=== PATIENT | male | born 1970 | race Caucasian/White ===

== ENCOUNTER 2019-07-24 14:24 | Emergency (ER) | payer MEDICARE, MEDICAID, SELFPAY ==
[2019-07-24 14:29] VITALS: BP 173/119; PULSE 128; RESP 16; TEMP 36.6; O2SAT 99; BMI 29.2
--- NOTE | 2019-07-24 14:39 | W.ED.BACK ---
Documented by User: JULIA Ackerman 07/29/19 07:04 HPI - Back Pain/Injury General: Chief Complaint: Back Pain/Injury Stated Complaint: BACK PAIN/V Time Seen by Provider: 07/24/19 14:39 Source: patient Mode of arrival: ambulatory Limitations: no limitations History of Present Illness: HPI Narrative: Patient is a 48-year-old male with a history of type 1 diabetes here for complaints of nausea/vomiting and back pain; patient states back pain began yesterday after he bent over and felt his back go out immediately ; reports his back will go out about once a year; he denies pain radiating into his lower extremities; denies numbness, tingling, loss of sensation, weakness, saddle anesthesia, urinary retention or bowel incontinence; he reports he has been hospitalized previously for the nausea and vomiting; complains of epigastric pain MD elicited complaint: back pain Pertinent past history: prior back pain Onset (ago): day(s) Timing: constant Severity: moderate Similar Symptoms Previously: Yes Radiation: none Exacerbating factors: movement, sitting upright and coughing/sneezing Relieving factors: none Context: bending Associated symptoms: Reports abdominal pain, nausea and vomiting; Deny chills, difficulty walking, dysuria, fever(s) or syncope Work related injury: No Review of Systems Const: Denies: fever, chills or body aches Eyes: Denies: change in vision or blurry vision Card: Denies: chest pain, palpitations, irregular heart rhythm, lightheadedness, syncope or shortness of breath on exertion Resp: Denies: shortness of breath, productive cough or pain on inspiration GI: Reports: abdominal pain, nausea, vomiting and heartburn/indigestion; Denies: vomiting blood, difficulty swallowing or diarrhea : Denies: difficulty urinating or painful urination Musc: Reports: back pain; Denies: neck pain, extremity pain, extremity swelling, joint pain, joint swelling, redness, joint warmth, joint stiffness, muscle cramps or muscle weakness Skin/Breast: Denies: rash Neuro: Denies: headache, numbness in extremities, weakness in extremities, changes in sensation, lack of coordination, difficulty walking, frequent falls or dizziness PFSH ED PFSH: Statuses (acute, chronic, etc) shown below reflect problem list status as previously entered and may not be historically accurate Social History Smoking and tobacco status: current every day smoker Physical Exam Const: COMMON NORMALS: average body habitus, oriented x3, no limitations, alert and well nourished GENERAL APPEARANCE: cooperative Neck/C-Spine: COMMON NORMALS: full ROM, no lymphadenopathy, supple and no meningeal signs Chest: COMMONS NORMALS: inspection of chest normal Resp: COMMON NORMALS: normal respiratory effort and clear to auscultation bilaterally AUSCULTATION: clear to auscultation bilaterally Cardio: COMMON NORMALS: regular rhythm RATE: tachycardic RHYTHM: regular rhythm GI: COMMON NORMALS: soft to palpation, no hepatosplenomegaly and no masses PALPATION: Yes soft, Yes tender (epigastric ) and Yes no hepatosplenomegaly Back/Pelvis: THORACIC SPINE/UPPER BACK: Yes normal to inspection, Yes thoracic ROM normal and No thoracic spinal tenderness LUMBAR SPINE/LOWER BACK: Yes lumbar spinal tenderness (mid-lower), No paraspinal muscle tenderness and No paraspinal muscle spasm Neuro: COMMON NORMALS: oriented x3 SENSORIUM/ORIENTATION: Yes alert MENINGEAL SIGNS: Yes no meningeal signs Skin: COMMON NORMALS: no rashes or lesions noted GENERAL SKIN EXAM: no rashes or lesions noted Course Vital Signs: Vital signs: Vital Signs Temperature 98.6 F 07/24/19 20:17 Pulse Rate 94 07/24/19 20:17 Respiratory Rate 16 07/24/19 20:17 Blood Pressure 147/93 07/24/19 20:17 Pulse Oximetry 97 07/24/19 20:17 MDM - Back Pain/Injury MDM Narrative: Medical decision making narrative: pt given more nausea meds as he continues to dry heave; he is still tachycardic so will start him on a second liter of fluids; will check a lactate; he has mild metabolic acidosis with compensatory respiratory alkalosis; will continue to monitor and admit if needed; Dr. Spann aware of patient; will sign out to Brien Falk PA-C at shift change. Lab Data: Labs: Lab Results 07/24/19 07/24/19 07/24/19 Range/Units 14:07 15:22 15:22 WBC (4.0-10.0) 10^3/ uL RBC (4.1-5.3) 10^6/u L Hgb (11.7-16.6) g/dL Hct (42.0-52.0) % MCV (80-94) fL MCH (28.0-34.0) pg MCHC (30.0-36.0) g/dL RDW (12.1-15.1) % Plt Count (130-400) 10^3/c mm MPV (7.4-10.4) fL Neut % (Auto) % Lymph % (Auto) % Concho % (Auto) % Eos % (Auto) % Baso % (Auto) % Neut # (Auto) (1.8-7.7) 10^3/u L Lymph # (Auto) (0.8-4.8) 10^3/u L Concho # (Auto) (0.2-0.9) 10^3/u L Eos # (Auto) (0.0-0.8) 10^3/u L Baso # (Auto) (0.0-0.1) 10^3/u L Nucleated RBC % (a uto) % Nucleated RBCs # /100WBC Specimen Type Arterial Sample Site Radial, right ABG pH 7.50 H (7.35-7.45) ABG pCO2 27.1 L (35-45) mmHg ABG pO2 79.7 L (80.0-100.0) mmH g ABG HCO3 21.3 L (22-26) mmol/L ABG O2 Saturation 97.3 ABG Base Excess -0.3 (-2.0-2.0) mmol/ L Red Test Pos A-a O2 Gradient 37.3 H (5-10) mmHg Hematocrit 47.4 (42-52) % Hgb O2 Saturation 98.9 (95-100) % Carboxyhemoglobin 0.4 (0.4-20.1) %THgb Total Hemoglobin 15.5 (14-18) g/dL Sodium 143.0 (131-143) mmol/L Potassium 3.4 L (3.5-5.0) mmol/L Glucose 253.0 H (70-115) mg/dL Ionized Calcium 1.1 (1.1-1.4) mmol/L O2 Delivery Device Room air Store Operations Specialist ID [id number] Chloride (98-107) mmol/L Carbon Dioxide (22-29) mmol/L Anion Gap (5-19) BUN (6-20) mg/dL Creatinine (0.7-1.2) mg/dL GFR Calculation (90-130) mL/min Lactate (0.5-2.2) mmol/L Calcium (8.6-10.0) mg/Dl Total Bilirubin (0.15-1.2) mg/dL AST (0-40) U/L ALT (0-41) U/L Alkaline Phosphata se (40-130) IU/L Total Protein (6.6-8.7) g/dL Albumin (3.5-5.2) g/dL Globulin (1.3-4.6) g/dL Lipase (13-60) U/L Urine Color Yellow (Yellow) Urine Appearance Clear (CLEAR) Urine pH 7 (5-7) Ur Specific Gravit y 1.010 (1.005-1.030) Urine Protein Neg (Negative) Urine Glucose (UA) 4+ H (Normal) Urine Ketones 2+ H (Negative) Urine Occult Blood Neg (Negative) Urine Nitrate Negative (Negative) Urine Bilirubin Neg (NEGATIVE) Urine Urobilinogen Norm (Negative) mg/dL Ur Leukocyte Brittany ase Negative (Negative) Urine Opiates Scre en Negative (Negative) ng/mL Ur Barbiturates Sc reen Negative (Negative) ng/mL Ur Phencyclidine S crn Negative (Negative) ng/mL Ur Amphetamines Sc reen Negative (Negative) ng/mL U Benzodiazepines Scrn Negative (Negative) ng/mL Urine Cocaine Scre en Negative (Negative) ng/mL U Marijuana (THC) Screen Positive H (Negative) ng/mL Serum Ketones (Negative) 07/24/19 07/24/19 07/24/19 Range/Units 15:33 15:33 15:33 WBC 12.8 H (4.0-10.0) 10^3/ uL RBC 5.54 H (4.1-5.3) 10^6/u L Hgb 16.4 (11.7-16.6) g/dL Hct 47.4 (42.0-52.0) % MCV 85.6 (80-94) fL MCH 29.6 (28.0-34.0) pg MCHC 34.6 (30.0-36.0) g/dL RDW 11.8 L (12.1-15.1) % Plt Count 300 (130-400) 10^3/c mm MPV 10.1 (7.4-10.4) fL Neut % (Auto) 82.4 % Lymph % (Auto) 13.4 % Concho % (Auto) 3.2 % Eos % (Auto) 0.2 % Baso % (Auto) 0.5 % Neut # (Auto) 10.6 H (1.8-7.7) 10^3/u L Lymph # (Auto) 1.7 (0.8-4.8) 10^3/u L Concho # (Auto) 0.4 (0.2-0.9) 10^3/u L Eos # (Auto) 0.0 (0.0-0.8) 10^3/u L Baso # (Auto) 0.1 (0.0-0.1) 10^3/u L Nucleated RBC % (a uto) 0 % Nucleated RBCs # 0.0 /100WBC Specimen Type Sample Site ABG pH (7.35-7.45) ABG pCO2 (35-45) mmHg ABG pO2 (80.0-100.0) mmH g ABG HCO3 (22-26) mmol/L ABG O2 Saturation ABG Base Excess (-2.0-2.0) mmol/ L Red Test A-a O2 Gradient (5-10) mmHg Hematocrit (42-52) % Hgb O2 Saturation (95-100) % Carboxyhemoglobin (0.4-20.1) %THgb Total Hemoglobin (14-18) g/dL Sodium 137 (131-143) mmol/L Potassium 3.7 (3.5-5.0) mmol/L Glucose 311 H (70-115) mg/dL Ionized Calcium (1.1-1.4) mmol/L O2 Delivery Device Store Operations Specialist ID Chloride 96 L (98-107) mmol/L Carbon Dioxide 22 (22-29) mmol/L Anion Gap 22.7 H (5-19) BUN 22 H (6-20) mg/dL Creatinine 1.1 (0.7-1.2) mg/dL GFR Calculation 70.9 L (90-130) mL/min Lactate (0.5-2.2) mmol/L Calcium 10.6 H (8.6-10.0) mg/Dl Total Bilirubin 0.6 (0.15-1.2) mg/dL AST 15 (0-40) U/L ALT 19 (0-41) U/L Alkaline Phosphata se 97 (40-130) IU/L Total Protein 8.0 (6.6-8.7) g/dL Albumin 4.7 (3.5-5.2) g/dL Globulin 3.3 (1.3-4.6) g/dL Lipase 11 L (13-60) U/L Urine Color (Yellow) Urine Appearance (CLEAR) Urine pH (5-7) Ur Specific Gravit y (1.005-1.030) Urine Protein (Negative) Urine Glucose (UA) (Normal) Urine Ketones (Negative) Urine Occult Blood (Negative) Urine Nitrate (Negative) Urine Bilirubin (NEGATIVE) Urine Urobilinogen (Negative) mg/dL Ur Leukocyte Brittany ase (Negative) Urine Opiates Scre en (Negative) ng/mL Ur Barbiturates Sc reen (Negative) ng/mL Ur Phencyclidine S crn (Negative) ng/mL Ur Amphetamines Sc reen (Negative) ng/mL U Benzodiazepines Scrn (Negative) ng/mL Urine Cocaine Scre en (Negative) ng/mL U Marijuana (THC) Screen (Negative) ng/mL Serum Ketones Negative (Negative) 07/24/19 Range/Units 17:15 WBC (4.0-10.0) 10^3/ uL RBC (4.1-5.3) 10^6/u L Hgb (11.7-16.6) g/dL Hct (42.0-52.0) % MCV (80-94) fL MCH (28.0-34.0) pg MCHC (30.0-36.0) g/dL RDW (12.1-15.1) % Plt Count (130-400) 10^3/c mm MPV (7.4-10.4) fL Neut % (Auto) % Lymph % (Auto) % Concho % (Auto) % Eos % (Auto) % Baso % (Auto) % Neut # (Auto) (1.8-7.7) 10^3/u L Lymph # (Auto) (0.8-4.8) 10^3/u L Concho # (Auto) (0.2-0.9) 10^3/u L Eos # (Auto) (0.0-0.8) 10^3/u L Baso # (Auto) (0.0-0.1) 10^3/u L Nucleated RBC % (a uto) % Nucleated RBCs # /100WBC Specimen Type Sample Site ABG pH (7.35-7.45) ABG pCO2 (35-45) mmHg ABG pO2 (80.0-100.0) mmH g ABG HCO3 (22-26) mmol/L ABG O2 Saturation ABG Base Excess (-2.0-2.0) mmol/ L Red Test A-a O2 Gradient (5-10) mmHg Hematocrit (42-52) % Hgb O2 Saturation (95-100) % Carboxyhemoglobin (0.4-20.1) %THgb Total Hemoglobin (14-18) g/dL Sodium (131-143) mmol/L Potassium (3.5-5.0) mmol/L Glucose (70-115) mg/dL Ionized Calcium (1.1-1.4) mmol/L O2 Delivery Device Store Operations Specialist ID Chloride (98-107) mmol/L Carbon Dioxide (22-29) mmol/L Anion Gap (5-19) BUN (6-20) mg/dL Creatinine (0.7-1.2) mg/dL GFR Calculation (90-130) mL/min Lactate 1.4 (0.5-2.2) mmol/L Calcium (8.6-10.0) mg/Dl Total Bilirubin (0.15-1.2) mg/dL AST (0-40) U/L ALT (0-41) U/L Alkaline Phosphata se (40-130) IU/L Total Protein (6.6-8.7) g/dL Albumin (3.5-5.2) g/dL Globulin (1.3-4.6) g/dL Lipase (13-60) U/L Urine Color (Yellow) Urine Appearance (CLEAR) Urine pH (5-7) Ur Specific Gravit y (1.005-1.030) Urine Protein (Negative) Urine Glucose (UA) (Normal) Urine Ketones (Negative) Urine Occult Blood (Negative) Urine Nitrate (Negative) Urine Bilirubin (NEGATIVE) Urine Urobilinogen (Negative) mg/dL Ur Leukocyte Brittany ase (Negative) Urine Opiates Scre en (Negative) ng/mL Ur Barbiturates Sc reen (Negative) ng/mL Ur Phencyclidine S crn (Negative) ng/mL Ur Amphetamines Sc reen (Negative) ng/mL U Benzodiazepines Scrn (Negative) ng/mL Urine Cocaine Scre en (Negative) ng/mL U Marijuana (THC) Screen (Negative) ng/mL Serum Ketones (Negative) EKG Data^: EKG 1: EKG interpretation date: 07/24/19 EKG interpretation time: 16:50 Interpretation: Sinus tachycardia Rate [address] elevation or depression noted Discharge Plan Discharge Patient Disposition: Home, Self-Care Clinical Impression: Nausea & vomiting Qualifiers: Vomiting type: unspecified Vomiting Intractability: intractable Qualified Code(s): R11.2 - Nausea with vomiting, unspecified Strain of lumbar region Qualifiers: Encounter type: initial encounter Qualified Code(s): S39.012A - Strain of muscle, fascia and tendon of lower back, initial encounter Condition: Stable Prescriptions: New tizanidine 2 mg tablet 2 mg PO TID PRN (Reason: muscle spasticity) Qty: 20 RF: 0 promethazine 25 mg tablet 25 mg PO Q6H PRN (Reason: nausea and vomiting) Qty: 20 RF: 0 Discharge Orders: Discharge Order (Routine); Ordered 07/24/19 Ordered By: Brien Falk Referrals: Eugenie Jay MD [Family Provider] - Discharge Diet: Advance as tolerated and Regular Discharge Activity: Increase activity as tolerated Activity Restrictions/Additional Instructions: Call your primary care doctor and set up an appointment with them in the next 7 days for reevaluation. Take Robaxin (Muscle Relaxer) as prescribed at night before bed, since it can cause some mild sedation. Take Phenergan as prescribed as needed for nausea and vomiting. Take Aleve for back pain and inflammation. Apply ice and or warm moist heat to painful area on back for relief. Discharge Date/Time: 07/24/19 20:19 Sign Out Sign Out Data: Patient Sign Out occurred on 07/24/19 at 17:15. Patient's care was discussed, and care was transferred from to JULIA De. Coding Level of Care Code ED Hot Die Press Operator for Chg Fwd Exam Problem Focused Documented by User: JULIA De 07/25/19 03:20 HPI - Back Pain/Injury General: Chief Complaint: Back Pain/Injury Stated Complaint: BACK PAIN/V Time Seen by Provider: 07/24/19 14:39 PFSH ED PFSH: Statuses (acute, chronic, etc) shown below reflect problem list status as previously entered and may not be historically accurate Social History Smoking and tobacco status: current every day smoker Course ED course: Patient's nausea and vomiting was finally controlled after Reglan was given. Patient says he feels better and is able to stand up and eat anxious about having any nausea or vomiting. Vital Signs: Vital signs: Vital Signs Temperature 98.6 F 07/24/19 20:17 Pulse Rate 94 07/24/19 20:17 Respiratory Rate 16 07/24/19 20:17 Blood Pressure 147/93 07/24/19 20:17 Pulse Oximetry 97 07/24/19 20:17 MDM - Back Pain/Injury Lab Data: Labs: Lab Results 07/24/19 07/24/19 07/24/19 Range/Units 14:07 15:22 15:22 WBC (4.0-10.0) 10^3/ uL RBC (4.1-5.3) 10^6/u L Hgb (11.7-16.6) g/dL Hct (42.0-52.0) % MCV (80-94) fL MCH (28.0-34.0) pg MCHC (30.0-36.0) g/dL RDW (12.1-15.1) % Plt Count (130-400) 10^3/c mm MPV (7.4-10.4) fL Neut % (Auto) % Lymph % (Auto) % Concho % (Auto) % Eos % (Auto) % Baso % (Auto) % Neut # (Auto) (1.8-7.7) 10^3/u L Lymph # (Auto) (0.8-4.8) 10^3/u L Concho # (Auto) (0.2-0.9) 10^3/u L Eos # (Auto) (0.0-0.8) 10^3/u L Baso # (Auto) (0.0-0.1) 10^3/u L Nucleated RBC % (a uto) % Nucleated RBCs # /100WBC Specimen Type Arterial Sample Site Radial, right ABG pH 7.50 H (7.35-7.45) ABG pCO2 27.1 L (35-45) mmHg ABG pO2 79.7 L (80.0-100.0) mmH g ABG HCO3 21.3 L (22-26) mmol/L ABG O2 Saturation 97.3 ABG Base Excess -0.3 (-2.0-2.0) mmol/ L Red Test Pos A-a O2 Gradient 37.3 H (5-10) mmHg Hematocrit 47.4 (42-52) % Hgb O2 Saturation 98.9 (95-100) % Carboxyhemoglobin 0.4 (0.4-20.1) %THgb Total Hemoglobin 15.5 (14-18) g/dL Sodium 143.0 (131-143) mmol/L Potassium 3.4 L (3.5-5.0) mmol/L Glucose 253.0 H (70-115) mg/dL Ionized Calcium 1.1 (1.1-1.4) mmol/L O2 Delivery Device Room air Store Operations Specialist ID [id number] Chloride (98-107) mmol/L Carbon Dioxide (22-29) mmol/L Anion Gap (5-19) BUN (6-20) mg/dL Creatinine (0.7-1.2) mg/dL GFR Calculation (90-130) mL/min Lactate (0.5-2.2) mmol/L Calcium (8.6-10.0) mg/Dl Total Bilirubin (0.15-1.2) mg/dL AST (0-40) U/L ALT (0-41) U/L Alkaline Phosphata se (40-130) IU/L Total Protein (6.6-8.7) g/dL Albumin (3.5-5.2) g/dL Globulin (1.3-4.6) g/dL Lipase (13-60) U/L Urine Color Yellow (Yellow) Urine Appearance Clear (CLEAR) Urine pH 7 (5-7) Ur Specific Gravit y 1.010 (1.005-1.030) Urine Protein Neg (Negative) Urine Glucose (UA) 4+ H (Normal) Urine Ketones 2+ H (Negative) Urine Occult Blood Neg (Negative) Urine Nitrate Negative (Negative) Urine Bilirubin Neg (NEGATIVE) Urine Urobilinogen Norm (Negative) mg/dL Ur Leukocyte Brittany ase Negative (Negative) Urine Opiates Scre en Negative (Negative) ng/mL Ur Barbiturates Sc reen Negative (Negative) ng/mL Ur Phencyclidine S crn Negative (Negative) ng/mL Ur Amphetamines Sc reen Negative (Negative) ng/mL U Benzodiazepines Scrn Negative (Negative) ng/mL Urine Cocaine Scre en Negative (Negative) ng/mL U Marijuana (THC) Screen Positive H (Negative) ng/mL Serum Ketones (Negative) 07/24/19 07/24/19 07/24/19 Range/Units 15:33 15:33 15:33 WBC 12.8 H (4.0-10.0) 10^3/ uL RBC 5.54 H (4.1-5.3) 10^6/u L Hgb 16.4 (11.7-16.6) g/dL Hct 47.4 (42.0-52.0) % MCV 85.6 (80-94) fL MCH 29.6 (28.0-34.0) pg MCHC 34.6 (30.0-36.0) g/dL RDW 11.8 L (12.1-15.1) % Plt Count 300 (130-400) 10^3/c mm MPV 10.1 (7.4-10.4) fL Neut % (Auto) 82.4 % Lymph % (Auto) 13.4 % Concho % (Auto) 3.2 % Eos % (Auto) 0.2 % Baso % (Auto) 0.5 % Neut # (Auto) 10.6 H (1.8-7.7) 10^3/u L Lymph # (Auto) 1.7 (0.8-4.8) 10^3/u L Concho # (Auto) 0.4 (0.2-0.9) 10^3/u L Eos # (Auto) 0.0 (0.0-0.8) 10^3/u L Baso # (Auto) 0.1 (0.0-0.1) 10^3/u L Nucleated RBC % (a uto) 0 % Nucleated RBCs # 0.0 /100WBC Specimen Type Sample Site ABG pH (7.35-7.45) ABG pCO2 (35-45) mmHg ABG pO2 (80.0-100.0) mmH g ABG HCO3 (22-26) mmol/L ABG O2 Saturation ABG Base Excess (-2.0-2.0) mmol/ L Red Test A-a O2 Gradient (5-10) mmHg Hematocrit (42-52) % Hgb O2 Saturation (95-100) % Carboxyhemoglobin (0.4-20.1) %THgb Total Hemoglobin (14-18) g/dL Sodium 137 (131-143) mmol/L Potassium 3.7 (3.5-5.0) mmol/L Glucose 311 H (70-115) mg/dL Ionized Calcium (1.1-1.4) mmol/L O2 Delivery Device Store Operations Specialist ID Chloride 96 L (98-107) mmol/L Carbon Dioxide 22 (22-29) mmol/L Anion Gap 22.7 H (5-19) BUN 22 H (6-20) mg/dL Creatinine 1.1 (0.7-1.2) mg/dL GFR Calculation 70.9 L (90-130) mL/min Lactate (0.5-2.2) mmol/L Calcium 10.6 H (8.6-10.0) mg/Dl Total Bilirubin 0.6 (0.15-1.2) mg/dL AST 15 (0-40) U/L ALT 19 (0-41) U/L Alkaline Phosphata se 97 (40-130) IU/L Total Protein 8.0 (6.6-8.7) g/dL Albumin 4.7 (3.5-5.2) g/dL Globulin 3.3 (1.3-4.6) g/dL Lipase 11 L (13-60) U/L Urine Color (Yellow) Urine Appearance (CLEAR) Urine pH (5-7) Ur Specific Gravit y (1.005-1.030) Urine Protein (Negative) Urine Glucose (UA) (Normal) Urine Ketones (Negative) Urine Occult Blood (Negative) Urine Nitrate (Negative) Urine Bilirubin (NEGATIVE) Urine Urobilinogen (Negative) mg/dL Ur Leukocyte Brittany ase (Negative) Urine Opiates Scre en (Negative) ng/mL Ur Barbiturates Sc reen (Negative) ng/mL Ur Phencyclidine S crn (Negative) ng/mL Ur Amphetamines Sc reen (Negative) ng/mL U Benzodiazepines Scrn (Negative) ng/mL Urine Cocaine Scre en (Negative) ng/mL U Marijuana (THC) Screen (Negative) ng/mL Serum Ketones Negative (Negative) 07/24/19 Range/Units 17:15 WBC (4.0-10.0) 10^3/ uL RBC (4.1-5.3) 10^6/u L Hgb (11.7-16.6) g/dL Hct (42.0-52.0) % MCV (80-94) fL MCH (28.0-34.0) pg MCHC (30.0-36.0) g/dL RDW (12.1-15.1) % Plt Count (130-400) 10^3/c mm MPV (7.4-10.4) fL Neut % (Auto) % Lymph % (Auto) % Concho % (Auto) % Eos % (Auto) % Baso % (Auto) % Neut # (Auto) (1.8-7.7) 10^3/u L Lymph # (Auto) (0.8-4.8) 10^3/u L Concho # (Auto) (0.2-0.9) 10^3/u L Eos # (Auto) (0.0-0.8) 10^3/u L Baso # (Auto) (0.0-0.1) 10^3/u L Nucleated RBC % (a uto) % Nucleated RBCs # /100WBC Specimen Type Sample Site ABG pH (7.35-7.45) ABG pCO2 (35-45) mmHg ABG pO2 (80.0-100.0) mmH g ABG HCO3 (22-26) mmol/L ABG O2 Saturation ABG Base Excess (-2.0-2.0) mmol/ L Red Test A-a O2 Gradient (5-10) mmHg Hematocrit (42-52) % Hgb O2 Saturation (95-100) % Carboxyhemoglobin (0.4-20.1) %THgb Total Hemoglobin (14-18) g/dL Sodium (131-143) mmol/L Potassium (3.5-5.0) mmol/L Glucose (70-115) mg/dL Ionized Calcium (1.1-1.4) mmol/L O2 Delivery Device Store Operations Specialist ID Chloride (98-107) mmol/L Carbon Dioxide (22-29) mmol/L Anion Gap (5-19) BUN (6-20) mg/dL Creatinine (0.7-1.2) mg/dL GFR Calculation (90-130) mL/min Lactate 1.4 (0.5-2.2) mmol/L Calcium (8.6-10.0) mg/Dl Total Bilirubin (0.15-1.2) mg/dL AST (0-40) U/L ALT (0-41) U/L Alkaline Phosphata se (40-130) IU/L Total Protein (6.6-8.7) g/dL Albumin (3.5-5.2) g/dL Globulin (1.3-4.6) g/dL Lipase (13-60) U/L Urine Color (Yellow) Urine Appearance (CLEAR) Urine pH (5-7) Ur Specific Gravit y (1.005-1.030) Urine Protein (Negative) Urine Glucose (UA) (Normal) Urine Ketones (Negative) Urine Occult Blood (Negative) Urine Nitrate (Negative) Urine Bilirubin (NEGATIVE) Urine Urobilinogen (Negative) mg/dL Ur Leukocyte Brittany ase (Negative) Urine Opiates Scre en (Negative) ng/mL Ur Barbiturates Sc reen (Negative) ng/mL Ur Phencyclidine S crn (Negative) ng/mL Ur Amphetamines Sc reen (Negative) ng/mL U Benzodiazepines Scrn (Negative) ng/mL Urine Cocaine Scre en (Negative) ng/mL U Marijuana (THC) Screen (Negative) ng/mL Serum Ketones (Negative) Discharge Plan Discharge Patient Disposition: Home, Self-Care Clinical Impression: Nausea & vomiting Qualifiers: Vomiting type: unspecified Vomiting Intractability: intractable Qualified Code(s): R11.2 - Nausea with vomiting, unspecified Strain of lumbar region Qualifiers: Encounter type: initial encounter Qualified Code(s): S39.012A - Strain of muscle, fascia and tendon of lower back, initial encounter Condition: Stable Prescriptions: New tizanidine 2 mg tablet 2 mg PO TID PRN (Reason: muscle spasticity) Qty: 20 RF: 0 promethazine 25 mg tablet 25 mg PO Q6H PRN (Reason: nausea and vomiting) Qty: 20 RF: 0 Discharge Orders: Discharge Order (Routine); Ordered 07/24/19 Ordered By: Brien Falk Referrals: Eugenie Jay MD [Family Provider] - Discharge Diet: Advance as tolerated and Regular Discharge Activity: Increase activity as tolerated Activity Restrictions/Additional Instructions: Call your primary care doctor and set up an appointment with them in the next 7 days for reevaluation. Take Robaxin (Muscle Relaxer) as prescribed at night before bed, since it can cause some mild sedation. Take Phenergan as prescribed as needed for nausea and vomiting. Take Aleve for back pain and inflammation. Apply ice and or warm moist heat to painful area on back for relief. Discharge Date/Time: 07/24/19 20:19 Sign Out Sign Out Data: Patient Sign Out occurred on 07/24/19 at 17:15. Patient's care was discussed, and care was transferred from to JULIA De. Coding Level of Care Code ED Hot Die Press Operator for Diana Robles Exam Problem Focused
[2019-07-24 15:34] VITALS: RESP 16
[2019-07-24] MEDS: ondansetron 2 mg/ML SDV 2 mL 4 MG IVP (15:34)
[2019-07-24] MEDS: morphine 4 mg/mL SDV 1 mL IVP (15:34)
[2019-07-24] MEDS: sodium chloride 0.9% 1,000 ML 999 ML IV ×2 (15:35→17:05)
[2019-07-24 15:39] LABS: Add Urine Microscopic? NO
[2019-07-24 15:47] LABS: Basophils # 0.1 10^3/uL (0.0-0.1); Basophils % 0.5 %; Eosinophils % 0.2 %; Hematocrit 47.4 % (42.0-52.0); Hemoglobin 16.4 g/dL (11.7-16.6); Lymphocytes # 1.7 10^3/uL (0.8-4.8); Lymphocytes % 13.4 %; Mean Corpuscular HGB Conc 34.6 g/dL (30.0-36.0); Mean Corpuscular Hemoglobin 29.6 pg (28.0-34.0); Mean Corpuscular Volume 85.6 fL (80-94); Mean Platelet Volume 10.1 fL (7.4-10.4); Monocytes # 0.4 10^3/uL (0.2-0.9); Monocytes % 3.2 %; Neutrophils # 10.6 10^3/uL (1.8-7.7); Neutrophils % 82.4 %; Nucleated Red Blood Cells % 0 %; Platelet Count 300 10^3/cmm (130-400); Red Blood Count 5.54 10^6/uL (4.1-5.3); Red Cell Distribution Width 11.8 % (12.1-15.1); White Blood Count 12.8 10^3/uL (4.0-10.0)
[2019-07-24 15:49] LABS: Urine Appearance Clear (CLEAR); Urine Color Yellow (Yellow); pH Urine 7 (5-7)
[2019-07-24 15:50] LABS: Blood Urine Neg (Negative); Glucose Urine UA 4+ (Normal); Ketones Urine 2+ (Negative); Protein Urine Neg (Negative)
[2019-07-24 15:51] LABS: Bilirubin Urine Neg (NEGATIVE); Leukocyte Esterase Urine Negative (Negative); Nitrate Urine Negative (Negative); Urobilinogen Urine Norm (Negative)
[2019-07-24 15:58] LABS: Alanine Aminotransferase 19 U/L (0-41); Albumin Level 4.7 g/dL (3.5-5.2); Alkaline Phosphatase 97 IU/L (40-130); Anion Gap 22.7 (5-19); Aspartate Amino Transferase 15 U/L (0-40); Blood Urea Nitrogen 22 mg/dL (6-20); Calcium 10.6 mg/Dl (8.6-10.0); Carbon Dioxide 22 mmol/L (22-29); Chloride 96 mmol/L (98-107); Globulin 3.3 g/dL (1.3-4.6); Glomerular Filtration Rate 70.9 mL/min (90-130); Glucose 311 mg/dL (74-109); Lipase 11 U/L (13-60); Potassium 3.7 mmol/L (3.5-5.1); Sodium 137 mmol/L (136-145); Total Bilirubin 0.6 mg/dL (0.15-1.2)
[2019-07-24 15:59] LABS: Ketone (Acetest) Serum Negative (Negative)
[2019-07-24 16:09] LABS: Amphetamines Screen Urine Negative (Negative); Barbiturates Screen Urine Negative (Negative); Benzodiazepines Screen Urine Negative (Negative); Cocaine Screen Urine Negative (Negative); Opiate Screen Urine Negative (Negative); PCP Screen Urine Negative (Negative); THC Screen Urine Positive (Negative)
[2019-07-24 16:14] LABS: ABG PCO2 27.1 mmHg (35-45); Alveolar-Arterial Oxygen Gradi 37.3 mmHg (5-10); Arterial Blood Gas Hematocrit 47.4 % (42-52); Base Excess ABG -0.3 mmol/L (-2.0-2.0); Blood Gas Allen Test Pos; Blood Gas Sample Site Radial, right; Blood Gas Sample Type Arterial; Carboxyhemoglobin 0.4 %THgb (0.4-20.1); HCO3 ABG 21.3 mmol/L (22-26); HGB O2 Sat 98.9 % (95-100); Ionized Calcium Level - ABG 1.1 mmol/L (1.1-1.4); Oxygen Saturation ABG 97.3; PO2 ABG 79.7 mmHg (80.0-100.0); Potassium Level - ABG 3.4 mmol/L (3.5-5.0); Total Hemoglobin 15.5 g/dL (14-18)
[2019-07-24 16:19] LABS: Oxygen Device ROOM AIR
[2019-07-24] MEDS: metoclopramide 5 mg/mL SDV 2 mL 10 MG IVP (16:39)
--- NOTE | 2019-07-24 16:45 | ECG_ITS ---
Measurements Intervals [place] Rate: 112 P: 65 SD: 144 QRS: -44 QRSD: 97 T: 61 QT: 334 QTc: 457 SINUS TACHYCARDIA POSSIBLE LEFT ATRIAL ENLARGEMENT [-0.1mV P WAVE IN V1/V2] MARKED LEFT AXIS DEVIATION [QRS AXIS < -30] WARNING: DATA QUALITY MAY AFFECT INTERPRETATION Compared to ECG 05/16/2019 18:39:49 Left-axis deviation now present Left anterior fascicular block no longer present Electronically Signed On 07-24-2019 22:28:22 DIE CLEANER by Osman Meza M.D. [email or web address]
[2019-07-24] MEDS: promethazine 25 mg Tablet PO (17:03)
[2019-07-24] MEDS: lisinopril 10 mg Tablet 20 MG PO (17:03)
[2019-07-24 17:33] LABS: Lactate (Lactic Acid level) 1.4 mmol/L (0.5-2.2)
--- NOTE | 2019-07-24 19:07 | PC.NURSE ---
Patient requested ice chips, asked physician and he was okay to have ice chips. Patient ate a bite with no problem.
[2019-07-24 19:17] VITALS: BP 143/97; PULSE 125; RESP 18; O2SAT 99
[2019-07-24 20:17] VITALS: BP 147/93; PULSE 94; RESP 16; TEMP 37; O2SAT 97
== END 2019-07-24 20:19 | disposition home or self-care (01) ==
PROVIDERS: Physician Assistant; Emergency Provider Physician Assistant; Family Provider Internal Medicine
DX: S39.012A Strain of muscle, fascia and tendon of lower back, initial encounter (principal); X50.1XXA Overexertion from prolonged static or awkward postures, initial encounter; E10.9 Type 1 diabetes mellitus without complications
CPT/HCPCS: 36415; 36600; 80051; 80053; 80307; 81003; 82009; 82810; 83605; 83690; 83986; 85025; 93005; 96360; 96361; 96374; 99282; J2270; J2405; J2765; J7030; Q0169

== ENCOUNTER 2019-09-06 15:12 | Emergency (ER) | payer MEDICARE, MEDICAID, SELFPAY ==
[2019-09-06 15:30] VITALS: BP 219/140; PULSE 118; RESP 18; TEMP 37; O2SAT 97; BMI 30.7
--- NOTE | 2019-09-06 15:33 | ED_ITS ---
Entered by Clair Rivers, acting as scribe for Sandor Ewing MD HPI - Nausea/Vomiting/Diarrhea General: Chief complaint: General Medical Stated complaint: puking Time Seen by Provider: 09/06/19 15:32 Source: patient and RN notes reviewed Mode of arrival: ambulatory Limitations: no limitations History of Present Illness: HPI Narrative: 49 yo male presents to ED with complaints of abdominal pain, vomiting, and heartburn. He said this began about 0400 this morning. He is diabetic. He said he has been getting vomiting spells about once every couple of months but it is much worse this time. MD elicited complaint: nausea, vomiting and abdominal pain Pertinent past history: other (diabetic) Onset (ago): hour(s) (11.5 (0400)) Description of vomiting: other (no description) Description of diarrhea: other (no diarrhea) Associated nausea: Yes Associated abdominal pain: Yes Location of pain: Diffuse Radiation: does not radiate Pain consistency: constant Severity: moderate Quality: aching Exacerbating factors: vomiting and movement Relieving factors: none Context: other (history of same) Associated symtoms: Reports anxiety and nausea; Denies chest pain, dysuria or headache(s) Treatment prior to arrival: none Review of Systems Const: Denies: fever, chills, body aches or change in appetite Eyes: Denies: blurry vision or eye discomfort ENMT: Denies: throat pain or dental pain Card: Denies: chest pain Resp: Denies: shortness of breath GI: Reports: nausea : Denies: painful urination Musc: Denies: neck pain or back pain Skin/Breast: Denies: rash Neuro: Denies: headache Psych: Reports: anxiety Vidal/Lymph: Denies: easy bruising All/Imm: Denies: hives PFSH ED PFSH: Social History Smoking and tobacco status: former smoker Physical Exam Const: COMMON NORMALS: no apparent distress, oriented x3 and healthy appearing HENMT: COMMON NORMALS: normocephalic and head/scalp atraumatic HEAD & SCALP: normocephalic and atraumatic Eye: COMMON NORMALS: PERRL and EOMs intact bilaterally PUPIL: Yes PERRL Neck/C-Spine: COMMON NORMALS: full ROM and supple Chest: COMMONS NORMALS: inspection of chest normal and palpation of chest normal Resp: COMMON NORMALS: normal respiratory effort, no retractions, no use of accessory muscles and clear to auscultation bilaterally AUSCULTATION: clear to auscultation bilaterally Cardio: COMMON NORMALS: regular rate, regular rhythm and no murmurs RATE: regular rate RHYTHM: regular rhythm GI: COMMON NORMALS: normal to inspection, nondistended, normoactive bowel sounds, soft to palpation and no masses PALPATION: Yes soft Extremity: COMMON NORMALS: normal to inspection and full ROM Neuro: COMMON NORMALS: oriented x3, moves all extremities and no focal motor deficits Psych: COMMON NORMALS: mental status grossly normal, thought process normal and cooperative THOUGHT PROCESS: normal thought process Skin: COMMON NORMALS: no rashes or lesions noted and no wounds GENERAL SKIN EXAM: no rashes or lesions noted Course Vital Signs: Vital signs: Vital Signs Temperature 98.6 F 09/06/19 15:30 Pulse Rate 107 H 09/06/19 17:07 Respiratory Rate 20 H 09/06/19 16:25 Blood Pressure 215/126 09/06/19 17:07 Pulse Oximetry 95 09/06/19 17:07 MDM - Nausea/Vomiting/Diarrhea MDM Narrative: Medical decision making narrative: Patient presents for abdominal pain and vomiting that is chronic in nature. He does have much improvement here after Reglan. Patient states he is now pain-free and his blood pressure and heart rate have improved as well. He is not taking his blood pressure meds today likely causing his hypertension. Abdominal exam is benign he has no signs of acute surgical abdomen. Patient had a CT scan done in June that was negative. Patient is stable for discharge and is to follow-up with primary care doctor in 3 to 5 days and return if worsening. Lab Data: Labs: Lab Results 09/06/19 09/06/19 Range/Units 16:27 16:27 WBC 11.3 H (4.0-10.0) 10^3/ uL RBC 5.78 H (4.1-5.3) 10^6/u L Hgb 16.7 H (11.7-16.6) g/dL Hct 48.9 (42.0-52.0) % MCV 84.6 (80-94) fL MCH 28.9 (28.0-34.0) pg MCHC 34.2 (30.0-36.0) g/dL RDW 11.9 L (12.1-15.1) % Plt Count 322 (130-400) 10^3/c mm MPV 10.7 H (7.4-10.4) fL Neut % (Auto) 79.2 % Lymph % (Auto) 16.3 % [place] % (Auto) 3.7 % Eos % (Auto) 0.0 % Baso % (Auto) 0.4 % Neut # (Auto) 8.9 H (1.8-7.7) 10^3/u L Lymph # (Auto) 1.8 (0.8-4.8) 10^3/u L [place] # (Auto) 0.4 (0.2-0.9) 10^3/u L Eos # (Auto) 0.0 (0.0-0.8) 10^3/u L Baso # (Auto) 0.1 (0.0-0.1) 10^3/u L Nucleated RBC % (a uto) 0 % Nucleated RBCs # 0.0 /100WBC Sodium 138 (136-145) mmol/L Potassium 4.1 (3.5-5.1) mmol/L Chloride 98 (98-107) mmol/L Carbon Dioxide 21 L (22-29) mmol/L Anion Gap 23.1 H (5-19) BUN 21 H (6-20) mg/dL Creatinine 1.0 (0.7-1.2) mg/dL GFR Calculation 78.8 L (90-130) mL/min Glucose 232 H (65-115) mg/dL Calcium 10.7 H (8.5-10.5) mg/dL Total Bilirubin 0.5 (0.15-1.2) mg/dL AST 21 (0-40) U/L ALT 19 (0-41) U/L Alkaline Phosphata se 95 (40-130) IU/L Total Protein 7.9 (6.6-8.7) g/dL Albumin 4.5 (3.5-5.2) g/dL Globulin 3.4 (1.3-4.6) g/dL Lipase 6 L (13-60) U/L Discharge Plan Discharge Patient Disposition: Home, Self-Care Clinical Impression: Abdominal pain Qualifiers: Abdominal location: generalized Qualified Code(s): R10.84 - Generalized abdominal pain Vomiting Qualifiers: Vomiting type: unspecified Vomiting Intractability: non-intractable Nausea presence: with nausea Qualified Code(s): R11.2 - Nausea with vomiting, unspecified Hypertension Qualifiers: Hypertension type: essential hypertension Qualified Code(s): I10 - Essential (primary) hypertension Condition: Stable Prescriptions: New Reglan 10 mg tablet 10 mg PO Q6H PRN (Reason: nausea and vomiting) Qty: 20 RF: 0 No Action tizanidine 2 mg tablet 2 mg PO TID PRN (Reason: muscle spasticity) Qty: 20 RF: 0 promethazine 25 mg tablet 25 mg PO Q6H PRN (Reason: nausea and vomiting) Qty: 20 RF: 0 Discharge Orders: Discharge Order (Routine); Ordered 09/06/19 Ordered By: Sandor Ewing Referrals: Eugenie Jay MD [Family Provider] - 4-7 days Discharge Diet: Advance as tolerated Discharge Activity: Resume usual activity Patient Instructions: Cholecystitis (ED), Acute Nausea and Vomiting (ED), Abdominal Pain (ED) Coding Level of Care Code ED Language Interpreter for Chg Fwd Exam Comprehensive The documentation recorded by the Silvestre devine Valerie R, accurately reflects the service I personally performed and the decisions made by Kaylin xiao Korby, MD Sep 06, 2019 15:12
--- NOTE | 2019-09-06 15:52 | PC.NURSE ---
Nurse went into to start patient's IV and draw blood. Pt states, you go get the ultrasound . Nurse explained to Pt that ultrasound not available due to nobody ultrasound certified working right now. Nurse attempted IV once and pt jerked so hard that nurse removed IV. ED provider notified.
[2019-09-06 16:25] VITALS: RESP 20; O2SAT 99
[2019-09-06] MEDS: morphine 4 mg/mL SDV 1 mL IVP (16:25)
[2019-09-06] MEDS: diphenhydrAMINE 50 mg/mL SDV 1mL IVP (16:28)
[2019-09-06] MEDS: metoclopramide 5 mg/mL SDV 2 mL 10 MG IVP (16:35)
[2019-09-06 16:47] LABS: Basophils # 0.1 10^3/uL (0.0-0.1); Basophils % 0.4 %; Hematocrit 48.9 % (42.0-52.0); Hemoglobin 16.7 g/dL (11.7-16.6); Lymphocytes # 1.8 10^3/uL (0.8-4.8); Lymphocytes % 16.3 %; Mean Corpuscular HGB Conc 34.2 g/dL (30.0-36.0); Mean Corpuscular Hemoglobin 28.9 pg (28.0-34.0); Mean Corpuscular Volume 84.6 fL (80-94); Mean Platelet Volume 10.7 fL (7.4-10.4); Monocytes # 0.4 10^3/uL (0.2-0.9); Monocytes % 3.7 %; Neutrophils # 8.9 10^3/uL (1.8-7.7); Neutrophils % 79.2 %; Nucleated Red Blood Cells % 0 %; Platelet Count 322 10^3/cmm (130-400); Red Blood Count 5.78 10^6/uL (4.1-5.3); Red Cell Distribution Width 11.9 % (12.1-15.1); White Blood Count 11.3 10^3/uL (4.0-10.0)
[2019-09-06] MEDS: labetalol 5 mg/mL SDV 20mL 20 MG IVP (17:03)
[2019-09-06 17:05] LABS: Albumin Level 4.5 g/dL (3.5-5.2); Alkaline Phosphatase 95 IU/L (40-130); Blood Urea Nitrogen 21 mg/dL (6-20); Calcium 10.7 mg/dL (8.5-10.5); Carbon Dioxide 21 mmol/L (22-29); Chloride 98 mmol/L (98-107); Globulin 3.4 g/dL (1.3-4.6); Glomerular Filtration Rate 78.8 mL/min (90-130); Glucose 232 mg/dL (65-115); Lipase 6 U/L (13-60); Sodium 138 mmol/L (136-145); Total Bilirubin 0.5 mg/dL (0.15-1.2); Total Protein 7.9 g/dL (6.6-8.7)
[2019-09-06 17:07] VITALS: BP 215/126; PULSE 107; O2SAT 95
[2019-09-06 18:05] LABS: Alanine Aminotransferase 19 U/L (0-41); Anion Gap 23.1 (5-19); Aspartate Amino Transferase 21 U/L (0-40); Potassium 4.1 mmol/L (3.5-5.1)
[2019-09-06 18:07] VITALS: BP 138/90; PULSE 110; O2SAT 91
[2019-09-06 18:20] VITALS: BP 155/95; PULSE 112; O2SAT 93
== END 2019-09-06 18:20 | disposition home or self-care (01) ==
PROVIDERS: Emergency Provider Emergency Medicine; Family Provider Internal Medicine
DX: R10.9 Unspecified abdominal pain (principal); R11.10 Vomiting, unspecified; I10 Essential (primary) hypertension; E11.9 Type 2 diabetes mellitus without complications; Z87.891 Personal history of nicotine dependence
CPT/HCPCS: 80053; 83690; 85025; 96374; 96375; 99282; 99283; J1200; J2270; J2765; J3490

== ENCOUNTER 2019-09-08 07:41 | Emergency (ER) | payer MEDICARE, MEDICAID, SELFPAY ==
[2019-09-08 07:46] VITALS: BP 165/130; PULSE 114; RESP 16; TEMP 36.9; O2SAT 100; BMI 30.7
--- NOTE | 2019-09-08 07:59 | ED_ITS ---
Entered by Christine Kirkland, acting as scribe for HPI - Abdominal Pain General: Chief Complaint: Abdominal Pain Stated Complaint: N/V Time Seen by Provider: 09/08/19 07:53 Source: patient Mode of arrival: ambulatory Limitations: no limitations History of Present Illness: HPI narrative: 49 yo male presents with abdomen pain. pt states this started 3 day ago. pt states he has burning heartburn in abdomen and esophagus and lips. pt states he was seen in the ED for the same symptoms and they prescribed him Reglan but it only helped with nausea and vomiting not the abdomen pain and heartburn. pt states he is still having nausea and vomiting. pt states he has had loss of appetite. pt denies any other symptoms at this time. poor po intake over last few days MD elicited complaint: abdominal pain and other (N/V) Onset (ago): day(s) (2 days ago) Pain Consistency: constant Location: Epigastric Severity: moderate Quality: cramping and sharp Radiation: epigastric Migration to: no migration Exacerbating factors: vomiting Relieving factors: nothing Associated Symptoms: Reports belching, heartburn, nausea and vomiting; Denies coffee ground emesis, constipation, diarrhea, fever(s), hematochezia and hematemesis Treatments prior to arrival: other Review of Systems General: Reports: 10 or more systems reviewed and unremarkable except in HPI and below Const: Reports: malaise; Denies: fever ENMT: Reports: throat pain, painful swallowing and mouth pain Card: Reports: chest pain (heartburn) Resp: Denies: shortness of breath GI: Reports: abdominal pain, nausea, vomiting, heartburn/indigestion and belching; Denies: vomiting blood, coffee grounds in vomit, diarrhea, constipation or blood in stool Musc: Reports: back pain (sometimes radiates into back) PFS ED PFSH: Social History Smoking and tobacco status: never smoked Physical Exam Const: COMMON NORMALS: oriented x3 and alert; negative for healthy appearing EXAM LIMITATIONS: no altered mental status GENERAL APPEARANCE: cooperative, in distress and appears older than stated age; not diaphoretic ORIENTATION/CONSCIOUSNESS: Yes awake, Yes oriented to person and Yes oriented to place HENMT: COMMON NORMALS: normocephalic and moist oral mucous membranes HEAD & SCALP: normocephalic Eye: COMMON NORMALS: PERRL EYELID: eyelids normal PUPIL: Yes PERRL Neck/C-Spine: COMMON NORMALS: full ROM and supple Chest: COMMONS NORMALS: inspection of chest normal Resp: COMMON NORMALS: no use of accessory muscles OTHER: tachypnea related to urge to start vomiting--then vomits Cardio: COMMON NORMALS: regular rhythm RATE: tachycardic RHYTHM: regular rhythm PERIPHERAL PULSES: radial pulses present GI: PALPATION: Yes tender Neuro: COMMON NORMALS: oriented x3 SENSORIUM/ORIENTATION: Yes alert, Yes oriented to person and Yes oriented to place Psych: COMMON NORMALS: cooperative ACTIVITY/MOTOR BEHAVIOR: Yes appropriate eye contact SPEECH: Yes rapid MOOD & AFFECT: Yes irritable Course ED course: This is a 49-year-old male with poorly controlled diabetes who has suspicion for gastroparesis based on symptoms and based on retained food on a endoscopy and 2019 on December 11. At that time the patient's EGD showed esophagitis, gastritis, and duodenitis. Patient has been seen with symptoms of the aforementioned several times. He has ongoing symptoms. He was prescribed Reglan which he did not fill. Patient is not reportedly taking any PPI or any specific medication for his symptoms. Therefore, he is uncontrolled and presents for treatment. Have given him a GI cocktail, Pepcid, fluids, checked his electrolytes, checked his acid-base status, etc. He has what appears to be reactive leukocytosis. He was given Haldol and Benadryl for his agitation, a nxiety, and apparent cyclical vomiting related to his esophagitis and gastritis. This did help him calm down and improved his nausea. The GI cocktail was then able to be given and this helped. Ultimately, the patient started to have some nausea again and was given Reglan. Since there is no sign of hemorrhage or toxicity and the patient is essentially untreated will discharge with instructions to use Reglan, omeprazole, Carafate, and Maalox. Vital Signs: Vital signs: Vital Signs Temperature 98.5 F 09/08/19 07:46 Pulse Rate 114 H 09/08/19 07:46 Respiratory Rate 16 09/08/19 07:46 Blood Pressure 165/130 09/08/19 07:46 Pulse Oximetry 97 09/08/19 08:06 MDM - Abdominal Pain Lab Data: Labs: Lab Results 09/08/19 09/08/19 Range/Units 08:20 08:20 WBC 14.3 H (4.0-10.0) 10^3/ uL RBC 5.92 H (4.1-5.3) 10^6/u L Hgb 16.9 H (11.7-16.6) g/dL Hct 50.0 (42.0-52.0) % MCV 84.5 (80-94) fL MCH 28.5 (28.0-34.0) pg MCHC 33.8 (30.0-36.0) g/dL RDW 12.0 L (12.1-15.1) % Plt Count 330 (130-400) 10^3/c mm MPV 10.0 (7.4-10.4) fL Neut % (Auto) 78.7 % Lymph % (Auto) 16.5 % [place] % (Auto) 3.6 % Eos % (Auto) 0.2 % Baso % (Auto) 0.7 % Neut # (Auto) 11.2 H (1.8-7.7) 10^3/u L Lymph # (Auto) 2.4 (0.8-4.8) 10^3/u L [place] # (Auto) 0.5 (0.2-0.9) 10^3/u L Eos # (Auto) 0.0 (0.0-0.8) 10^3/u L Baso # (Auto) 0.1 (0.0-0.1) 10^3/u L Nucleated RBC % (a uto) 0 % Nucleated RBCs # 0.0 /100WBC Sodium 137 (136-145) mmol/L Potassium 4.0 (3.5-5.1) mmol/L Chloride 95 L (98-107) mmol/L Carbon Dioxide 24 (22-29) mmol/L Anion Gap 22.0 H (5-19) BUN 22 H (6-20) mg/dL Creatinine 1.1 (0.7-1.2) mg/dL GFR Calculation 70.6 L (90-130) mL/min Glucose 271 H (65-115) mg/dL Calcium 10.9 H (8.5-10.5) mg/dL Magnesium 1.8 (1.7-2.3) mg/dL Total Bilirubin 0.6 (0.15-1.2) mg/dL AST 18 (0-40) U/L ALT 20 (0-41) U/L Alkaline Phosphata se 100 (40-130) IU/L Total Protein 8.2 (6.6-8.7) g/dL Albumin 4.7 (3.5-5.2) g/dL Globulin 3.5 (1.3-4.6) g/dL Lipase 35 (13-60) U/L Ethyl Alcohol < 10 (0-10) mg/dL Discharge Plan Discharge Patient Disposition: Home, Self-Care Clinical Impression: Diabetic gastroparesis, Esophagitis with gastritis, Chronic hyperglycemia Condition: Stable Prescriptions: New metoclopramide HCl 5 mg tablet 5 mg PO TID 7 Days Qty: 21 RF: 0 Maalox Advanced 200-200-20 mg/5 mL suspension 10 ml PO QID PRN (Reason: e) 14 Days Qty: 360 RF: 0 sucralfate 1 gram tablet 1 gm PO TID 28 Days Qty: 84 RF: 0 omeprazole 40 mg capsule,delayed release(DR/EC) 40 mg PO DAILY 84 Days RF: 0 No Action atorvastatin 20 mg tablet 20 mg PO DAILY RF: 0 amlodipine 5 mg tablet 5 mg PO DAILY RF: 0 Aspir-81 81 mg Tablet,Delayed Release (Dr/Ec) 81 mg PO DAILY RF: 0 lisinopril-hydrochlorothiazide 20-25 mg tablet 1 tab PO DAILY RF: 0 Novolog Flexpen U-100 Insulin 100 unit/mL (3 mL) insulin pen See Rx Instructions .ROUTE .COMPLEX RF: 0 Tresiba FlexTouch U-200 200 unit/mL (3 mL) insulin pen 60 unit SUBCUT DAILY RF: 0 Referrals: Eugenie Jay MD [Family Provider] - 1 week (gastritis, esophagitis, gastroparesis) Discharge Diet: Advance as tolerated and Diabetic Discharge Activity: Resume usual activity Patient Instructions: Diabetic gastroparesis (GEN), Diet for Ulcers and Gastritis (ED), Gastroesophageal Reflux Disease (ED), Acute Nausea and Vomiting (ED) Coding Level of Care Code ED Community Fundraiser for Chg Fwd Exam Detailed The documentation recorded by the Isael devine Bridget Annette, accurately reflects the service I personally performed and the decisions made by me, Garrett Gonsales MD Mar 02, 2020 07:41
[2019-09-08 08:06] VITALS: O2SAT 97
[2019-09-08 08:29] LABS: Basophils # 0.1 10^3/uL (0.0-0.1); Basophils % 0.7 %; Eosinophils % 0.2 %; Hemoglobin 16.9 g/dL (11.7-16.6); Lymphocytes # 2.4 10^3/uL (0.8-4.8); Lymphocytes % 16.5 %; Mean Corpuscular HGB Conc 33.8 g/dL (30.0-36.0); Mean Corpuscular Hemoglobin 28.5 pg (28.0-34.0); Mean Corpuscular Volume 84.5 fL (80-94); Monocytes # 0.5 10^3/uL (0.2-0.9); Monocytes % 3.6 %; Neutrophils # 11.2 10^3/uL (1.8-7.7); Neutrophils % 78.7 %; Nucleated Red Blood Cells % 0 %; Platelet Count 330 10^3/cmm (130-400); Red Blood Count 5.92 10^6/uL (4.1-5.3); White Blood Count 14.3 10^3/uL (4.0-10.0)
[2019-09-08] MEDS: famotidine 20 mg/2 mL INJ 40 MG IVP (08:30)
[2019-09-08] MEDS: diphenhydrAMINE 50 mg/mL SDV 1mL IVP (08:30)
[2019-09-08] MEDS: haloperidol inj 5 mg/mL INJ 1 mL IVP (08:30)
[2019-09-08] MEDS: lidocaine 2% viscous 15 ML, aluminum-mag hydrox-simethicon 30 ML, sucralfate oral liq 1 GM PO (08:30)
[2019-09-08] MEDS: sodium chloride 0.9% 1,000 ML 999 ML IV (08:43)
[2019-09-08 08:49] LABS: Alanine Aminotransferase 20 U/L (0-41); Albumin Level 4.7 g/dL (3.5-5.2); Alkaline Phosphatase 100 IU/L (40-130); Aspartate Amino Transferase 18 U/L (0-40); Blood Urea Nitrogen 22 mg/dL (6-20); Calcium 10.9 mg/dL (8.5-10.5); Carbon Dioxide 24 mmol/L (22-29); Chloride 95 mmol/L (98-107); Globulin 3.5 g/dL (1.3-4.6); Glomerular Filtration Rate 70.6 mL/min (90-130); Glucose 271 mg/dL (65-115); Lipase 35 U/L (13-60); Magnesium 1.8 mg/dL (1.7-2.3); Sodium 137 mmol/L (136-145); Total Bilirubin 0.6 mg/dL (0.15-1.2); Total Protein 8.2 g/dL (6.6-8.7)
[2019-09-08 08:51] LABS: Alcohol Level < 10 mg/dL (0-10)
[2019-09-08] MEDS: metoclopramide 5 mg/mL SDV 2 mL 10 MG IVP (11:02)
[2019-09-08 11:59] VITALS: BP 150/87; PULSE 80; RESP 15; O2SAT 99
== END 2019-09-08 12:00 | disposition home or self-care (01) ==
PROVIDERS: Emergency Provider Emergency Medicine; Family Provider Internal Medicine
DX: E11.43 Type 2 diabetes mellitus with diabetic autonomic (poly)neuropathy (principal); E11.65 Type 2 diabetes mellitus with hyperglycemia; K31.84 Gastroparesis; Z79.4 Long term (current) use of insulin; K20.9 Esophagitis, unspecified; K29.70 Gastritis, unspecified, without bleeding
CPT/HCPCS: 36415; 80053; 80307; 83690; 83735; 85025; 96361; 96374; 96375; 99282; 99284; J1200; J1630; J2765; J3490; J7030

== ENCOUNTER 2019-10-24 20:31 | Emergency (ER) | payer MEDICARE, MEDICAID, SELFPAY ==
[2019-10-24 20:38] VITALS: BP 190/114; PULSE 129; RESP 17; TEMP 35.1; O2SAT 100; BMI 27.8
--- NOTE | 2019-10-24 20:56 | XRR_ITS ---
PROCEDURE INFORMATION: Exam: XR Abdomen, 1 View Exam date and time: 10/24/2019 10:19 PM Age: 49 years old Clinical indication: Nausea and vomiting TECHNIQUE: Imaging protocol: XR of the abdomen. Views: Frontal supine view of the abdomen. 1 View. COMPARISON: CR Abdomen Series Acute [id number] 10/31/2015 8:51 AM FINDINGS: No dilated bowel to suggest obstruction. No definite abnormal masses or specific abnormal calcifications. XR/XR KUB portable [id number] IMPRESSION: 1. Nonspecific abdomen, no evidence of obstruction. 2. Other details discussed above.
[2019-10-24] MEDS: sodium chloride 0.9% 1,000 ML 999 ML IV (21:05)
[2019-10-24] MEDS: metoclopramide 5 mg/mL SDV 2 mL 10 MG IVP (21:06)
[2019-10-24] MEDS: ondansetron 2 mg/ML SDV 2 mL 4 MG IVP (21:06)
[2019-10-24] MEDS: haloperidol inj 5 mg/mL INJ 1 mL 3 MG IVP (21:07)
[2019-10-24] MEDS: LORazepam 2 mg/mL INJ 1 mL 1 MG IVP (21:08)
[2019-10-24 21:17] LABS: Basophils % 0.3 %; Hematocrit 50.6 % (42.0-52.0); Hemoglobin 17.4 g/dL (11.7-16.6); Lymphocytes % 16.3 %; Mean Corpuscular HGB Conc 34.4 g/dL (30.0-36.0); Mean Corpuscular Hemoglobin 28.9 pg (28.0-34.0); Mean Corpuscular Volume 84.1 fL (80-94); Mean Platelet Volume 10.8 fL (7.4-10.4); Monocytes # 0.4 10^3/uL (0.2-0.9); Monocytes % 2.8 %; Neutrophils % 80.2 %; Nucleated Red Blood Cells % 0 %; Platelet Count 358 10^3/cmm (130-400); Red Blood Count 6.02 10^6/uL (4.1-5.3); Red Cell Distribution Width 11.6 % (12.1-15.1); White Blood Count 12.5 10^3/uL (4.0-10.0)
[2019-10-24 21:52] LABS: Alanine Aminotransferase 26 U/L (0-41); Albumin Level 4.9 g/dL (3.5-5.2); Alkaline Phosphatase 94 IU/L (40-130); Anion Gap 25.9 (5-19); Blood Urea Nitrogen 21 mg/dL (6-20); C Reactive Protein 3.8 mg/L (0.0-4.9); Calcium 10.7 mg/dL (8.5-10.5); Carbon Dioxide 23 mmol/L (22-29); Chloride 93 mmol/L (98-107); Globulin 3.9 g/dL (1.3-4.6); Glucose 281 mg/dL (65-115); Lipase 14 U/L (13-60); Osmolality Calculated 293 mOsm/kg (285-295); Potassium 3.9 mmol/L (3.5-5.1); Sodium 138 mmol/L (136-145); Total Bilirubin 0.4 mg/dL (0.15-1.2); Total Protein 8.8 g/dL (6.6-8.7)
--- NOTE | 2019-10-24 21:53 | W.ED.ABDPA2 ---
HPI - Abdominal Pain General: Chief Complaint: Abdominal Pain Stated Complaint: N/V Time Seen by Provider: 10/24/19 20:46 History of Present Illness: MD elicited complaint: abdominal pain Pertinent past history: gastritis Onset (ago): hour(s) (14) Location: Epigastric Severity: moderate Quality: cramping and stabbing Radiation: none Exacerbating factors: vomiting Relieving factors: nothing Associated Symptoms: Reports vomiting (Multiple episodes); Denies dysuria, fever(s), hematuria, hematemesis and melena Review of Systems Const: Denies: fever Eyes: Denies: change in vision or blurry vision ENMT: Denies: painful swallowing, swelling of lips/tongue, dental pain, Change in hearing, nose bleeds, post nasal drip or facial/sinus pain Card: Denies: chest pain, palpitations, irregular heart rhythm, edema or swelling of feet/ankles Resp: Reports: shortness of breath (Chronic); Denies: productive cough, non-productive cough or wheezing GI: Reports: vomiting (Multiple episodes); Denies: vomiting blood or black tarry stool : Denies: difficulty urinating, painful urination or blood in urine Musc: Denies: neck pain, back pain, redness or joint warmth Skin/Breast: Denies: rash, itching or redness Neuro: Denies: headache, dizziness or vertigo Psych: Denies: anxiety PFSH ED PFSH: Social History Smoking and tobacco status: never smoked Physical Exam Const: GENERAL APPEARANCE: well developed ORIENTATION/CONSCIOUSNESS: Yes oriented to person, Yes oriented to place and Yes oriented to time HENMT: COMMON NORMALS: normocephalic, external ears normal and external nose normal HEAD & SCALP: normocephalic FACE & SINUS: normal facial exam NOSE: external nose normal and no nasal discharge EXTERNAL EAR: Yes external ears normal THROAT: posterior oropharynx normal; no peritonsillar mass Eye: COMMON NORMALS: PERRL, EOMs intact bilaterally and conjunctivae normal EYELID: eyelids normal CONJUNCTIVA: Yes conjunctivae normal PUPIL: Yes PERRL Neck/C-Spine: GENERAL: No tracheal deviation Chest: COMMONS NORMALS: inspection of chest normal CHEST: No tenderness Resp: COMMON NORMALS: clear to auscultation bilaterally EFFORT & INSPECTION: No tachypneic, No respiratory distress, No retractions, No uses accessory muscles and No tracheal deviation AUSCULTATION: clear to auscultation bilaterally, no rhonchi, no wheezes and lung sounds not diminished Cardio: COMMON NORMALS: regular rate and regular rhythm RATE: regular rate RHYTHM: regular rhythm HEART SOUNDS: no murmurs PERIPHERAL PULSES: radial pulses present GI: INSPECTION: No abdominal distension AUSCULTATION: No hyperactive bowel sounds and No hypoactive bowel sounds PALPATION: Yes tender Details: other (Epigastric), Yes guarding and No rigid PERCUSSION: no dullness to percussion and no tympanic to percussion : COMMON NORMALS: Yes no CVA tenderness BLADDER/KIDNEY EXAM: Yes no CVA tenderness Back/Pelvis: COMMON NORMALS: no CVA tenderness Neuro: SENSORIUM/ORIENTATION: Yes oriented to person, Yes oriented to place and Yes oriented to time Psych: COMMON NORMALS: mental status grossly normal Skin: COMMON NORMALS: no rashes or lesions noted GENERAL SKIN EXAM: no rashes or lesions noted Course Vital Signs: Vital signs: Vital Signs Temperature 95.1 F L 10/24/19 20:38 Pulse Rate 68 10/24/19 23:13 Respiratory Rate 16 10/24/19 23:13 Blood Pressure 142/89 10/24/19 23:13 Pulse Oximetry 98 10/24/19 23:13 MDM - Abdominal Pain MDM Narrative: Medical decision making narrative: 49-year-old male with a history of vomiting, presumptively from gastroparesis. He does have a history of esophagitis as well. He presents with epigastric discomfort and vomiting. No fever. No diarrhea. No blood. His white blood cell count is 12. Is mildly hemoconcentrated, and has a mildly elevated BUN. He is received a liter of fluid. After Haldol, Ativan, Zofran, he has stopped vomiting. He is held down a GI cocktail. He does complain of some hiccups. He will go home on chlorpromazine for nausea and vomiting as well as as needed Zofran Lab Data: Labs: Lab Results 10/24/19 10/24/19 Range/Units 20:55 20:59 WBC 12.5 H (4.0-10.0) 10^3/ uL RBC 6.02 H (4.1-5.3) 10^6/u L Hgb 17.4 H (11.7-16.6) g/dL Hct 50.6 (42.0-52.0) % MCV 84.1 (80-94) fL MCH 28.9 (28.0-34.0) pg MCHC 34.4 (30.0-36.0) g/dL RDW 11.6 L (12.1-15.1) % Plt Count 358 (130-400) 10^3/c mm MPV 10.8 H (7.4-10.4) fL Neut % (Auto) 80.2 % Lymph % (Auto) 16.3 % [place] % (Auto) 2.8 % Eos % (Auto) 0.0 % Baso % (Auto) 0.3 % Neut # (Auto) 10.0 H (1.8-7.7) 10^3/u L Lymph # (Auto) 2.0 (0.8-4.8) 10^3/u L [place] # (Auto) 0.4 (0.2-0.9) 10^3/u L Eos # (Auto) 0.0 (0.0-0.8) 10^3/u L Baso # (Auto) 0.0 (0.0-0.1) 10^3/u L Nucleated RBC % (a uto) 0 % Nucleated RBCs # 0.0 /100WBC Sodium 138 (136-145) mmol/L Potassium 3.9 (3.5-5.1) mmol/L Chloride 93 L (98-107) mmol/L Carbon Dioxide 23 (22-29) mmol/L Anion Gap 25.9 H (5-19) BUN 21 H (6-20) mg/dL Creatinine 0.9 (0.7-1.2) mg/dL GFR Calculation 89.0 L (90-130) mL/min Glucose 281 H (65-115) mg/dL Calculated Osmolal ity 293 (285-295) mOsm/k g Calcium 10.7 H (8.5-10.5) mg/dL Total Bilirubin 0.4 (0.15-1.2) mg/dL AST 19 (0-40) U/L ALT 26 (0-41) U/L Alkaline Phosphata se 94 (40-130) IU/L C-Reactive Protein 3.8 (0.0-4.9) mg/L Total Protein 8.8 H (6.6-8.7) g/dL Albumin 4.9 (3.5-5.2) g/dL Globulin 3.9 (1.3-4.6) g/dL Lipase 14 (13-60) U/L Discharge Plan Discharge Patient Disposition: Home, Self-Care Clinical Impression: Esophagitis Condition: Stable Prescriptions: New Zofran 4 mg tablet 4 mg PO Q6H PRN (Reason: nausea and vomiting) Qty: 10 RF: 0 chlorpromazine 25 mg tablet 25 mg PO Q6H PRN (Reason: nausea and vomiting) Qty: 10 RF: 0 No Action atorvastatin 20 mg tablet 20 mg PO DAILY RF: 0 amlodipine 5 mg tablet 5 mg PO DAILY RF: 0 Aspir-81 81 mg Tablet,Delayed Release (Dr/Ec) 81 mg PO DAILY RF: 0 lisinopril-hydrochlorothiazide 20-25 mg tablet 1 tab PO DAILY RF: 0 Novolog Flexpen U-100 Insulin 100 unit/mL (3 mL) insulin pen See Rx Instructions .ROUTE .COMPLEX RF: 0 Tresiba FlexTouch U-200 200 unit/mL (3 mL) insulin pen 60 unit SUBCUT DAILY RF: 0 omeprazole 40 mg capsule,delayed release(DR/EC) 40 mg PO DAILY 84 Days RF: 0 Discharge Orders: Discharge Order (Routine); Ordered 10/24/19 Ordered By: Adonay Richards Referrals: Eugenie Jay MD [Family Provider] - 4-7 days Discharge Diet: Advance as tolerated Discharge Activity: Increase activity as tolerated Patient Instructions: Gastroesophageal Reflux Disease (ED) Activity Restrictions/Additional Instructions: Return for worsening pain or vomiting despite treatment, fever greater than 100, blood in the vomit or stool, other concerning symptoms. Coding Level of Care Code ED New Car Make Ready Worker for Nican[place] Fwd Exam Comprehensive
[2019-10-24 23:07] LABS: Aspartate Amino Transferase 19 U/L (0-40)
[2019-10-24 23:13] VITALS: BP 142/89; PULSE 68; RESP 16; O2SAT 98
[2019-10-24] MEDS: lidocaine 2% viscous 15 ML, aluminum-mag hydrox-simethicon 30 ML, sucralfate oral liq 1 GM PO (23:29)
[2019-10-24] MEDS: haloperidol inj 5 mg/mL INJ 1 mL 2 MG IVP (23:30)
[2019-10-24 23:36] VITALS: BP 160/95; PULSE 120; RESP 18; O2SAT 96
[2019-10-24 23:36] LABS: Add Urine Microscopic? NO
[2019-10-24 23:44] LABS: Specific Gravity, Urine 1.015 (1.005-1.030); Urine Appearance Clear (CLEAR); Urine Color Yellow (Yellow); pH Urine 6 (5-7)
[2019-10-24 23:45] LABS: Bilirubin Urine Neg (NEGATIVE); Blood Urine Neg (Negative); Glucose Urine UA 4+ (Normal); Ketones Urine 3+ (Negative); Leukocyte Esterase Urine Negative (Negative); Nitrate Urine Negative (Negative); Protein Urine Neg (Negative); Urobilinogen Urine Norm (Negative)
[2019-10-24 23:47] LABS: Amphetamines Screen Urine Negative (Negative); Barbiturates Screen Urine Negative (Negative); Benzodiazepines Screen Urine Positive (Negative); Cocaine Screen Urine Negative (Negative); Opiate Screen Urine Negative (Negative); PCP Screen Urine Negative (Negative); THC Screen Urine Positive (Negative)
== END 2019-10-25 05:25 | disposition home or self-care (01) ==
PROVIDERS: Emergency Provider Emergency Medicine; Family Provider Internal Medicine
DX: K20.9 Esophagitis, unspecified (principal); R11.2 Nausea with vomiting, unspecified
CPT/HCPCS: 12345; 74018; 80053; 80306; 81003; 83690; 85025; 86140; 96375; 99283; A9270; J1630; J2060; J2405; J2765; J7030

== ENCOUNTER 2019-12-05 19:04 | Emergency (ER) | payer MEDICARE, MEDICAID, SELFPAY ==
[2019-12-05 19:08] VITALS: BP 160/103; PULSE 120; RESP 22; TEMP 36.9; O2SAT 98; BMI 29.2
--- NOTE | 2019-12-05 19:17 | W.ED.NAVMDI ---
HPI - Nausea/Vomiting/Diarrhea General: Chief complaint: Nausea/Vomiting/Diarrhea Stated complaint: n/v Time Seen by Provider: 12/05/19 19:15 Source: patient Mode of arrival: ambulatory Limitations: no limitations History of Present Illness: HPI Narrative: 49-year-old male who has a history of diabetes and vomiting in the past. He states he had diffuse abdominal cramping along with severe vomiting today. He denies any worsening or improving factors. He denies any fevers. He states his pain is cramping in nature. MD elicited complaint: nausea and vomiting Onset (ago): hour(s) Associated nausea: Yes Location of pain: Diffuse Severity: moderate Exacerbating factors: none Relieving factors: none Associated symtoms: Reports nausea; Denies chest pain, dysuria or headache(s) Review of Systems Const: Denies: fever(s), chills, body aches or change in appetite Eyes: Denies: blurry vision or eye discomfort ENMT: Denies: throat pain or dental pain Card: Denies: chest pain Resp: Denies: dyspnea GI: Reports: abdominal pain, nausea and vomiting : Denies: dysuria Musc: Denies: neck pain or back pain Skin/Breast: Denies: rash Neuro: Denies: headache(s) Psych: Denies: depression Vidal/Lymph: Denies: easy bruising All/Imm: Denies: urticaria PFSH ED PFSH: Social History Smoking and tobacco status: never smoked Physical Exam Const: COMMON NORMALS: no acute distress, patient oriented x3 and healthy appearing HENMT: COMMON NORMALS: normocephalic and atraumatic HEAD & SCALP: normocephalic and atraumatic Eye: COMMON NORMALS: Equal, round and reactive pupils present and EOMs intact bilaterally PUPIL: Yes Equal, round and reactive pupils present Neck/C-Spine: COMMON NORMALS: full ROM and supple Chest: COMMONS NORMALS: normal inspection of the chest and normal palpation of entire chest wall Resp: COMMON NORMALS: normal respiratory effort, No retractions, No use of accessory muscles and clear to auscultation bilaterally AUSCULTATION: clear to auscultation bilaterally Cardio: COMMON NORMALS: regular rhythm and No murmurs present (Cardio) RATE: tachycardic RHYTHM: regular rhythm GI: COMMON NORMALS: Normal to inspection, nondistended, normoactive bowel sounds present, Soft to palpation, non-tender and no masses PALPATION: Yes Soft to palpation Extremity: COMMON NORMALS: normal to inspection and full ROM Neuro: COMMON NORMALS: patient oriented x3, moves all extremities and no focal motor deficits Psych: COMMON NORMALS: mental status grossly normal, Normal thought process present and cooperative THOUGHT PROCESS: Normal thought process present Skin: COMMON NORMALS: no rashes or lesions noted and no wounds GENERAL SKIN EXAM: no rashes or lesions noted Course Vital Signs: Vital signs: Vital Signs Temperature 98.4 F 12/05/19 19:08 Pulse Rate 120 H 12/05/19 19:08 Respiratory Rate 22 H 12/05/19 19:08 Blood Pressure 160/103 12/05/19 19:08 Pulse Oximetry 98 12/05/19 19:08 MDM - Nausea/Vomiting/Diarrhea MDM Narrative: Medical decision making narrative: Patient presents here with vomiting that is chronic in nature. He is much improved here after Reglan and Benadryl. Patient's lab work here is normal and exam is benign. Patient is stable for discharge and is to follow-up with primary care doctor in 3 to 5 days return if worsening. Lab Data: Labs: Lab Results 12/05/19 12/05/19 12/05/19 Range/Units 19:58 19:58 20:41 WBC 12.4 H (4.0-10.0) 10^3/ uL RBC 5.63 H (4.1-5.3) 10^6/u L Hgb 16.3 (11.7-16.6) g/dL Hct 48.6 (42.0-52.0) % MCV 86.3 (80-94) fL MCH 29.0 (28.0-34.0) pg MCHC 33.5 (30.0-36.0) g/dL RDW 12.2 (12.1-15.1) % Plt Count 314 (130-400) 10^3/c mm MPV 10.5 H (7.4-10.4) fL Neut % (Auto) 81.7 % Lymph % (Auto) 14.4 % [place] % (Auto) 3.1 % Eos % (Auto) 0.0 % Baso % (Auto) 0.5 % Neut # (Auto) 10.1 H (1.8-7.7) 10^3/u L Lymph # (Auto) 1.8 (0.8-4.8) 10^3/u L [place] # (Auto) 0.4 (0.2-0.9) 10^3/u L Eos # (Auto) 0.0 (0.0-0.8) 10^3/u L Baso # (Auto) 0.1 (0.0-0.1) 10^3/u L Nucleated RBC % (a uto) 0 % Nucleated RBCs # 0.0 /100WBC Sodium 137 (136-145) mmol/L Potassium 3.9 (3.5-5.1) mmol/L Chloride 96 L (98-107) mmol/L Carbon Dioxide 20 L (22-29) mmol/L Anion Gap 24.9 H (5-19) BUN 18 (6-20) mg/dL Creatinine 0.9 (0.7-1.2) mg/dL GFR Calculation 89.0 L (90-130) mL/min Glucose 239 H (65-115) mg/dL POC Glucose 212 (70-110) mg/dL Calculated Osmolal ity 288 (285-295) mOsm/k g Calcium 9.7 (8.5-10.5) mg/dL Total Bilirubin 0.6 (0.15-1.2) mg/dL AST 21 (0-40) U/L ALT 23 (0-41) U/L Alkaline Phosphata se 75 (40-130) IU/L Total Protein 7.7 (6.6-8.7) g/dL Albumin 4.5 (3.5-5.2) g/dL Globulin 3.2 (1.3-4.6) g/dL Lipase 13 (13-60) U/L Discharge Plan Discharge Patient Disposition: Home, Self-Care Clinical Impression: Vomiting Qualifiers: Vomiting type: unspecified Vomiting Intractability: non-intractable Nausea presence: with nausea Qualified Code(s): R11.2 - Nausea with vomiting, unspecified Condition: Stable Prescriptions: New Reglan 10 mg tablet 10 mg PO Q6H PRN (Reason: nausea and vomiting) Qty: 20 RF: 0 No Action Zofran 4 mg tablet 4 mg PO Q6H PRN (Reason: nausea and vomiting) Qty: 10 RF: 0 chlorpromazine 25 mg tablet 25 mg PO Q6H PRN (Reason: nausea and vomiting) Qty: 10 RF: 0 atorvastatin 20 mg tablet 20 mg PO DAILY RF: 0 amlodipine 5 mg tablet 5 mg PO DAILY RF: 0 Aspir-81 81 mg Tablet,Delayed Release (Dr/Ec) 81 mg PO DAILY RF: 0 lisinopril-hydrochlorothiazide 20-25 mg tablet 1 tab PO DAILY RF: 0 Novolog Flexpen U-100 Insulin 100 unit/mL (3 mL) insulin pen See Rx Instructions .ROUTE .COMPLEX RF: 0 Tresiba FlexTouch U-200 200 unit/mL (3 mL) insulin pen 60 unit SUBCUT DAILY RF: 0 Discharge Orders: Discharge Order (Routine); Ordered 12/05/19 Ordered By: Sandor Ewing Discharge Diet: Advance as tolerated Discharge Activity: Resume usual activity Patient Instructions: Acute Nausea and Vomiting (ED) Coding Level of Care Code ED [employer]man [employer] for [place] Fwd Exam Comprehensive
[2019-12-05] MEDS: metoclopramide 5 mg/mL SDV 2 mL 10 MG IVP (19:36)
[2019-12-05] MEDS: diphenhydrAMINE 50 mg/mL SDV 1mL IVP (19:36)
[2019-12-05] MEDS: LORazepam 2 mg/mL INJ 1 mL 1 MG IVP (19:37)
[2019-12-05] MEDS: sodium chloride 0.9% 1,000 ML 999 ML IV ×2 (20:00→20:48)
[2019-12-05 20:03] LABS: Basophils # 0.1 10^3/uL (0.0-0.1); Basophils % 0.5 %; Hematocrit 48.6 % (42.0-52.0); Hemoglobin 16.3 g/dL (11.7-16.6); Lymphocytes # 1.8 10^3/uL (0.8-4.8); Lymphocytes % 14.4 %; Mean Corpuscular HGB Conc 33.5 g/dL (30.0-36.0); Mean Corpuscular Volume 86.3 fL (80-94); Mean Platelet Volume 10.5 fL (7.4-10.4); Monocytes # 0.4 10^3/uL (0.2-0.9); Monocytes % 3.1 %; Neutrophils # 10.1 10^3/uL (1.8-7.7); Neutrophils % 81.7 %; Nucleated Red Blood Cells % 0 %; Platelet Count 314 10^3/cmm (130-400); Red Blood Count 5.63 10^6/uL (4.1-5.3); Red Cell Distribution Width 12.2 % (12.1-15.1); White Blood Count 12.4 10^3/uL (4.0-10.0)
[2019-12-05 20:18] LABS: Alanine Aminotransferase 23 U/L (0-41); Albumin Level 4.5 g/dL (3.5-5.2); Alkaline Phosphatase 75 IU/L (40-130); Anion Gap 24.9 (5-19); Blood Urea Nitrogen 18 mg/dL (6-20); Calcium 9.7 mg/dL (8.5-10.5); Carbon Dioxide 20 mmol/L (22-29); Chloride 96 mmol/L (98-107); Creatinine Clr Calc Pharmacy 114.3837; Globulin 3.2 g/dL (1.3-4.6); Glucose 239 mg/dL (65-115); Lipase 13 U/L (13-60); Osmolality Calculated 288 mOsm/kg (285-295); Potassium 3.9 mmol/L (3.5-5.1); Sodium 137 mmol/L (136-145); Total Bilirubin 0.6 mg/dL (0.15-1.2); Total Protein 7.7 g/dL (6.6-8.7)
[2019-12-05 20:20] LABS: Aspartate Amino Transferase 21 U/L (0-40)
[2019-12-05 20:45] LABS: Glucose Point of Care 212 mg/dL (70-110)
[2019-12-05 21:39] VITALS: BP 132/87; PULSE 64; RESP 18; O2SAT 99
== END 2019-12-05 21:41 | disposition home or self-care (01) ==
PROVIDERS: Emergency Provider Emergency Medicine
DX: R11.2 Nausea with vomiting, unspecified (principal); Z79.82 Long term (current) use of aspirin; Z79.4 Long term (current) use of insulin
CPT/HCPCS: 12345; 36416; 80053; 82962; 83690; 85025; 96361; 96374; 96375; 99282; 99283; J1200; J2060; J2765; J7030

== ENCOUNTER 2019-12-06 17:28 | Emergency (ER) | payer MEDICARE, MEDICAID, SELFPAY ==
[2019-12-06 17:36] VITALS: BP 135/118; PULSE 123; RESP 15; TEMP 36.3; O2SAT 98; BMI 28.5
--- NOTE | 2019-12-06 17:44 | W.ED.ABDPA2 ---
HPI - Abdominal Pain General: Chief Complaint: Abdominal Pain Stated Complaint: abd pain Time Seen by Provider: 12/06/19 17:35 Source: patient Mode of arrival: ambulatory Limitations: no limitations History of Present Illness: HPI narrative: 49-year-old male with a history of chronic abdominal pain states he had abdominal pain over the last 2 days along with vomiting. Patient seen here yesterday and states he has no improvement. He denies any fever. He states his pain is diffuse and rates it a 9 out of 10. MD elicited complaint: abdominal pain Pertinent past history: gastritis Onset (ago): hour(s) Pain Consistency: constant Location: Diffuse Severity: moderate Radiation: none Migration to: no migration Exacerbating factors: nothing Relieving factors: nothing Associated Symptoms: Reports nausea and vomiting; Denies chills, diarrhea, dysuria and fever(s) Review of Systems Const: Denies: fever(s), chills, body aches or change in appetite Eyes: Denies: blurry vision or eye discomfort ENMT: Denies: throat pain or dental pain Card: Reports: palpitations Resp: Denies: dyspnea GI: Reports: abdominal pain, nausea and vomiting; Denies: diarrhea : Denies: dysuria Musc: Denies: neck pain or back pain Skin/Breast: Denies: rash Neuro: Denies: headache(s) Psych: Denies: depression Vidal/Lymph: Denies: easy bruising All/Imm: Denies: urticaria PFSH ED PFSH: Social History Smoking and tobacco status: current every day smoker Physical Exam Const: COMMON NORMALS: no acute distress, patient oriented x3 and healthy appearing HENMT: COMMON NORMALS: normocephalic and atraumatic HEAD & SCALP: normocephalic and atraumatic Eye: COMMON NORMALS: Equal, round and reactive pupils present and EOMs intact bilaterally PUPIL: Yes Equal, round and reactive pupils present Neck/C-Spine: COMMON NORMALS: full ROM and supple Chest: COMMONS NORMALS: normal inspection of the chest and normal palpation of entire chest wall Resp: COMMON NORMALS: normal respiratory effort, No retractions, No use of accessory muscles and clear to auscultation bilaterally AUSCULTATION: clear to auscultation bilaterally Cardio: COMMON NORMALS: regular rhythm and No murmurs present (Cardio) RATE: tachycardic RHYTHM: regular rhythm GI: COMMON NORMALS: Normal to inspection, nondistended, normoactive bowel sounds present, Soft to palpation, non-tender and no masses PALPATION: Yes Soft to palpation Extremity: COMMON NORMALS: normal to inspection and full ROM Neuro: COMMON NORMALS: patient oriented x3, moves all extremities and no focal motor deficits Psych: COMMON NORMALS: mental status grossly normal, Normal thought process present and cooperative THOUGHT PROCESS: Normal thought process present Skin: COMMON NORMALS: no rashes or lesions noted and no wounds GENERAL SKIN EXAM: no rashes or lesions noted Course Vital Signs: Vital signs: Vital Signs Temperature 97.3 F L 12/06/19 17:36 Pulse Rate 78 12/06/19 19:39 Respiratory Rate 18 12/06/19 19:39 Blood Pressure 135/118 12/06/19 17:36 Pulse Oximetry 98 12/06/19 19:39 MDM - Abdominal Pain MDM Narrative: Medical decision making narrative: Patient presents here with abdominal pain that is chronic in nature. Patient's exam here is benign and he feels improved after Reglan. Patient CT scan showed no acute findings. Patient is stable for discharge and is to follow-up with his primary care doctor in 3 to 5 days and return if worsening. Lab Data: Labs: Lab Results 12/06/19 12/06/19 Range/Units 18:37 18:37 WBC 14.9 H (4.0-10.0) 10^3/ uL RBC 5.30 (4.1-5.3) 10^6/u L Hgb 15.7 (11.7-16.6) g/dL Hct 46.3 (42.0-52.0) % MCV 87.4 (80-94) fL MCH 29.6 (28.0-34.0) pg MCHC 33.9 (30.0-36.0) g/dL RDW 12.6 (12.1-15.1) % Plt Count 316 (130-400) 10^3/c mm MPV 10.2 (7.4-10.4) fL Neut % (Auto) 77.6 % Lymph % (Auto) 15.2 % [place] % (Auto) 6.2 % Eos % (Auto) 0.1 % Baso % (Auto) 0.4 % Neut # (Auto) 11.6 H (1.8-7.7) 10^3/u L Lymph # (Auto) 2.3 (0.8-4.8) 10^3/u L [place] # (Auto) 0.9 (0.2-0.9) 10^3/u L Eos # (Auto) 0.0 (0.0-0.8) 10^3/u L Baso # (Auto) 0.1 (0.0-0.1) 10^3/u L Nucleated RBC % (a uto) 0 % Nucleated RBCs # 0.0 /100WBC Sodium 134 L (136-145) mmol/L Potassium 3.9 (3.5-5.1) mmol/L Chloride 93 L (98-107) mmol/L Carbon Dioxide 21 L (22-29) mmol/L Anion Gap 23.9 H (5-19) BUN 21 H (6-20) mg/dL Creatinine 1.0 (0.7-1.2) mg/dL GFR Calculation 78.8 L (90-130) mL/min Glucose 329 H (65-115) mg/dL Calculated Osmolal ity 287 (285-295) mOsm/k g Calcium 11.2 H (8.5-10.5) mg/dL Total Bilirubin 0.8 (0.15-1.2) mg/dL AST 16 (0-40) U/L ALT 20 (0-41) U/L Alkaline Phosphata se 80 (40-130) IU/L Total Protein 7.7 (6.6-8.7) g/dL Albumin 4.3 (3.5-5.2) g/dL Globulin 3.4 (1.3-4.6) g/dL Lipase 19 (13-60) U/L Imaging Data ^: CT Abd/Pel: Radiologist's impression: [address] [address] [address] Scan Report Signed Patient: Zackary Enriquez Unit #: [id number] : 1970 Age/Sex: 49 / M ADM Date: 12/06/19 Loc: ER Room/Bed: Attending Dr: Ordering Provider/Ordering MD: Sandor Ewing MD Date of Service: 12/06/19 Procedure(s): CT abdomen pelvis w con* [id number] Accession Number(s): [id number] Report Number: [id number] PROCEDURE INFORMATION: Exam: CT Abdomen And Pelvis With Contrast Exam date and time: 12/06/2019 5:49 PM Age: 49 years old Clinical indication: Abdominal pain; Generalized; Patient HX: C/O mid abd pain w nausea TECHNIQUE: Imaging protocol: Computed tomography of the abdomen and pelvis with intravenous contrast. Radiation optimization: All CT scans at this facility use at least one of these dose optimization techniques: automated exposure control; mA and/or kV adjustment per patient size (includes targeted exams where dose is matched to clinical indication); or iterative reconstruction. Contrast material: OMNI 300; Contrast volume: 95 ml; Contrast route: 18G; COMPARISON: CT Abdomen/Pelvis w IV* [id number] 06/13/2019 9:46 PM RADIATION DOSE METRICS: Total DLP: 870.57 mGy-cm FINDINGS: Lungs: Limited assessment of the lung bases fails to reveal evidence for active cardiopulmonary process. Mediastinum: Small hiatal hernia. Liver: Unremarkable. No mass. Gallbladder and bile ducts: Normal. No calcified stones. No ductal dilation. Pancreas: Normal. No ductal dilation. Spleen: Normal. No splenomegaly. Adrenals: Normal. No mass. Kidneys and ureters: Stable simple cortical cyst inferior pole left kidney measuring 22 mm. No follow-up recommended. Stomach and bowel: Assessment of the hollow viscus fails to reveal evidence of active or acute pathology. Nonobstructed bowel pattern. No visible acute diverticulitis. No visible adynamic or reactive ileus. Appendix: No evidence of appendicitis. Intraperitoneal space: Unremarkable. No free air. No significant fluid collection. Vasculature: The abdominal aorta is nonaneurysmal. Moderate arterial sclerotic disease. Lymph nodes: Unremarkable. No enlarged lymph nodes. Bladder: Unremarkable as visualized. Reproductive: Unremarkable as visualized. Bones/joints: Degenerative disc disease L5/S1 with vacuum disc phenomenon. Soft tissues: Unremarkable. CT/CT abdomen pelvis w con* [id number] IMPRESSION: No visible evidence of active or acute abdominal or pelvic pathologic process. Radiation Dose CTDIVOL = (mGy): DLP = 870.57 (mGy-cm) Dictated By: Emile Shepherd Signed By: Emile Shepherd Signed Date/Time: 12/06/191912 DD/ 11 Discharge Plan Discharge Patient Disposition: Home, Self-Care Clinical Impression: Abdominal pain Qualifiers: Abdominal location: generalized Qualified Code(s): R10.84 - Generalized abdominal pain Condition: Stable Prescriptions: No Action ondansetron HCl [Zofran] 4 mg tablet 4 mg PO Q6H PRN (Reason: nausea and vomiting) Qty: 10 RF: 0 chlorpromazine 25 mg tablet 25 mg PO Q6H PRN (Reason: nausea and vomiting) Qty: 10 RF: 0 metoclopramide HCl [Reglan] 10 mg tablet 10 mg PO Q6H PRN (Reason: nausea and vomiting) Qty: 20 RF: 0 omeprazole 40 mg Capsule,Delayed Release(Dr/Ec) 40 mg PO DAILY RF: 0 atorvastatin 20 mg tablet 20 mg PO DAILY RF: 0 amlodipine 5 mg tablet 5 mg PO DAILY RF: 0 aspirin [Aspir-81] 81 mg Tablet,Delayed Release (Dr/Ec) 81 mg PO DAILY RF: 0 lisinopril-hydrochlorothiazide 20-25 mg tablet 1 tab PO DAILY RF: 0 insulin aspart U-100 [Novolog Flexpen U-100 Insulin] 100 unit/mL (3 mL) insulin pen See Rx Instructions .ROUTE .COMPLEX RF: 0 Tresiba FlexTouch U-200 200 unit/mL (3 mL) insulin pen 60 unit SUBCUT DAILY RF: 0 Discharge Orders: Discharge Order (Routine); Ordered 12/06/19 Ordered By: Sandor Ewing Discharge Diet: Advance as tolerated Discharge Activity: Resume usual activity Patient Instructions: Abdominal Pain (ED) Discharge Date/Time: 12/06/19 19:43 Coding Level of Care Code ED Chiropractic Physician for [place] Fwd Exam Comprehensive
[2019-12-06] MEDS: lidocaine 2% viscous 15 ML, aluminum-mag hydrox-simethicon 30 ML, sucralfate oral liq 1 GM PO (18:20)
[2019-12-06 18:22] VITALS: RESP 18
[2019-12-06 18:42] LABS: Basophils # 0.1 10^3/uL (0.0-0.1); Basophils % 0.4 %; Eosinophils % 0.1 %; Hematocrit 46.3 % (42.0-52.0); Hemoglobin 15.7 g/dL (11.7-16.6); Lymphocytes # 2.3 10^3/uL (0.8-4.8); Lymphocytes % 15.2 %; Mean Corpuscular HGB Conc 33.9 g/dL (30.0-36.0); Mean Corpuscular Hemoglobin 29.6 pg (28.0-34.0); Mean Corpuscular Volume 87.4 fL (80-94); Mean Platelet Volume 10.2 fL (7.4-10.4); Monocytes # 0.9 10^3/uL (0.2-0.9); Monocytes % 6.2 %; Neutrophils # 11.6 10^3/uL (1.8-7.7); Neutrophils % 77.6 %; Nucleated Red Blood Cells % 0 %; Platelet Count 316 10^3/cmm (130-400); Red Cell Distribution Width 12.6 % (12.1-15.1); White Blood Count 14.9 10^3/uL (4.0-10.0)
[2019-12-06] MEDS: metoclopramide 5 mg/mL SDV 2 mL 10 MG IVP (18:42)
[2019-12-06] MEDS: sodium chloride 0.9% 1,000 ML 999 ML IV (18:42)
[2019-12-06] MEDS: diphenhydrAMINE 50 mg/mL SDV 1mL IVP (18:43)
[2019-12-06] MEDS: iohexol 300 mg/mL 100 mL Btl IV (18:52)
[2019-12-06 18:56] LABS: Alanine Aminotransferase 20 U/L (0-41); Albumin Level 4.3 g/dL (3.5-5.2); Alkaline Phosphatase 80 IU/L (40-130); Anion Gap 23.9 (5-19); Blood Urea Nitrogen 21 mg/dL (6-20); Calcium 11.2 mg/dL (8.5-10.5); Carbon Dioxide 21 mmol/L (22-29); Chloride 93 mmol/L (98-107); Globulin 3.4 g/dL (1.3-4.6); Glomerular Filtration Rate 78.8 mL/min (90-130); Glucose 329 mg/dL (65-115); Lipase 19 U/L (13-60); Osmolality Calculated 287 mOsm/kg (285-295); Potassium 3.9 mmol/L (3.5-5.1); Sodium 134 mmol/L (136-145); Total Bilirubin 0.8 mg/dL (0.15-1.2); Total Protein 7.7 g/dL (6.6-8.7)
[2019-12-06 18:59] LABS: Aspartate Amino Transferase 16 U/L (0-40)
[2019-12-06 19:39] VITALS: PULSE 78; RESP 18; O2SAT 98
== END 2019-12-06 19:43 | disposition home or self-care (01) ==
PROVIDERS: Emergency Provider Emergency Medicine
DX: R10.84 Generalized abdominal pain (principal); Z79.82 Long term (current) use of aspirin; Z79.4 Long term (current) use of insulin; F17.210 Nicotine dependence, cigarettes, uncomplicated
CPT/HCPCS: 12345; 74177; 80053; 83690; 85025; 96361; 96374; 96375; 99282; 99283; J1200; J2765; J7030; Q9967

== ENCOUNTER 2019-12-27 12:01 | Emergency (ER) | payer MEDICARE, MEDICAID, SELFPAY ==
[2019-12-27 12:08] VITALS: BP 179/114; PULSE 113; RESP 18; TEMP 36.6; O2SAT 99; BMI 25.1
--- NOTE | 2019-12-27 12:19 | W.ED.ABDPA2 ---
HPI - Abdominal Pain General: Chief Complaint: Abdominal Pain Stated Complaint: GOT DRUNK LAST NIGHT AND CANT STOP N/V Time Seen by Provider: 12/27/19 12:13 Source: patient Mode of arrival: ambulatory Limitations: no limitations History of Present Illness: HPI narrative: 49-year-old diabetic male presents to the emergency department with vomiting and abdominal pain that started last night after he got drunk. He said after he got drunk he started vomiting and has been vomiting at a rate of about 3 times an hour except for 2-hour period when he slipped. He has generalized abdominal pain that is worse on vomiting. No diarrhea. No blood in his vomitus. He is here for help to stop vomiting and for further evaluation. MD elicited complaint: abdominal pain Location: Diffuse Severity: severe Quality: cramping Radiation: none Migration to: no migration Exacerbating factors: vomiting Relieving factors: nothing Context: other (he got drunk last night) Associated Symptoms: Reports nausea and vomiting; Denies chills, constipation, diarrhea, dysuria and fever(s) Review of Systems General: Reports: 10 or more systems reviewed and unremarkable except in HPI and below Const: Denies: fever(s), chills or body aches Eyes: Denies: change in vision or blurry vision ENMT: Denies: throat pain, enlarged tonsils, odynophagia, hoarseness, mouth pain or swelling of lips/tongue Card: Denies: palpitations, irregular heart rhythm, edema or swelling of feet/ankles Resp: Denies: dyspnea, productive cough or non-productive cough GI: Reports: abdominal pain, nausea and vomiting; Denies: diarrhea or constipation : Denies: flank pain, dysuria, urinary frequency, urinary urgency or urinary hesitancy Musc: Denies: neck pain, back pain or extremity swelling Skin/Breast: Denies: rash, pruritus or erythema Neuro: Denies: headache(s), numbness in extremities or weakness in extremities Endo: Denies: polyuria, polydipsia or tired all the time PFS ED PFSH: Social History (Reviewed 12/27/19 @ 12:22 by Jeremy Kitchen MD, [facility] [place] Smoking and tobacco status: former smoker Physical Exam Const: COMMON NORMALS: no acute distress, average body habitus, patient oriented x3, no limitations, healthy appearing, alert and well nourished HENMT: COMMON NORMALS: normocephalic, atraumatic and moist oral mucous membranes HEAD & SCALP: normocephalic and atraumatic Eye: COMMON NORMALS: Equal, round and reactive pupils present, EOMs intact bilaterally, conjunctivae normal and no scleral icterus CONJUNCTIVA: Yes conjunctivae normal PUPIL: Yes Equal, round and reactive pupils present Neck/C-Spine: COMMON NORMALS: full ROM, supple, no meningeal signs, no JVD and No carotid bruits Resp: COMMON NORMALS: normal respiratory effort, No retractions, No use of accessory muscles, clear to auscultation bilaterally and percussion normal AUSCULTATION: clear to auscultation bilaterally PERCUSSION: percussion normal Cardio: COMMON NORMALS: no JVD, regular rate, regular rhythm, S1 normal heart sound present, S2 normal heart sound present, No gallops present (Cardio), No clicks present (Cardio), No murmurs present (Cardio), No rub (Cardio) and Peripheral pulses 2+ throughout RATE: regular rate RHYTHM: regular rhythm HEART SOUNDS: S1 normal heart sound present and S2 normal heart sound present PERIPHERAL PULSES: Peripheral pulses 2+ throughout GI: COMMON NORMALS: Normal to inspection, nondistended, normoactive bowel sounds present, Soft to palpation, No hepatosplenomegaly present, no masses and no bruits PALPATION: Yes Soft to palpation, Yes Tenderness to palpation present (GI) (Diffuse), No Guarding due to palpation present (GI), No Rigid due to palpation, Yes No hepatosplenomegaly present and No Rebound tenderness present : COMMON NORMALS: Yes no CVA tenderness BLADDER/KIDNEY EXAM: Yes no CVA tenderness Back/Pelvis: COMMON NORMALS: no CVA tenderness Extremity: COMMON NORMALS: normal to inspection, full ROM, capillary refill normal, no calf tenderness and no pedal edema Neuro: COMMON NORMALS: patient oriented x3 SENSORIUM/ORIENTATION: Yes alert MENINGEAL SIGNS: Yes no meningeal signs Skin: COMMON NORMALS: no rashes or lesions noted, no wounds, turgor normal, no jaundice, no petechiae and no mottling GENERAL SKIN EXAM: no rashes or lesions noted and turgor normal Course Reevaluation(s): Reevaluation #1: Patient feels much better now. Pain, nausea and vomiting have resolved. He is ready to be discharged home. We will discharge him home with no new orders. Time: 16:26 Vital Signs: Vital signs: Vital Signs Temperature 97.9 F 12/27/19 12:08 Pulse Rate 122 H 12/27/19 16:53 Respiratory Rate 18 12/27/19 16:53 Blood Pressure 175/110 12/27/19 16:53 Pulse Oximetry 97 12/27/19 16:53 MDM - Abdominal Pain MDM Narrative: Medical decision making narrative: Patient who presents to the emergency department with features of alcoholic gastritis. He drank a lot of alcohol yesterday and got drunk and started vomiting thereafter. Vomiting persisted today. Vomiting was controlled with intravenous antiemetics and the epigastric pain was relieved following a GI cocktail. The patient is discharged home with no new orders as he has a prescription for PPIs. Medical Records: Attestation: I reviewed the patient's medical records. Lab Data: Attestation: I reviewed the patient's lab results. Labs: Lab Results 12/27/19 12/27/19 12/27/19 Range/Units 12:47 12:47 12:47 WBC 10.5 H (4.0-10.0) 10^3/ uL RBC 6.06 H (4.1-5.3) 10^6/u L Hgb 17.4 H (11.7-16.6) g/dL Hct 51.2 (42.0-52.0) % MCV 84.5 (80-94) fL MCH 28.7 (28.0-34.0) pg MCHC 34.0 (30.0-36.0) g/dL RDW 12.5 (12.1-15.1) % Plt Count 342 (130-400) 10^3/c mm MPV 10.5 H (7.4-10.4) fL Neut % (Auto) 75.3 % Lymph % (Auto) 19.6 % [place] % (Auto) 4.0 % Eos % (Auto) 0.1 % Baso % (Auto) 0.8 % Neut # (Auto) 7.9 H (1.8-7.7) 10^3/u L Lymph # (Auto) 2.1 (0.8-4.8) 10^3/u L [place] # (Auto) 0.4 (0.2-0.9) 10^3/u L Eos # (Auto) 0.0 (0.0-0.8) 10^3/u L Baso # (Auto) 0.1 (0.0-0.1) 10^3/u L Nucleated RBC % (a uto) 0 % Nucleated RBCs # 0.0 /100WBC Sodium 139 (136-145) mmol/L Potassium 3.5 (3.5-5.1) mmol/L Chloride 94 L (98-107) mmol/L Carbon Dioxide 21 L (22-29) mmol/L Anion Gap 27.5 H (5-19) BUN 22 H (6-20) mg/dL Creatinine 1.0 (0.7-1.2) mg/dL GFR Calculation 78.8 L (90-130) mL/min Glucose 194 H (65-115) mg/dL Calculated Osmolal ity 290 (285-295) mOsm/k g Lactate 1.8 (0.5-2.2) mmol/L Calcium 10.9 H (8.5-10.5) mg/dL Total Bilirubin 0.8 (0.15-1.2) mg/dL AST 22 (0-40) U/L ALT 24 (0-41) U/L Alkaline Phosphata se 85 (40-130) IU/L Total Protein 8.7 (6.6-8.7) g/dL Albumin 4.9 (3.5-5.2) g/dL Globulin 3.8 (1.3-4.6) g/dL Lipase 11 L (13-60) U/L Discharge Plan Discharge Patient Disposition: Home, Self-Care Clinical Impression: Mild dehydration Acute alcoholic gastritis Qualifiers: Gastritis bleeding: without bleeding Qualified Code(s): K29.20 - Alcoholic gastritis without bleeding Condition: Stable Prescriptions: Continued ondansetron HCl [Zofran] 4 mg tablet 4 mg PO Q6H PRN (Reason: nausea and vomiting) Qty: 10 RF: 0 chlorpromazine 25 mg tablet 25 mg PO Q6H PRN (Reason: nausea and vomiting) Qty: 10 RF: 0 omeprazole 40 mg Capsule,Delayed Release(Dr/Ec) 40 mg PO DAILY RF: 0 atorvastatin 20 mg tablet 20 mg PO DAILY RF: 0 amlodipine 5 mg tablet 5 mg PO DAILY RF: 0 aspirin [Aspir-81] 81 mg Tablet,Delayed Release (Dr/Ec) 81 mg PO DAILY RF: 0 lisinopril-hydrochlorothiazide 20-25 mg tablet 1 tab PO DAILY RF: 0 insulin aspart U-100 [Novolog Flexpen U-100 Insulin] 100 unit/mL (3 mL) insulin pen See Rx Instructions .ROUTE .COMPLEX RF: 0 Tresiba FlexTouch U-200 200 unit/mL (3 mL) insulin pen 60 unit SUBCUT DAILY RF: 0 Discharge Orders: Discharge Order (Routine); Ordered 12/27/19 Ordered By: Jeremy Kitchen Patient Instructions: Gastritis (ED), Dehydration (ED) Activity Restrictions/Additional Instructions: Return for any new or worsening symptoms. Follow-up with your primary care provider on Sunday. Continue your omeprazole. Drink plenty of fluids to keep well-hydrated. Discharge Date/Time: 12/27/19 16:54 Coding Level of Care Code ED General Road Supervisor for [place] Fwd Exam Comprehensive
[2019-12-27] MEDS: sodium chloride 0.9% 1,000 ML 999 ML IV ×2 (12:49→14:46)
[2019-12-27] MEDS: ondansetron 2 mg/ML SDV 2 mL 4 MG IVP (12:49)
[2019-12-27 12:52] VITALS: BP 163/93; PULSE 105; RESP 18; O2SAT 100
[2019-12-27 13:04] LABS: Basophils # 0.1 10^3/uL (0.0-0.1); Basophils % 0.8 %; Eosinophils % 0.1 %; Hematocrit 51.2 % (42.0-52.0); Hemoglobin 17.4 g/dL (11.7-16.6); Lymphocytes # 2.1 10^3/uL (0.8-4.8); Lymphocytes % 19.6 %; Mean Corpuscular Hemoglobin 28.7 pg (28.0-34.0); Mean Corpuscular Volume 84.5 fL (80-94); Mean Platelet Volume 10.5 fL (7.4-10.4); Monocytes # 0.4 10^3/uL (0.2-0.9); Neutrophils # 7.9 10^3/uL (1.8-7.7); Neutrophils % 75.3 %; Nucleated Red Blood Cells % 0 %; Platelet Count 342 10^3/cmm (130-400); Red Blood Count 6.06 10^6/uL (4.1-5.3); Red Cell Distribution Width 12.5 % (12.1-15.1); White Blood Count 10.5 10^3/uL (4.0-10.0)
[2019-12-27 13:21] LABS: Alanine Aminotransferase 24 U/L (0-41); Albumin Level 4.9 g/dL (3.5-5.2); Alkaline Phosphatase 85 IU/L (40-130); Anion Gap 27.5 (5-19); Aspartate Amino Transferase 22 U/L (0-40); Blood Urea Nitrogen 22 mg/dL (6-20); Calcium 10.9 mg/dL (8.5-10.5); Carbon Dioxide 21 mmol/L (22-29); Chloride 94 mmol/L (98-107); Globulin 3.8 g/dL (1.3-4.6); Glomerular Filtration Rate 78.8 mL/min (90-130); Glucose 194 mg/dL (65-115); Lipase 11 U/L (13-60); Osmolality Calculated 290 mOsm/kg (285-295); Potassium 3.5 mmol/L (3.5-5.1); Sodium 139 mmol/L (136-145); Total Bilirubin 0.8 mg/dL (0.15-1.2); Total Protein 8.7 g/dL (6.6-8.7)
[2019-12-27 13:22] LABS: Lactate (Lactic Acid level) 1.8 mmol/L (0.5-2.2)
[2019-12-27 13:23] VITALS: BP 158/88; PULSE 97; RESP 20; O2SAT 98
[2019-12-27] MEDS: metoclopramide 5 mg/mL SDV 2 mL 10 MG IVP (14:46)
[2019-12-27] MEDS: lidocaine 2% viscous 15 ML, aluminum-mag hydrox-simethicon 30 ML, sucralfate oral liq 1 GM PO (15:35)
[2019-12-27 15:39] VITALS: BP 176/92; PULSE 127; RESP 24; O2SAT 97
[2019-12-27 16:53] VITALS: BP 175/110; PULSE 122; RESP 18; O2SAT 97
== END 2019-12-27 16:54 | disposition home or self-care (01) ==
PROVIDERS: Emergency Provider Family Medicine
DX: K29.20 Alcoholic gastritis without bleeding (principal); E86.0 Dehydration; Z79.82 Long term (current) use of aspirin; Z87.891 Personal history of nicotine dependence
CPT/HCPCS: 12345; 80053; 83605; 83690; 85025; 96361; 96374; 96375; 99283; J2405; J2765; J7030

== ENCOUNTER 2020-04-24 15:18 | Emergency (ER) | payer MEDICARE, MEDICAID, SELFPAY ==
[2020-04-24 15:39] VITALS: BP 187/159; PULSE 131; RESP 18; TEMP 36.3; O2SAT 97; BMI 28.5
[2020-04-24 16:30] LABS: Basophils # 0.1 10^3/uL (0.0-0.1); Basophils % 0.6 %; Eosinophils # 0.1 10^3/uL (0.0-0.8); Eosinophils % 0.5 %; Hematocrit 50.9 % (42.0-52.0); Hemoglobin 16.9 g/dL (11.7-16.6); Lymphocytes # 2.6 10^3/uL (0.8-4.8); Lymphocytes % 24.3 %; Mean Corpuscular HGB Conc 33.2 g/dL (30.0-36.0); Mean Corpuscular Hemoglobin 28.9 pg (28.0-34.0); Mean Platelet Volume 10.9 fL (7.4-10.4); Monocytes # 0.8 10^3/uL (0.2-0.9); Monocytes % 7.4 %; Neutrophils # 7.11 10^3/uL (1.8-7.7); Neutrophils % 66.8 %; Nucleated Red Blood Cells % 0 %; Platelet Count 278 10^3/cmm (130-400); Red Blood Count 5.85 10^6/uL (4.1-5.3); White Blood Count 10.6 10^3/uL (4.0-10.0)
[2020-04-24] MEDS: sodium chloride 0.9% 1,000 ML 999 ML IV ×2 (16:36→16:37)
[2020-04-24] MEDS: metoclopramide 5 mg/mL SDV 2 mL 10 MG IVP (16:36)
[2020-04-24] MEDS: ondansetron 2 mg/ML SDV 2 mL 4 MG IVP (16:37)
--- NOTE | 2020-04-24 16:38 | ED_ITS ---
HPI - Abdominal Pain General: Chief Complaint: Abdominal Pain Stated Complaint: Vomiting Time Seen by Provider: 04/24/20 15:41 History of Present Illness: HPI narrative: 49-year-old male presents with persistent nausea and vomiting abdominal pain he has had this multiple times in the past. Patient is a known diabetic he has had gastric emptying studies in the past as well. He denies any hematochezia melena hematemesis or coffee- ground emesis. Reviewing his old records previous gastric emptying study 11/05/2018 was reported as normal. MD elicited complaint: abdominal pain Pertinent past history: other (reflux) Onset (ago): day(s) Pain Consistency: intermittent Location: Epigastric Severity: severe Quality: cramping Radiation: none Migration to: LUQ and RUQ Exacerbating factors: eating and vomiting Relieving factors: rest Associated Symptoms: Reports anorexia, bloating, change in bowel habits, chills, GI cramping, heartburn, loose stools and nausea; Denies coffee ground emesis, constipation, diarrhea, dyspepsia, dysuria, excessive flatus, fever(s), hematochezia, hematuria, hematemesis, fecal incontinence, poor appetite, syncope and vomiting Review of Systems Const: Reports: chills; Denies: fever(s) ENMT: Denies: throat pain, ear or mastoid pain, nasal discharge or nasal congestion Card: Denies: syncope Resp: Denies: dyspnea, productive cough or non-productive cough GI: Reports: nausea, heartburn, bloating, GI cramping and change in bowel habits; Denies: vomiting, hematemesis, coffee ground emesis, diarrhea, constipation, excessive flatus, fecal incontinence or hematochezia : Denies: dysuria or hematuria Skin/Breast: Denies: rash or pruritus PFSH ED PFSH: Social History Smoking and tobacco status: former smoker Physical Exam Const: COMMON NORMALS: no acute distress GENERAL APPEARANCE: cooperative and comfortable ORIENTATION/CONSCIOUSNESS: Yes awake, Yes oriented to person, Yes oriented to place and Yes oriented to time HENMT: COMMON NORMALS: normocephalic, atraumatic and hearing grossly normal bilaterally HEAD & SCALP: normocephalic and atraumatic Neck/C-Spine: COMMON NORMALS: no JVD Resp: COMMON NORMALS: normal respiratory effort, No retractions, No use of accessory muscles and clear to auscultation bilaterally AUSCULTATION: clear to auscultation bilaterally Cardio: COMMON NORMALS: no JVD, regular rate, regular rhythm and No murmurs present (Cardio) RATE: regular rate RHYTHM: regular rhythm GI: COMMON NORMALS: Soft to palpation and No hepatosplenomegaly present AUSCULTATION: Yes normoactive bowel sounds PALPATION: Yes Soft to palpation, No Tenderness to palpation present (GI), No Guarding due to palpation present (GI) and Yes No hepatosplenomegaly present Extremity: COMMON NORMALS: normal to inspection, capillary refill normal, no clubbing, cyanosis or edema, no calf tenderness and no pedal edema Neuro: SENSORIUM/ORIENTATION: Yes oriented to person, Yes oriented to place and Yes oriented to time Skin: COMMON NORMALS: no rashes or lesions noted GENERAL SKIN EXAM: no rashes or lesions noted Course Vital Signs: Vital signs: Vital Signs Temperature 97.3 F L 04/24/20 15:39 Pulse Rate 105 H 04/24/20 18:08 Respiratory Rate 18 04/24/20 18:08 Blood Pressure 128/97 04/24/20 18:08 Pulse Oximetry 97 04/24/20 18:08 MDM - Abdominal Pain MDM Narrative: Medical decision making narrative: With fluids and antiemetics he is improved I suspect he may have some developing diabetic gastroparesis. He admitted to have a repeat gastric emptying study after interventions here he is feeling much better and like to go home we will discharge him home on Reglan 10 4 times daily follow-up with his primary care doctor. Return if worsens. Lab Data: Labs: Lab Results 04/24/20 04/24/20 Range/Units 16:18 16:18 WBC 10.6 H (4.0-10.0) 10^3/ uL RBC 5.85 H (4.1-5.3) 10^6/u L Hgb 16.9 H (11.7-16.6) g/dL Hct 50.9 (42.0-52.0) % MCV 87.0 (80-94) fL MCH 28.9 (28.0-34.0) pg MCHC 33.2 (30.0-36.0) g/dL RDW 12.0 L (12.1-15.1) % Plt Count 278 (130-400) 10^3/c mm MPV 10.9 H (7.4-10.4) fL Neut % (Auto) 66.8 % Lymph % (Auto) 24.3 % [place] % (Auto) 7.4 % Eos % (Auto) 0.5 % Baso % (Auto) 0.6 % Neut # (Auto) 7.11 (1.8-7.7) 10^3/u L Lymph # (Auto) 2.6 (0.8-4.8) 10^3/u L [place] # (Auto) 0.8 (0.2-0.9) 10^3/u L Eos # (Auto) 0.1 (0.0-0.8) 10^3/u L Baso # (Auto) 0.1 (0.0-0.1) 10^3/u L Nucleated RBC % (a uto) 0 % Nucleated RBCs # 0.0 /100WBC Sodium 134 L (136-145) mmol/L Potassium 4.6 (3.5-5.1) mmol/L Chloride 90 L (98-107) mmol/L Carbon Dioxide 25 (22-29) mmol/L Anion Gap 23.6 H (5-19) BUN 20 (6-20) mg/dL Creatinine 0.9 (0.7-1.2) mg/dL GFR Calculation 89.0 L (90-130) mL/min Glucose 326 H (65-115) mg/dL Calculated Osmolal ity 293 (285-295) mOsm/k g Calcium 9.8 (8.5-10.5) mg/dL Total Bilirubin 0.6 (0.15-1.2) mg/dL AST 14 (0-40) U/L ALT 16 (0-41) U/L Alkaline Phosphata se 94 (40-130) IU/L Total Protein 7.4 (6.6-8.7) g/dL Albumin 4.4 (3.5-5.2) g/dL Globulin 3.0 (1.3-4.6) g/dL Lipase 12 L (13-60) U/L Discharge Plan Discharge Patient Disposition: Home Clinical Impression: Diabetic gastroparesis Condition: Stable Prescriptions: New Reglan 10 mg tablet 10 mg PO QID 7 Days Qty: 28 RF: 0 No Action ondansetron HCl [Zofran] 4 mg tablet 4 mg PO Q6H PRN (Reason: nausea and vomiting) Qty: 10 RF: 0 chlorpromazine 25 mg tablet 25 mg PO Q6H PRN (Reason: nausea and vomiting) Qty: 10 RF: 0 omeprazole 40 mg Capsule,Delayed Release(Dr/Ec) 40 mg PO DAILY RF: 0 atorvastatin 20 mg tablet 20 mg PO DAILY RF: 0 amlodipine 5 mg tablet 5 mg PO DAILY RF: 0 aspirin [Aspir-81] 81 mg Tablet,Delayed Release (Dr/Ec) 81 mg PO DAILY RF: 0 lisinopril-hydrochlorothiazide 20-25 mg tablet 1 tab PO DAILY RF: 0 insulin aspart U-100 [Novolog Flexpen U-100 Insulin] 100 unit/mL (3 mL) insulin pen See Rx Instructions .ROUTE .COMPLEX RF: 0 Tresiba FlexTouch U-200 200 unit/mL (3 mL) insulin pen 60 unit SUBCUT DAILY RF: 0 Discharge Orders: Discharge Order (Routine); Ordered 04/24/20 Ordered By: Matteo Cavazos Discharge Diet: Clear Liquid Patient Instructions: Clear Liquid Diet (ED) Discharge Date/Time: 04/24/20 18:10 Coding Level of Care Code ED Drafter Heating And Ventilating for Nicanorg Fwjennifer Exam Comprehensive
[2020-04-24 16:52] LABS: Alanine Aminotransferase 16 U/L (0-41); Albumin Level 4.4 g/dL (3.5-5.2); Alkaline Phosphatase 94 IU/L (40-130); Anion Gap 23.6 (5-19); Aspartate Amino Transferase 14 U/L (0-40); Blood Urea Nitrogen 20 mg/dL (6-20); Calcium 9.8 mg/dL (8.5-10.5); Carbon Dioxide 25 mmol/L (22-29); Chloride 90 mmol/L (98-107); Glucose 326 mg/dL (65-115); Lipase 12 U/L (13-60); Osmolality Calculated 293 mOsm/kg (285-295); Potassium 4.6 mmol/L (3.5-5.1); Sodium 134 mmol/L (136-145); Total Bilirubin 0.6 mg/dL (0.15-1.2); Total Protein 7.4 g/dL (6.6-8.7)
[2020-04-24 18:08] VITALS: BP 128/97; PULSE 105; RESP 18; O2SAT 97
== END 2020-04-24 18:10 | disposition home or self-care (01) ==
PROVIDERS: Emergency Provider Family Medicine
DX: E11.43 Type 2 diabetes mellitus with diabetic autonomic (poly)neuropathy (principal); K31.84 Gastroparesis; Z79.4 Long term (current) use of insulin; Z79.82 Long term (current) use of aspirin; Z87.891 Personal history of nicotine dependence
CPT/HCPCS: 12345; 80053; 83690; 85025; 96361; 96374; 96375; 99282; 99283; J2405; J2765; J7030

== ENCOUNTER 2020-11-23 19:30 | Observation (INO) | payer MEDICARE, MEDICAID, SELFPAY ==
[2020-11-23 19:35] VITALS: BP 163/133; PULSE 117; RESP 20; TEMP 36.3; O2SAT 98; BMI 27.8
[2020-11-23] MEDS: sodium chloride 0.9% 1,000 ML 999 ML IV ×2 (20:16→22:54)
[2020-11-23] MEDS: ondansetron 2 mg/ML SDV 2 mL 4 MG IVP (20:16)
[2020-11-23 20:24] VITALS: BP 140/78; PULSE 72; RESP 16; O2SAT 99
[2020-11-23 20:25] LABS: Basophils # 0.1 10^3/uL (0.0-0.1); Basophils % 0.4 %; Hematocrit 52.2 % (42.0-52.0); Hemoglobin 17.3 g/dL (11.7-16.6); Lymphocytes # 1.6 10^3/uL (0.8-4.8); Lymphocytes % 11.2 %; Mean Corpuscular HGB Conc 33.1 g/dL (30.0-36.0); Mean Corpuscular Hemoglobin 29.5 pg (28.0-34.0); Mean Corpuscular Volume 89.1 fL (80-94); Mean Platelet Volume 10.2 fL (7.4-10.4); Monocytes # 0.5 10^3/uL (0.2-0.9); Monocytes % 3.2 %; Neutrophils # 12.09 10^3/uL (1.8-7.7); Neutrophils % 84.8 %; Nucleated Red Blood Cells % 0 %; Platelet Count 286 10^3/cmm (130-400); Red Blood Count 5.86 10^6/uL (4.1-5.3); Red Cell Distribution Width 12.3 % (12.1-15.1); White Blood Count 14.2 10^3/uL (4.0-10.0)
[2020-11-23] MEDS: metoclopramide 5 mg/mL SDV 2 mL 10 MG IVP (20:39)
[2020-11-23 20:44] LABS: Alanine Aminotransferase 21 U/L (0-41); Alkaline Phosphatase 91 IU/L (40-130); Aspartate Amino Transferase 17 U/L (0-40); Blood Urea Nitrogen 20 mg/dL (6-20); Calcium 9.7 mg/dL (8.5-10.5); Carbon Dioxide 25 mmol/L (22-29); Chloride 94 mmol/L (98-107); Globulin 2.6 g/dL (1.3-4.6); Glomerular Filtration Rate 88.6 mL/min (90-130); Glucose 273 mg/dL (65-115); Lipase 11 U/L (13-60); Osmolality Calculated 300 mOsm/kg (285-295); Sodium 139 mmol/L (136-145); Total Bilirubin 0.6 mg/dL (0.15-1.2); Total Protein 7.6 g/dL (6.6-8.7)
[2020-11-23 20:45] LABS: Lactate (Lactic Acid level) 2.8 mmol/L (0.5-2.2)
[2020-11-23 20:49] LABS: Alcohol Level < 10 mg/dL (0-10)
--- NOTE | 2020-11-23 20:56 | CTR_ITS ---
PROCEDURE INFORMATION: Exam: CT Abdomen And Pelvis With Contrast Exam date and time: 11/23/2020 9:01 PM Age: 50 years old Clinical indication: Nausea and vomiting; Abdominal pain; Patient HX: Epigastric pain with n/v. ; Additional info: Intractable nausea and vomiting TECHNIQUE: Imaging protocol: Computed tomography of the abdomen and pelvis with contrast. Radiation optimization: All CT scans at this facility use at least one of these dose optimization techniques: automated exposure control; mA and/or kV adjustment per patient size (includes targeted exams where dose is matched to clinical indication); or iterative reconstruction. Contrast material: OMNI 300; Contrast volume: 95 ml; Contrast route: INTRAVENOUS (IV); COMPARISON: CT abdomen pelvis w con* [id number] 12/06/2019 6:43 PM RADIATION DOSE METRICS: Total DLP (mGy-cm): 1615.78 FINDINGS: Lungs: The visualized lung bases are clear. Liver: Normal size and density. No focal mass. Gallbladder and bile ducts: No intrahepatic or extrahepatic biliary dilitation. No calcified stones. Pancreas: No evidence of mass. No ductal dilation. Spleen: No splenomegaly or mass. Adrenal glands: Normal. Kidneys and ureters: A 2.6 cm simple appearing left renal cyst. This does not require further imaging. No stones or hydronephrosis. Stomach and bowel: No evidence of obstruction. No focal bowel wall thickening or mass. No significant diverticula. Appendix: No evidence of appendicitis. Intraperitoneal space: No free air. No free fluid or evidence of abscess. Vasculature: Mixed hard and soft plaque throughout the aorta. Lymph nodes: No lymphadenopathy. Urinary bladder: Normal CT appearance. Reproductive: The prostate gland measures 4.6 cm in transverse dimension. Bones/joints: Moderate degenerative changes at the L5-S1 level. Soft tissues: Within normal limits. CT/CT abdomen pelvis w con* [id number] IMPRESSION: 1. No acute abnormalities identified. 2. Slight nonspecific enlargement of the prostate gland. 3. Moderate atherosclerotic disease of the abdominal aorta. COMMENTS: Consistent with the [employer]'s Incidental Findings Committee white paper (J Am Zofia Radiol 2018): Any incidental renal lesion less than 1 cm or classified as too small to characterize, or any incidental cystic renal lesion characterized as simple-appearing, is likely benign. No follow-up imaging is recommended for these lesions per consensus recommendations based on imaging criteria. Radiation Dose CTDIVOL = (mGy): DLP = 1615.78 (mGy-cm)
[2020-11-23] MEDS: haloperidol inj 5 mg/mL INJ 1 mL IVP (21:00)
--- NOTE | 2020-11-23 21:00 | PC.NURSE ---
Pt becomes acutely upset, throwing equipment and ripping pulse ox apart. Pt apologizes stating he cannot take the pain. Physician and charge nurse informed.
[2020-11-23] MEDS: iohexol 300 mg/mL 100 mL Btl IV (21:10)
--- NOTE | 2020-11-23 22:00 | PC.NURSE ---
Pt refuses vitals stating he doesnt like being hooked up feeling tied down like when I was incarcerated
[2020-11-23 22:33] LABS: Bilirubin Urine 1+ (Negative); Blood Urine Neg (Negative); Glucose Urine UA 4+ (Normal); Ketones Urine 3+ (Negative); Leukocyte Esterase Urine Negative (Negative); Nitrate Urine Negative (Negative); Protein Urine 1+ (Negative); Specific Gravity, Urine 1.005 (1.005-1.030); Urine Appearance Clear (CLEAR); Urine Color Yellow (Yellow); Urobilinogen Urine 1 mg/dL (Negative); pH Urine 5 (5-7)
[2020-11-23 22:34] LABS: Add Urine Culture? No; Add Urine Microscopic? YES; Squamous Epithelial Cell Urine 0-4 /hpf (0-5)
--- NOTE | 2020-11-23 22:49 | W.ED.NAVMDI ---
HPI - Nausea/Vomiting/Diarrhea General: Chief complaint: Nausea/Vomiting/Diarrhea Stated complaint: n/v Time Seen by Provider: 11/23/20 19:36 Source: patient Mode of arrival: ambulatory Limitations: no limitations History of Present Illness: HPI Narrative: Patient is a 51-year-old male with a history of diabetes mellitus, hypertension. He presented to the emergency department with nausea and vomiting that started early this morning when he woke up. He said he has vomited about 30 times so far. He has associated abdominal pain. He denies any fever or diarrhea. He denies abdominal distention. MD elicited complaint: nausea and vomiting Onset (ago): hour(s) Description of vomiting: food contents Associated nausea: Yes Location of pain: Diffuse Pain consistency: constant Quality: cramping Exacerbating factors: vomiting Relieving factors: none Associated symtoms: Reports nausea; Denies altered mental status, anxiety, bloating, change in vision, chest pain, cough, diaphoresis, decreased urine output, dizziness, dysuria, epistaxis, fatigue, fecal incontinence, fevers/chills, headache(s), anorexia, malaise, myalgias, numbness, palpitations, rash, short of breath, syncope, tenesmus, tinnitus or weakness Review of Systems General: Reports: 10 or more systems reviewed and unremarkable except in HPI and below Const: Denies: fatigue, malaise or diaphoresis Eyes: Denies: change in vision ENMT: Denies: tinnitus or epistaxis Card: Denies: chest pain, palpitations or syncope GI: Reports: nausea; Denies: bloating or fecal incontinence : Denies: dysuria Neuro: Denies: headache(s) or dizziness Psych: Denies: anxiety PFSH ED PFSH: Social History (Reviewed 11/23/20 @ 22:51 by Jeremy Kitchen MD, [facility] [place]) Smoking and tobacco status: former smoker Physical Exam Const: COMMON NORMALS: no acute distress, average body habitus, patient oriented x3, no limitations, healthy appearing, alert and well nourished EXAM LIMITATIONS: no altered mental status HENMT: COMMON NORMALS: normocephalic, atraumatic and moist oral mucous membranes HEAD & SCALP: normocephalic and atraumatic Neck/C-Spine: COMMON NORMALS: no meningeal signs and no JVD Resp: COMMON NORMALS: normal respiratory effort, No retractions, No use of accessory muscles, clear to auscultation bilaterally and percussion normal AUSCULTATION: clear to auscultation bilaterally PERCUSSION: percussion normal Cardio: COMMON NORMALS: no JVD, regular rate, regular rhythm, S1 normal heart sound present, S2 normal heart sound present, No gallops present (Cardio), No clicks present (Cardio), No murmurs present (Cardio), No rub (Cardio) and Peripheral pulses 2+ throughout RATE: regular rate RHYTHM: regular rhythm HEART SOUNDS: S1 normal heart sound present and S2 normal heart sound present PERIPHERAL PULSES: Peripheral pulses 2+ throughout GI: COMMON NORMALS: Normal to inspection, nondistended, normoactive bowel sounds present, Soft to palpation, non-tender, No hepatosplenomegaly present, no masses and no bruits PALPATION: Yes Soft to palpation and Yes No hepatosplenomegaly present Extremity: COMMON NORMALS: normal to inspection, full ROM, capillary refill normal, no calf tenderness and no pedal edema Neuro: COMMON NORMALS: patient oriented x3 SENSORIUM/ORIENTATION: Yes alert MENINGEAL SIGNS: Yes no meningeal signs Skin: COMMON NORMALS: no rashes or lesions noted, no wounds, turgor normal, no jaundice, no petechiae and no mottling GENERAL SKIN EXAM: no rashes or lesions noted and turgor normal Course Reevaluation(s): Reevaluation #1: Discussed his lab and imaging findings with him. Advised that he is in DKA and will benefit from hospital admission. Patient was hesitant to be admitted but eventually agreed when I explained possible outcomes. Time: 23:12 Consultations: Consultation #1: Discussed the patient with Dr. Green, Hospitalist and he kindly accepted the patient to his service. Time: 23:05 Vital Signs: Vital signs: Vital Signs Temperature 97.4 F L 11/23/20 19:35 Pulse Rate 72 11/23/20 20:24 Respiratory Rate 16 11/23/20 20:24 Blood Pressure 140/78 11/23/20 20:24 Pulse Oximetry 99 11/23/20 20:24 MDM - Nausea/Vomiting/Diarrhea MDM Narrative: Medical decision making narrative: 50-year-old male with a history of diabetes who presents to the emergency department with persistent nausea and vomiting that has been going on all day. In the emergency department he has hyperglycemia, ketones in the serum, increased anion gap, elevated lactic acid all of which are suggestive of DKA. He is admitted to the ICU for further evaluation. No obvious cause for DKA Medical Records: Attestation: I reviewed the patient's medical records. Lab Data: Attestation: I reviewed the patient's lab results. Labs: Lab Results 11/23/20 11/23/20 11/23/20 Range/Units 20:13 20:13 20:13 WBC 14.2 H (4.0-10.0) 10^3/ uL RBC 5.86 H (4.1-5.3) 10^6/u L Hgb 17.3 H (11.7-16.6) g/dL Hct 52.2 H (42.0-52.0) % MCV 89.1 (80-94) fL MCH 29.5 (28.0-34.0) pg MCHC 33.1 (30.0-36.0) g/dL RDW 12.3 (12.1-15.1) % Plt Count 286 (130-400) 10^3/c mm MPV 10.2 (7.4-10.4) fL Neut % (Auto) 84.8 % Lymph % (Auto) 11.2 % [place] % (Auto) 3.2 % Eos % (Auto) 0.0 % Baso % (Auto) 0.4 % Neut # (Auto) 12.09 H (1.8-7.7) 10^3/u L Lymph # (Auto) 1.6 (0.8-4.8) 10^3/u L [place] # (Auto) 0.5 (0.2-0.9) 10^3/u L Eos # (Auto) 0.0 (0.0-0.8) 10^3/u L Baso # (Auto) 0.1 (0.0-0.1) 10^3/u L Nucleated RBC % (a uto) 0 % Nucleated RBCs # 0.0 /100WBC Sodium 139 (136-145) mmol/L Potassium 4.0 (3.5-5.1) mmol/L Chloride 94 L (98-107) mmol/L Carbon Dioxide 25 (22-29) mmol/L Anion Gap 24.0 H (5-19) BUN 20 (6-20) mg/dL Creatinine 0.9 (0.7-1.2) mg/dL GFR Calculation 88.6 L (90-130) mL/min Glucose 273 H (65-115) mg/dL Calculated Osmolal ity 300 H (285-295) mOsm/k g Lactate 2.8 H (0.5-2.2) mmol/L Calcium 9.7 (8.5-10.5) mg/dL Total Bilirubin 0.6 (0.15-1.2) mg/dL AST 17 (0-40) U/L ALT 21 (0-41) U/L Alkaline Phosphata se 91 (40-130) IU/L Total Protein 7.6 (6.6-8.7) g/dL Albumin 5.0 (3.5-5.2) g/dL Globulin 2.6 (1.3-4.6) g/dL Lipase 11 L (13-60) U/L Urine Color (Yellow) Urine Appearance (CLEAR) Urine pH (5-7) Ur Specific Gravit y (1.005-1.030) Urine Protein (Negative) Urine Glucose (UA) (Normal) Urine Ketones (Negative) Urine Blood (Negative) Urine Nitrate (Negative) Urine Bilirubin (Negative) Urine Urobilinogen (Negative) mg/dL Ur Leukocyte Brittany ase (Negative) Urine RBC (0-2) /hpf Urine WBC (0-5) /hpf Ur Squamous Epith Cells (0-5) /hpf Amorphous Sediment Urine Bacteria (NONE) /hpf Ethyl Alcohol < 10 (0-10) mg/dL Serum Ketones (Negative) 11/23/20 11/23/20 Range/Units 20:13 20:13 WBC (4.0-10.0) 10^3/ uL RBC (4.1-5.3) 10^6/u L Hgb (11.7-16.6) g/dL Hct (42.0-52.0) % MCV (80-94) fL MCH (28.0-34.0) pg MCHC (30.0-36.0) g/dL RDW (12.1-15.1) % Plt Count (130-400) 10^3/c mm MPV (7.4-10.4) fL Neut % (Auto) % Lymph % (Auto) % [place] % (Auto) % Eos % (Auto) % Baso % (Auto) % Neut # (Auto) (1.8-7.7) 10^3/u L Lymph # (Auto) (0.8-4.8) 10^3/u L [place] # (Auto) (0.2-0.9) 10^3/u L Eos # (Auto) (0.0-0.8) 10^3/u L Baso # (Auto) (0.0-0.1) 10^3/u L Nucleated RBC % (a uto) % Nucleated RBCs # /100WBC Sodium (136-145) mmol/L Potassium (3.5-5.1) mmol/L Chloride (98-107) mmol/L Carbon Dioxide (22-29) mmol/L Anion Gap (5-19) BUN (6-20) mg/dL Creatinine (0.7-1.2) mg/dL GFR Calculation (90-130) mL/min Glucose (65-115) mg/dL Calculated Osmolal ity (285-295) mOsm/k g Lactate (0.5-2.2) mmol/L Calcium (8.5-10.5) mg/dL Total Bilirubin (0.15-1.2) mg/dL AST (0-40) U/L ALT (0-41) U/L Alkaline Phosphata se (40-130) IU/L Total Protein (6.6-8.7) g/dL Albumin (3.5-5.2) g/dL Globulin (1.3-4.6) g/dL Lipase (13-60) U/L Urine Color Yellow (Yellow) Urine Appearance Clear (CLEAR) Urine pH 5 (5-7) Ur Specific Gravit y 1.005 (1.005-1.030) Urine Protein 1+ H (Negative) Urine Glucose (UA) 4+ H (Normal) Urine Ketones 3+ H (Negative) Urine Blood Neg (Negative) Urine Nitrate Negative (Negative) Urine Bilirubin 1+ H (Negative) Urine Urobilinogen 1 H (Negative) mg/dL Ur Leukocyte Brittany ase Negative (Negative) Urine RBC None (0-2) /hpf Urine WBC None (0-5) /hpf Ur Squamous Epith Cells 0-4 H (0-5) /hpf Amorphous Sediment Not Reportable Urine Bacteria None (NONE) /hpf Ethyl Alcohol (0-10) mg/dL Serum Ketones Positive H (Negative) Imaging Data^: CT Abd/Pel: Attestation: I personally reviewed and interpreted this imaging study as follows: Radiologist's impression: [facility] [place], [place] [address]QI Scan ReportSigned Patient: Zackary Enriquez #: [id number]: 1970Acct#:[id number]/Sex: 50 / MADM Date: 11/23/20Loc: ERRoom/Bed:Attending Dr: Ordering Provider/Ordering MD: Jeremy Kitchen MD, [facility] [place] Date of Service: 11/23/20 Procedure(s): CT abdomen pelvis w con* [id number] Accession Number(s): [id number] Report Number: [id number] PROCEDURE INFORMATION: Exam: CT Abdomen And Pelvis With Contrast Exam date and time: 11/23/2020 9:01 PM Age: 50 years old Clinical indication: Nausea and vomiting; Abdominal pain; Patient HX: Epigastric pain with n/v. ; Additional info: Intractable nausea and vomiting TECHNIQUE: Imaging protocol: Computed tomography of the abdomen and pelvis with contrast. Radiation optimization: All CT scans at this facility use at least one of these dose optimization techniques: automated exposure control; mA and/or kV adjustment per patient size (includes targeted exams where dose is matched to clinical indication); or iterative reconstruction. Contrast material: OMNI 300; Contrast volume: 95 ml; Contrast route: INTRAVENOUS (IV); COMPARISON: CT abdomen pelvis w con* [id number] 12/06/2019 6:43 PM RADIATION DOSE METRICS: Total DLP (mGy-cm): 1615.78 FINDINGS: Lungs: The visualized lung bases are clear. Liver: Normal size and density. No focal mass. Gallbladder and bile ducts: No intrahepatic or extrahepatic biliary dilitation. No calcified stones. Pancreas: No evidence of mass. No ductal dilation. Spleen: No splenomegaly or mass. Adrenal glands: Normal. Kidneys and ureters: A 2.6 cm simple appearing left renal cyst. This does not require further imaging. No stones or hydronephrosis. Stomach and bowel: No evidence of obstruction. No focal bowel wall thickening or mass. No significant diverticula. Appendix: No evidence of appendicitis. Intraperitoneal space: No free air. No free fluid or evidence of abscess. Vasculature: Mixed hard and soft plaque throughout the aorta. Lymph nodes: No lymphadenopathy. Urinary bladder: Normal CT appearance. Reproductive: The prostate gland measures 4.6 cm in transverse dimension. Bones/joints: Moderate degenerative changes at the L5-S1 level. Soft tissues: Within normal limits. CT/CT abdomen pelvis w con* [id number] IMPRESSION: 1. No acute abnormalities identified. 2. Slight nonspecific enlargement of the prostate gland. 3. Moderate atherosclerotic disease of the abdominal aorta. COMMENTS: Consistent with the [place] [employer]'s Incidental Findings Committee white paper (J Am Zofia Radiol 2018): Any incidental renal lesion less than 1 cm or classified as too small to characterize, or any incidental cystic renal lesion characterized as simple-appearing, is likely benign. No follow-up imaging is recommended for these lesions per consensus recommendations based on imaging criteria. Radiation Dose CTDIVOL = (mGy): DLP = 1615.78 (mGy-cm) Dictated By:Harriet Leonard By:Harriet Leonard Date/Time:11/23/202144DD/ 44 Discharge Plan Discharge Prescriptions: No Action ondansetron HCl [Zofran] 4 mg tablet 4 mg PO Q6H PRN (Reason: nausea and vomiting) Qty: 10 RF: 0 chlorpromazine 25 mg tablet 25 mg PO Q6H PRN (Reason: nausea and vomiting) Qty: 10 RF: 0 omeprazole 40 mg Capsule,Delayed Release(Dr/Ec) 40 mg PO DAILY RF: 0 atorvastatin 20 mg tablet 20 mg PO DAILY RF: 0 amlodipine 5 mg tablet 5 mg PO DAILY RF: 0 aspirin [Aspir-81] 81 mg Tablet,Delayed Release (Dr/Ec) 81 mg PO DAILY RF: 0 lisinopril-hydrochlorothiazide 20-25 mg tablet 1 tab PO DAILY RF: 0 insulin aspart U-100 [Novolog Flexpen U-100 Insulin] 100 unit/mL (3 mL) insulin pen See Rx Instructions .ROUTE .COMPLEX RF: 0 Tresiba FlexTouch U-200 200 unit/mL (3 mL) insulin pen 60 unit SUBCUT DAILY RF: 0 Coding Level of Care Code ED Acupressurist for Chg Fwd Exam Comprehensive
[2020-11-23 23:00] LABS: Ketone (Acetest) Serum Positive (Negative)
[2020-11-23 23:30] VITALS: BP 130/98; PULSE 88; RESP 16; TEMP 37.1; O2SAT 99
--- NOTE | 2020-11-23 23:44 | PM.HP ---
Providers/Chief Complaint Admitting Physician: Warren Green Primary Care Provider: Eugenie Jay MD Chief Complaint: n/v History of Present Illness Zackary Enriquez is a 50 year old male with past medical history of late onset type 1 diabetes. He takes long-acting insulin and insulin sliding scale. He reports that currently his diabetes is well controlled. He presents to emergency room with complaints of nausea and vomiting. Since this morning when it started he has experienced about 30 episodes of dry heaving and vomiting. Denies hematemesis. Denies abdominal pain or diarrhea. Several doses of Zofran were given in emergency room. However he improved with Haldol. Currently feels better. He reports similar episodes in the past. Review of his medications reveals several medications for nausea. He also reports occasionally using marijuana. However he does not think that smoking marijuana causes his symptoms. The patient denies fever or chills. No chest pain, shortness of breath, cough, palpitations. He also has peripheral neuropathy, hypertension, GERD. Due to presence of ketones and increased anion gap and acidosis ER physician requested admission for observation and hydration. Past medical history as above. He also has history of being electrocuted in the past. 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 Social history. He denies alcohol and smoking tobacco. Family history is positive for his sister having type 2 diabetes and obesity. Review of Systems General: Reports: 10 or more systems reviewed and unremarkable except in HPI and below Medications/Allergies Home Medications Medication Instructions Recorded Confirmed Last Taken Type Tresiba FlexTouch U-200 60 unit SUBCUT DAILY 09/08/19 12/27/19 12/26/19 History amlodipine 5 mg PO DAILY 09/08/19 12/27/19 12/26/19 History aspirin [Aspir-81] 81 mg PO DAILY 09/08/19 12/27/19 12/26/19 History atorvastatin 20 mg PO DAILY 09/08/19 12/27/19 12/26/19 History insulin aspart U-100 [Novolog See Rx Instructions .ROUTE .COMPLEX 09/08/19 12/27/19 12/26/19 History Flexpen U-100 Insulin] lisinopril-hydrochlorothiazide 1 tab PO DAILY 09/08/19 12/27/19 12/26/19 History chlorpromazine 25 mg PO Q6H PRN #10 tab 10/24/19 12/27/19 12/06/19 Rx ondansetron HCl [Zofran] 4 mg PO Q6H PRN #10 tab 10/24/19 12/27/19 Unknown Rx omeprazole 40 mg PO DAILY 12/06/19 12/27/19 12/26/19 History Allergies Allergy/AdvReac Type Severity Reaction Status Date / Time fentanyl Allergy ADR-Vomitin Verified 04/24/20 15:44 g hydrocodone Allergy Nausea and Verified 04/24/20 15:44 vomiting hydromorphone [From Dilaudid] Allergy ADR-Vomitin Verified 04/24/20 15:44 g oxycodone Allergy ADR-Vomitin Verified 04/24/20 15:44 g PFSH Acute PFSH: Social History (Reviewed 11/23/20 @ 22:51 by Jeremy Kitchen MD, [facility] [place]) Smoking and tobacco status: former smoker Vitals/I&O/Wt Last Vital Signs Temp 98.8 F 11/23/20 23:30 Pulse 88 11/23/20 23:30 Resp 16 11/23/20 23:30 BP 130/98 11/23/20 23:30 Pulse Ox 99 11/23/20 23:30 11/23/20 11/23/20 11/24/20 14:59 22:59 06:59 Intake Total 1000 / 1000 Balance 1000 / 1000 Weight last 48 hrs Weight 90.718 kg Physical Exam Narrative: EXAM NARRATIVE: Patient is awake alert oriented. No acute distress. Mood and affect are appropriate. Responses are adequate. Normal speech Eyes PERRL, extraocular muscles are intact Neck supple. No JVD Lungs are clear to auscultation bilaterally. No wheezes or crackles Heart S1, S2, regular Abdomen soft, nontender, bowel sounds are present Extremities absent index fingers. No peripheral cyanosis, calf tenderness or edema. Neuro evaluation is nonfocal. Skin is warm and dry. Moist mucous membranes. Data : 11/23/20 20:13 11/23/20 20:13 Other Labs: Laboratory Results WBC 14.2 10^3/uL (4.0-10.0) H 11/23/20 20:13 RBC 5.86 10^6/uL (4.1-5.3) H 11/23/20 20:13 Hgb 17.3 g/dL (11.7-16.6) H 11/23/20 20:13 Hct 52.2 % (42.0-52.0) H 11/23/20 20:13 MCV 89.1 fL (80-94) 11/23/20 20:13 MCH 29.5 pg (28.0-34.0) 11/23/20 20:13 MCHC 33.1 g/dL (30.0-36.0) 11/23/20 20:13 RDW 12.3 % (12.1-15.1) 11/23/20 20:13 Plt Count 286 10^3/cmm (130-400) 11/23/20 20:13 MPV 10.2 fL (7.4-10.4) 11/23/20 20:13 Neut % (Auto) 84.8 % 11/23/20 20:13 Lymph % (Auto) 11.2 % 11/23/20 20:13 [place] % (Auto) 3.2 % 11/23/20 20:13 Eos % (Auto) 0.0 % 11/23/20 20:13 Baso % (Auto) 0.4 % 11/23/20 20:13 Neut # (Auto) 12.09 10^3/uL (1.8-7.7) H 11/23/20 20:13 Lymph # (Auto) 1.6 10^3/uL (0.8-4.8) 11/23/20 20:13 [place] # (Auto) 0.5 10^3/uL (0.2-0.9) 11/23/20 20:13 Eos # (Auto) 0.0 10^3/uL (0.0-0.8) 11/23/20 20:13 Baso # (Auto) 0.1 10^3/uL (0.0-0.1) 11/23/20 20:13 Nucleated RBC % (auto) 0 % 11/23/20 20:13 Nucleated RBCs # 0.0 /100WBC 11/23/20 20:13 Sodium 139 mmol/L (136-145) 11/23/20 20:13 Potassium 4.0 mmol/L (3.5-5.1) 11/23/20 20:13 Chloride 94 mmol/L (98-107) L 11/23/20 20:13 Carbon Dioxide 25 mmol/L (22-29) 11/23/20 20:13 Anion Gap 24.0 (5-19) H 11/23/20 20:13 BUN 20 mg/dL (6-20) 11/23/20 20:13 Creatinine 0.9 mg/dL (0.7-1.2) 11/23/20 20:13 GFR Calculation 88.6 mL/min (90-130) L 11/23/20 20:13 Glucose 273 mg/dL (65-115) H 11/23/20 20:13 Calculated Osmolality 300 mOsm/kg (285-295) H 11/23/20 20:13 Lactate 2.8 mmol/L (0.5-2.2) H 11/23/20 20:13 Calcium 9.7 mg/dL (8.5-10.5) 11/23/20 20:13 Total Bilirubin 0.6 mg/dL (0.15-1.2) 11/23/20 20:13 AST 17 U/L (0-40) 11/23/20 20:13 ALT 21 U/L (0-41) 11/23/20 20:13 Alkaline Phosphatase 91 IU/L (40-130) 11/23/20 20:13 Total Protein 7.6 g/dL (6.6-8.7) 11/23/20 20:13 Albumin 5.0 g/dL (3.5-5.2) 11/23/20 20:13 Globulin 2.6 g/dL (1.3-4.6) 11/23/20 20:13 Lipase 11 U/L (13-60) L 11/23/20 20:13 Urine Color Yellow (Yellow) 11/23/20 20:13 Urine Appearance Clear (CLEAR) 11/23/20 20:13 Urine pH 5 (5-7) 11/23/20 20:13 Ur Specific [place] 1.005 (1.005-1.030) 11/23/20 20:13 Urine Protein 1+ (Negative) H 11/23/20 20:13 Urine Glucose (UA) 4+ (Normal) H 11/23/20 20:13 Urine Ketones 3+ (Negative) H 11/23/20 20:13 Urine Blood Neg (Negative) 11/23/20 20:13 Urine Nitrate Negative (Negative) 11/23/20 20:13 Urine Bilirubin 1+ (Negative) H 11/23/20 20:13 Urine Urobilinogen 1 mg/dL (Negative) H 11/23/20 20:13 Ur Leukocyte Esterase Negative (Negative) 11/23/20 20:13 Urine RBC None /hpf (0-2) 11/23/20 20:13 Urine WBC None /hpf (0-5) 11/23/20 20:13 Ur Squamous Epith Cells 0-4 /hpf (0-5) H 11/23/20 20:13 Amorphous Sediment Not Reportable 11/23/20 20:13 Urine Bacteria None /hpf (NONE) 11/23/20 20:13 Ethyl Alcohol < 10 mg/dL (0-10) 11/23/20 20:13 Serum Ketones Positive (Negative) H 11/23/20 20:13 Impressions Abdomen/Pelvis CT 11/23/20 20:56 IMPRESSION: 1. No acute abnormalities identified. 2. Slight nonspecific enlargement of the prostate gland. 3. Moderate atherosclerotic disease of the abdominal aorta. COMMENTS: Consistent with the [employer]'s Incidental Findings Committee white paper (J Am Zofia Radiol 2018): Any incidental renal lesion less than 1 cm or classified as too small to characterize, or any incidental cystic renal lesion characterized as simple-appearing, is likely benign. No follow-up imaging is recommended for these lesions per consensus recommendations based on imaging criteria. Radiation Dose CTDIVOL = (mGy): DLP = 1615.78 (mGy-cm) A&P Additional A&P Information 51-year-old male with past medical history of type 1 diabetes, suspected prior history of gastroparesis, marijuana use, hypertension, GERD who is presenting with nausea and vomiting. Associated dehydration. Cyclic vomiting syndrome is suspected on top of diabetic gastroparesis. Nausea and vomiting. Currently improved symptoms. We will continue as needed Zofran. We will add as needed Reglan. Dehydration. Will hydrate with LR. Will check his chemistry panel in the morning. Will replace electrolytes if needed. Diabetes. We will continue Tresiba and insulin sliding scale. Will check his A1c level. Hypertension. Well-controlled. We will continue home medication. History of GERD. We will continue his home PPI. DVT prophylaxis. Teds. I do not expect him to spend more than 1 midnight in the hospital. We will mobilize him quickly. However he if he remains hospitalized we will start Lovenox tomorrow. CODE STATUS. He wants to be DNR. He fully understands what it means but is very adamant with his decision. The plan of care was discussed with the patient. He verbalized understanding and agreement. Attestations Medical Necessity Statement*: Observation Coding Level of Care Code Acute [employer] for Diana Robles
[2020-11-24] VITALS (16 sets, daily range): BP systolic 110–168; BP diastolic 64–117; PULSE 82–118; RESP 0–18; TEMP 36.8–37.2; O2SAT 90–96
[2020-11-24] MEDS: lactated ringers 1,000 ML 100 ML IV (00:07)
[2020-11-24 00:20] LABS: Glucose Point of Care 223 mg/dL (70-110)
--- NOTE | 2020-11-24 00:41 | PC.NURSE ---
ASSUMING CARE Patient received from ER and ambulated himself to bed. Patient is on RA, LR to be started in ICU at 100 mL/hour. Clarified with Dr. Green on insulin drip, no drip to be started. Physician states anion gap should correct with IV fluids. Patient is alert and oriented x 4, tranquil and cooperative.
[2020-11-24 04:57] LABS: Basophils # 0.1 10^3/uL (0.0-0.1); Basophils % 0.4 %; Eosinophils % 0.1 %; Hematocrit 44.6 % (42.0-52.0); Hemoglobin 14.8 g/dL (11.7-16.6); Lymphocytes % 25.7 %; Mean Corpuscular HGB Conc 33.2 g/dL (30.0-36.0); Mean Corpuscular Hemoglobin 29.5 pg (28.0-34.0); Mean Corpuscular Volume 88.8 fL (80-94); Mean Platelet Volume 10.8 fL (7.4-10.4); Monocytes # 0.9 10^3/uL (0.2-0.9); Monocytes % 7.8 %; Neutrophils # 7.56 10^3/uL (1.8-7.7); Neutrophils % 65.8 %; Nucleated Red Blood Cells % 0 %; Platelet Count 263 10^3/cmm (130-400); Red Blood Count 5.02 10^6/uL (4.1-5.3); Red Cell Distribution Width 12.7 % (12.1-15.1); White Blood Count 11.5 10^3/uL (4.0-10.0)
[2020-11-24 05:08] LABS: Anion Gap 14.3 (5-19); Blood Urea Nitrogen 20 mg/dL (6-20); Calcium 8.4 mg/dL (8.5-10.5); Carbon Dioxide 27 mmol/L (22-29); Chloride 101 mmol/L (98-107); Glomerular Filtration Rate 101.5 mL/min (90-130); Glucose 209 mg/dL (65-115); Magnesium 1.6 mg/dL (1.7-2.3); Osmolality Calculated 297 mOsm/kg (285-295); Potassium 3.3 mmol/L (3.5-5.1); Sodium 139 mmol/L (136-145)
[2020-11-24 05:25] LABS: Estmated Average Glucose 146; Hemoglobin A1C 6.7 % (4.0-6.0)
--- NOTE | 2020-11-24 06:16 | PC.NURSE ---
ELECTROLYTES Dr. Green notified via voalte of potassium of 3.3 and magnesium of 1.6. No new orders at this time.
--- NOTE | 2020-11-24 06:17 | PC.NURSE ---
SHIFT SUMMARY Patient has been resting since arrival to unit. Patient voided one time. Room air. LR running at 100 mL/hour. Alert and oriented x 4. Afebrile, 99.0, 98.3.
[2020-11-24] MEDS: potassium chloride premix 100 ML 50 MEQ IV (07:02)
[2020-11-24] MEDS: magnesium sulfate premix 2 GM/50 ML PIGGYBACK IV (07:02)
[2020-11-24] MEDS: aspirin 81 mg EC Tablet PO (07:53)
[2020-11-24] MEDS: amlodipine 5 mg Tablet PO (07:53)
[2020-11-24] MEDS: pantoprazole DR 40 mg Tablet PO (07:55)
--- NOTE | 2020-11-24 09:29 | P.DS_ITS ---
Discharge Providers Date of Admission: 11/23/20 23:11 Date of Discharge: November 24, 2020 Attending Provider at Admission: Warren Green Attending Provider at Discharge: Roger Quintanilla MD Primary Care Provider: Eugenie Jay MD Diagnoses at Discharge Discharge Diagnosis (1) Nausea & vomiting: Status: Acute Qualifiers: Vomiting Intractability: intractable Vomiting type: unspecified Qualified Code(s): R11.2 - Nausea with vomiting, unspecified (2) Hypertension: Status: Acute Qualifiers: Hypertension type: essential hypertension Qualified Code(s): I10 - Essential (primary) hypertension (3) Diabetic gastroparesis: Status: Acute (4) Type 1 diabetes mellitus: Status: Acute (5) High anion gap metabolic acidosis: Status: Acute (6) Ketosis: Status: Acute Reason for Visit Reason for Visit: n/v Hospital Course Hospital Course Zackary Enriquez is a 50 year old male with past medical history of late onset type 1 diabetes. He takes long-acting insulin and insulin sliding scale. He reports that currently his diabetes is well controlled. He presents to emergency room with complaints of nausea and vomiting. Since this morning when it started he has experienced about 30 episodes of dry heaving and vomiting. Denies hematemesis. Denies abdominal pain or diarrhea. Several doses of Zofran were given in emergency room. However he improved with Haldol. Currently feels better. He reports similar episodes in the past. Review of his medications reveals several medications for nausea. He also reports occasionally using marijuana. However he does not think that smoking marijuana causes his symptoms. The patient denies fever or chills. No chest pain, shortness of breath, cough, palpitations. He also has peripheral neuropathy, hypertension, GERD. Admission patient was found to be in high anion gap metabolic acidosis though his blood sugars were within normal limits and had elevated ketones. Most likely secondary to starvation ketosis. On admission his lactate was within normal limits. He was started on IV hydration and blood sugars were well controlled with subcutaneous insulins. Patient required multiple doses of IV Zofran for better nausea, and vomiting control. He responded well to the treatment. His anion gap closed for the next morning. Patient was able to tolerate oral diet. He was discharged hemodynamically stable condition with advised to follow-up with his primary care provider within next 5 to 7 days. During hospitalization he was found to have borderline blood pressures for which his antihypertensives were adjusted. He is to stop taking amlodipine and will continue taking lisinopril because of history of type 1 diabetes mellitus and renal protective measures. Metoprolol has been added for tachycardia. Physical Exam Narrative: EXAM NARRATIVE: Patient is awake alert oriented. No acute distress. Mood and affect are appropriate. Responses are adequate. Normal speech Eyes PERRL, extraocular muscles are intact Neck supple. No JVD Lungs are clear to auscultation bilaterally. No wheezes or crackles Heart S1, S2, regular Abdomen soft, nontender, bowel sounds are present Extremities absent index fingers. No peripheral cyanosis, calf tenderness or edema. Neuro evaluation is nonfocal. Skin is warm and dry. Moist mucous membranes. Discharge Data Data Completed and Pending: Completed Studies During Hospitalization Category Date Time Status CT abdomen pelvis w con* [id number] Stat Cat Scan 11/23/20 20:56 Completed Labs from last 24 hours 11/24/20 11/24/20 11/24/20 04:30 04:30 04:30 WBC 11.5 H RBC 5.02 Hgb 14.8 Hct 44.6 MCV 88.8 MCH 29.5 MCHC 33.2 RDW 12.7 Plt Count 263 MPV 10.8 H Neut % (Auto) 65.8 Lymph % (Auto) 25.7 [place] % (Auto) 7.8 Eos % (Auto) 0.1 Baso % (Auto) 0.4 Neut # (Auto) 7.56 Lymph # (Auto) 3.0 [place] # (Auto) 0.9 Eos # (Auto) 0.0 Baso # (Auto) 0.1 Nucleated RBC % (a uto) 0 Nucleated RBCs # 0.0 Sodium 139 Potassium 3.3 L Chloride 101 Carbon Dioxide 27 Anion Gap 14.3 BUN 20 Creatinine 0.8 GFR Calculation 101.5 Glucose 209 H POC Glucose Estimat Average Gl ucose 146 Hemoglobin A1c 6.7 H Calculated Osmolal ity 297 H Lactate Calcium 8.4 L Magnesium 1.6 L Total Bilirubin AST ALT Alkaline Phosphata se Total Protein Albumin Globulin Lipase Urine Color Urine Appearance Urine pH Ur Specific Gravit y Urine Protein Urine Glucose (UA) Urine Ketones Urine Blood Urine Nitrate Urine Bilirubin Urine Urobilinogen Ur Leukocyte Brittany ase Urine RBC Urine WBC Ur Squamous Epith Cells Amorphous Sediment Urine Bacteria Ethyl Alcohol Serum Ketones 11/24/20 11/23/20 11/23/20 00:13 20:13 20:13 WBC RBC Hgb Hct MCV MCH MCHC RDW Plt Count MPV Neut % (Auto) Lymph % (Auto) [place] % (Auto) Eos % (Auto) Baso % (Auto) Neut # (Auto) Lymph # (Auto) [place] # (Auto) Eos # (Auto) Baso # (Auto) Nucleated RBC % (a uto) Nucleated RBCs # Sodium Potassium Chloride Carbon Dioxide Anion Gap BUN Creatinine GFR Calculation Glucose POC Glucose 223 H Estimat Average Gl ucose Hemoglobin A1c Calculated Osmolal ity Lactate Calcium Magnesium Total Bilirubin AST ALT Alkaline Phosphata se Total Protein Albumin Globulin Lipase Urine Color Yellow Urine Appearance Clear Urine pH 5 Ur Specific Gravit y 1.005 Urine Protein 1+ H Urine Glucose (UA) 4+ H Urine Ketones 3+ H Urine Blood Neg Urine Nitrate Negative Urine Bilirubin 1+ H Urine Urobilinogen 1 H Ur Leukocyte Brittany ase Negative Urine RBC None Urine WBC None Ur Squamous Epith Cells 0-4 H Amorphous Sediment Not Reportable Urine Bacteria None Ethyl Alcohol Serum Ketones Positive H 11/23/20 11/23/20 11/23/20 20:13 20:13 20:13 WBC 14.2 H RBC 5.86 H Hgb 17.3 H Hct 52.2 H MCV 89.1 MCH 29.5 MCHC 33.1 RDW 12.3 Plt Count 286 MPV 10.2 Neut % (Auto) 84.8 Lymph % (Auto) 11.2 [place] % (Auto) 3.2 Eos % (Auto) 0.0 Baso % (Auto) 0.4 Neut # (Auto) 12.09 H Lymph # (Auto) 1.6 [place] # (Auto) 0.5 Eos # (Auto) 0.0 Baso # (Auto) 0.1 Nucleated RBC % (a uto) 0 Nucleated RBCs # 0.0 Sodium 139 Potassium 4.0 Chloride 94 L Carbon Dioxide 25 Anion Gap 24.0 H BUN 20 Creatinine 0.9 GFR Calculation 88.6 L Glucose 273 H POC Glucose Estimat Average Gl ucose Hemoglobin A1c Calculated Osmolal ity 300 H Lactate 2.8 H Calcium 9.7 Magnesium Total Bilirubin 0.6 AST 17 ALT 21 Alkaline Phosphata se 91 Total Protein 7.6 Albumin 5.0 Globulin 2.6 Lipase 11 L Urine Color Urine Appearance Urine pH Ur Specific Gravit y Urine Protein Urine Glucose (UA) Urine Ketones Urine Blood Urine Nitrate Urine Bilirubin Urine Urobilinogen Ur Leukocyte Brittany ase Urine RBC Urine WBC Ur Squamous Epith Cells Amorphous Sediment Urine Bacteria Ethyl Alcohol < 10 Serum Ketones Addt'l Data from Hospital Stay: Laboratory Results WBC 11.5 10^3/uL (4.0 -10.0) H 11/24/20 04:30 RBC 5.02 10^6/uL (4.1 -5.3) 11/24/20 04:30 Hgb 14.8 g/dL (11.7-1 6.6) 11/24/20 04:30 Hct 44.6 % (42.0-52.0 ) 11/24/20 04:30 MCV 88.8 fL (80-94) 11/24/20 04:30 MCH 29.5 pg (28.0-34. 0) 11/24/20 04:30 MCHC 33.2 g/dL (30.0-3 6.0) 11/24/20 04:30 RDW 12.7 % (12.1-15.1 ) 11/24/20 04:30 Plt Count 263 10^3/cmm (130 -400) 11/24/20 04:30 MPV 10.8 fL (7.4-10.4 ) H 11/24/20 04:30 Neut % (Auto) 65.8 % 11/24/20 04:30 Lymph % (Auto) 25.7 % 11/24/20 04:30 [place] % (Auto) 7.8 % 11/24/20 04:30 Eos % (Auto) 0.1 % 11/24/20 04:30 Baso % (Auto) 0.4 % 11/24/20 04:30 Neut # (Auto) 7.56 10^3/uL (1.8 -7.7) 11/24/20 04:30 Lymph # (Auto) 3.0 10^3/uL (0.8- 4.8) 11/24/20 04:30 [place] # (Auto) 0.9 10^3/uL (0.2- 0.9) 11/24/20 04:30 Eos # (Auto) 0.0 10^3/uL (0.0- 0.8) 11/24/20 04:30 Baso # (Auto) 0.1 10^3/uL (0.0- 0.1) 11/24/20 04:30 Nucleated RBC % (a uto) 0 % 11/24/20 04:30 Nucleated RBCs # 0.0 /100WBC 11/24/20 04:30 Sodium 139 mmol/L (136-1 45) 11/24/20 04:30 Potassium 3.3 mmol/L (3.5-5 .1) L 11/24/20 04:30 Chloride 101 mmol/L (98-10 7) 11/24/20 04:30 Carbon Dioxide 27 mmol/L (22-29) 11/24/20 04:30 Anion Gap 14.3 (5-19) 11/24/20 04:30 BUN 20 mg/dL (6-20) 11/24/20 04:30 Creatinine 0.8 mg/dL (0.7-1. 2) 11/24/20 04:30 GFR Calculation 101.5 mL/min (90- 130) 11/24/20 04:30 Glucose 209 mg/dL (65-115 ) H 11/24/20 04:30 POC Glucose 223 mg/dL (70-110 ) H 11/24/20 00:13 Estimat Average Gl ucose 146 11/24/20 04:30 Hemoglobin A1c 6.7 % (4.0-6.0) H 11/24/20 04:30 Calculated Osmolal ity 297 mOsm/kg (285- 295) H 11/24/20 04:30 Lactate 2.8 mmol/L (0.5-2 .2) H 11/23/20 20:13 Calcium 8.4 mg/dL (8.5-10 .5) L 11/24/20 04:30 Magnesium 1.6 mg/dL (1.7-2. 3) L 11/24/20 04:30 Total Bilirubin 0.6 mg/dL (0.15-1 .2) 11/23/20 20:13 AST 17 U/L (0-40) 11/23/20 20:13 ALT 21 U/L (0-41) 11/23/20 20:13 Alkaline Phosphata se 91 IU/L (40-130) 11/23/20 20:13 Total Protein 7.6 g/dL (6.6-8.7 ) 11/23/20 20:13 Albumin 5.0 g/dL (3.5-5.2 ) 11/23/20 20:13 Globulin 2.6 g/dL (1.3-4.6 ) 11/23/20 20:13 Lipase 11 U/L (13-60) L 11/23/20 20:13 Urine Color Yellow (Yellow) 11/23/20 20:13 Urine Appearance Clear (CLEAR) 11/23/20 20:13 Urine pH 5 (5-7) 11/23/20 20:13 Ur Specific Gravit y 1.005 (1.005-1.0 30) 11/23/20 20:13 Urine Protein 1+ (Negative) H 11/23/20 20:13 Urine Glucose (UA) 4+ (Normal) H 11/23/20 20:13 Urine Ketones 3+ (Negative) H 11/23/20 20:13 Urine Blood Neg (Negative) 11/23/20 20:13 Urine Nitrate Negative (Negati ve) 11/23/20 20:13 Urine Bilirubin 1+ (Negative) H 11/23/20 20:13 Urine Urobilinogen 1 mg/dL (Negative ) H 11/23/20 20:13 Ur Leukocyte Britat[place] ase Negative (Negati ve) 11/23/20 20:13 Urine RBC None /hpf (0-2) 11/23/20 20:13 Urine WBC None /hpf (0-5) 11/23/20 20:13 Ur Squamous Epith Cells 0-4 /hpf (0-5) H 11/23/20 20:13 Amorphous Sediment Not Reportable 11/23/20 20:13 Urine Bacteria None /hpf (NONE) 11/23/20 20:13 Ethyl Alcohol < 10 mg/dL (0-10) 11/23/20 20:13 Serum Ketones Positive (Negati ve) H 11/23/20 20:13 Impressions Abdomen/Pelvis CT 11/23/20 20:56 IMPRESSION: 1. No acute abnormalities identified. 2. Slight nonspecific enlargement of the prostate gland. 3. Moderate atherosclerotic disease of the abdominal aorta. Vitals: Last Vital Signs Temp 98.3 F 11/24/20 07:40 Pulse 93 11/24/20 07:40 Resp 18 11/24/20 07:40 BP 114/73 11/24/20 07:40 Pulse Ox 93 11/24/20 05:30 Discharge Plan Discharge Patient Disposition: Home Condition: Stable Prescriptions: New metoprolol succinate 25 mg tablet extended release 24 hr 25 mg PO DAILY Qty: 30 RF: 0 lisinopril 10 mg tablet 10 mg PO DAILY Qty: 30 RF: 0 Continued omeprazole 40 mg Capsule,Delayed Release(Dr/Ec) 40 mg PO DAILY RF: 0 atorvastatin 20 mg tablet 20 mg PO DAILY RF: 0 aspirin [Aspir-81] 81 mg Tablet,Delayed Release (Dr/Ec) 81 mg PO DAILY RF: 0 insulin aspart U-100 [Novolog Flexpen U-100 Insulin] 100 unit/mL (3 mL) insulin pen See Rx Instructions .ROUTE .COMPLEX RF: 0 Tresiba FlexTouch U-200 200 unit/mL (3 mL) insulin pen 60 unit SUBCUT DAILY RF: 0 Discontinued ondansetron HCl [Zofran] 4 mg tablet 4 mg PO Q6H PRN (Reason: nausea and vomiting) Qty: 10 RF: 0 lisinopril 20 mg tablet 20 mg PO DAILY RF: 0 amlodipine 5 mg tablet 5 mg PO DAILY RF: 0 Discharge Orders: Discharge Order (Routine); Ordered 11/24/20 Ordered By: Roger Quintanilla Referrals: Eugenie Jay MD [Primary Care Provider] - 4-7 days Discharge Diet: Cardiac and Diabetic Discharge Activity: Resume usual activity Patient Instructions: Type 1 Diabetes, Hypertension, Opioid Safety Activity Restrictions/Additional Instructions: Please hold Amlodipine for now an start metoprolol. Check BP twice a day and maintain BP diary to carry with you to see your PCP. BP meds will be adjusted on the visit. You have a follow up appointment with Dr Eugenie Jay on December 08 at 0945. If you can not keep this appointment please call their office at [phone]. Discharge Attestations Time Spent in Discharge Care*: greater than 30 min Specific Discharge Activities: educating patient, discussing with pcp/other providers, discussing with manager of case management/social workers/dc planners, documenting/other paperwork and evaluating patient/reviewing data Status at Discharge: Cognitive status at discharge: cognitively intact , Behavioral status at discharge: cooperative , Functional status at discharge: independent ambulation Overall status at discharge: patient is back to baseline Quality Metrics Clinical Quality Measures During this hospital stay, did patient experience: None Coding Level of Care Code Acute Chg FW DC note Diagnoses Nausea & vomiting R11.2 Vomiting Intractability: intractable Vomiting type: unspecified Hypertension I10 Hypertension type: essential hypertension Diabetic gastroparesis E11.43; K31.84 Type 1 diabetes mellitus E10.9 High anion gap metabolic acidosis E87.2 Ketosis E88.89
--- NOTE | 2020-11-24 10:34 | PC.CHAP ---
Pastoral Care Encounter/Spiritual Assessment Type of Contact [] Declined medical office specialist visit [] Patient/Family/Request visit [] Outpatient visit [] Follow-up visit [] Physician referral [] Code/Alert [x] Routine visit [] Staff referral [] Actively dying [x] Patient sleeping [] Family support [] [] Out of room [] Palliative care [] [] Receiving care in room [] Pre-surgical visit [] Trauma [] Long length of stay [x] ICU visit [] Other: Relational/Emotional Strength [] Patient feels connected with others/family/visitors/staff [] Distress [] Loneliness/isolation [] Abandonment Spirituality of Patient [] Person of Concepcion [] Attends Religious of their Concepcion [] Believes in Prayer [] Reads Bible or Adventism materials [] There are Spiritual issues to be addressed Sound Mixer Interventions [x] Prayer [] Active listening [] Non-anxious presence [] Spiritual/emotional support [] Crisis/trauma care [] Spiritual counseling [] Bereavement support [] Provided bereavement packet [] Provided Bible/devotional materials [] Provided toy/stuffed animal, coloring book to patient or family member [] Provided Communion [] Anointing/[place] [] Salvation [x] Completed spiritual assessment [] Other: Impact on Illness or Injury [] Angry [] Fearful [] Anxious [] Often cries [] Exhaustion [] Unable to work [] Unable to attend christian [] Unable to walk/stand [] Unable to read [] Unable to drive [] Unable to eat/drink [] Unable to sleep [] Unable to be with family [] Patient intubated [] Other: Summary Time spent with patient
== END 2020-11-24 10:37 | disposition home or self-care (01) ==
LOC: ER 19:44 → ICU 23:21
PROVIDERS: Admitting Provider Internal Medicine; Emergency Provider Family Medicine; PCP Internal Medicine; Visit Provider Student in an Organized Health Care Education/Training Program
DX: R11.2 Nausea with vomiting, unspecified (principal); I10 Essential (primary) hypertension; E11.43 Type 2 diabetes mellitus with diabetic autonomic (poly)neuropathy; K31.84 Gastroparesis; E10.9 Type 1 diabetes mellitus without complications; E87.2 Acidosis; E88.89 Other specified metabolic disorders; Z79.4 Long term (current) use of insulin; Z87.891 Personal history of nicotine dependence
CPT/HCPCS: 36415; 36416; 74177; 80048; 80053; 80307; 81001; 82009; 82962; 83036; 83605; 83690; 83735; 85025; 96361; 96365; 96366; 96367; 96375; 99285; G0378; J1630; J1815; J2405; J2765; J3475; J3480; J7030; Q9967

== ENCOUNTER 2020-12-25 09:54 | Emergency (ER) | payer MEDICARE, MEDICAID, SELFPAY ==
[2020-12-25 09:56] VITALS: BP 137/82; PULSE 99; RESP 16; TEMP 36.7; O2SAT 99; BMI 26.1
[2020-12-25 10:13] VITALS: BP 137/82; PULSE 100; RESP 15; O2SAT 100
--- NOTE | 2020-12-25 10:13 | W.ED.EAR ---
HPI - Ear Problem General: Chief complaint: Ear Stated complaint: R ear bleeding. Time Seen by Provider: 12/25/20 09:56 History of Present Illness: HPI Narrative: Patient presents with ear discomfort times a month. Said he noticed some blood in his ear today when he is cleaning it out. Has a history of chronic ear problems and sees a specialist in [place] for these problems. MD Complaint: ear discharge Location: right ear Duration: intermittent Associated symptoms: Denies fever(s) or headache(s) Review of Systems Const: Denies: fever(s), chills or body aches Eyes: Denies: change in vision or blurry vision ENMT: Reports: ear discharge; Denies: throat pain or nasal congestion Card: Denies: chest pain or dyspnea on exertion Resp: Denies: dyspnea, productive cough or non-productive cough GI: Denies: abdominal pain, nausea or vomiting : Denies: difficulty urinating Musc: Denies: extremity pain Skin/Breast: Denies: rash Neuro: Denies: headache(s) Psych: Denies: anxiety or depression Vidal/Lymph: Denies: easy bruising PFSH ED PFSH: Medical History (Updated 12/25/20 @ 10:09 by JOSE DeeP) Chronic hyperglycemia Diabetic gastroparesis Hypertension Nausea & vomiting Type 1 diabetes mellitus Social History Smoking and tobacco status: former smoker Physical Exam Const: COMMON NORMALS: no acute distress HENMT: TYMPANIC MEMBRANE: TM abnormal TM laterality: right Details: bullous, loss of landmarks and scarred Psych: COMMON NORMALS: mental status grossly normal Course Vital Signs: Vital signs: Vital Signs Temperature 98.1 F 12/25/20 09:56 Pulse Rate 99 12/25/20 09:56 Respiratory Rate 16 12/25/20 09:56 Blood Pressure 137/82 12/25/20 09:56 Pulse Oximetry 99 12/25/20 09:56 MDM - Ear MDM Narrative: Medical decision making narrative: Patient has specialist she sees in [place] and will follow up with him by calling them Sunday to schedule for appointment for recheck. No blood seen in the ear canal presently but it is very disfigured inside there Discharge Plan Discharge Patient Disposition: Home Clinical Impression: Otitis media Qualifiers: Otitis media type: suppurative Chronicity: chronic Laterality: right Suppurative otitis media location: unspecified location Qualified Code(s): H66.3X1 - Other chronic suppurative otitis media, right ear Condition: Stable Prescriptions: New Ciprodex 0.3-0.1 % drops,suspension 4 drp otic (ear) BID 7 Days Qty: 7.5 RF: 0 No Action omeprazole 40 mg Capsule,Delayed Release(Dr/Ec) 40 mg PO DAILY RF: 0 metoprolol succinate 25 mg tablet extended release 24 hr 25 mg PO DAILY Qty: 30 RF: 0 lisinopril 10 mg tablet 10 mg PO DAILY Qty: 30 RF: 0 atorvastatin 20 mg tablet 20 mg PO DAILY RF: 0 aspirin [Aspir-81] 81 mg Tablet,Delayed Release (Dr/Ec) 81 mg PO DAILY RF: 0 insulin aspart U-100 [Novolog Flexpen U-100 Insulin] 100 unit/mL (3 mL) insulin pen See Rx Instructions .ROUTE .COMPLEX RF: 0 Tresiba FlexTouch U-200 200 unit/mL (3 mL) insulin pen 60 unit SUBCUT DAILY RF: 0 Discharge Orders: Discharge ED (Routine); Ordered 12/25/20 Ordered By: Faustino Cintron Referrals: Eugenie Jay MD [Primary Care Provider] - Discharge Diet: Usual diet Discharge Activity: Resume usual activity Activity Restrictions/Additional Instructions: Follow-up with medical provider as directed. Take medications as prescribed. Return to the ER or your medical provider if condition worsens. Please read and understand discharge instructions. If any questions ask please. Contact your ear nose throat doctor using [facility] and contact them Sunday and get a follow-up appointment check progress of improvement of the right ear Coding Level of Care Code ED Crossing Guard for Nicanorg Fwd Exam Expanded Problem Focused
== END 2020-12-25 10:14 | disposition home or self-care (01) ==
PROVIDERS: Emergency Provider Nurse Practitioner Family; PCP Internal Medicine
DX: H66.3X1 Other chronic suppurative otitis media, right ear (principal); Z79.82 Long term (current) use of aspirin; Z79.4 Long term (current) use of insulin; E10.9 Type 1 diabetes mellitus without complications; I10 Essential (primary) hypertension; Z87.891 Personal history of nicotine dependence
CPT/HCPCS: 99282

== ENCOUNTER 2022-04-05 18:21 | Emergency (ER) | payer MEDICARE, MEDICAID, SELFPAY ==
[2022-04-05 18:33] VITALS: BP 149/91; PULSE 117; RESP 16; TEMP 36.7; O2SAT 96; BMI 23.7
[2022-04-05 18:45] VITALS: BP 154/89; PULSE 113; RESP 16; O2SAT 95
--- NOTE | 2022-04-05 18:49 | XRR_ITS ---
PROCEDURE INFORMATION: Exam: XR Left Foot Exam date and time: 04/05/2022 6:58 PM Age: 51 years old Clinical indication: Pain; Left; Prior surgery; Surgery date: 6+ months; Surgery type: Lt. Foot TECHNIQUE: Imaging protocol: Radiologic exam of the Left foot. Views: 3 or more views. COMPARISON: No relevant prior studies available. FINDINGS: Bones/joints: Resection of the 5th digit through the metatarsal and 4th digit through the base of the metatarsal. Residual osseous structures are intact. Negative for fracture or irregular osseous erosions. Soft tissues: Normal. XR/XR foot LT min 3V* [id number] IMPRESSION: No acute findings.
--- NOTE | 2022-04-05 18:50 | W.ED.EXTPRO ---
HPI - Extremity Problem General: Chief complaint: Extremity Problem,Nontraumatic Stated complaint: left foot infection? Time Seen by Provider: 04/05/22 18:38 Source: patient Mode of arrival: ambulatory Limitations: no limitations History of Present Illness: 51-year-old male who states he has had some redness to his left toe for roughly 3 weeks he states has been on Bactrim he has had no improvement he is only seen his primary care doctor he has not seen podiatry has had multiple surgeries on his foot before. Denies any fever denies any worsening improving factors. Associated symptoms: Deny chest pain, fever(s) or rash Review of Systems Const: Denies: fever(s), chills, body aches or change in appetite Eyes: Denies: blurry vision or eye discomfort ENMT: Denies: throat pain or dental pain Card: Denies: chest pain Resp: Denies: dyspnea GI: Denies: abdominal pain, nausea, vomiting or diarrhea : Denies: dysuria Musc: Reports: extremity pain; Denies: neck pain or back pain Skin/Breast: Denies: rash Neuro: Denies: headache(s) Psych: Denies: depression Vidal/Lymph: Denies: easy bruising All/Imm: Denies: urticaria PFSH ED PFSH: Medical History Chronic hyperglycemia Diabetic gastroparesis Hypertension Nausea & vomiting Type 1 diabetes mellitus Social History Smoking and tobacco status: former smoker Physical Exam Const: COMMON NORMALS: no acute distress, patient oriented x3 and healthy appearing HENMT: COMMON NORMALS: normocephalic and atraumatic HEAD & SCALP: normocephalic and atraumatic Eye: COMMON NORMALS: Equal, round and reactive pupils present PUPIL: Yes Equal, round and reactive pupils present Neck/C-Spine: COMMON NORMALS: full ROM and supple Chest: COMMONS NORMALS: normal inspection of the chest Resp: COMMON NORMALS: normal respiratory effort Cardio: COMMON NORMALS: regular rate, regular rhythm and No murmurs present (Cardio) RATE: regular rate RHYTHM: regular rhythm GI: INSPECTION: Yes normal to inspection Extremity: NARRATIVE EXTREMITY EXAM: Multiple surgeries to his left foot he does have some swelling to the left toe that is red no necrosis Neuro: COMMON NORMALS: patient oriented x3, moves all extremities and no focal motor deficits Psych: COMMON NORMALS: mental status grossly normal, Normal thought process present and cooperative THOUGHT PROCESS: Normal thought process present Skin: COMMON NORMALS: no rashes or lesions noted and no wounds GENERAL SKIN EXAM: no rashes or lesions noted Course Vital Signs: Vital signs: Vital Signs Temperature 98.1 F 04/05/22 18:33 Pulse Rate 113 H 04/05/22 18:45 Respiratory Rate 16 04/05/22 18:45 Blood Pressure 154/89 04/05/22 18:45 Pulse Oximetry 95 04/05/22 18:45 Oxygen Delivery Me thod 04/05/22 18:45 MDM - Extremity (Nontraumatic) Medical Decision Making Patient presents here with cellulitis to left third toe he is well-appearing here no signs of necrosis we will start him on clindamycin getting follow-up with podiatry he is to return if worsening he understands agrees to plan. Discharge Plan Discharge Patient Disposition: Home Clinical Impression: Cellulitis Qualifiers: Site of cellulitis: extremity Site of cellulitis of extremity: lower extremity Laterality: left Qualified Code(s): L03.116 - Cellulitis of left lower limb Condition: Stable Prescriptions: New clindamycin HCl 300 mg capsule 300 mg PO Q8H 10 Days Qty: 30 0RF No Action omeprazole 40 mg Capsule,Delayed Release(Dr/Ec) 40 mg PO DAILY metoprolol succinate 25 mg tablet extended release 24 hr 25 mg PO DAILY Qty: 30 0RF lisinopril 10 mg tablet 10 mg PO DAILY Qty: 30 0RF atorvastatin 20 mg tablet 20 mg PO DAILY aspirin [Aspir-81] 81 mg Tablet,Delayed Release (Dr/Ec) 81 mg PO DAILY insulin aspart U-100 [Novolog Flexpen U-100 Insulin] 100 unit/mL (3 mL) insulin pen See Rx Instructions .ROUTE .COMPLEX Rx Instructions: SLIDING SCALE subcutaneously TID Tresiba FlexTouch U-200 200 unit/mL (3 mL) insulin pen 60 unit SUBCUT DAILY Discharge Orders: Discharge ED (Routine); Ordered 04/05/22 Ordered By: Sandor Ewing Referrals: Eugenie Jay MD [Primary Care Provider] - Cedric Rose DPM [Physician] - 1-3 days Discharge Diet: Advance as tolerated Discharge Activity: Resume usual activity Patient Instructions: Cellulitis (ED) Coding Level of Care Code ED Clinical Nursing Intern for Diana Fwd Exam Comprehensive
--- NOTE | 2022-04-06 08:58 | DCPLANNER ---
Addendum entered by Yanira Power 04/07/22 08:50: Patient had a follow up appointment scheduled with ortho - patient did attend appointment. Original Note: manager chemistry had message to schedule a follow up appointment for patient with ortho. manager chemistry sent patients information to the front office staff at ortho. Patients information will be printed and reviewed. Clinic will call patient with appointment information.
== END 2022-04-05 19:24 | disposition home or self-care (01) ==
PROVIDERS: Emergency Provider Emergency Medicine; PCP Internal Medicine
DX: L03.116 Cellulitis of left lower limb (principal); Z79.82 Long term (current) use of aspirin; Z79.4 Long term (current) use of insulin; I10 Essential (primary) hypertension; E10.9 Type 1 diabetes mellitus without complications; Z87.891 Personal history of nicotine dependence
CPT/HCPCS: 73630; 99283

== ENCOUNTER → 2022-04-06 16:30 | Outpatient (BNVA) | payer MEDICARE, MEDICAID, SELFPAY | PROVIDERS: PCP Internal Medicine; Referring Provider Emergency Medicine; Visit Provider Podiatrist Foot & Ankle Surgery | DX: L97.522 Non-pressure chronic ulcer of other part of left foot with fat layer exposed (principal); E10.621 Type 1 diabetes mellitus with foot ulcer; Z79.4 Long term (current) use of insulin | CPT/HCPCS: 11042; 87070; 87075; 87077; 87186; 87205; 99024; 99203; 99204 ==

== ENCOUNTER 2022-04-07 08:07 | Outpatient (CLI) | payer MEDICARE, MEDICAID, SELFPAY | END 2022-04-07 08:08 | disposition home or self-care (01) | LOC: SPT 08:08 | PROVIDERS: PCP Internal Medicine; Visit Provider Podiatrist Foot & Ankle Surgery | DX: Z46.89 Encounter for fitting and adjustment of other specified devices (principal); L97.522 Non-pressure chronic ulcer of other part of left foot with fat layer exposed | CPT/HCPCS: L4361 ==

== ENCOUNTER → 2022-04-13 09:05 | Outpatient (BNVA) | payer MEDICARE, MEDICAID, SELFPAY | PROVIDERS: PCP Internal Medicine; Visit Provider Podiatrist Foot & Ankle Surgery | DX: L97.522 Non-pressure chronic ulcer of other part of left foot with fat layer exposed (principal); E10.69 Type 1 diabetes mellitus with other specified complication; E10.621 Type 1 diabetes mellitus with foot ulcer; Z79.4 Long term (current) use of insulin | CPT/HCPCS: 99214 ==

== ENCOUNTER → 2022-04-27 10:46 | Outpatient (BNVA) | payer MEDICARE, MEDICAID, SELFPAY | PROVIDERS: PCP Internal Medicine; Visit Provider Podiatrist Foot & Ankle Surgery | DX: M20.42 Other hammer toe(s) (acquired), left foot (principal); E10.8 Type 1 diabetes mellitus with unspecified complications; Z79.4 Long term (current) use of insulin | CPT/HCPCS: 28011 ==

== ENCOUNTER → 2022-05-15 11:34 | Outpatient (BNVA) | payer MEDICARE, MEDICAID, SELFPAY | PROVIDERS: PCP Internal Medicine; Visit Provider Podiatrist Foot & Ankle Surgery | DX: M79.89 Other specified soft tissue disorders (principal); T84.84XA Pain due to internal orthopedic prosthetic devices, implants and grafts, initial encounter; Y79.2 Prosthetic and other implants, materials and accessory orthopedic devices associated with adverse incidents; Z98.890 Other specified postprocedural states | CPT/HCPCS: 73590; 99214 ==

== ENCOUNTER 2022-05-26 10:35 | Day surgery (SDC) | payer MEDICARE, MEDICAID, SELFPAY ==
[2022-05-25 09:25] VITALS: BMI 23.4
[2022-05-26] VITALS (8 sets, daily range): BP systolic 101–159; BP diastolic 70–102; PULSE 77–83; RESP 12–18; TEMP 36.6–36.7; O2SAT 96–100
[2022-05-26 11:20] LABS: Glucose Point of Care 125 mg/dL (70-110)
[2022-05-26] MEDS: gabapentin 300 mg Capsule PO (11:25)
[2022-05-26] MEDS: CELEcoxib 200 mg Capsule 400 MG PO (11:25)
[2022-05-26] MEDS: sodium chloride 0.9% 1,000 ML 30 ML IV (11:26)
--- NOTE | 2022-05-26 11:33 | ANES.PREANE2 ---
Pre-Anesthetic Assessment Height/Weight: Height 1.8 m Weight 76.204 kg Temp Pulse Resp BP Pulse Ox O2 Del Method 97.9 F 79 18 159/102 98 05/26/22 11:02 05/26/22 11:02 05/26/22 11:02 05/26/22 11:02 05/26/22 11:02 05/26/22 11:04 Preop Diagnosis: Soft tissue mass and painful hardware right lower extremity Operation Date: 05/26/22 12:35 Proposed Procedures p Deep hardware removal and excision of soft tissue mass all right lower extremity 23831,19090,D21.21,M79.89,T84.84(Right) - Cedric Rose DPM s Excision Mass/Lesion(Right) - Cedric Rose DPM Familial anesthetic complications: None Was Beta Annie taken within 24 hours: N/A Was Clonidine taken within 24 hours: N/A Last intake: Intake Last Liquid Date 05/25/22 Last Liquid Time 00:00 Last Solid Date 05/25/22 Last Solid Time 19:00 Social No alcohol and No tobacco Exam alert, oriented x 3, clear to auscultation bilaterally and regular rate & rhythm Airway Mallampati: Class II Dentition: full Pulmonary None reported CV/HEM None reported None reported Hepatic None reported GI gastroparesis listed in history, but patient states he doesn't know what that is and doesn't experience early satiety or N/v Metabolic Diabetes Mellitus (Type 1) Anesthetic Plan ASA status: 3 Anesthesia: General Risk of > 500 ml blood loss (7ml/kg in children): No Other Pertinent Information Hx electrocution Medications/Allergies Home Medications Medication Instructions Recorded Confirmed Last Taken Type aspirin 81 mg tablet,delayed 81 mg PO DAILY 09/08/19 05/25/22 05/24/22 History release (Aspir-) atorvastatin 20 mg tablet 20 mg PO DAILY 09/08/19 05/25/22 05/24/22 History insulin aspart U-100 100 unit/mL See Rx Instructions .Route .COMPLEX 09/08/19 05/25/22 05/25/22 History (3 mL) subcutaneous pen (Novolog Flexpen U-100 Insulin aspart) insulin degludec 200 unit/mL (3 60 unit SUBCUT DAILY 09/08/19 05/25/22 05/25/22 History mL) subcutaneous pen (Tresiba FlexTouch U-200 insulin) lisinopril 10 mg tablet 10 mg PO DAILY #30 tabs 11/24/20 05/25/22 05/25/22 05:30 Rx metoprolol succinate 25 mg 25 mg PO DAILY #30 tabs 11/24/20 05/25/22 05/25/22 05:30 Rx tablet,extended release 24 hr cam boot to left #1 ea 04/06/22 05/15/22 Unknown Rx Allergies Allergy/AdvReac Type Severity Reaction Status Date / Time fentanyl Allergy ADR-Vomitin Verified 05/15/22 11:23 g hydrocodone Allergy Nausea and Verified 05/15/22 11:23 vomiting hydromorphone [From Dilaudid] Allergy ADR-Vomitin Verified 05/15/22 11:23 g Current Medications Generic Name Dose Route Start Last Admin Trade Name Freq PRN Reason Stop Dose Admin Sodium Chloride 1,000 mls @ 30 mls/hr 05/26/22 10:30 05/26/22 11:26 Sodium Chloride 0.9% IV 05/27/22 10:29 30 mls/hr .Q24H DREW Administration PFSH Anesthesia Medical History Chronic hyperglycemia Diabetic gastroparesis Hypertension Nausea & vomiting Type 1 diabetes mellitus Social History Smoking and tobacco status: former smoker Data Anesthesia Cardiac Studies: No Data to Display
--- NOTE | 2022-05-26 12:02 | W.PM.OPSUD ---
Surgery/Procedure H&P Update DATE OF PROCEDURE: May 26, 2022 DATE H&P PERFORMED: 05/15/22 CHANGES TO PREVIOUS DOCUMENTATION: none PREOP DIAGNOSIS: Soft tissue mass and painful hardware right lower extremity PLANNED PROCEDURE: Operation Date: 05/26/22 12:35 Proposed Procedures p Deep hardware removal and excision of soft tissue mass all right lower extremity 25869,32063,D21.21,M79.89,T84.84(Right) - Cedric Rose DPM s Excision Mass/Lesion(Right) - Cedric Rose DPM
[2022-05-26 12:26] LABS: Glucose Point of Care 134 mg/dL (70-110)
[2022-05-26] MEDS: ceFAZolin 2,000 MG in sodium chloride 0.9% (plus) 50 ML 100 MG IV (12:29)
[2022-05-26] MEDS: lidocaine 1% INJ 20 mL INJECTION (12:53)
--- NOTE | 2022-05-26 13:13 | PM.OP ---
Operative Report Date of procedure: May 26, 2022 Pre-op diagnosis: Preop Diagnosis Soft tissue mass and painful hardware right lower extremity Post-op diagnosis: Painful retained hardware, right lower extremity. Post-op findings: Proud hardware right lower extremity tenting the skin. No soft tissue mass. Procedure done: Deep hardware removal right lower extremity. CPT code 83140 Implants: 4-0 Vicryl, 4-0 nylon Specimens removed/disposition: None Pathology: None Surgeon: Cedric Rose D.P.M. [employer] Recruiter: Floyd Estimated blood loss: Less than 5. 21 IV fluids: 0 Urine output: 0 Complications: None Findings: Comment hardware corresponding to area of soft tissue mass. Brief History: Patient is a pleasant 51-year-old male presents with soft tissue mass and potential painful hardware at the right leg.? Has been present for greater than a year, he bumps it and it causes pain, has had a small sore with serous drainage.? Would like to have the mass excised and potential hardware removal. I reviewed at length with the patient, the risks, potential complications, benefits, alternatives, expectations, and typical outcomes associated with the surgery. The risks and potential complications were explained in detail, including but not limited to infection, wound dehiscence or soft tissue complications, bleeding and hematoma, chronic edema, neuritis or nerve damage producing numbness or chronic pain, CRPS, failure to relieve pain or worsening pain, thick / painful / unsightly scar, limited motion / stiffness, malposition, delayed union, malunion, or nonunion, fracture, reaction to implants, anesthetic complications, venous thromboembolism, and deformity recurrence.? I discussed the notion of no regrets with the patient as it pertains to complications and outcomes. The patient seemed to understand the nature of the proposed care and required convalescence. They asked appropriate questions, answered to their satisfaction. They are aware no guarantees can be made as to a satisfactory outcome and they understand there may be other possible unforeseen complications or outcomes not listed here that will be treated accordingly if they arise. There were no written or implied guarantees given to the patient. They gave informed consent to proceed. Procedure: Under mild sedation the patient was brought to the operating room and remained on the gurney in supine position. A timeout was performed. Anesthesia was then administered by the anesthesia service. Local anesthesia injected by myself consisting of 20 cc of one-to-one mixture 1% lidocaine and 0.5% Marcaine plain in a proximal V block fashion. Well-padded pneumatic tourniquet applied to the right thigh. The right lower extremity was then scrubbed, prepped and draped utilizing normal aseptic technique. The right lower extremity was then exsanguinated with an Esmarch bandage and the tourniquet inflated to 250 mmHg. Attention was directed to the anterior medial border of the right mid tibia where soft tissue mass was appreciated. In a semielliptical converging incision fashion the soft tissue mass was ellipsed out and excised in total full-thickness, was noted to be hyperkeratotic in nature, no fluid-filled or abnormal underlying cyst or tumor appreciated. The mass corresponded directly to a proud screw tip which was encountered at the base of the incision. A separate more lateral incision corresponding to the trajectory of the screw appreciated was performed approximately 2 cm in length and dissection carried down to the screw head utilizing accommodation of sharp and blunt technique. All bleeders were ligated and cauterized as necessary. The screw was removed and passed from the operative field in total. Both incisions were then flushed with copious months of sterile skin solution, closed in a layered fashion with 4-0 Vicryl subcutaneously and 4-0 nylon at skin. The incision was then dressed with Adaptic, sterile 4 x 4, Kerlix and Miguel wrap. Postop shoe was applied. The tourniquet was then deflated and a prompt hyperemic response was noted to the distal digits of the right foot that remained. Patient tolerated the procedure and anesthesia well and was transferred to the PACU with vital signs stable and vascular status intact. Following a period of postoperative monitoring he will be discharged home without home care instructions, follow-up and contact information to reach out to Dr. Rose with any postoperative questions or concerns.
[2022-05-26 13:25] LABS: Glucose Point of Care 142 mg/dL (70-110)
--- NOTE | 2022-05-26 13:58 | ANE.PACU2 ---
Inpatient post-anesthesia follow up: Airway intact: Yes Vital signs: Temperature 98.0 F Pulse Rate 81 Respiratory Rate 16 Blood Pressure 134/89 Pulse Oximetry 96 Oxygen Delivery Me thod Room Air Oxygen Flow Rate 10 Fraction of Inspir ed Oxygen Hydration adequate: Yes Nausea and vomiting: No Pain level: 1 Mental status: Baseline
== END 2022-05-26 14:15 | disposition home or self-care (01) ==
PROVIDERS: PCP Internal Medicine; Visit Provider Podiatrist Foot & Ankle Surgery
PROC: (CPT 20680; principal; 2022-05-26 12:25)
DX: T84.84XA Pain due to internal orthopedic prosthetic devices, implants and grafts, initial encounter (principal); E10.9 Type 1 diabetes mellitus without complications; Z79.4 Long term (current) use of insulin; Z79.82 Long term (current) use of aspirin; Z87.891 Personal history of nicotine dependence
CPT/HCPCS: 20680; 36416; 82962; J0690; J1100; J2405; J2704; J3010; J3490; J7030

== ENCOUNTER → 2022-06-08 15:19 | Outpatient (BNVA) | payer MEDICARE, MEDICAID, SELFPAY | PROVIDERS: PCP Internal Medicine; Visit Provider Podiatrist Foot & Ankle Surgery | DX: Z98.890 Other specified postprocedural states (principal); M79.89 Other specified soft tissue disorders; T84.84XA Pain due to internal orthopedic prosthetic devices, implants and grafts, initial encounter; Y79.2 Prosthetic and other implants, materials and accessory orthopedic devices associated with adverse incidents | CPT/HCPCS: 99024 ==

== ENCOUNTER → 2022-07-06 15:12 | Outpatient (BNVA) | payer MEDICARE, MEDICAID, SELFPAY | PROVIDERS: PCP Internal Medicine; Visit Provider Family Medicine | DX: M79.642 Pain in left hand (principal); Z89.022 Acquired absence of left finger(s) | CPT/HCPCS: 73130 ==

== ENCOUNTER 2022-07-12 02:19 | Emergency (ER) | payer MEDICARE, MEDICAID, SELFPAY ==
[2022-07-12 02:29] VITALS: BP 162/94; PULSE 89; RESP 14; TEMP 36.8; O2SAT 97
[2022-07-12 02:38] VITALS: BP 169/100; PULSE 99; RESP 16; O2SAT 98
--- NOTE | 2022-07-12 02:39 | XRR_ITS ---
PROCEDURE INFORMATION: Exam: XR Left Hand Exam date and time: 07/12/2022 2:45 AM Age: 51 years old Clinical indication: Prior surgery; Surgery type: Digit amputation. Patient HX: Patient C/O worsening pain and swelling to left hand after scraping hand working with concrete a week ago. ; Additional info: Injury TECHNIQUE: Imaging protocol: Radiologic exam of the Left hand. Views: 3 or more views. COMPARISON: No relevant prior studies available. FINDINGS: Bones/joints: Soft tissue edema of the distal phalanx of the 3rd finger with adjacent reactive bony changes of the distal phalanx. Findings may be seen with osteomyelitis in the appropriate clinical context. Status post amputation of the 2nd digit to the metacarpal. Degenerative changes are noted. Soft tissues: See Bones/joints finding. XR/XR hand LT min 3V* [id number] IMPRESSION: Soft tissue edema of the distal phalanx of the 3rd finger with adjacent reactive bony changes of the distal phalanx. Findings may be seen with osteomyelitis in the appropriate clinical context.
--- NOTE | 2022-07-12 02:42 | ED_ITS ---
HPI - Extremity Problem General: Chief complaint: Extremity Injury, Upper Stated complaint: Left Hand Swollen Time Seen by Provider: 07/12/22 02:38 Source: patient Mode of arrival: ambulatory Limitations: no limitations History of Present Illness: 51-year-old male states he had hit his distal tip of his finger on a piece of concrete that he was stripping he states this happened a week ago he states he had pain in his finger along with swelling to the tip of his finger appears to be a paronychia he is got some erythema down to his fingers well. He denies any fevers states his pain is a 6 out of 10 worse with movement improved with rest. Associated symptoms: Deny chest pain, fever(s) or rash Review of Systems Const: Denies: fever(s), chills, body aches or change in appetite Eyes: Denies: blurry vision or eye discomfort ENMT: Denies: throat pain or dental pain Card: Denies: chest pain Resp: Denies: dyspnea GI: Denies: abdominal pain, nausea, vomiting or diarrhea : Denies: dysuria Musc: Reports: extremity pain and extremity swelling Skin/Breast: Denies: rash Neuro: Denies: headache(s) Psych: Denies: depression Vidal/Lymph: Denies: easy bruising All/Imm: Denies: urticaria PFSH ED PFSH: Medical History Chronic hyperglycemia Diabetic gastroparesis Hypertension Nausea & vomiting Type 1 diabetes mellitus Family History Grandmother Diabetes Mother , Bladder Ca, age 57 Cancer Denies family history of Clotting disorder Dementia Social History Smoking and tobacco status: former smoker Quit status (tobacco): has quit using tobacco Year quit tobacco: 2018 Former quit date comment: smoked 2PPD x 34 yrs Second hand smoke exposure: No Alcohol intake: never Lives independently: Yes Household members: none Marital status: service: Yes ([employer]) branch: [employer] History of recent travel: No Current gender identity: Male Special cecile needs: No Agree to transfusion: Yes Physical Exam Const: COMMON NORMALS: no acute distress and patient oriented x3 HENMT: COMMON NORMALS: normocephalic HEAD & SCALP: normocephalic Eye: COMMON NORMALS: conjunctivae normal CONJUNCTIVA: Yes conjunctivae normal Neck/C-Spine: COMMON NORMALS: supple Chest: COMMONS NORMALS: normal inspection of the chest Resp: COMMON NORMALS: normal respiratory effort Cardio: COMMON NORMALS: regular rate RATE: regular rate GI: INSPECTION: Yes normal to inspection Extremity: OTHER: Paronychia to the left index finger some slight erythema down the finger no signs of tenosynovitis no swelling over the flexor surface or tenderness Neuro: COMMON NORMALS: patient oriented x3 Psych: COMMON NORMALS: mental status grossly normal Skin: COMMON NORMALS: no rashes or lesions noted GENERAL SKIN EXAM: no rashes or lesions noted Procedures Abscess I/D Site: hand Side (if applicable): left Technique: incised with #11 blade Packing used?: none Nerve Block Nerve Block 1: Time out performed: Yes Local Anesthetic: bupivacaine 0.5% Amount of anesthesia used (mL): 10 Side: left Nerve Blocks: other (ring block left index finger) Procedure Successful: Yes Patient Tolerated Procedure: well Complications: none Course Vital Signs: Vital signs: Vital Signs Temperature 98.3 F 07/12/22 02:29 Pulse Rate 99 07/12/22 02:38 Respiratory Rate 16 07/12/22 02:38 Blood Pressure 169/100 07/12/22 02:38 Pulse Oximetry 98 07/12/22 02:38 Oxygen Delivery Me thod 07/12/22 02:38 MDM - Extremity (Nontraumatic) Medical Decision Making Patient presents with paronychia to his left index finger I did incise and drain got a large amount of pus out of the paronychia we will place him on Bactrim he does have a tuft fracture did bandage it he is to follow-up with PCP and return if worsening. Discharge Plan Discharge Patient Disposition: Home Clinical Impression: Paronychia, Closed fracture of tuft of distal phalanx of finger Condition: Stable Prescriptions: New Bactrim DS 800-160 mg tablet 1 tab PO BID 10 Days Qty: 20 0RF Naprosyn 500 mg tablet 500 mg PO BID PRN (Reason: pain) Qty: 20 0RF No Action oxycodone-acetaminophen [Percocet] 7.5-325 mg tablet 1 tab PO Q8H PRN (Reason: pain) 10 Days Qty: 30 0RF (DME) cam boot to left See Rx Instructions .Route .MEDSUPPLY Qty: 1 0RF Rx Instructions: As directed metoprolol succinate 25 mg tablet extended release 24 hr 25 mg PO DAILY Qty: 30 0RF lisinopril 10 mg tablet 10 mg PO DAILY Qty: 30 0RF atorvastatin 20 mg tablet 20 mg PO DAILY aspirin [Aspir-81] 81 mg Tablet,Delayed Release (Dr/Ec) 81 mg PO DAILY insulin aspart U-100 [Novolog Flexpen U-100 Insulin] 100 unit/mL (3 mL) insulin pen See Rx Instructions .ROUTE .COMPLEX Rx Instructions: SLIDING SCALE subcutaneously TID Tresiba FlexTouch U-200 200 unit/mL (3 mL) insulin pen 60 unit SUBCUT DAILY Discharge Orders: Discharge ED (Routine); Ordered 07/12/22 Ordered By: Sandor Ewing Referrals: Eugenie Jay MD [Primary Care Provider] - 1-3 days Discharge Diet: Advance as tolerated Discharge Activity: Resume usual activity Patient Instructions: Erasmo (ED) Coding Level of Care Code ED Sweep Molder for Chg Fwd Exam Comprehensive
== END 2022-07-12 03:32 | disposition home or self-care (01) ==
PROVIDERS: Emergency Provider Emergency Medicine; PCP Internal Medicine
DX: L03.012 Cellulitis of left finger (principal); S62.631A Displaced fracture of distal phalanx of left index finger, initial encounter for closed fracture; W22.09XA Striking against other stationary object, initial encounter; Z79.82 Long term (current) use of aspirin; Z79.4 Long term (current) use of insulin; Z87.891 Personal history of nicotine dependence; I10 Essential (primary) hypertension; E10.9 Type 1 diabetes mellitus without complications
CPT/HCPCS: 10060; 73130; 99283; J3490

== ENCOUNTER → 2022-09-11 09:08 | Outpatient (BNVA) | payer MEDICARE, MEDICAID, SELFPAY | PROVIDERS: PCP Internal Medicine; Visit Provider Podiatrist Foot & Ankle Surgery | DX: E10.69 Type 1 diabetes mellitus with other specified complication (principal); Z98.890 Other specified postprocedural states; M79.89 Other specified soft tissue disorders; Z89.432 Acquired absence of left foot; Z89.431 Acquired absence of right foot; Z79.4 Long term (current) use of insulin | CPT/HCPCS: 11056; 11721 ==

== ENCOUNTER 2023-05-22 11:54 | Inpatient (IN) | payer MEDICARE, MEDICAID, SELFPAY ==
[2023-05-22] VITALS (84 sets, daily range): BP systolic 127–201; BP diastolic 76–125; PULSE 70–107; RESP 12–28; TEMP 36.1–36.8; O2SAT 88–100; BMI 22.3; BMI 20.9
[2023-05-22 12:05] LABS: Glucose Point of Care > 600 mg/dL (70-110)
[2023-05-22] MEDS: insulin regular-human 100 units/1 mL 10 UNIT IVP (12:20)
[2023-05-22] MEDS: sodium chloride 0.9% 1,000 ML 999 ML IV ×3 (12:20→16:08)
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
--- NOTE | 2023-05-22 12:23 | XR_ITS ---
WS: [id number] Exam: XR chest 1V portable [id number] Date/Time of Exam: 05/22/2023 12:39 PM Reason For Exam: htn Comparison 06/13/2019. The lungs are clear and fully inflated. Normal cardiomediastinal silhouette and regional bony element s. No pleural effusions. IMPRESSION: 1. Normal chest.
[2023-05-22 12:25] LABS: Basophils # 0.1 10^3/uL (0.0-0.1); Basophils % 0.8 %; Eosinophils % 0.1 %; Hematocrit 48.5 % (37-53); Lymphocytes # 0.8 10^3/uL (0.8-4.8); Lymphocytes % 4.6 %; Mean Corpuscular HGB Conc 30.1 g/dL (30-55); Mean Corpuscular Hemoglobin 29.4 pg (27-33); Mean Corpuscular Volume 97.6 fl (82-101); Mean Platelet Volume 10.2 fL (7.4-10.4); Monocytes # 0.8 10^3/uL (0.2-0.9); Monocytes % 4.8 %; Neutrophils # 15.29 10^3/uL (1.8-7.7); Neutrophils % 87.6 %; Nucleated Red Blood Cells % 0 %; Platelet Count 465 10^3/cmm (157-399); Red Blood Count 4.97 10^6/uL (3.85-5.65); Red Cell Distribution Width 12.1 % (12.1-15.1); White Blood Count 17.43 10^3/uL (3.29-11.43)
--- NOTE | 2023-05-22 12:25 | PC.PHAR ---
PT UNABLE TO VERIY MEDICATIONS. VERIFIED CURRENT MEDICATION LIST WITH KATE TOWNSEND
[2023-05-22 12:39] LABS: Ketone (Acetest) Serum Positive (Negative)
[2023-05-22 12:44] LABS: Alanine Aminotransferase 22 U/L (0-41); Albumin Level 3.9 g/dL (3.5-5.2); Alkaline Phosphatase 119 U/L (40-130); Aspartate Amino Transferase 12 U/L (0-40); Blood Urea Nitrogen 61 mg/dL (6-20); Calcium 9.4 mg/dL (8.5-10.5); Chloride 68 mmol/L (98-107); Globulin 3.7 g/dL (1.3-4.6); Glomerular Filtration Rate 29.8 mL/min (90-130); Potassium 5.4 mmol/L (3.5-5.1); Sodium 126 mmol/L (136-145); Total Bilirubin 0.2 mg/dL (0.15-1.2); Total Protein 7.6 g/dL (6.6-8.7)
[2023-05-22 12:52] LABS: Osmolality Calculated 336 mOsm/kg (285-295)
[2023-05-22 12:57] LABS: Anion Gap 56.4 (5-19); Carbon Dioxide 7 mmol/L (22-29); Glucose 1112 mg/dL (65-115)
[2023-05-22 13:16] LABS: Arterial Blood Gas Hematocrit 43.4 % (42-52); Base Excess ABG -19.4 mmol/L (-2.0-2.0); Blood Gas Allen Test Pos; Blood Gas Sample Site Radial, left; Blood Gas Sample Type Arterial; Carboxyhemoglobin 0.6 %THgb (0.4-20.1); HCO3 ABG 6.9 mmol/L (22-26); HGB O2 Sat 97.2 % (95-100); Ionized Calcium Level - ABG 1.2 mmol/L (1.1-1.4); Methemoglobin 0.4 % (0.4-1.5); Oxygen Device ROOM AIR; Oxygen Saturation ABG 98.1; PO2 FiO2 Ratio Arterial Blood 0; Potassium Level - ABG 3.9 mmol/L (3.5-5.0); Total Hemoglobin 14.2 g/dL (14-18)
[2023-05-22 13:18] LABS: ABG PCO2 18.5 mmHg (35-45); ABG PH Result 7.18 (7.35-7.45); Blood Gas Operator Identificat CAK
[2023-05-22] MEDS: insulin regular-human 250 UNIT in sodium chloride 0.9% 250 ML 31.56 UNIT IV (13:20)
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
[2023-05-22] MEDS: ondansetron 2 mg/ML SDV 2 mL 8 MG IVP (13:44)
[2023-05-22 13:54] LABS: Add Urine Microscopic? NO; Charge for UA Resulting for Rev
[2023-05-22 14:02] LABS: Bilirubin Urine Neg (Negative); Blood Urine Neg (Negative); Glucose Urine UA 4+ (Normal); Ketones Urine 2+ (Negative); Leukocyte Esterase Urine Negative (Negative); Nitrate Urine Negative (Negative); Protein Urine Neg (Negative); Urine Appearance Clear (CLEAR); Urine Color Straw (Yellow); Urobilinogen Urine Neg (Negative); pH Urine 5 (5-7)
--- NOTE | 2023-05-22 14:50 | ECG_ITS ---
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 Measurements Intervals [place] Rate: 95 P: 84 MT: 156 QRS: 17 QRSD: 99 T: 66 QT: 373 QTc: 469 Interpretive Statements SINUS RHYTHM POSSIBLE RIGHT ATRIAL ENLARGEMENT [0.25mV P-WAVE] POSSIBLE LEFT ATRIAL ENLARGEMENT [-0.1mV P-WAVE IN V1/V2] SEPTAL MYOCARDIAL INFARCTION , PROBABLY OLD [40+ ms Q WAVE IN V1/V2] Compared to ECG 07/24/2019 16:50:07 Myocardial infarct finding now present Sinus tachycardia no longer present Left-axis deviation no longer present Electronically Signed On 05-22-2023 23:19:43 DIGITAL CAMPAIGN MANAGER by Osman Meza M.D. [id number]
[2023-05-22 14:51] LABS: Glucose Point of Care > 600 mg/dL (70-110)
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
[2023-05-22 15:25] LABS: Troponin(5th) Baseline 21 ng/L (0-15)
[2023-05-22 15:26] LABS: Blood Urea Nitrogen 61 mg/dL (6-20); Chloride 77 mmol/L (98-107); Glomerular Filtration Rate 33.1 mL/min (90-130); Sodium 128 mmol/L (136-145)
[2023-05-22 15:35] LABS: Osmolality Calculated 331 mOsm/kg (285-295)
[2023-05-22 15:39] LABS: Anion Gap 46.9 (5-19); Potassium 3.9 mmol/L (3.5-5.1)
[2023-05-22 15:40] LABS: Carbon Dioxide 8 mmol/L (22-29); Glucose 949 mg/dL (65-115)
[2023-05-22] MEDS: LORazepam 2 mg/mL INJ 1 mL 1 MG IVP (16:08)
[2023-05-22] MEDS: insulin regular-human 250 UNIT in sodium chloride 0.9% 250 ML 31.5 UNIT IV (17:00)
--- NOTE | 2023-05-22 17:11 | ECG_ITS ---
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 Measurements Intervals [place] Rate: 99 P: 77 LA: 147 QRS: -52 QRSD: 95 T: 49 QT: 359 QTc: 462 Interpretive Statements SINUS RHYTHM LEFT ANTERIOR FASCICULAR BLOCK [QRS AXIS <= -45, QR IN I, RS IN II] SEPTAL MYOCARDIAL INFARCTION , PROBABLY OLD [40+ ms Q WAVE IN V1/V2] Compared to ECG 05/22/2023 15:00:08 Left anterior fascicular block now present Myocardial infarct finding still present Electronically Signed On 05-22-2023 23:29:04 INSIDE METER TESTER by Osman Meza M.D. [id number]
[2023-05-22] MEDS: pantoprazole 40 mg SDV IVP (17:33)
[2023-05-22] MEDS: enoxaparin 40 mg/0.4 mL Syringe 30 MG SUBCUT (17:33)
[2023-05-22] MEDS: sodium chloride 0.9% 500 ML 999 ML IV (17:33)
[2023-05-22 18:03] LABS: Anion Gap 31.2 (5-19); Blood Urea Nitrogen 59 mg/dL (6-20); Calcium 8.6 mg/dL (8.5-10.5); Carbon Dioxide 18 mmol/L (22-29); Chloride 91 mmol/L (98-107); Glomerular Filtration Rate 37.1 mL/min (90-130); Magnesium 2.7 mg/dL (1.7-2.3); Osmolality Calculated 329 mOsm/kg (285-295); Phosphorus 2.1 mg/dL (2.5-4.5); Potassium 3.2 mmol/L (3.5-5.1); Sodium 137 mmol/L (136-145)
[2023-05-22 18:04] LABS: Lactate (Lactic Acid level) 2.9 mmol/L (0.5-2.2)
[2023-05-22 18:05] LABS: ABG PCO2 35.5 mmHg (35-45); Arterial Blood Gas Hematocrit 42.8 % (42-52); Base Excess ABG -2.1 mmol/L (-2.0-2.0); Blood Gas Allen Test Pos; Blood Gas Operator Identificat CAK; Blood Gas Sample Site Brachial, left; Blood Gas Sample Type Arterial; HCO3 ABG 22.2 mmol/L (22-26); Oxygen Device ROOM AIR; PO2 ABG 54.2 mmHg (80.0-100.0); PO2 FiO2 Ratio Arterial Blood 0
[2023-05-22 18:06] LABS: Glucose 609 mg/dL (65-115)
[2023-05-22 18:12] LABS: Glucose Point of Care > 600 mg/dL (70-110)
[2023-05-22 18:12] LABS: Glucose Point of Care 525 mg/dL (70-110)
[2023-05-22] MEDS: promethazine 25 mg Supp PR (18:12)
[2023-05-22 18:18] LABS: Creatine Phosphokinase 81 U/L (39-308)
[2023-05-22 18:25] LABS: Troponin 5 2HR 22.45 ng/L (0-15)
[2023-05-22 18:26] LABS: Troponin 5 2HR Delta 1.45 ABS# (0-10)
[2023-05-22] MEDS: sodium chloride 0.9% 1,000 ML 200 ML IV (18:33)
[2023-05-22] MEDS: potassium phosphate (mMol PO4) 15 MMOL in sodium chloride 0.9% (100 ml) 100 ML 42 MMOL IV (19:00)
[2023-05-22 19:14] LABS: Glucose Point of Care 490 mg/dL (70-110)
--- NOTE | 2023-05-22 20:18 | PC.NURSE ---
BG 386: Notified Dr. Delgado @2018 of previous BG 490 and current BG 386, current insulin rate 37.5. New order to decrease insulin to 18.5 units/hr and to recheck BG in 30 minutes. See MAR for medication titrate.
--- NOTE | 2023-05-22 20:50 | ECG_ITS ---
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 Measurements Intervals [place] Rate: 101 P: 71 CT: 124 QRS: -60 QRSD: 92 T: 64 QT: 363 QTc: 471 Interpretive Statements SINUS TACHYCARDIA LEFT ANTERIOR FASCICULAR BLOCK [QRS AXIS <= -45, QR IN I, RS IN II] PROBABLE SEPTAL MYOCARDIAL INFARCTION , PROBABLY OLD [35 ms Q WAVE IN V1/V2] Compared to ECG 05/22/2023 17:11:58 Sinus rhythm no longer present Myocardial infarct finding still present Electronically Signed On 05-22-2023 23:31:45 AUTOMOTIVE GLASS SPECIALIST by Osman Meza M.D. [email or web address]/[id number]
[2023-05-22 21:06] LABS: Glucose Point of Care 386 mg/dL (70-110)
[2023-05-22 21:06] LABS: Glucose Point of Care 329 mg/dL (70-110)
[2023-05-22] MEDS: insulin regular-human 250 UNIT in sodium chloride 0.9% 250 ML 19.19 UNIT IV (21:42)
--- NOTE | 2023-05-22 21:50 | PC.NURSE ---
IV access: 2 RN's attempted to insert a second IV access line using IV ultrasound machine. Attempts unsuccessful.
[2023-05-22 22:04] LABS: Glucose Point of Care 261 mg/dL (70-110)
[2023-05-22 22:09] LABS: Troponin 5 6HR 20.34 ng/L (0-15)
[2023-05-22 22:10] LABS: Anion Gap 17.3 (5-19); Blood Urea Nitrogen 52 mg/dL (6-20); Calcium 8.5 mg/dL (8.5-10.5); Carbon Dioxide 27 mmol/L (22-29); Chloride 99 mmol/L (98-107); Glomerular Filtration Rate 45.3 mL/min (90-130); Glucose 317 mg/dL (65-115); Osmolality Calculated 316 mOsm/kg (285-295); Potassium 3.3 mmol/L (3.5-5.1); Sodium 140 mmol/L (136-145)
[2023-05-22 22:18] LABS: Troponin 5 6HR Delta -0.66 ng/L (0-12)
[2023-05-22] MEDS: potassium chloride premix 100 ML 25 MEQ IV (22:34)
[2023-05-22 23:12] LABS: Glucose Point of Care 209 mg/dL (70-110)
[2023-05-22] MEDS: D5-NS 0.45% + KCL 20 mEq 20 MEQ/1,000 ML BAG 125 MEQ IV (23:17)
--- NOTE | 2023-05-22 23:19 | PC.NURSE ---
BG less than 250: Notified Dr. Delgado @6416 of current BG of 209, current insulin rate of 19 units/hr, and 40 K rider infusing. New order to continue w/ PRN order for D5-1/2NS w/ KCL 20 MEQ @125 ml/hr and to decrease insulin rate to 15 units/hr- recheck in 30 to 60 minutes. See MAR for titration of Insulin.
[2023-05-22] MEDS: ondansetron 2 mg/ML SDV 2 mL 4 MG IVP (23:47)
[2023-05-23] VITALS (33 sets, daily range): BP systolic 117–187; BP diastolic 80–103; PULSE 86–108; RESP 13–24; TEMP 36.6–36.9; O2SAT 90–95
[2023-05-23 00:04] LABS: Glucose Point of Care 184 mg/dL (70-110)
[2023-05-23 01:03] LABS: Glucose Point of Care 156 mg/dL (70-110)
[2023-05-23 02:04] LABS: Glucose Point of Care 156 mg/dL (70-110)
[2023-05-23 02:49] LABS: Anion Gap 13.2 (5-19); Blood Urea Nitrogen 44 mg/dL (6-20); Calcium 8.4 mg/dL (8.5-10.5); Carbon Dioxide 30 mmol/L (22-29); Chloride 104 mmol/L (98-107); Glomerular Filtration Rate 57.5 mL/min (90-130); Glucose 180 mg/dL (65-115); Osmolality Calculated 312 mOsm/kg (285-295); Potassium 4.2 mmol/L (3.5-5.1); Sodium 143 mmol/L (136-145)
--- NOTE | 2023-05-23 02:58 | PC.NURSE ---
AG 13.2: Notified Dr. Delgado of 0230 labs, current blood sugar, and current insulin drip rate @0256. Provider responded that he would enter orders for subq insulin and to overlab for two hours.
[2023-05-23 03:06] LABS: Glucose Point of Care 150 mg/dL (70-110)
--- NOTE | 2023-05-23 03:57 | PC.NURSE ---
Lantus: Unable to give 48 Units of SUBCUT Lantus. Lantus is not avaible in ICU floor Pixis or Baseball Glove Stuffer Pixis. ICU Charge Nurse made aware of inability to give ordered medication. Dr. Delgado notified @6478, order to continue running insulin drip untill 48 units of Lantus is delivered by pharmacy.
[2023-05-23 04:05] LABS: Glucose Point of Care 174 mg/dL (70-110)
[2023-05-23 04:54] LABS: ABG PCO2 43.5 mmHg (35-45); ABG PH Result 7.43 (7.35-7.45); Arterial Blood Gas Hematocrit 51.7 % (42-52); Base Excess ABG 3.8 mmol/L (-2.0-2.0); Blood Gas Operator Identificat JB; Blood Gas Sample Site Brachial, right; Blood Gas Sample Type Arterial; HCO3 ABG 28.8 mmol/L (22-26); Oxygen Device ROOM AIR; PO2 ABG 60.3 mmHg (80.0-100.0); PO2 FiO2 Ratio Arterial Blood 0
[2023-05-23 05:20] LABS: Glucose Point of Care 192 mg/dL (70-110)
[2023-05-23] MEDS: insulin glargine 100 units/1 mL 48 UNIT SUBCUT (05:34)
--- NOTE | 2023-05-23 05:41 | PC.NURSE ---
Increased BP: Notified Dr. Delgado of increased BP @6150. New order to give 0900 dose of 10mg PO Amlodipine NOW.
[2023-05-23 06:04] LABS: Glucose Point of Care 218 mg/dL (70-110)
[2023-05-23] MEDS: amlodipine 10 mg Tablet PO (06:06)
[2023-05-23 06:12] LABS: Basophils % 0.2 %; Hematocrit 38.7 % (37-53); Lymphocytes # 1.2 10^3/uL (0.8-4.8); Lymphocytes % 7.3 %; Mean Corpuscular HGB Conc 34.4 g/dL (30-55); Mean Corpuscular Hemoglobin 29.4 pg (27-33); Mean Corpuscular Volume 85.4 fl (82-101); Mean Platelet Volume 9.4 fL (7.4-10.4); Monocytes # 1.1 10^3/uL (0.2-0.9); Monocytes % 6.7 %; Neutrophils # 13.99 10^3/uL (1.8-7.7); Neutrophils % 85.5 %; Nucleated Red Blood Cells % 0 %; Platelet Count 372 10^3/cmm (157-399); Red Blood Count 4.53 10^6/uL (3.85-5.65); White Blood Count 16.35 10^3/uL (3.29-11.43)
[2023-05-23 06:33] LABS: Anion Gap 15.1 (5-19); Blood Urea Nitrogen 37 mg/dL (6-20); Calcium 8.4 mg/dL (8.5-10.5); Carbon Dioxide 27 mmol/L (22-29); Chloride 103 mmol/L (98-107); Creatinine Clr Calc Pharmacy 87.2527; Glomerular Filtration Rate 77.9 mL/min (90-130); Glucose 246 mg/dL (65-115); Magnesium 2.3 mg/dL (1.7-2.3); Osmolality Calculated 309 mOsm/kg (285-295); Phosphorus 2.5 mg/dL (2.5-4.5); Potassium 4.1 mmol/L (3.5-5.1); Sodium 141 mmol/L (136-145)
[2023-05-23 06:35] LABS: Estmated Average Glucose 240
[2023-05-23 06:47] LABS: Cholesterol 200 mg/dL (0-200); HDL Cholesterol 80 mg/dL (60-100); LDL Cholesterol Calculated 96 mg/dL (50-129); Triglycerides 119 mg/dL (0-150)
[2023-05-23 07:57] LABS: Glucose Point of Care 220 mg/dL (70-110)
[2023-05-23] MEDS: atorvastatin 40 mg Tablet PO (08:16)
[2023-05-23] MEDS: insulin lispro 100 unit/1 mL SUBCUT ×2 (08:17→12:33)
[2023-05-23] MEDS: insulin lispro 100 unit/1 mL 16 UNIT SUBCUT ×2 (08:18→12:33)
--- NOTE | 2023-05-23 09:55 | CTR_ITS ---
PROCEDURE INFORMATION: Exam: CT Abdomen And Pelvis Without Contrast Exam date and time: 05/23/2023 6:35 PM Age: 52 years old Clinical indication: Nausea and vomiting; Additional info: N/v TECHNIQUE: Imaging protocol: Computed tomography of the abdomen and pelvis without contrast. Radiation optimization: All CT scans at this facility use at least one of these dose optimization techniques: automated exposure control; mA and/or kV adjustment per patient size (includes targeted exams where dose is matched to clinical indication); or iterative reconstruction. REPORTING DATA: Count of CT and Cardiac NM exams in prior 12 months: This patient has received 0 known CTs and 0 known cardiac nuclear medicine studies in the 12 months prior to the current study. COMPARISON: CT abdomen pelvis w con* [id number] 11/23/2020 9:09 PM RADIATION DOSE METRICS: Total DLP (mGy-cm): 389 FINDINGS: Lungs: Right basilar atelectasis/consolidation. Liver: No mass. Gallbladder and bile ducts: No calcified stones. No ductal dilation. Pancreas: No ductal dilation. Spleen: No splenomegaly. Adrenal glands: No mass. Kidneys and ureters: Punctate nonobstructing bilateral renal calculi, no hydronephrosis. Left renal cyst. Stomach and bowel: Paucity of intra-abdominal fat limits evaluation of the bowel. No obstruction. Appendix: No evidence of appendicitis. Intraperitoneal space: No loculated collections. Vasculature: Extensive aortic calcifications without aneurysm. Lymph nodes: No enlarged lymph nodes. Urinary bladder: No acute findings. Reproductive: Prostatomegaly. Bones/joints: Degenerative changes without acute findings. Soft tissues: Unremarkable. CT/CT abdomen pelvis wo con [id number] IMPRESSION: Punctate nonobstructing bilateral renal calculi. Otherwise, no acute abdominal findings. Right basilar atelectasis/consolidation, underlying infiltrate not excluded.
[2023-05-23] MEDS: lidocaine 2% viscous 15 ML, aluminum-mag hydrox-simethicon 30 ML, sucralfate oral liq 1 GM PO (10:05)
[2023-05-23] MEDS: cloNIDine 0.1 mg Tablet PO ×2 (10:06→17:35)
[2023-05-23] MEDS: cefTRIAXone 1,000 MG in sodium chloride 0.9% (plus) 50 ML 100 MG IV (10:16)
[2023-05-23 10:39] LABS: Glucose Point of Care 265 mg/dL (70-110)
[2023-05-23 10:42] LABS: C Reactive Protein 36.6 mg/L (0.0-4.9); Procalcitonin 0.55 ng/mL (0-0.5)
--- NOTE | 2023-05-23 14:23 | P.PN_ITS ---
Subjective Subjective: patient was seen this morning, he reports a sore throat, no fever, no chills, he reports he has Nausea, he vommtied for 3 days prior to coming in to hospital, does report marijuanna use a few days a go, no iv drug use, [place], no falls, Vitals/I&O/Wt Last Vital Signs Temp 97.9 F 05/23/23 12:49 Pulse 104 H 05/23/23 10:26 Resp 24 H 05/23/23 06:00 BP 146/86 05/23/23 10:06 Pulse Ox 94 05/23/23 10:26 O2 Del Method Room Air 05/23/23 10:26 05/22/23 05/23/23 05/23/23 22:59 06:59 14:59 Intake Total 3657.356 / 4657.356 1149.887 / 5807.243 50 / 50 Output Total 700 / 700 750 / 1450 Balance 2957.356 / 3957.356 399.887 / 4357.243 50 / 50 Weight last 48 hrs Weight 69.672 kg Weight 68.124 kg Weight 72.575 kg Physical Exam Const: COMMON NORMALS: no acute distress and patient oriented x3 Resp: COMMON NORMALS: normal respiratory effort, No retractions, No use of accessory muscles and clear to auscultation bilaterally AUSCULTATION: clear to auscultation bilaterally Cardio: COMMON NORMALS: regular rate, regular rhythm, S1 normal heart sound present and S2 normal heart sound present RATE: regular rate RHYTHM: regular rhythm HEART SOUNDS: S1 normal heart sound present and S2 normal heart sound present GI: COMMON NORMALS: Normal to inspection, nondistended, normoactive bowel sounds present and non-tender Extremity: COMMON NORMALS: no pedal edema Neuro: COMMON NORMALS: patient oriented x3 Psych: COMMON NORMALS: mental status grossly normal Data 05/23/23 06:00 05/23/23 06:00 A&P Assessment and plan (1) Intractable nausea and vomiting: -will order a ct scan abdomen and pelvis -possible related to diabetic gastroparesis -possibly related to marijunna (2) DKA (diabetic ketoacidosis): -AG closed, resolved -coutinue lantus 48units qam -humalog sliding scale with humalog tid Qualifiers: Diabetes mellitus complication detail: without coma Diabetes mellitus type: type 1 Qualified Code(s): E10.10 - Type 1 diabetes mellitus with ke toacidosis without coma (3) TRUDY (acute kidney injury): Secondary to DKA, prerenal (4) Hypertension: Chronically on lisinopril and amlodipine Qualifiers: Hypertension type: essential hypertension Qualified Code(s): I10 - Essential (primary) hypertension (5) Hyperlipidemia: Chronically on statin therapy Plan ICU admission Serial labs, adjusting fluids and replacing electrolytes as indicated We will continue Zofran, add [place] Phenergan, IV Ativan, and if needed IM Haldol for nausea/vomiting - Haldol is what worked for him last time in 2020 but there is a risk of arrhythmia, especially before we are able to rule out acute cardiac event as cause of DKA IV PPI for now with plan to switch to oral when able to take p.o. intake Monitor for evidence of GI bleeding Hemoccult stool Telemetry monitoring Continue serial cardiac enzymes and EKG Type and screen with next blood draw Monitor urine output and renal function Continue home amlodipine if able to take oral medications; holding lisinopril currently due to TRUDY Continue home atorvastatin if able to take oral medications Will get CK level, check lipids and A1c VTE prophylaxis: Lovenox GI Prophylaxis: PPI currently IV due to intractable nausea and vomiting Telemetry: ordered due to DKA Franco: not currently indicated but monitoring renal function Line(s): peripheral IVs at present, depending on clinical course may have to consider alternative access Disposition plan: Home with outpatient follow up to Dr Eugenie Jay, may need PPI added short term given likely gastrisis Code Status: Full Code Supportive care otherwise Findings, concerns and plans were discussed with patient and they were given an opportunity to ask questions Attestations Medical Necessity Statement*: patient requires hospitalization for dka, intractable N/v Coding Level of Care Code Acute Code for Chg Fwd Diagnoses Intractable nausea and vomiting R11.2 DKA (diabetic ketoacidosis) E10.10 Diabetes mellitus complication detail: without coma Diabetes mellitus type: type 1 TRUDY (acute kidney injury) N17.9 Hypertension I10 Hypertension type: essential hypertension Hyperlipidemia E78.5
[2023-05-23 17:05] LABS: Glucose Point of Care 36 mg/dL (70-110)
[2023-05-23 17:05] LABS: Glucose Point of Care 43 mg/dL (70-110)
[2023-05-23 17:18] LABS: Glucose Point of Care 45 mg/dL (70-110)
[2023-05-23 17:25] LABS: Amphetamines Screen Urine Negative (Negative); Barbiturates Screen Urine Negative (Negative); Benzodiazepines Screen Urine Positive (Negative); Cocaine Screen Urine Negative (Negative); Opiate Screen Urine Negative (Negative); PCP Screen Urine Negative (Negative); THC Screen Urine Positive (Negative)
[2023-05-23] MEDS: pantoprazole 40 mg SDV IVP (17:36)
[2023-05-23] MEDS: enoxaparin 30 mg/0.3 mL Syringe SUBCUT (17:37)
[2023-05-23] MEDS: sodium chloride 0.9% 1,000 ML 75 ML IV (17:38)
[2023-05-23] MEDS: acetaminophen 325 mg Tablet 650 MG PO (17:40)
[2023-05-23 17:50] LABS: Glucose Point of Care 50 mg/dL (70-110)
[2023-05-23 17:50] LABS: Glucose Point of Care 100 mg/dL (70-110)
[2023-05-23 17:55] LABS: Rapid Strep A Test Negative (Negative)
--- NOTE | 2023-05-23 18:58 | PC.NURSE ---
Shift summary: Pt rested in bed most of the shift. CT of abd/pelvis completed htis evening. He was steady o his feet during the transfer. He has been complained of a very sore throat today. Makes eating difficult for him. GI cocktail admin ,it seemed to help some. HIs strep test was negative. decent urine output see I & Os.
[2023-05-23 19:22] LABS: Glucose Point of Care 110 mg/dL (70-110)
[2023-05-23 21:54] LABS: Glucose Point of Care 60 mg/dL (70-110)
[2023-05-23 21:54] LABS: Glucose Point of Care 82 mg/dL (70-110)
--- NOTE | 2023-05-23 22:18 | PC.NURSE ---
Throat Pain: Pt reported 8/10 throat pain and difficulty swallowing. Upon inspection throat is bright red w/ raised white patchy spots. Dr. Delgado notified @2130. Dr. Delgado requested picture of pts throat. Picture sent via secured messaging. See MAR for medications given.
[2023-05-23] MEDS: nystatin 100,000 unit/mL UDC 5 mL 200000 UNIT PO (22:24)
[2023-05-24] VITALS (22 sets, daily range): BP systolic 134–180; BP diastolic 82–100; PULSE 87–101; RESP 12–26; TEMP 36.8–37.8; O2SAT 91–97
[2023-05-24 00:14] LABS: Glucose Point of Care 81 mg/dL (70-110)
[2023-05-24] MEDS: lidocaine 2% viscous 1.667 ML, diphenhydrAMINE oral liq 4.165 MG, aluminum-mag hydrox-s... MUCOUS MEM ×3 (01:30→10:12)
[2023-05-24 01:43] LABS: Glucose Point of Care 71 mg/dL (70-110)
[2023-05-24 02:33] LABS: Glucose Point of Care 101 mg/dL (70-110)
[2023-05-24 03:58] LABS: Glucose Point of Care 110 mg/dL (70-110)
[2023-05-24 05:11] LABS: Basophils % 0.3 %; Hematocrit 37.2 % (37-53); Lymphocytes # 1.4 10^3/uL (0.8-4.8); Lymphocytes % 18.4 %; Mean Corpuscular HGB Conc 33.3 g/dL (30-55); Mean Corpuscular Hemoglobin 29.1 pg (27-33); Mean Corpuscular Volume 87.3 fl (82-101); Mean Platelet Volume 9.7 fL (7.4-10.4); Monocytes # 0.4 10^3/uL (0.2-0.9); Monocytes % 5.6 %; Neutrophils # 5.67 10^3/uL (1.8-7.7); Neutrophils % 75.4 %; Nucleated Red Blood Cells % 0 %; Platelet Count 296 10^3/cmm (157-399); Red Blood Count 4.26 10^6/uL (3.85-5.65); Red Cell Distribution Width 12.5 % (12.1-15.1); White Blood Count 7.51 10^3/uL (3.29-11.43)
--- NOTE | 2023-05-24 05:25 | PC.NURSE ---
Decrease Lantus: Order from Dr. Delgado to decrease Lantus dose from 48 to 36units.
[2023-05-24 05:28] LABS: Slide Review Slide Review Perform
[2023-05-24 05:29] LABS: Alanine Aminotransferase 16 U/L (0-41); Alkaline Phosphatase 94 U/L (40-130); Anion Gap 13.7 (5-19); Aspartate Amino Transferase 15 U/L (0-40); Blood Urea Nitrogen 18 mg/dL (6-20); Calcium 8.7 mg/dL (8.5-10.5); Carbon Dioxide 28 mmol/L (22-29); Chloride 101 mmol/L (98-107); Globulin 3.3 g/dL (1.3-4.6); Glomerular Filtration Rate 117.5 mL/min (90-130); Glucose 127 mg/dL (65-115); Magnesium 2.2 mg/dL (1.7-2.3); Osmolality Calculated 291 mOsm/kg (285-295); Phosphorus 1.7 mg/dL (2.5-4.5); Potassium 3.7 mmol/L (3.5-5.1); Sodium 139 mmol/L (136-145); Total Bilirubin 0.3 mg/dL (0.15-1.2); Total Protein 6.3 g/dL (6.6-8.7)
[2023-05-24 05:55] LABS: Glucose Point of Care 134 mg/dL (70-110)
[2023-05-24 08:44] LABS: Glucose Point of Care 158 mg/dL (70-110)
[2023-05-24] MEDS: atorvastatin 40 mg Tablet PO (08:47)
[2023-05-24] MEDS: cloNIDine 0.1 mg Tablet PO ×2 (08:47→17:10)
[2023-05-24] MEDS: amlodipine 5 mg Tablet 10 MG PO (08:47)
[2023-05-24] MEDS: nystatin 100,000 unit/mL UDC 5 mL 200000 UNIT PO ×4 (08:47→21:00)
[2023-05-24] MEDS: pantoprazole DR 40 mg Tablet PO (08:47)
[2023-05-24] MEDS: lisinopril 20 mg Tablet PO (08:47)
[2023-05-24] MEDS: sodium chloride 0.9% 1,000 ML 75 ML IV ×2 (08:48→17:09)
--- NOTE | 2023-05-24 10:13 | CTR_ITS ---
PROCEDURE INFORMATION: Exam: CT Neck With Contrast Exam date and time: 05/24/2023 3:49 PM Age: 52 years old Clinical indication: Abscess, tonsil; Additional info: Peritonisllar abscess? , Uvular deviation TECHNIQUE: Imaging protocol: Computed tomography of the neck with contrast. Radiation optimization: All CT scans at this facility use at least one of these dose optimization techniques: automated exposure control; mA and/or kV adjustment per patient size (includes targeted exams where dose is matched to clinical indication); or iterative reconstruction. Contrast material: OMNI 350; Contrast volume: 100 ml; Contrast route: INTRAVENOUS (IV); REPORTING DATA: Count of CT and Cardiac NM exams in prior 12 months: This patient has received [address] and 0 known cardiac nuclear medicine studies in the 12 months prior to the current study. COMPARISON: CR XR chest 1V portable [id number] 05/22/2023 12:42 PM RADIATION DOSE METRICS: Total DLP (mGy-cm): 204.12 FINDINGS: Pharynx: No significant tonsillar enlargement. Tonsilliths are present. Larynx: Epiglottis is normal. Prevertebral and retropharyngeal spaces: No acute findings. Salivary glands: Glands are normal in size. Thyroid: No enlarged or calcified nodules. Lymph nodes: Borderline mildly enlarged and asymmetric right cervical lymph nodes (reference 10 mm level 2 node on series 3, image 46). Trachea: Visualized trachea is unremarkable. Lungs: Unremarkable as visualized. Bones/joints: Degenerative changes without acute findings. Soft tissues: No significant soft tissue swelling. CT/CT neck w con* [id number] IMPRESSION: Asymmetric borderline mildly enlarged right cervical lymph nodes, likely reactive. Without prior comparison, a precautionary 3-6 month follow-up CT could be considered.
[2023-05-24] MEDS: cefTRIAXone 1,000 MG in sodium chloride 0.9% (plus) 50 ML 100 MG IV (10:16)
[2023-05-24 12:26] LABS: Glucose Point of Care 162 mg/dL (70-110)
--- NOTE | 2023-05-24 12:50 | P.PN_ITS ---
Subjective Subjective: patient was seen this morning, he coutinue to complain of dysphagia, sore throat, on examination has severe oral thrush, has been using nystatin swish and swallow, on exam he does has fullness any eythema and bulging of left posterior pharynx with slight uvular deviation to the right, discussed doing a ct neck to look for peritonisllar abscess, will start on iv diflucan for severe through, he might have esophageal candidiasis, will consider consulting surgery for egd if his symptoms persists, he did report hypoglycemia events overnight, his insulin dose was adjusted Vitals/I&O/Wt Last Vital Signs Temp 100.1 F H 05/24/23 05:00 Pulse 89 05/24/23 10:00 Resp 19 H 05/24/23 02:00 BP 180/94 05/24/23 10:00 Pulse Ox 92 05/24/23 07:00 O2 Del Method Room Air 05/24/23 06:00 05/23/23 05/24/23 05/24/23 22:59 06:59 14:59 Intake Total 871.0 / 2021.0 550 / 2571.0 265 / 265 Output Total 475 / 1025 450 / 1475 260 / 260 Balance 396.0 / 996.0 100 / 1096.0 5 / 5 Weight last 48 hrs Weight 69.672 kg Weight 68.124 kg Physical Exam Const: COMMON NORMALS: no acute distress and patient oriented x3 Resp: COMMON NORMALS: normal respiratory effort, No retractions, No use of accessory muscles and clear to auscultation bilaterally AUSCULTATION: clear to auscultation bilaterally Cardio: COMMON NORMALS: regular rate, regular rhythm, S1 normal heart sound present and S2 normal heart sound present RATE: regular rate RHYTHM: regular rhythm HEART SOUNDS: S1 normal heart sound present and S2 normal heart sound present GI: COMMON NORMALS: Normal to inspection, nondistended, normoactive bowel sounds present and non-tender Extremity: COMMON NORMALS: no pedal edema Neuro: COMMON NORMALS: patient oriented x3 Psych: COMMON NORMALS: mental status grossly normal Data 05/24/23 04:30 05/24/23 04:30 A&P Assessment and plan (1) Intractable nausea and vomiting: -resolving -possible related to diabetic gastroparesis -possibly related to marijunna (2) DKA (diabetic ketoacidosis): -AG closed, resolved -coutinue lantus 38units qam -humalog sliding scale Qualifiers: Diabetes mellitus complication detail: without coma Diabetes mellitus type: type 1 Qualified Code(s): E10.10 - Type 1 diabetes mellitus with ketoacidosis without coma (3) TRUDY (acute kidney injury): Secondary to DKA, prerenal (4) Hypertension: Chronically on lisinopril and amlodipine Qualifiers: Hypertension type: essential hypertension Qualified Code(s): I10 - Essential (primary) hypertension (5) Hyperlipidemia: Chronically on statin therapy (6) Esophageal candidiasis: -will start iv diflucan -hiv, acutre hep panel -consider egd - Plan will move to [facility] patient was seen this morning, he coutinue to complain of dysphagia, sore throat, on examination has severe oral thrush, has been using nystatin swish and swallow, on exam he does has fullness any eythema and bulging of left posterior pharynx with slight uvular deviation to the right, discussed doing a ct neck to look for peritonisllar abscess, will start on iv diflucan for severe through, he might have esophageal candidiasis, will consider consulting surgery for egd if his symptoms persists, he did report hypoglycemia events overnight, his insulin dose was adjusted VTE prophylaxis: Lovenox GI Prophylaxis: PPI currently IV due to intractable nausea and vomiting Telemetry: ordered due to DKA Franco: not currently indicated but monitoring renal function Line(s): peripheral IVs at present, depending on clinical course may have to consider alternative access Disposition plan: Home with outpatient follow up to Dr Eugenie Jay, may need PPI added short term given likely gastrisis Code Status: Full Code Supportive care otherwise Findings, concerns and plans were discussed with patient and they were given an opportunity to ask questions Attestations Medical Necessity Statement*: patientrequires hospitalization due to dysphagia, candidiasis, hyperglycemia Diagnoses Intractable nausea and vomiting R11.2 DKA (diabetic ketoacidosis) E10.10 Diabetes mellitus complication detail: without coma Diabetes mellitus type: type 1 TRUDY (acute kidney injury) N17.9 Hypertension I10 Hypertension type: essential hypertension Hyperlipidemia E78.5 Esophageal candidiasis B37.81
[2023-05-24] MEDS: fluconazole premix 100 MG in empty flexible container 1 EACH 50 MG IV (13:10)
[2023-05-24] MEDS: insulin lispro 100 unit/1 mL SUBCUT ×3 (13:16→21:00)
--- NOTE | 2023-05-24 14:19 | PC.OT ---
OT TREATMENT ATTEMPTED. PATIENT REPORTS THAT HIS THROAT IS STILL VERY SORE AND HE DOES NOT FEEL LIKE OT THIS AFTERNOON; DECLINED GROOMING TASK.
[2023-05-24 14:30] LABS: Erythrocyte Sedimentation Rate 54 mm/hr (0-10)
[2023-05-24 14:34] LABS: C Reactive Protein 66.6 mg/L (0.0-4.9)
[2023-05-24 14:41] LABS: Procalcitonin 0.24 ng/mL (0-0.5)
[2023-05-24 15:16] LABS: Hepatitis A Antibody IgM Non-Reactive (Nonreactive); Hepatitis B Surface Antigen Non-Reactive (Nonreactive); Hepatitis C Virus Antibody Reactive (Nonreactive)
[2023-05-24 15:34] LABS: Hepatitis B Core IgM Non-Reactive (Nonreactive)
[2023-05-24] MEDS: iohexol 350 mg/mL 500 mL Btl (per mL) IV (15:55)
[2023-05-24 17:05] LABS: Glucose Point of Care 160 mg/dL (70-110)
[2023-05-24] MEDS: enoxaparin 30 mg/0.3 mL Syringe SUBCUT (17:10)
[2023-05-24 18:15] LABS: Adenovirus Not Detected (NOT DETECT); Chlamydia Pneumoniae Not Detected (NOT DETECT); Coronavirus 229E,HKU1,NL63,OC4 Not Detected (NOT DETECT); Human Metapneumovirus Not Detected (NOT DETECT); Human Rhinovirus/Enterovirus Not Detected (NOT DETECT); Influenza A Not Detected (NOT DETECT); Influenza A H1 Not Detected (NOT DETECT); Influenza A H1-2009 Not Detected (NOT DETECT); Influenza A H3 Not Detected (NOT DETECT); Influenza B Not Detected (NOT DETECT); Mycoplasma Pneumoniae Not Detected (NOT DETECT); Parainfluenza Virus Type 1 Not Detected (NOT DETECT); Parainfluenza Virus Type 2 Not Detected (NOT DETECT); Parainfluenza Virus Type 3 Not Detected (NOT DETECT); Parainfluenza Virus Type 4 Not Detected (NOT DETECT); Respiratory Syncytial Virus A Not Detected (NOT DETECT); Respiratory Syncytial Virus B Not Detected (NOT DETECT); SARS-COV-2 Not Detected (NOT DETECT)
[2023-05-24 20:48] LABS: Glucose Point of Care 158 mg/dL (70-110)
[2023-05-25] VITALS (7 sets, daily range): BP systolic 129–176; BP diastolic 58–98; PULSE 69–85; RESP 15–24; TEMP 35.9–37.1; O2SAT 95–98
[2023-05-25 06:11] LABS: Basophils % 0.6 %; Eosinophils # 0.1 10^3/uL (0.0-0.8); Eosinophils % 0.9 %; Hematocrit 40.3 % (37-53); Lymphocytes # 1.7 10^3/uL (0.8-4.8); Lymphocytes % 27.4 %; Mean Corpuscular HGB Conc 31.5 g/dL (30-55); Mean Platelet Volume 9.5 fL (7.4-10.4); Monocytes # 0.4 10^3/uL (0.2-0.9); Monocytes % 5.7 %; Neutrophils # 4.13 10^3/uL (1.8-7.7); Neutrophils % 65.1 %; Nucleated Red Blood Cells % 0 %; Platelet Count 235 10^3/cmm (157-399); Red Blood Count 4.38 10^6/uL (3.85-5.65); Red Cell Distribution Width 12.4 % (12.1-15.1); White Blood Count 6.35 10^3/uL (3.29-11.43)
[2023-05-25 06:21] LABS: Glucose Point of Care 252 mg/dL (70-110)
[2023-05-25] MEDS: insulin glargine 100 units/1 mL 36 UNIT SUBCUT (06:22)
[2023-05-25] MEDS: sodium chloride 0.9% 1,000 ML 75 ML IV ×2 (06:23→20:05)
[2023-05-25 06:30] LABS: Alanine Aminotransferase 16 U/L (0-41); Albumin Level 3.2 g/dL (3.5-5.2); Alkaline Phosphatase 104 U/L (40-130); Anion Gap 15.4 (5-19); Aspartate Amino Transferase 15 U/L (0-40); Blood Urea Nitrogen 13 mg/dL (6-20); Carbon Dioxide 26 mmol/L (22-29); Chloride 100 mmol/L (98-107); Globulin 2.8 g/dL (1.3-4.6); Glomerular Filtration Rate 117.5 mL/min (90-130); Glucose 232 mg/dL (65-115); Magnesium 2.2 mg/dL (1.7-2.3); Osmolality Calculated 292 mOsm/kg (285-295); Phosphorus 2.3 mg/dL (2.5-4.5); Potassium 4.4 mmol/L (3.5-5.1); Sodium 137 mmol/L (136-145); Total Bilirubin 0.4 mg/dL (0.15-1.2)
[2023-05-25 07:20] LABS: Slide Review Slide Review Perform
[2023-05-25] MEDS: insulin lispro 100 unit/1 mL SUBCUT ×4 (07:35→21:04)
[2023-05-25] MEDS: cloNIDine 0.1 mg Tablet PO ×2 (07:36→17:22)
[2023-05-25] MEDS: atorvastatin 40 mg Tablet PO (07:36)
[2023-05-25] MEDS: pantoprazole DR 40 mg Tablet PO ×2 (07:36→17:22)
[2023-05-25] MEDS: lisinopril 20 mg Tablet PO (07:36)
[2023-05-25] MEDS: amlodipine 5 mg Tablet 10 MG PO (07:36)
[2023-05-25] MEDS: nystatin 100,000 unit/mL UDC 5 mL 200000 UNIT PO ×4 (07:36→20:04)
[2023-05-25] MEDS: cefTRIAXone 1,000 MG in sodium chloride 0.9% (plus) 50 ML 100 MG IV (09:58)
[2023-05-25] MEDS: fluconazole premix 100 MG in empty flexible container 1 EACH 50 MG IV (11:01)
[2023-05-25 11:04] LABS: Glucose Point of Care 238 mg/dL (70-110)
--- NOTE | 2023-05-25 12:50 | PM.PN ---
Subjective Subjective: Patient was seen this morning, continues to complain of rawness to the back of the throat, intermittent dysphagia, no hemoptysis, no hematemesis, no cough, his dysphagia is improving, no fevers, no chills, on examination, patient's esophageal candidiasis has significantly improved, posterior pharynx does have vesicular lesions in the posterior pharynx, with surrounding erythema, and white macular lesions Vitals/I&O/Wt Last Vital Signs Temp 96.6 F L 05/25/23 11:14 Pulse 77 05/25/23 11:14 Resp 16 05/25/23 11:14 BP 129/77 05/25/23 11:14 Pulse Ox 96 05/25/23 11:14 O2 Del Method Room Air 05/25/23 11:14 05/24/23 05/25/23 05/25/23 22:59 06:59 14:59 Intake Total 966.25 / 1351.25 992.5 / 2343.75 770 / 770 Balance 966.25 / 291.25 992.5 / 1283.75 770 / 770 Weight last 48 hrs Weight 69.967 kg Physical Exam Const: COMMON NORMALS: no acute distress and patient oriented x3 Resp: COMMON NORMALS: normal respiratory effort, No retractions, No use of accessory muscles and clear to auscultation bilaterally AUSCULTATION: clear to auscultation bilaterally Cardio: COMMON NORMALS: regular rate, regular rhythm, S1 normal heart sound present and S2 normal heart sound present RATE: regular rate RHYTHM: regular rhythm HEART SOUNDS: S1 normal heart sound present and S2 normal heart sound present GI: COMMON NORMALS: Normal to inspection, nondistended, normoactive bowel sounds present and non-tender Extremity: COMMON NORMALS: no pedal edema Neuro: COMMON NORMALS: patient oriented x3 Psych: COMMON NORMALS: mental status grossly normal Data 05/25/23 05:51 05/25/23 05:51 Micro: Microbiology 05/23/23 14:53 Urine Culture - Preliminary Urine,Voided A&P Assessment and plan (1) Intractable nausea and vomiting: -resolving -possible related to diabetic gastroparesis -possibly related to marijunna (2) DKA (diabetic ketoacidosis): -AG closed, resolved -coutinue lantus 38units qam -humalog sliding scale Qualifiers: Diabetes mellitus complication detail: without coma Diabetes mellitus type: type 1 Qualified Code(s): E10.10 - Type 1 diabetes mellitus with ketoacidosis without coma (3) TRUDY (acute kidney injury): Secondary to DKA, prerenal (4) Hypertension: Chronically on lisinopril and amlodipine Qualifiers: Hypertension type: essential hypertension Qualified Code(s): I10 - Essential (primary) hypertension (5) Hyperlipidemia: Chronically on statin therapy (6) Esophageal candidiasis: -Continue IV Diflucan -hiv pending ? Continues to have vesicular regions of posterior pharynx, herpes panel, gonorrhea, media panel, throat culture -We will speak to general surgery about doing an EGD - (7) Hematemesis: Possibly secondary to [place] tear, no recurrent hematemesis, resolved (8) Dysphagia: As above ? Neck CT ? CT/CT neck w con* [id number] IMPRESSION: Asymmetric borderline mildly enlarged right cervical lymph nodes, likely reactive.? Without prior comparison, a precautionary 3-6 month follow-up CT could be considered. ? (9) Esophagitis: Plan will move to [facility] patient was seen this morning, he coutinue to complain of dysphagia, sore throat, on examination has severe oral thrush, has been using nystatin swish and swallow, on exam he does has fullness any eythema and bulging of left posterior pharynx with slight uvular deviation to the right, discussed doing a ct neck to look for peritonisllar abscess, will start on iv diflucan for severe through, he might have esophageal candidiasis, will consider consulting surgery for egd if his symptoms persists, he did report hypoglycemia events overnight, his insulin dose was adjusted VTE prophylaxis: Lovenox GI Prophylaxis: PPI currently IV due to intractable nausea and vomiting Telemetry: ordered due to DKA Franco: not currently indicated but monitoring renal function Line(s): peripheral IVs at present, depending on clinical course may have to consider alternative access Disposition plan: Home with outpatient follow up to Dr Eugenie Jay, may need PPI added short term given likely gastrisis Code Status: Full Code Supportive care otherwise Findings, concerns and plans were discussed with patient and they were given an opportunity to ask questions Attestations Medical Necessity Statement*: Patient requires hospitalization for persistent dysphagia, severe esophageal candidiasis requiring IV Diflucan, Diagnoses Intractable nausea and vomiting R11.2 DKA (diabetic ketoacidosis) E10.10 Diabetes mellitus complication detail: without coma Diabetes mellitus type: type 1 TRUDY (acute kidney injury) N17.9 Hypertension I10 Hypertension type: essential hypertension Hyperlipidemia E78.5 Esophageal candidiasis B37.81 Hematemesis K92.0 Dysphagia R13.10 Esophagitis K20.9
--- NOTE | 2023-05-25 14:43 | PC.SOCIAL ---
IMM Update pg 2 of IMM updated and reviewed w/ patient. Copy provided and copy dated, initialed and placed in chart.
--- NOTE | 2023-05-25 14:50 | PC.SOCIAL ---
IMM Update pg 2 of IMM updated and reviewed w/ patient. Copy provided and copy dated, initialed and placed in chart.
[2023-05-25 16:41] LABS: Glucose Point of Care 208 mg/dL (70-110)
[2023-05-25] MEDS: lidocaine 2% viscous 15 ML, aluminum-mag hydrox-simethicon 30 ML, sucralfate oral liq 1 GM PO (17:20)
[2023-05-25] MEDS: enoxaparin 30 mg/0.3 mL Syringe SUBCUT (17:22)
[2023-05-25] MEDS: sucralfate 1 gm/10 mL Oral Liq UDC PO ×2 (17:22→20:04)
--- NOTE | 2023-05-25 17:53 | PC.NURSE ---
SHIFT SUMMARY Patient has rested well today. Still complaining of throat pain. Medications administered. Patient currently eating dinner and tolerating well. Currently resting in bed watching TV.
[2023-05-25 20:41] LABS: Glucose Point of Care 177 mg/dL (70-110)
[2023-05-26] VITALS: BP 163/93; PULSE 87; RESP 22; TEMP 37.1; O2SAT 98
[2023-05-26] MEDS: lidocaine 2% viscous 1.667 ML, diphenhydrAMINE oral liq 4.165 MG, aluminum-mag hydrox-s... MUCOUS MEM ×2 (03:10→08:18)
[2023-05-26] MEDS: acetaminophen 325 mg Tablet 650 MG PO (03:10)
[2023-05-26 04:00] VITALS: BP 142/97; PULSE 85; RESP 19; TEMP 36.8; O2SAT 96
[2023-05-26 04:35] LABS: Basophils % 0.6 %; Eosinophils # 0.2 10^3/uL (0.0-0.8); Eosinophils % 2.3 %; Hematocrit 38.7 % (37-53); Lymphocytes # 1.9 10^3/uL (0.8-4.8); Lymphocytes % 29.4 %; Mean Corpuscular HGB Conc 32.3 g/dL (30-55); Mean Corpuscular Hemoglobin 28.9 pg (27-33); Mean Corpuscular Volume 89.4 fl (82-101); Mean Platelet Volume 9.5 fL (7.4-10.4); Monocytes # 0.5 10^3/uL (0.2-0.9); Monocytes % 6.8 %; Neutrophils # 3.99 10^3/uL (1.8-7.7); Neutrophils % 60.4 %; Nucleated Red Blood Cells % 0 %; Platelet Count 295 10^3/cmm (157-399); Red Blood Count 4.33 10^6/uL (3.85-5.65); Red Cell Distribution Width 12.2 % (12.1-15.1)
[2023-05-26 04:58] LABS: Alanine Aminotransferase 17 U/L (0-41); Albumin Level 3.1 g/dL (3.5-5.2); Alkaline Phosphatase 105 U/L (40-130); Anion Gap 14.7 (5-19); Aspartate Amino Transferase 18 U/L (0-40); Blood Urea Nitrogen 18 mg/dL (6-20); Calcium 8.9 mg/dL (8.5-10.5); Carbon Dioxide 25 mmol/L (22-29); Chloride 103 mmol/L (98-107); Globulin 3.4 g/dL (1.3-4.6); Glomerular Filtration Rate 140.4 mL/min (90-130); Glucose 176 mg/dL (65-115); Magnesium 1.9 mg/dL (1.7-2.3); Osmolality Calculated 294 mOsm/kg (285-295); Phosphorus 2.9 mg/dL (2.5-4.5); Potassium 3.7 mmol/L (3.5-5.1); Sodium 139 mmol/L (136-145); Total Bilirubin 0.3 mg/dL (0.15-1.2); Total Protein 6.5 g/dL (6.6-8.7)
[2023-05-26] MEDS: sucralfate 1 gm/10 mL Oral Liq UDC PO (06:01)
[2023-05-26 06:30] LABS: Glucose Point of Care 205 mg/dL (70-110)
[2023-05-26 07:56] VITALS: BP 178/104; PULSE 87; RESP 16; TEMP 36.5; O2SAT 96
[2023-05-26] MEDS: nystatin 100,000 unit/mL UDC 5 mL 200000 UNIT PO (08:14)
[2023-05-26] MEDS: atorvastatin 40 mg Tablet PO (08:14)
[2023-05-26] MEDS: lisinopril 20 mg Tablet PO (08:14)
[2023-05-26] MEDS: cloNIDine 0.1 mg Tablet PO (08:14)
[2023-05-26] MEDS: amlodipine 5 mg Tablet 10 MG PO (08:14)
[2023-05-26] MEDS: pantoprazole DR 40 mg Tablet PO (08:14)
[2023-05-26] MEDS: insulin glargine 100 units/1 mL 36 UNIT SUBCUT (09:23)
[2023-05-26] MEDS: insulin lispro 100 unit/1 mL SUBCUT (09:23)
--- NOTE | 2023-05-26 11:27 | P.DS_ITS ---
Discharge Providers Date of Admission: 05/22/23 16:38 Date of Discharge: May 26, 2023 Attending Provider at Admission: Yvonne Tan MD Attending Provider at Discharge: Michael Bran MD Primary Care Provider: Eugenie Jay MD Diagnoses at Discharge Discharge Diagnosis (1) Intractable nausea and vomiting: Status: Acute (2) DKA (diabetic ketoacidosis): Status: Acute Qualifiers: Diabetes mellitus complication detail: without coma Diabetes mellitus type: type 1 Qualified Code(s): E10.10 - Type 1 diabetes mellitus with ketoacidosis without coma (3) TRUDY (acute kidney injury): Status: Acute (4) Hypertension: Status: Chronic Qualifiers: Hypertension type: essential hypertension Qualified Code(s): I10 - Essential (primary) hypertension (5) Hyperlipidemia: Status: Chronic (6) Esophageal candidiasis: Status: Acute (7) Hematemesis: Status: Acute (8) Dysphagia: Status: Acute (9) Esophagitis: Status: Inactive Reason for Visit Reason for Visit: High Blood Sugar Hospital Course Hospital Course Zackary Enriquez is a 52 year old male who presented to the emergency room with chief complaint of intractable nausea and vomiting and high blood sugar.? Symptoms began yesterday.? He reports that he vomited at least 50-60 times.? He has not been able to keep anything down.? Because he has not been able to eat he has not had his insulin.? Has not run out of insulin.? Vomitus initially was what ever he had recently eaten.? Became more bilious in nature and more recently has started to become dark brownish-red in color.? No bright red blood has been seen.? He complains of pain in his throat from all of the vomiting.? Denies any abdominal pain.? Denies history of constipation or diarrhea.? No reports of any melena or hematochezia.? No issues noted with urination.? Is still making urine.? He has not had any fever or chills that he is aware of.? No upper respiratory symptoms.? No known sick contacts.? Denies any recent changes in medications.? Has not ingested any unknown liquids/substances such as antifreeze.? Denies alcohol use.? He was hospitalized here in 2020 with a similar but less severe presentation.? There has been some suggestion of diabetic gastroparesis and cyclical vomiting diagnosis in the past according to available records.? He does smoke marijuana sometimes.? No hospitalizations elsewhere since last hospitalization here in 2020.? On arrival to the emergency room patient was afebrile.? Heart rate 99.? Pulse 18.? Oxygen saturation 100% on room air.? Blood pressure 149/82.? He was found to have blood sugar of 1112 with an anion gap of 56.4.? Serum ketones were noted.? ABG showed 7.18/18/132/6.9.? He has received 2 L of normal saline and started on an insulin drip.? Request was made for admission to the ICU.? Most recent blood sugar is down to 949 with anion gap down to 46.9.? He says his throat was bothering him a little bit at home and is worse after episodes of vomiting here in the emergency room.? He does report weight loss recently without trying but not able to quantify how much over what period of time.? No reports of any chest pain.? He has had shortness of breath after vomiting.? He is being admitted to hospitalist service. Patient was admitted to [facility] ICU for diabetic ketoacidosis, managed on insulin drip, overall clinically improved, anion gap closed, transition to subcu insulin, will be discharged on Tresiba 35 units subcu daily, with insulin sliding scale, follow-up with primary care provider There was concerns for hematemesis during his hospitalization, possibly secondary to Pretty-Lim tear, secondary to intractable nausea and vomiting, no recurrent hematemesis, follow-up with general surgery as outpatient, for consideration of EGD, if any recurrent hematemesis please go to the emergency room, Intractable nausea and vomiting, possible marijuana hyperemesis syndrome, advised against marijuana use, also component possibly related to diabetic gastroparesis, follow-up with primary care provider as outpatient, There was concerns for candidal esophagitis during his hospitalization, was managed with IV Diflucan, significantly improved, with IV Diflucan, will be discharged on 2 weeks of p.o. and IV Diflucan, follow-up with general surgery in 2 weeks for EGD. There was concerns for persistent patchy white drainage posterior pharynx with erythema, he was managed with IV Rocephin, with improvement, but persist, concerns for possible gonococcal and or chlamydial pharyngitis, cultures so far pending, I Kelly discharge him on 7 days of doxycycline with cefdinir Consulted general surgery for concerns for candidal esophagitis, possible herpes esophagitis, however given concern for Pretty-Lim tear, EGD could not be done as inpatient, follow-up with general surgery in 2 weeks for consideration of EGD, Patient was hepatitis C antibody was positive, however patient reports that he has been treated for hepatitis C, I have ordered a hepatitis C RNA, follow-up with primary care provider as outpatient, denies IV drug use HIV test was ordered, so far the test result is pending, follow with primary care provider as outpatient Physical Exam Const: COMMON NORMALS: no acute distress and patient oriented x3 HENMT: OTHER: Posterior pharynx, no uvular deviation, does have patchy white areas of drainage, bilateral posterior pharynx, with erythema of posterior pharynx Resp: COMMON NORMALS: normal respiratory effort, No retractions, No use of accessory muscles and clear to auscultation bilaterally AUSCULTATION: clear to auscultation bilaterally Cardio: COMMON NORMALS: regular rate, regular rhythm, S1 normal heart sound present and S2 normal heart sound present RATE: regular rate RHYTHM: regular rhythm HEART SOUNDS: S1 normal heart sound present and S2 normal heart sound present GI: COMMON NORMALS: Normal to inspection, nondistended, normoactive bowel sounds present and non-tender Extremity: COMMON NORMALS: no pedal edema Neuro: COMMON NORMALS: patient oriented x3 Psych: COMMON NORMALS: mental status grossly normal Discharge Data Studies Completed and Pending Completed Studies During Hospitalization Category Date Time Status CT abdomen pelvis wo con [id number] Routine Cat Scan 05/23/23 09:[address] neck w con* [id number] Stat Cat Scan 05/24/23 10:13 Completed XR chest 1V portable [id number] Stat Exams 05/22/23 12:23 Completed Pending at discharge Category Date Time Status Chlamydia/Gonorrh RNA,TMA URO Routine Lab 05/25/23 13:30 Received Chlamydia/Gonorrh RNA,TMA URO Stat Lab 05/25/23 12:35 Received HIV 1&2 Antigen & Antibody Routine Lab 05/24/23 04:30 Received Hepatitis C RNA Viral Load Qnt Routine Lab 05/24/23 15:48 Received Herpes Simplex Virus Culture Routine Lab 05/25/23 15:15 Received Herpes Simplex Virus DNA Stat Lab 05/25/23 05:51 Received Immunochemical Fecal OCB Routine Lab 05/22/23 16:58 Uncollected Streptococcus Culture Group A Stat Lab 05/23/23 14:50 Received Throat Culture Stat Lab 05/25/23 12:35 Received Radiology Impressions Abdomen/Pelvis CT 05/23/23 09:55 IMPRESSION: Punctate nonobstructing bilateral renal calculi. Otherwise, no acute abdominal findings. Right basilar atelectasis/consolidation, underlying infiltrate not excluded. Neck CT 05/24/23 10:13 IMPRESSION: Asymmetric borderline mildly enlarged right cervical lymph nodes, likely reactive. Without prior comparison, a precautionary 3-6 month follow-up CT could be considered. Laboratory Results WBC 6.60 10^3/uL (3.29-11.43) 05/26/23 04:00 RBC 4.33 10^6/uL (3.85-5.65) 05/26/23 04:00 Hgb 12.50 g/dL (11.27-16.99) 05/26/23 04:00 Hct 38.7 % (37-53) 05/26/23 04:00 MCV 89.4 fl (82-101) 05/26/23 04:00 MCH 28.9 pg (27-33) 05/26/23 04:00 MCHC 32.3 g/dL (30-55) 05/26/23 04:00 RDW 12.2 % (12.1-15.1) 05/26/23 04:00 Plt Count 295 10^3/cmm (157-399) 05/26/23 04:00 MPV 9.5 fL (7.4-10.4) 05/26/23 04:00 Neut % (Auto) 60.4 % 05/26/23 04:00 Lymph % (Auto) 29.4 % 05/26/23 04:00 [place] % (Auto) 6.8 % 05/26/23 04:00 Eos % (Auto) 2.3 % 05/26/23 04:00 Baso % (Auto) 0.6 % 05/26/23 04:00 Neut # (Auto) 3.99 10^3/uL (1.8-7.7) 05/26/23 04:00 Lymph # (Auto) 1.9 10^3/uL (0.8-4.8) 05/26/23 04:00 [place] # (Auto) 0.5 10^3/uL (0.2-0.9) 05/26/23 04:00 Eos # (Auto) 0.2 10^3/uL (0.0-0.8) 05/26/23 04:00 Baso # (Auto) 0.0 10^3/uL (0.0-0.1) 05/26/23 04:00 Nucleated RBC % (auto) 0 % 05/26/23 04:00 Nucleated RBCs # 0.0 /100WBC 05/26/23 04:00 ESR 54 mm/hr (0-10) H 05/24/23 04:30 Specimen Type Arterial 05/23/23 04:40 Sample Site Brachial, right 05/23/23 04:40 ABG pH 7.43 (7.35-7.45) 05/23/23 04:40 ABG pCO2 43.5 mmHg (35-45) 05/23/23 04:40 ABG pO2 60.3 mmHg (80.0-100.0) L 05/23/23 04:40 ABG PO2/FiO2 Ratio 0 05/23/23 04:40 ABG HCO3 28.8 mmol/L (22-26) H 05/23/23 04:40 ABG O2 Saturation 98.1 05/22/23 13:05 ABG Base Excess 3.8 mmol/L (-2.0-2.0) H 05/23/23 04:40 Red Test N/a 05/23/23 04:40 A-a O2 Gradient Not Reportable 05/22/23 13:05 Hematocrit 51.7 % (42-52) 05/23/23 04:40 Hgb O2 Saturation 97.2 % (95-100) 05/22/23 13:05 Carboxyhemoglobin 0.6 %THgb (0.4-20.1) 05/22/23 13:05 Methemoglobin 0.4 % (0.4-1.5) 05/22/23 13:05 Total Hemoglobin 14.2 g/dL (14-18) 05/22/23 13:05 Sodium 129.0 mmol/L (131-143) L 05/22/23 13:05 Potassium 3.9 mmol/L (3.5-5.0) 05/22/23 13:05 Glucose 973.0 mg/dL (70-115) H 05/22/23 13:05 Ionized Calcium 1.2 mmol/L (1.1-1.4) 05/22/23 13:05 O2 Delivery Device Room air 05/23/23 04:40 FiO2 21.0 % 05/23/23 04:40 [employer] Specialist ID Gurvinder 05/23/23 04:40 Sodium 139 mmol/L (136-145) 05/26/23 04:00 Potassium 3.7 mmol/L (3.5-5.1) 05/26/23 04:00 Chloride 103 mmol/L (98-107) 05/26/23 04:00 Carbon Dioxide 25 mmol/L (22-29) 05/26/23 04:00 Anion Gap 14.7 (5-19) 05/26/23 04:00 BUN 18 mg/dL (6-20) 05/26/23 04:00 Creatinine 0.6 mg/dL (0.7-1.2) L 05/26/23 04:00 GFR Calculation 140.4 mL/min (90-130) H 05/26/23 04:00 Glucose 176 mg/dL (65-115) H 05/26/23 04:00 POC Glucose 205 mg/dL (70-110) H 05/26/23 06:20 Estimat Average Glucose 240 05/23/23 06:00 Hemoglobin A1c 10.0 % (4.0-6.0) H 05/23/23 06:00 Calculated Osmolality 294 mOsm/kg (285-295) 05/26/23 04:00 Lactate 2.9 mmol/L (0.5-2.2) H 05/22/23 17:30 Calcium 8.9 mg/dL (8.5-10.5) 05/26/23 04:00 Phosphorus 2.9 mg/dL (2.5-4.5) 05/26/23 04:00 Magnesium 1.9 mg/dL (1.7-2.3) 05/26/23 04:00 Total Bilirubin 0.3 mg/dL (0.15-1.2) 05/26/23 04:00 AST 18 U/L (0-40) 05/26/23 04:00 ALT 17 U/L (0-41) 05/26/23 04:00 Alkaline Phosphatase 105 U/L (40-130) 05/26/23 04:00 Creatine Kinase 81 U/L (39-308) 05/22/23 17:30 Troponin T Baseline 21 ng/L (0-15) H 05/22/23 15:00 Troponin T 120 Minute 22.45 ng/L (0-15) H 05/22/23 17:30 Delta Troponin T 1.45 ABS# (0-10) 05/22/23 17:30 Troponin T Hi Sens 6Hr 20.34 ng/L (0-15) H 05/22/23 21:38 Troponin T Hi Sens 6Hr Delta -0.66 ng/L (0-12) L 05/22/23 21:38 C-Reactive Protein 66.6 mg/L (0.0-4.9) H 05/24/23 04:30 Total Protein 6.5 g/dL (6.6-8.7) L 05/26/23 04:00 Albumin 3.1 g/dL (3.5-5.2) L 05/26/23 04:00 Globulin 3.4 g/dL (1.3-4.6) 05/26/23 04:00 Triglycerides 119 mg/dL (0-150) 05/23/23 06:00 Cholesterol 200 mg/dL (0-200) 05/23/23 06:00 LDL Cholesterol, Calc 96 mg/dL (50-129) 05/23/23 06:00 HDL Cholesterol 80 mg/dL (60-100) 05/23/23 06:00 LDL/HDL Ratio 1.20 RATIO (0.00-3.22) 05/23/23 06:00 Cholesterol/HDL Ratio 2.50 mg/dL (1.0-5.00) 05/23/23 06:00 Procalcitonin 0.24 ng/mL (0-0.5) 05/24/23 04:30 Urine Color Straw (Yellow) 05/22/23 13:20 Urine Appearance Clear (CLEAR) 05/22/23 13:20 Urine pH 5 (5-7) 05/22/23 13:20 Ur Specific [place] 1.020 (1.005-1.030) 05/22/23 13:20 Urine Protein Neg (Negative) 05/22/23 13:20 Urine Glucose (UA) 4+ (Normal) H 05/22/23 13:20 Urine Ketones 2+ (Negative) H 05/22/23 13:20 Urine Blood Neg (Negative) 05/22/23 13:20 Urine Nitrate Negative (Negative) 05/22/23 13:20 Urine Bilirubin Neg (Negative) 05/22/23 13:20 Urine Urobilinogen Neg mg/dL (Negative) 05/22/23 13:20 Ur Leukocyte Esterase Negative (Negative) 05/22/23 13:20 Nasal Influ A H1 2008 PCR Not detected (NOT DETECT) 05/24/23 15:00 Urine Opiates Screen Negative ng/mL (Negative) 05/23/23 14:53 Ur Barbiturates Screen Negative ng/mL (Negative) 05/23/23 14:53 Ur Phencyclidine Scrn Negative ng/mL (Negative) 05/23/23 14:53 Ur Amphetamines Screen Negative ng/mL (Negative) 05/23/23 14:53 U Benzodiazepines Scrn Positive ng/mL (Negative) H 05/23/23 14:53 Urine Cocaine Screen Negative ng/mL (Negative) 05/23/23 14:53 U Marijuana (THC) Screen Positive ng/mL (Negative) H 05/23/23 14:53 Serum Ketones Positive (Negative) H 05/22/23 12:15 Adenovirus (PCR) Not detected (NOT DETECT) 05/24/23 15:00 C. pneumoniae DNA (PCR) Not detected (NOT DETECT) 05/24/23 15:00 Coronavirus 229E (PCR) Not detected (NOT DETECT) 05/24/23 15:00 Hepatitis A IgM Ab Non-reactive (Nonreactive) 05/24/23 04:30 Hep Bs Antigen Non-reactive (Nonreactive) 05/24/23 04:30 Hep B Core IgM Ab Non-reactive (Nonreactive) 05/24/23 04:30 Hepatitis C Antibody Reactive (Nonreactive) H 05/24/23 04:30 Human Metapneumovir PCR Not detected (NOT DETECT) 05/24/23 15:00 Influenza A (H1) PCR Not detected (NOT DETECT) 05/24/23 15:00 Influenza A (H3) PCR Not detected (NOT DETECT) 05/24/23 15:00 Influenza Type A (PCR) Not detected (NOT DETECT) 05/24/23 15:00 Influenza Type B (PCR) Not detected (NOT DETECT) 05/24/23 15:00 M. pneumoniae (PCR) Not detected (NOT DETECT) 05/24/23 15:00 Parainfluenza 1 (PCR) Not detected (NOT DETECT) 05/24/23 15:00 Parainfluenza 2 (PCR) Not detected (NOT DETECT) 05/24/23 15:00 Parainfluenza 3 (PCR) Not detected (NOT DETECT) 05/24/23 15:00 Parainfluenza 4 (PCR) Not detected (NOT DETECT) 05/24/23 15:00 RSV Type A (PCR) Not detected (NOT DETECT) 05/24/23 15:00 RSV Type B (PCR) Not detected (NOT DETECT) 05/24/23 15:00 Entero/Rhino (PCR) Not detected (NOT DETECT) 05/24/23 15:00 SARS-CoV-2 (PCR) Not detected (NOT DETECT) 05/24/23 15:00 Group A Strep Rapid Negative (Negative) 05/23/23 14:50 Blood Type B Positive 05/22/23 17:30 Rho(D) Type Rh positive 05/22/23 17:30 Antibody Screen Negative 05/22/23 17:30 Vitals Last Vital Signs Temp 97.7 F 05/26/23 07:56 Pulse 87 05/26/23 07:56 Resp 16 05/26/23 07:56 BP 178/104 05/26/23 07:56 Pulse Ox 96 05/26/23 07:56 O2 Del Method Room Air 05/26/23 07:56 Discharge Plan Discharge Patient Disposition: Home Condition: Stable Prescriptions: New sucralfate 100 mg/mL Suspension 1 g PO Q12H 30 Days Qty: 600 0RF pantoprazole 40 mg Tablet,Delayed Release (Dr/Ec) 40 mg PO BIDWM 30 Days Qty: 30 0RF cefdinir 300 mg capsule 300 mg PO BID 7 Days Qty: 14 0RF doxycycline monohydrate 100 mg capsule 100 mg PO BID 7 Days Qty: 14 0RF clonidine HCl 0.1 mg Tablet 0.1 mg PO BID 30 Days Qty: 60 0RF nystatin 100,000 unit/mL Suspension 200,000 unit PO QID 7 Days Qty: 56 0RF fluconazole [Diflucan] 100 mg tablet 100 mg PO DAILY 14 Days Qty: 14 0RF Continued atorvastatin 40 mg tablet 40 mg PO DAILY lisinopril 20 mg tablet 20 mg PO DAILY Changed insulin degludec [Tresiba FlexTouch U-200] 200 unit/mL (3 mL) insulin pen 35 unit SUBCUT DAILY Qty: 9 0RF amlodipine 5 mg tablet 10 mg PO DAILY 30 Days Qty: 60 0RF insulin lispro 100 unit/mL insulin pen See Rx Instructions .ROUTE .COMPLEX Qty: 15 0RF Rx Instructions: Inject, subcut, 3 times daily, after meals, based on sign scale provided Discharge Orders: Discharge Order (Routine); Ordered 05/26/23 Ordered By: Michael Bran Referrals: Eugenie Jay MD [Primary Care Provider] - Gonzalez Thrasher MD [Physician] - 2 weeks (We have notified your physician's clinic of the need for a follow-up appointment to be scheduled. If you have not heard from them within the next 2 business days, please call them directly. ) Discharge Diet: Cardiac and Diabetic Discharge Activity: Resume usual activity Patient Instructions: Opioid Safety Activity Restrictions/Additional Instructions: -Tresiba 35 units subcu daily -Please monitor your blood sugars closely -Monitor your blood sugars 3 times daily as after meals -Please?record your blood sugars, and a blood sugar log -For your NovoLog -Please inject blood sugar after meals based on sliding scale provided -Do not inject insulin if you do not eat as hypoglycemia kills -This is a NovoLog sliding scale -Insulin sliding ?fingerstick? Insulin ?141-180?2 units/sq 181-220?4 units/sq ?221-260?6 units/sq ?261-300 8 units/sq ?301-350?10 units/sq ?351-400 12 units/sq ?401-450?14 units/sq 451- 500? 16units/sq >501 18units/sq -If your blood sugar is greater than 500 go to the emergency room -If your blood sugar is less than 60 or at anytime you feel lightheaded or dizzy or diaphoretic or have chest palpitations check your blood sugar, and eat a hard candy or drink orange juice and go immediately to the emergency room -Remember hypoglycemia kills, so if his blood sugar is less than 60 we have to increase it by taking in a sugary meal such as a hard candy or orange juice and go to the emergency room -If you have any questions please call us where, ? For Karishma esophagitis, please take Diflucan as prescribed, for oral candidiasis please use nystatin, ? For pharyngitis, please use doxycycline and cefdinir as prescribed Discharge Attestations Time Spent in Discharge Care*: greater than 30 min Status at Discharge: Cognitive status at discharge: cognitively intact , Behavioral status at discharge: cooperative , Quality Metrics Clinical Quality Measures [ No reported AMI, CVA or VTE this stay] Coding Level of Care Code 07381 Total time (in minutes) for Discharge: 45 Diagnoses Intractable nausea and vomiting R11.2 DKA (diabetic ketoacidosis) E10.10 Diabetes mellitus complication detail: without coma Diabetes mellitus type: type 1 TRUDY (acute kidney injury) N17.9 Hypertension I10 Hypertension type: essential hypertension Hyperlipidemia E78.5 Esophageal candidiasis B37.81 Hematemesis K92.0 Dysphagia R13.10 Esophagitis K20.9
[2023-05-26 11:55] LABS: Glucose Point of Care 182 mg/dL (70-110)
[2023-05-26 14:29] LABS: HEP C RNA Viral Load Quant <1.18 NOT DETECTED Log IU/mL (NOT DETECTED); HEP C RNA Viral Load Quant <15 NOT DETECTED IU/mL (NOT DETECTED)
[2023-05-26 16:04] LABS: Chlamydia Trachomatis RNA TMA NOT DETECTED (NOT DETECTED); Neisseria Gonorrhoeae RNA, TMA NOT DETECTED (NOT DETECTED)
[2023-05-26 16:04] LABS: Chlamydia Trachomatis RNA TMA NOT DETECTED (NOT DETECTED); Neisseria Gonorrhoeae RNA, TMA NOT DETECTED (NOT DETECTED)
[2023-05-28 07:30] LABS: HSV 1 DNA NOT DETECTED; HSV 2 DNA NOT DETECTED; HSV Source SERUM
== END 2023-05-26 13:04 | disposition home or self-care (01) | DRG 637 ==
LOC: ER 13:31 → ICU 16:39 → MEDSURG 05-24 16:02
PROVIDERS: Internal Medicine; Admitting Provider Hospitalist; Emergency Provider Emergency Medicine; PCP Internal Medicine; Visit Provider Family Medicine
DX: E10.10 Type 1 diabetes mellitus with ketoacidosis without coma (principal); K22.6 Gastro-esophageal laceration-hemorrhage syndrome; K92.0 Hematemesis; N17.9 Acute kidney failure, unspecified; E87.1 Hypo-osmolality and hyponatremia; B37.81 Candidal esophagitis; Z79.4 Long term (current) use of insulin; E10.43 Type 1 diabetes mellitus with diabetic autonomic (poly)neuropathy; K31.84 Gastroparesis; E10.649 Type 1 diabetes mellitus with hypoglycemia without coma; E78.5 Hyperlipidemia, unspecified; I10 Essential (primary) hypertension; Z87.891 Personal history of nicotine dependence; R13.10 Dysphagia, unspecified; F12.90 Cannabis use, unspecified, uncomplicated
CPT/HCPCS: 36415; 36416; 36600; 70491; 71045; 74176; 80048; 80051; 80053; 80061; 80074; 80306; 81003; 82009; 82330; 82550; 82803; 82805; 82962; 83036; 83605; 83735; 84100; 84145; 84484; 85025; 85651; 86140; 86850; 86900; 87070; 87077; 87081; 87086; 87186; 87255; 87486; 87491; 87522; 87530; 87581; 87591; 87633; 87806; 87880; 93005; 96365; 96366; 96372; 96375; 96376; 97161; 97166; 97530; 99291; C9113; J0696; J1450; J1650; J1815; J2060; J2405; J3480; J7030; J7040; J7050; J8498; Q9967

== ENCOUNTER 2023-09-22 12:57 | Emergency (ER) | payer MEDICARE, MEDICAID, SELFPAY ==
[2023-09-22 13:01] VITALS: BP 142/102; PULSE 103; RESP 18; TEMP 36.9; O2SAT 94; BMI 22.3
--- NOTE | 2023-09-22 13:13 | XRR_ITS ---
PROCEDURE INFORMATION: Exam: XR Right Tibia and Fibula Exam date and time: 09/22/2023 1:28 PM Age: 53 years old Clinical indication: Injury or trauma; Fall; Blunt trauma; Lower leg; Right TECHNIQUE: Imaging protocol: Radiologic exam of the right tibia and fibula. Views: 2 views. COMPARISON: CR XR tibia fibula RT 2V [id number] 05/15/2022 11:35 AM FINDINGS: Bones/joints: Healed fractures of proximal shaft of tibia and fibula similar to previous study. Fixation hardware again noted. Electronic stimulator device laterally also is unchanged. No acute fracture or dislocation is identified. Soft tissues: Possible soft tissue injury in lower lateral leg. XR/XR tibia fibula RT 2V [id number] IMPRESSION: No acute findings.
[2023-09-22 14:16] VITALS: BP 153/86; PULSE 103; RESP 98; TEMP 36.9; O2SAT 98
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
== END 2023-09-22 14:17 | disposition home or self-care (01) ==
PROVIDERS: Emergency Provider Family Medicine; PCP Internal Medicine
DX: S80.11XA Contusion of right lower leg, initial encounter (principal); Z79.4 Long term (current) use of insulin; Z87.891 Personal history of nicotine dependence; E78.5 Hyperlipidemia, unspecified; I10 Essential (primary) hypertension; E10.9 Type 1 diabetes mellitus without complications; W11.XXXA Fall on and from ladder, initial encounter
CPT/HCPCS: 73590; 99283; E0114

== ENCOUNTER 2023-09-27 15:42 | Inpatient (IN) | payer MEDICARE, MEDICAID, SELFPAY ==
[2023-09-27] VITALS (9 sets, daily range): BP systolic 127–169; BP diastolic 81–110; PULSE 74–95; RESP 16–17; TEMP 36.4–37; O2SAT 93–100; BMI 23.4; BMI 22.8
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
--- NOTE | 2023-09-27 16:47 | XRR_ITS ---
PROCEDURE INFORMATION: Exam: XR Right Tibia and Fibula Exam date and time: 09/27/2023 4:58 PM Age: 53 years old Clinical indication: Device placement; Other: Bone stimulator; Patient HX: Wtih complaints of his battery pack for his bone growth stimulator coming out of his right calf. ; Additional info: Wound TECHNIQUE: Imaging protocol: Radiologic exam of the right tibia and fibula. Views: 2 views. COMPARISON: CR (LOW EXM, ) 09/22/2023 1:28 PM FINDINGS: Bones/joints: Redemonstration of cortical plate placed through the proximal tibial shaft transfixing old healed fracture. There is deformity involving the mid shaft of the right fibula secondary to old healed fracture, unchanged. Mild degenerative changes along the knee compartment. No acute bony abnormalities. Soft tissues: Electronic stimulatory device placed within the soft tissues along the anterolateral aspect of the lower leg unchanged in position. XR/XR tibia fibula RT 2V [id number] IMPRESSION: Stable exam. No acute abnormalities.
[2023-09-27 17:01] LABS: Basophils # 0.1 10^3/uL (0.0-0.1); Basophils % 0.9 %; Eosinophils # 0.2 10^3/uL (0.0-0.8); Eosinophils % 1.9 %; Hematocrit 39.2 % (37-53); Lymphocytes # 1.6 10^3/uL (0.8-4.8); Lymphocytes % 17.2 %; Mean Corpuscular HGB Conc 31.9 g/dL (30-55); Mean Corpuscular Hemoglobin 28.3 pg (27-33); Mean Corpuscular Volume 88.9 fl (82-101); Mean Platelet Volume 9.2 fL (7.4-10.4); Monocytes # 0.7 10^3/uL (0.2-0.9); Monocytes % 7.3 %; Neutrophils # 6.79 10^3/uL (1.8-7.7); Neutrophils % 72.4 %; Nucleated Red Blood Cells % 0 %; Platelet Count 505 10^3/cmm (157-399); Red Blood Count 4.41 10^6/uL (3.85-5.65); Red Cell Distribution Width 12.3 % (12.1-15.1); White Blood Count 9.37 10^3/uL (3.29-11.43)
[2023-09-27 17:04] LABS: Erythrocyte Sedimentation Rate 42 mm/hr (0-10)
[2023-09-27 17:13] LABS: Alanine Aminotransferase 17 U/L (0-41); Albumin Level 3.7 g/dL (3.5-5.2); Alkaline Phosphatase 127 U/L (40-130); Anion Gap 14.9 (5-19); Aspartate Amino Transferase 12 U/L (0-40); Blood Urea Nitrogen 24 mg/dL (6-20); C Reactive Protein 125.8 mg/L (0.0-4.9); Calcium 9.2 mg/dL (8.5-10.5); Carbon Dioxide 31 mmol/L (22-29); Chloride 99 mmol/L (98-107); Creatinine Clr Calc Pharmacy 111.6534; Globulin 3.4 g/dL (1.3-4.6); Glomerular Filtration Rate 100.4 mL/min (90-130); Glucose 129 mg/dL (65-115); Lactic Sepsis W/Reflex 1.6 mmol/L (0.5-2.2); Osmolality Calculated 296 mOsm/kg (285-295); Potassium 4.9 mmol/L (3.5-5.1); Sodium 140 mmol/L (136-145); Total Bilirubin 0.2 mg/dL (0.15-1.2); Total Protein 7.1 g/dL (6.6-8.7)
--- NOTE | 2023-09-27 17:36 | CTR_ITS ---
PROCEDURE INFORMATION: Exam: CT Right Lower Extremity Without Contrast; Lower Leg Exam date and time: 09/27/2023 6:42 PM Age: 53 years old Clinical indication: Pain; Lower leg and other: Bone growth simulator coming out of right calf; Prior surgery; Surgery date: 6+ months; Additional info: Wound infection TECHNIQUE: Imaging protocol: CT of the right lower extremity without contrast was performed. Exam focused on the lower leg. Radiation optimization: All CT scans at this facility use at least one of these dose optimization techniques: automated exposure control; mA and/or kV adjustment per patient size (includes targeted exams where dose is matched to clinical indication); or iterative reconstruction. Contrast material: OMNI 350; Contrast volume: 100 ml; Contrast route: INTRAVENOUS (IV); COMPARISON: CR (LOW EXM, ) 09/27/2023 4:58 PM RADIATION DOSE METRICS: Total DLP (mGy-cm): 555.77 FINDINGS: Bones/joints: There are healed fractures and surgical changes of the proximal tibia with multiple empty screw tracts in the tibial plateau and intact lateral plate and screw fixation hardware with no sign of loosening. There is a healed fracture in the mid fibular diaphysis. Ankle alignment is normal. Knee alignment is normal. 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 Soft tissues: Diffuse subcutaneous edema in the lower leg. There is a bone growth stimulator generator at the skin surface of anterolateral proximal lower leg. There is surrounding soft tissue edema but adjacent soft tissues are largely obscured by magnetic susceptibility artifact. No fluid collection is seen but abscess cannot be unequivocally excluded given the extent of artifact obscuring the soft tissues. No soft tissue gas is visible. Vasculature: Mild popliteal arterial atherosclerotic disease without significant stenosis. CT/CT lower leg RT w con [id number] IMPRESSION: 1. Soft tissue edema surrounding the bone growth stimulator generator which lies at the skin surface. There is no visible fluid collection. However, the soft tissues are largely obscured by adjacent beam hardening artifact. Assessment for abscess is very limited. If there is clinical concern for abscess consider ultrasound. 2. Healed fractures and intact fixation hardware in the proximal tibia. Healed fracture of the proximal fibula.
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
[2023-09-27] MEDS: iohexol 350 mg/mL 500 mL Btl (per mL) IV (18:42)
--- NOTE | 2023-09-27 18:50 | PC.NURSE ---
LAB CALLED 3 TIMES REGARDING BLOOD CULTURES NEEDING DRAWN PRIOR TO ANTIBIOTIC ADMINISTRATION.
[2023-09-27 19:20] LABS: Procalcitonin 0.18 ng/mL (0-0.5)
[2023-09-27] MEDS: piperacillin-tazobactam 3.375 GM in sodium chloride 0.9% (plus) 50 ML IV ×2 (19:34→23:02)
[2023-09-27 19:47] LABS: Add Urine Microscopic? NO; Charge for UA Resulting for Rev
[2023-09-27 19:51] LABS: Bilirubin Urine Neg (Negative); Blood Urine Neg (Negative); Glucose Urine UA 4+ (Normal); Ketones Urine Negative (Negative); Leukocyte Esterase Urine Negative (Negative); Nitrate Urine Negative (Negative); Protein Urine Neg (Negative); Specific Gravity, Urine 1.015 (1.005-1.030); Urine Appearance Clear (CLEAR); Urine Color Yellow (Yellow); Urobilinogen Urine Norm (Negative); pH Urine 6.5 (5-7)
[2023-09-27 20:21] LABS: Iron 26 ug/dL (59-158); Percent Saturation 13.4 % (20-50); Thyroid Stimulating Hormone 1.08 uIU/mL (0.27-4.20); Total Iron Binding Capacity 193 mcg/dl; Unsaturated Iron Binding 167 ug/dL (112-347); Vitamin B12 862 pg/mL (232-1245)
[2023-09-27] MEDS: vancomycin 1,000 MG in sodium chloride 0.9% 250 ML 250 MG IV (20:24)
[2023-09-27] MEDS: sodium chloride 0.9% 1,000 ML 50 ML IV (20:24)
[2023-09-27 20:38] LABS: Glucose Point of Care 190 mg/dL (70-110)
--- NOTE | 2023-09-27 21:10 | PC.NURSE ---
patient has home dexcom, message to nurse order from the doc to allow us to use the dexcom instead of our own acucheck. patient blood glucose on dexcom was 312 at 2110.
[2023-09-27] MEDS: insulin lispro 100 unit/1 mL SUBCUT (21:25)
[2023-09-27] MEDS: insulin glargine 100 units/1 mL 30 UNIT SUBCUT (21:26)
[2023-09-27] MEDS: acetaminophen 325 mg Tablet 650 MG PO (21:27)
[2023-09-27] MEDS: morphine 4 mg/mL SDV 1 mL 2 MG IVP (23:54)
[2023-09-28] VITALS (16 sets, daily range): BP systolic 111–160; BP diastolic 76–97; PULSE 61–85; RESP 15–18; TEMP 36.3–37.2; O2SAT 94–98; BMI 22.8
[2023-09-28] MEDS: morphine 4 mg/mL SDV 1 mL 2 MG IVP ×4 (03:56→20:22)
[2023-09-28 05:15] LABS: Basophils # 0.1 10^3/uL (0.0-0.1); Basophils % 0.9 %; Eosinophils # 0.3 10^3/uL (0.0-0.8); Eosinophils % 3.6 %; Hematocrit 38.9 % (37-53); Lymphocytes # 1.7 10^3/uL (0.8-4.8); Lymphocytes % 24.4 %; Mean Corpuscular HGB Conc 31.4 g/dL (30-55); Mean Corpuscular Volume 89.4 fl (82-101); Mean Platelet Volume 9.1 fL (7.4-10.4); Monocytes # 0.5 10^3/uL (0.2-0.9); Monocytes % 7.4 %; Neutrophils # 4.33 10^3/uL (1.8-7.7); Nucleated Red Blood Cells % 0 %; Platelet Count 459 10^3/cmm (157-399); Red Blood Count 4.35 10^6/uL (3.85-5.65); Red Cell Distribution Width 12.3 % (12.1-15.1); White Blood Count 6.88 10^3/uL (3.29-11.43)
[2023-09-28 05:36] LABS: Alanine Aminotransferase 11 U/L (0-41); Albumin Level 3.2 g/dL (3.5-5.2); Alkaline Phosphatase 113 U/L (40-130); Aspartate Amino Transferase 10 U/L (0-40); Chloride 100 mmol/L (98-107); Cholesterol 175 mg/dL (0-200); Glucose 265 mg/dL (65-115); HDL Cholesterol 46 mg/dL (60-100); LDL Cholesterol Calculated 104 mg/dL (50-129); LDL HDL Ratio 2.26 RATIO (0.00-3.22); Potassium 4.1 mmol/L (3.5-5.1); Sodium 137 mmol/L (136-145); Triglycerides 126 mg/dL (0-150)
[2023-09-28 05:40] LABS: Estmated Average Glucose 232; Hemoglobin A1C 9.7 % (4.0-6.0)
[2023-09-28 05:52] LABS: Folate Level 11.7 ng/mL (4.5-32.2)
[2023-09-28 05:57] LABS: Anion Gap 14.1 (5-19); Blood Urea Nitrogen 21 mg/dL (6-20); Calcium 8.7 mg/dL (8.5-10.5); Carbon Dioxide 27 mmol/L (22-29); Creatinine Clr Calc Pharmacy 126.4105; Glomerular Filtration Rate 117.1 mL/min (90-130); Magnesium 2.1 mg/dL (1.7-2.3); Osmolality Calculated 296 mOsm/kg (285-295); Phosphorus 3.4 mg/dL (2.5-4.5); Total Bilirubin 0.2 mg/dL (0.15-1.2); Total Protein 7.2 g/dL (6.6-8.7)
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
[2023-09-28] MEDS: piperacillin-tazobactam 3.375 GM in sodium chloride 0.9% (plus) 50 ML IV ×3 (07:26→23:43)
[2023-09-28] MEDS: pantoprazole DR 40 mg Tablet PO (08:51)
[2023-09-28] MEDS: lisinopril 20 mg Tablet PO (08:51)
[2023-09-28] MEDS: atorvastatin 40 mg Tablet PO (08:51)
[2023-09-28] MEDS: vancomycin 1,500 MG/300 ML PIGGYBACK 200 MG IV ×2 (08:51→20:21)
[2023-09-28] MEDS: amlodipine 5 mg Tablet 10 MG PO (08:51)
--- NOTE | 2023-09-28 09:18 | PC.CHAP ---
Pastoral Care Encounter/Spiritual Assessment Type of Contact [] Declined weigh tank operator visit [] Patient/Family/Request visit [] Outpatient visit [] Follow-up visit [] Physician referral [] Code/Alert [x] Routine visit [] Staff referral [] Actively dying [] Patient sleeping [] Family support [] [] Out of room [] Palliative care [] [] Receiving care in room [] Pre-surgical visit [] Trauma [] Long length of stay [] ICU visit [] Other: Relational/Emotional Strength [x] Patient feels connected with others/family/visitors/staff [] Distress [] Loneliness/isolation [] Abandonment Spirituality of Patient [x] Person of Concepcion [] Attends Christian of their Concepcion [x] Believes in Prayer [] Reads Bible or Mu-Ism materials [] There are Spiritual issues to be addressed [employer] Interventions [x] Prayer [x] Active listening [] Non-anxious presence [x] Spiritual/emotional support [] Crisis/trauma care [] Spiritual counseling [] Bereavement support [] Provided bereavement packet [] Provided Bible/devotional materials [] Provided toy/stuffed animal, coloring book to patient or family member [] Provided Communion [] Anointing/[place] [] Salvation [x] Completed spiritual assessment [] Other: Impact on Illness or Injury [] Angry [] Fearful [] Anxious [] Often cries [] Exhaustion [] Unable to work [] Unable to attend congregational [] Unable to walk/stand [] Unable to read [] Unable to drive [] Unable to eat/drink [] Unable to sleep [] Unable to be with family [] Patient intubated [] Other: Summary Time spent with patient 5 min
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
--- NOTE | 2023-09-28 11:48 | P.OP_ITS ---
Operative Report Date of procedure: September 28, 2023 Pre-op diagnosis: Infected hardware right leg Wound to myofascial layer right leg Post-op diagnosis: Same Post-op findings: Purulence and devitalized tissue down to myofascial layer, did not encounter hardware or bone during debridement of nonviable tissue. Procedure done: Incision and debridement down to myofascial layer right leg Deep hardware removal right leg Implants: No implants, wound VAC was applied to the right leg wound Specimens removed/disposition: Deep tissue culture taken intraoperatively at myofascial layer right leg wound sent to microbiology for Gram stain, culture and sensitivity Pathology: None Surgeon: Cedric Rose DPM [employer] Milling Machine Operator: EMETERIO Estimated blood loss: 5 mL 13 IV fluids: See intraoperative documentation Urine output: None Complications: No complications Findings: Purulence and devitalized tissue down to myofascial layer, did not encounter hardware or bone during debridement of nonviable tissue. Brief History: 53-year-old insulin-dependent diabetic male presents with a wound with exposed hardware to the right lateral leg recommended removal of deep hardware and incision and debridement right leg source control of infection combined with medical management with IV antibiotics. Deep cultures to be taken intraoperatively to help antibiotic therapy. Patient is agreeable wishes to proceed. I reviewed at length with the patient, the risks, potential complications, benefits, alternatives, expectations, and typical outcomes associated with the surgery. The risks and potential comp lications were explained in detail, including but not limited to infection, wound dehiscence or soft tissue complications, bleeding and hematoma, chronic edema, neuritis or nerve damage producing numbness or chronic pain, CRPS, failure to relieve pain or worsening pain, thick / painful / unsightly scar, limited motion / stiffness, malposition, delayed union, malunion, or nonunion, fracture, reaction to implants, anesthetic complications, venous thromboembolism, and deformity recurrence. I discussed the notion of no regrets with the patient as it pertains to complications and outcomes. The p atient seemed to understand the nature of the proposed care and required convalescence. They asked appropriate questions, answered to their satisfaction. They are aware no guarantees can be made as to a satisfactory outcome and they understand there may be other possible unforeseen complications or outcomes not listed here that will be treated accordingly if they arise. There were no written or implied guarantees given to the patient. They gave informed consent to proceed. Procedure: Under mild sedation the patient was brought to the operating room and remained on the gurney in supine position. A timeout was performed. Anesthesia was then administered by the anesthesia service. Local anesthesia injected by myself consisting of one-to-one mixture 1% lidocaine and 0.5% Marcaine plain and a right proximal lateral leg block including common peroneal nerve. Well-padded pneumatic tourniquet applied to the right high thigh. Right lower extremity was scrubbed, prepped and draped utilizing normal aseptic technique. Right foot was elevated and tourniquet inflated to 250 mmHg. Attention was directed to the right lateral leg where infected hardware was protruding through skin with metallic appearance, this was a implanted bone stimulator. This was removed in total including the wire that was implanted down deep, there was no failure or breakage when removing the bone stimulator it was removed in total and passed from the operative field. There was purulent drainage and devitalized tissue through epidermis, dermis, subcutaneous tissue down to and including myofascial layer. This was debrided sharply with pickups and a 15 blade, pickups and scissors as well as rongeur. Devitalized tissue did not extend down to hardware or bone. Postdebridement wound measurements 7.6 cm x 3.3 cm x 0.4 cm. This was irrigated with 3 L of pulse lavage. Wound VAC was then applied directly to the wound with granular foam with excellent seal set at 125 mm of negative pressure. Further dressings consisting of 4 x 4's, Kerlix and Miguel wrap was applied. Tourniquet was deflated and a prompt hyperemic response was noted to the remaining tolerated anesthesia and procedure well and was transferred to the PACU with vital signs stable and vascular status intact. Distal digits of the right foot. Patient Planning on monitoring his improvement to IV antibiotics and surgical debridement over the next 2 to 3 days, will await cultures for guidance on antibiotic therapy at discharge, would be okay for oral antibiotics from podiatry standpoint at this time.
--- NOTE | 2023-09-28 11:48 | W.PM.OPSUD ---
Surgery/Procedure H&P Update DATE OF PROCEDURE: September 28, 2023 DATE H&P PERFORMED: 05/15/22 H&P UPDATE INFORMATION: I have reviewed H&P completed within last 30 days, I have examined patient prior to procedure, No changes to prior documentation and H&P is in [facility] EMR on date indicated CHANGES TO PREVIOUS DOCUMENTATION: none PREOP DIAGNOSIS: Infected hardware right leg PRIMARY INDICATION FOR PROCEDURE: Infected hardware with wound right leg PLANNED PROCEDURE: Operation Date: 09/28/23 11:00 Proposed Procedures p Incision And Drainage with removal of hardware of rightl leg(Right) - Cedric Rose DPM s Hardware Removal(Right) - Cedric Rose DPM
--- NOTE | 2023-09-28 12:30 | ANE.PACU2 ---
Inpatient post-anesthesia follow up: Airway intact: Yes Vital signs: Temperature 97.6 F Pulse Rate 77 Respiratory Rate 18 Blood Pressure 128/81 Pulse Oximetry 97 Oxygen Delivery Me thod Room Air Oxygen Flow Rate Fraction of Inspir ed Oxygen Hydration adequate: Yes Nausea and vomiting: No Pain level: 1 Mental status: Baseline
--- NOTE | 2023-09-28 12:45 | P.PN_ITS ---
Subjective 2 Subjective: No events overnight. Has remained hemodynamically stable and afebrile. Blood sugars have been well-controlled. Plan for OR today. Vitals/I&O/Wt Last Vital Signs Temp 97.7 F 09/28/23 12:37 Pulse 83 09/28/23 12:42 Resp 16 09/28/23 12:42 BP 124/80 09/28/23 12:42 Pulse Ox 98 09/28/23 12:42 O2 Del Method Room Air 09/28/23 12:42 09/27/23 09/28/23 09/28/23 22:59 06:59 14:59 Intake Total 600 / 600 750 / 1350 930 / 930 Output Total 825 / 825 802 / 802 Balance 600 / 600 -75 / 525 128 / 128 Weight last 48 hrs Weight 74.435 kg Weight 74.435 kg Weight 74.389 kg Weight 76.204 kg Physical Exam 2 Narrative: General: No acute distress, AO x3 HEENT: PERRLA, pupils bilaterally equal and reactive Chest: Normal vesicular breath sounds, no added sounds, equal good air entry bilaterally CVS: S1-S2 regular, no murmurs, no tachycardia, no gallops, no rubs Abdomen: Soft, nontender, no organomegaly, bowel sounds present Neuro: No focal deficits, no facial deformity, AO x3, power 5/5 in all limbs Back/Pelvis: OTHER: Data 09/28/23 05:01 09/28/23 05:01 Micro: Microbiology 09/27/23 18:25 Blood Culture - Preliminary Blood SPECIMEN COLLECTED 09/27/23 16:37 Blood Culture - Preliminary Blood SPECIMEN COLLECTED A&P Assessment and plan (1) Infected hardware in right leg: Retained bone stimulator, exposed currently. Concerns for infected hardware. Appreciate podiatry recommendations. CRP elevated, ESR elevated. Plan for hardware removal today with possibility of bone cultures. Appreciate CT leg results. Follow-up culture results. Postoperative wound care as per surgical team. Given concerns for hardware infection patient will most likely need an IV antibiotic for 4 to 6 weeks. Will follow-up cultures and then plan for antibiotic course accordingly. Reviewed culture history from the past. History of Pseudomonas infection and Enterobacter infection in the past. Empirically start patient on IV vancomycin and Zosyn. Qualifiers: Encounter type: initial encounter Qualified Code(s): T84.7XXA - Infection and inflammatory reaction due to other internal orthopedic prosthetic devices, implants and grafts, initial encounter (2) Cellulitis of lower leg: (3) Type 1 diabetes mellitus: Appreciate A1c results of 9.7. Insulin sliding scale at moderate dose protocol. Lantus at 30 units nightly. Qualifiers: Diabetes mellitus complication status: with other specified complication Qualified Code(s): E10.69 - Type 1 diabetes mellitus with other specified complication (4) Hypertension: Goal blood pressure less than 140/90 mmHg. Continue with home dose of amlodipine 10 mg daily, lisinopril 20 mg daily. Will uptitrate for goal blood pressures. Qualifiers: Hypertension type: essential hypertension Qualified Code(s): I10 - Essential (primary) hypertension Plan Full code Carb consistent diet appropriately once okay with podiatry team. Protonix for PUD prophylaxis SCD for DVT prophylaxis, hold off on medical prophylaxis given OR in the a.m. Attestations 2 Medical Necessity Statement*: Requires further hospitalization for management of infected hardware of the right leg as patient requires exploration and removal of the hardware Diagnoses Infected hardware in right lower extremity, initial encounter T84.7XXA Encounter type: initial encounter Cellulitis of lower leg L03.119 Type 1 diabetes mellitus with other specified complication E10.69 Diabetes mellitus complication status: with other specified complication Hypertension I10 Hypertension type: essential hypertension
[2023-09-28] MEDS: BUPivacaine 0.5% INJ 30 mL 15 ML INJECTION (12:46)
[2023-09-28] MEDS: lidocaine 2% INJ 20 mL 15 ML INJECTION (12:47)
--- NOTE | 2023-09-28 14:22 | PC.SOCIAL ---
Pg 2 IMM. Explained to pt Pg 2 IMM. No questions voiced. Provided pt a copy. Initialed, dated, & timed a copy & placed in chart.
[2023-09-28] MEDS: sodium chloride 0.9% 1,000 ML 75 ML IV (15:31)
[2023-09-28] MEDS: insulin lispro 100 unit/1 mL SUBCUT ×2 (18:34→20:22)
[2023-09-28] MEDS: insulin glargine 100 units/1 mL 30 UNIT SUBCUT (20:22)
--- NOTE | 2023-09-28 20:33 | PC.NURSE ---
pt bg was [id number]
[2023-09-29] VITALS (10 sets, daily range): BP systolic 128–149; BP diastolic 81–91; PULSE 61–78; RESP 15–18; TEMP 36.5–36.9; O2SAT 94–98; BMI 23.0
[2023-09-29] MEDS: morphine 4 mg/mL SDV 1 mL 2 MG IVP ×4 (02:24→20:04)
[2023-09-29 03:04] LABS: Basophils # 0.1 10^3/uL (0.0-0.1); Basophils % 0.8 %; Eosinophils # 0.3 10^3/uL (0.0-0.8); Eosinophils % 3.6 %; Hematocrit 38.5 % (37-53); Lymphocytes # 1.9 10^3/uL (0.8-4.8); Lymphocytes % 22.3 %; Mean Corpuscular HGB Conc 30.4 g/dL (30-55); Mean Corpuscular Hemoglobin 28.7 pg (27-33); Mean Corpuscular Volume 94.4 fl (82-101); Monocytes # 0.6 10^3/uL (0.2-0.9); Neutrophils # 5.54 10^3/uL (1.8-7.7); Neutrophils % 65.6 %; Nucleated Red Blood Cells % 0 %; Platelet Count 429 10^3/cmm (157-399); Red Blood Count 4.08 10^6/uL (3.85-5.65); Red Cell Distribution Width 12.5 % (12.1-15.1); White Blood Count 8.44 10^3/uL (3.29-11.43)
[2023-09-29 03:25] LABS: Alanine Aminotransferase 12 U/L (0-41); Alkaline Phosphatase 102 U/L (40-130); Aspartate Amino Transferase 11 U/L (0-40); Blood Urea Nitrogen 20 mg/dL (6-20); Calcium 8.3 mg/dL (8.5-10.5); Carbon Dioxide 28 mmol/L (22-29); Chloride 103 mmol/L (98-107); Creatinine Clr Calc Pharmacy 110.6092; Globulin 3.4 g/dL (1.3-4.6); Glomerular Filtration Rate 100.4 mL/min (90-130); Glucose 158 mg/dL (65-115); Osmolality Calculated 294 mOsm/kg (285-295); Sodium 139 mmol/L (136-145); Total Bilirubin 0.2 mg/dL (0.15-1.2); Total Protein 6.4 g/dL (6.6-8.7)
[2023-09-29] MEDS: sodium chloride 0.9% 1,000 ML 75 ML IV ×2 (03:59→15:02)
[2023-09-29] MEDS: piperacillin-tazobactam 3.375 GM in sodium chloride 0.9% (plus) 50 ML IV ×3 (06:54→22:46)
--- NOTE | 2023-09-29 07:49 | PC.NURSE ---
Blood sugar per Dexcom 216. Pt wishes to administer 2 units of Humalog
[2023-09-29] MEDS: insulin lispro 100 unit/1 mL SUBCUT ×4 (07:50→21:17)
[2023-09-29] MEDS: atorvastatin 40 mg Tablet PO (07:51)
[2023-09-29] MEDS: amlodipine 5 mg Tablet 10 MG PO (07:51)
[2023-09-29] MEDS: pantoprazole DR 40 mg Tablet PO (07:51)
[2023-09-29] MEDS: lisinopril 20 mg Tablet PO (07:51)
[2023-09-29] MEDS: vancomycin 1,500 MG/300 ML PIGGYBACK 200 MG IV (10:34)
--- NOTE | 2023-09-29 11:07 | PC.NURSE ---
Blood sugar per Dexcom is 221
--- NOTE | 2023-09-29 11:43 | PC.NURSE ---
Pt refuses to follow sliding scale insulin, instead giving his own amounts, which is less. Dr. Quintanilla advised.
--- NOTE | 2023-09-29 14:49 | PC.NURSE ---
MRSA nasal swab sent to lab
--- NOTE | 2023-09-29 16:21 | P.PN_ITS ---
Subjective 2 Subjective: No acute events overnight. Patient has remained hemodynamically stable and afebrile. Today morning laying comfortably in bed and sleeping. He states he is having sleep after a long time. Denies any nausea, vomiting, headache. As per nursing staff he is not adhering to the sliding scale and wants to take his own insulins as for himself. Blood sugars are acceptably controlled for now. Vitals/I&O/Wt Last Vital Signs Temp 97.7 F 09/29/23 11:41 Pulse 73 09/29/23 16:00 Resp 16 09/29/23 16:00 BP 131/86 09/29/23 16:00 Pulse Ox 94 09/29/23 16:00 O2 Del Method Room Air 09/29/23 16:00 09/29/23 09/29/23 09/29/23 06:59 14:59 22:59 Intake Total 1970 / 4415 710 / 710 828.75 / 1538.75 Output Total 1002 / 2904 500 / 500 650 / 1150 Balance 968 / 1511 210 / 210 178.75 / 388.75 Weight last 48 hrs Weight 74.843 kg Weight 74.843 kg Weight 74.435 kg Weight 74.435 kg Weight 74.389 kg Physical Exam 2 Narrative: General: No acute distress, AO x3 HEENT: PERRLA, pupils bilaterally equal and reactive Chest: Normal vesicular breath sounds, no added sounds, equal good air entry bilaterally CVS: S1-S2 regular, no murmurs, no tachycardia, no gallops, no rubs Abdomen: Soft, nontender, no organomegaly, bowel sounds present Neuro: No focal deficits, no facial deformity, AO x3, power 5/5 in all limbs Back/Pelvis: OTHER: Leg examination on presentation as below. Currently surgically bandaged with wound VAC in place Data 09/29/23 02:20 09/29/23 02:20 Micro: Microbiology 09/28/23 12:21 Gram Stain - Final Leg - #1 Anaerobic Culture - Preliminary Tissue Culture - Preliminary Strep agalactiae - (group b) 09/27/23 18:25 Blood Culture - Preliminary Blood NEGATIVE TO DATE 09/27/23 16:37 Blood Culture - Preliminary Blood NEGATIVE TO DATE A&P Assessment and plan (1) Infected hardware in right leg: Retained bone stimulator, exposed currently. Concerns for infected hardware. Appreciate podiatry recommendations. CRP elevated, ESR elevated. Plan for hardware removal today with possibility of bone cultures. Appreciate CT leg results. Follow-up culture results. Postoperative wound care as per surgical team. Given concerns for hardware infection patient will most likely need an IV antibiotic for 4 to 6 weeks. Will follow-up cultures and then plan for antibiotic course accordingly. Reviewed culture history from the past. History of Pseudomonas infection and Enterobacter infection in the past. Empirically start patient on IV vancomycin and Zosyn. Qualifiers: Encounter type: initial encounter Qualified Code(s): T84.7XXA - Infection and inflammatory reaction due to other internal orthopedic prosthetic devices, implants and grafts, initial encounter (2) Cellulitis of lower leg: (3) Type 1 diabetes mellitus: Appreciate A1c results of 9.7. Insulin sliding scale at moderate dose protocol. Lantus at 30 units nightly. Qualifiers: Diabetes mellitus complication status: with other specified complication Qualified Code(s): E10.69 - Type 1 diabetes mellitus with other specified complication (4) Hypertension: Goal blood pressure less than 140/90 mmHg. Continue with home dose of amlodipine 10 mg daily, lisinopril 20 mg daily. Will uptitrate for goal blood pressures. Qualifiers: Hypertension type: essential hypertension Qualified Code(s): I10 - Essential (primary) hypertension Plan Full code Carb consistent diet appropriately once okay with podiatry team. Protonix for PUD prophylaxis SCD for DVT prophylaxis, heparin 5000 every 12 hourly for DVT prophylaxis. Plan for the day: Follow-up blood culture, OR cultures. Check MRSA swab. OR cultures for now growing group B strep. Continue with current antibiotics including IV vancomycin and Zosyn. If MRSA swab negative will discontinue vancomycin. Will consult ID for further recommendations.. Patient will need 4 to 6 weeks of IV antibiotics with concerns for hardware infection down to bone. Patient will follow-up with ID and Dr. Rose as an outpatient. Wound care and wound VAC as per Dr. Rose. Plan for delayed closure within next 24 to 48 hours. Will await further recommendations. Continue with current sliding scale. Continue with IV morphine. Add oxycodone 5 mg every 4 hours as needed for pain. Start on heparin as above for DVT prophylaxis. Patient's oral intake is appropriate. Stop IV fluids. Attestations 2 Medical Necessity Statement*: Requires further hospitalization for management of infected hardware of the leg post I&D and hardware removal while outpatient antibiotics is set up when patient goes for delayed closure Diagnoses Infected hardware in right lower extremity, initial encounter T84.7XXA Encounter type: initial encounter Cellulitis of lower leg L03.119 Type 1 diabetes mellitus with other specified complication E10.69 Diabetes mellitus complication status: with other specified complication Hypertension I10 Hypertension type: essential hypertension
[2023-09-29] MEDS: heparin 5,000 unit/mL INJ 1 mL 5000 UNIT SUBCUT (16:40)
--- NOTE | 2023-09-29 17:01 | PC.NURSE ---
Blood sugar per Dexcom is 271. Pt states he will take 5units of Humalog for coverage.
[2023-09-29] MEDS: ferrous gluconate 324 mg Tablet PO (17:06)
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
[2023-09-29] MEDS: insulin glargine 100 units/1 mL 30 UNIT SUBCUT (20:20)
--- NOTE | 2023-09-29 21:11 | PC.NURSE ---
Dr shelleyed readings from Dexcom. Dexcom reading 289 at 2110. per sliding scale patient would get 10 units. patient refused stating that he only wants 3 units.
[2023-09-29] MEDS: acetaminophen 325 mg Tablet 650 MG PO (23:04)
[2023-09-29 23:47] LABS: Vancomycin Trough 9.7 ug/mL (10-15)
[2023-09-30] VITALS (9 sets, daily range): BP systolic 140–158; BP diastolic 84–95; PULSE 71–91; RESP 16–18; TEMP 36.5–36.9; O2SAT 95–97
[2023-09-30] MEDS: vancomycin 1,500 MG/300 ML PIGGYBACK 200 MG IV ×2 (01:02→12:13)
[2023-09-30] MEDS: morphine 4 mg/mL SDV 1 mL 2 MG IVP ×4 (02:55→19:35)
[2023-09-30] MEDS: heparin 5,000 unit/mL INJ 1 mL 5000 UNIT SUBCUT ×2 (04:44→17:22)
[2023-09-30 06:01] LABS: Basophils # 0.1 10^3/uL (0.0-0.1); Eosinophils # 0.3 10^3/uL (0.0-0.8); Eosinophils % 3.9 %; Hematocrit 38.6 % (37-53); Lymphocytes # 2.2 10^3/uL (0.8-4.8); Lymphocytes % 29.9 %; Mean Corpuscular HGB Conc 31.6 g/dL (30-55); Mean Corpuscular Hemoglobin 28.6 pg (27-33); Mean Corpuscular Volume 90.6 fl (82-101); Mean Platelet Volume 8.7 fL (7.4-10.4); Monocytes # 0.5 10^3/uL (0.2-0.9); Monocytes % 6.8 %; Neutrophils # 4.18 10^3/uL (1.8-7.7); Neutrophils % 57.7 %; Nucleated Red Blood Cells % 0 %; Platelet Count 443 10^3/cmm (157-399); Red Blood Count 4.26 10^6/uL (3.85-5.65); Red Cell Distribution Width 12.5 % (12.1-15.1); White Blood Count 7.23 10^3/uL (3.29-11.43)
[2023-09-30 06:19] LABS: Alanine Aminotransferase 10 U/L (0-41); Albumin Level 3.1 g/dL (3.5-5.2); Alkaline Phosphatase 97 U/L (40-130); Anion Gap 13.3 (5-19); Aspartate Amino Transferase 21 U/L (0-40); Blood Urea Nitrogen 22 mg/dL (6-20); Calcium 7.9 mg/dL (8.5-10.5); Carbon Dioxide 28 mmol/L (22-29); Chloride 102 mmol/L (98-107); Creatinine Clr Calc Pharmacy 128.0242; Globulin 3.4 g/dL (1.3-4.6); Glomerular Filtration Rate 117.1 mL/min (90-130); Glucose 136 mg/dL (65-115); Osmolality Calculated 293 mOsm/kg (285-295); Potassium 4.3 mmol/L (3.5-5.1); Sodium 139 mmol/L (136-145); Total Bilirubin 0.2 mg/dL (0.15-1.2); Total Protein 6.5 g/dL (6.6-8.7)
[2023-09-30] MEDS: pantoprazole DR 40 mg Tablet PO (09:14)
[2023-09-30] MEDS: amlodipine 5 mg Tablet 10 MG PO (09:14)
[2023-09-30] MEDS: atorvastatin 40 mg Tablet PO (09:14)
[2023-09-30] MEDS: lisinopril 20 mg Tablet PO (09:14)
[2023-09-30] MEDS: piperacillin-tazobactam 3.375 GM in sodium chloride 0.9% (plus) 50 ML IV ×2 (09:15→17:22)
[2023-09-30] MEDS: insulin lispro 100 unit/1 mL SUBCUT ×2 (12:12→17:22)
--- NOTE | 2023-09-30 14:14 | P.PN_ITS ---
Subjective 2 Subjective: No acute events overnight. Patient has remained hemodynamically stable and afebrile. Denies any new complaints. Pain is well-controlled now. Vitals/I&O/Wt Last Vital Signs Temp 98.1 F 09/30/23 11:18 Pulse 71 09/30/23 11:18 Resp 18 09/30/23 11:18 BP 149/87 09/30/23 11:18 Pulse Ox 97 09/30/23 11:18 O2 Del Method Room Air 09/30/23 11:18 09/29/23 09/30/23 09/30/23 22:59 06:59 14:59 Intake Total 2118.75 / 2828.75 358.750 / 3187.500 936.667 / 936.667 Output Total 1650 / 2150 675 / 2825 1020 / 1020 Balance 468.75 / 678.75 -316.250 / 362.500 -83.333 / -83.333 Weight last 48 hrs Weight 75.353 kg Weight 76.827 kg Weight 74.843 kg Weight 74.843 kg Physical Exam 2 Narrative: General: No acute distress, AO x3 HEENT: PERRLA, pupils bilaterally equal and reactive Chest: Normal vesicular breath sounds, no added sounds, equal good air entry bilaterally CVS: S1-S2 regular, no murmurs, no tachycardia, no gallops, no rubs Abdomen: Soft, nontender, no organomegaly, bowel sounds present Neuro: No focal deficits, no facial deformity, AO x3, power 5/5 in all limbs Back/Pelvis: OTHER: Leg examination on presentation as below. Currently surgically bandaged with wound VAC in place Data 09/30/23 05:49 09/30/23 05:49 Micro: Microbiology 09/28/23 12:21 Gram Stain - Final Leg - #1 Anaerobic Culture - Preliminary Tissue Culture - Preliminary Strep agalactiae - (group b) A&P Assessment and plan (1) Infected hardware in right leg: Retained bone stimulator, exposed currently. Concerns for infected hardware. Appreciate podiatry recommendations. CRP elevated, ESR elevated. Plan for hardware removal today with possibility of bone cultures. Appreciate CT leg results. Follow-up culture results. Postoperative wound care as per surgical team. Given concerns for hardware infection patient will most likely need an IV antibiotic for 4 to 6 weeks. Will follow-up cultures and then plan for antibiotic course accordingly. Reviewed culture history from the past. History of Pseudomonas infection and Enterobacter infection in the past. Empirically start patient on IV vancomycin and Zosyn. Qualifiers: Encounter type: initial encounter Qualified Code(s): T84.7XXA - Infection and inflammatory reaction due to other internal orthopedic prosthetic devices, implants and grafts, initial encounter (2) Cellulitis of lower leg: (3) Type 1 diabetes mellitus: Appreciate A1c results of 9.7. Insulin sliding scale at moderate dose protocol. Lantus at 30 units nightly. Qualifiers: Diabetes mellitus complication status: with other specified complication Qualified Code(s): E10.69 - Type 1 diabetes mellitus with other specified complication (4) Hypertension: Goal blood pressure less than 140/90 mmHg. Continue with home dose of amlodipine 10 mg daily, lisinopril 20 mg daily. Will uptitrate for goal blood pressures. Qualifiers: Hypertension type: essential hypertension Qualified Code(s): I10 - Essential (primary) hypertension Plan Full code Carb consistent diet appropriately once okay with podiatry team. Protonix for PUD prophylaxis SCD for DVT prophylaxis, heparin 5000 every 12 hourly for DVT prophylaxis. Plan for the day: Overall cultures growing group B strep. MRSA swab pending. Continue with current IV antibiotics. Appreciate ID recommendations. Will need 4 to 6 weeks of IV antibiotics. PICC line placement. Continue with insulin sliding scale. Wound care and closure of the wound as per podiatry team. Weightbearing status as per podiatry team. Blood sugars fairly controlled. Attestations 2 Medical Necessity Statement*: Requires further hospitalization for management of infected hardware post removal, wound VAC in place while outpatient IV antibiotics are set up. Diagnoses Infected hardware in right lower extremity, initial encounter T84.7XXA Encounter type: initial encounter Cellulitis of lower leg L03.119 Type 1 diabetes mellitus with other specified complication E10.69 Diabetes mellitus complication status: with other specified complication Hypertension I10 Hypertension type: essential hypertension
--- NOTE | 2023-09-30 18:48 | PC.NURSE ---
Patient would only take 3 units for lunch time coverage. Patient would only take 6 units for dinner time coverage. Readings were taken from dexcom and recorded on the MAR under Admin.
--- NOTE | 2023-09-30 18:57 | P.PN_ITS ---
Subjective 2 Subjective: Infectious disease progress note. Awaiting PICC line placement. Antibiotics changed to ceftriaxone. Remains afebrile and hemodynamically stable. Medications: Reviewed: Yes Vitals/I&O/Wt Last Vital Signs Temp 98.0 F 09/30/23 15:11 Pulse 85 09/30/23 15:11 Resp 18 09/30/23 15:11 BP 147/95 09/30/23 15:11 Pulse Ox 96 09/30/23 15:11 O2 Del Method Room Air 09/30/23 15:11 09/30/23 09/30/23 09/30/23 06:59 14:59 22:59 Intake Total 358.750 / 3187.500 936.667 / 936.667 392.500 / 1329.167 Output Total 675 / 2825 1020 / 1020 500 / 1520 Balance -316.250 / 362.500 -83.333 / -83.333 -107.500 / -190.833 Weight last 48 hrs Weight 75.353 kg Weight 76.827 kg Weight 74.843 kg Weight 74.843 kg Physical Exam 2 Narrative: General: No acute distress, AO x3 HEENT: PERRLA, pupils bilaterally equal and reactive, pallors not present Chest: Normal vesicular breath sounds, no added sounds, equal good air entry bilaterally CVS: S1-S2 regular, no murmurs, no tachycardia, no gallops, no rubs Abdomen: Soft, nontender, no organomegaly, bowel sounds present Neuro: No focal deficits, no facial deformity, AO x3, power 5/5 in all limbs Extremities: Surgical dressing and wound VAC not open for exam. Data 09/30/23 05:49 09/30/23 05:49 Micro: Microbiology 09/28/23 12:21 Gram Stain - Final Leg - #1 Anaerobic Culture - Preliminary Tissue Culture - Preliminary Strep agalactiae - (group b) A&P Assessment and plan (1) Cellulitis of lower leg: (2) Infected hardware in right leg: Qualifiers: Encounter type: initial encounter Qualified Code(s): T84.7XXA - Infection and inflammatory reaction due to other internal orthopedic prosthetic devices, implants and grafts, initial encounter Plan 53-year-old male with type 1 diabetes mellitus, uncontrolled, currently presented to the hospital after sustaining a trauma to the right leg on September 22, 2023 which later was complicated by development of right lower extremity cellulitis and exposure of underlying bone stimulator which was placed in 2004 after sustaining a fracture. Overall clinical picture consistent with that of orthopedic hardware infection. Status post removal of the bone stimulator including leads and battery pack on September 28, 2023. Deep cultures taken from the OR consistent with group B streptococcus. CT of the extremity limited by beam hardening artifact, however possibility of underlying bone involvement not excluded. Elevated inflammatory markers including ESR and CRP. Review of CT and x-rays shows presence of additional hardware noted more proximal to the stimulator device. Blood culture negative to date Plan: Continue ceftriaxone 1 g IV every 24 hours. Will treat patient for orthopedic hardware infection/likely also with additional involvement of underlying bone for 6 weeks with IV antibiotics. (09/27-11/08) Awaiting PICC line placement to facilitate above. wound vac and other wound care measures per surgical team While on IV ceftriaxone please obtain weekly CBC, creatinine, LFT, CRP and fax to infectious disease clinic for review. Follow-up in ID clinic on October 30, 2023 at 10:30 AM. Please call with any further questions or concerns. Attestations 2 Medical Necessity Statement*: Per admitting Coding Level of Care Code Acute Code for Chg Fwd Moderate MDM includes number and complexity of problems actively addressed during encounter, amount and/or complexity of data reviewed/ordered and described risk of complication, morbidity or mortality of management as documented Diagnoses Cellulitis of lower leg L03.119 Infected hardware in right lower extremity, initial encounter T84.7XXA Encounter type: initial encounter
--- NOTE | 2023-09-30 19:48 | PC.NURSE ---
Patient asking for PRN Oxycodone order to be cut in half. Patient states that he is sensitive to pain medications and that high doses of pain medication make him sick at his stomach. Dr. Lamar notified and order received to cut oxycodone dose in half.
--- NOTE | 2023-09-30 21:19 | PC.NURSE ---
Patient's blood sugar on Dexcom is currently reading 215.
--- NOTE | 2023-09-30 21:25 | PC.NURSE ---
Patient refusing Humalog, stating that will bottom me out. Patient agreed to taking Lantus.
[2023-09-30] MEDS: insulin glargine 100 units/1 mL 30 UNIT SUBCUT (21:39)
[2023-09-30] MEDS: cefTRIAXone 1,000 MG in sodium chloride 0.9% (plus) 50 ML 100 MG IV (21:39)
[2023-09-30] MEDS: oxyCODONE-APAP 5-325 mg Tablet 0.5 TAB PO (22:13)
[2023-10-01] VITALS (10 sets, daily range): BP systolic 142–172; BP diastolic 80–98; PULSE 70–94; RESP 16–18; TEMP 36.7–37.1; O2SAT 95–98
[2023-10-01] MEDS: morphine 4 mg/mL SDV 1 mL 2 MG IVP ×4 (03:25→18:40)
--- NOTE | 2023-10-01 05:48 | PC.NURSE ---
Patient states he did not like the way the Oxycodone made him feel and that it also gave him nightmares. Patient states the IV Morphine is the only pain medication he can tolerate. Patient requests that the IV Morphine be pushed extremely slow to prevent side effects.
--- NOTE | 2023-10-01 06:39 | P.PN_ITS ---
Subjective 2 Subjective: Patient seen bedside this afternoon, status post deep hardware removal and incision and debridement right leg, doing well postoperatively, denies any pain. Denies any acute events overnight. Tolerating regular diet. Vitals/I&O/Wt Last Vital Signs Temp 98.1 F 10/01/23 03:21 Pulse 79 10/01/23 03:21 Resp 16 10/01/23 03:25 BP 172/97 10/01/23 03:21 Pulse Ox 96 10/01/23 03:21 O2 Del Method Room Air 10/01/23 03:21 09/30/23 09/30/23 10/01/23 14:59 22:59 06:59 Intake Total 936.667 / 936.667 442.500 / 1379.167 Output Total 1020 / 1020 1201 / 2221 750 / 2971 Balance -83.333 / -83.333 -758.500 / -841.833 -750 / -1591.833 Weight last 48 hrs Weight 168 lb 9 oz Weight 166 lb 2 oz Weight 169 lb 6 oz Weight 165 lb Physical Exam 2 Narrative: Patient is alert and oriented ?3 and in no acute distress. The following is a focused bilateral lower extremity exam. VASCULAR: Dorsalis pedis palpable +2 left and right foot. Posterior tibial arteries +2. Capillary refill time less than 3 seconds to the distal hallux bilaterally. Calf is supple and nontender proximally and distally. Decreased pedal hair growth left and right. NEUROLOGICAL: Protective sensation intact 0/10 sites, tested with [place] Lucero monofilament to bilateral feet. DERMATOLOGICAL: Wound exposed to myofascial layer right lateral proximal leg with granular base and epithelialized margin, resolved periwound erythema, no cellulitis, no purulence. 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 Hammertoe deformities digits 2 and 3 bilaterally. Hallux valgus bilaterally. No tenderness at left third toe. Pain to palpation at soft tissue mass/painful hardware right leg. postop day 3 Back/Pelvis: OTHER: Preop Data 09/30/23 05:49 09/30/23 05:49 Micro: Microbiology 09/28/23 12:21 Gram Stain - Final Leg - #1 Anaerobic Culture - Preliminary Tissue Culture - Preliminary Strep agalactiae - (group b) A&P Assessment and plan (1) Cellulitis of lower leg: (2) Infected hardware in right leg: Qualifiers: Encounter type: initial encounter Qualified Code(s): T84.7XXA - Infection and inflammatory reaction due to other internal orthopedic prosthetic devices, implants and grafts, initial encounter Plan 53-year-old male with type 1 diabetes mellitus, uncontrolled, currently presented to the hospital after sustaining a trauma to the right leg on September 22, 2023 which later was complicated by development of right lower extremity cellulitis and exposure of underlying bone stimulator which was placed in 2004 after sustaining a fracture. Status post hardware removal and incision and debridement down to myofascial layer and application of wound VAC performed 09/28/2023 -Resolved cellulitis, no periwound erythema or purulent drainage, wound demonstrates granular bed and epithelialized margin, see clinical image above -Recommend wound VAC on discharge -Recommend wound care clinic follow-up -PICC line in place, greatly appreciate hospitalist recommendations on PICC line and antibiotic selection -Weightbearing as tolerated No further surgical debridement anticipated during this hospitalization, okay for discharge from podiatry standpoint Attestations 2 Medical Necessity Statement*: Infected hardware right leg Coding Level of Care Code Acute Code for [facility] Fwd Diagnoses Cellulitis of lower leg L03.119 Infected hardware in right lower extremity, initial encounter T84.7XXA Encounter type: initial encounter
[2023-10-01] MEDS: atorvastatin 40 mg Tablet PO (09:01)
[2023-10-01] MEDS: pantoprazole DR 40 mg Tablet PO (09:01)
[2023-10-01] MEDS: heparin 5,000 unit/mL INJ 1 mL 5000 UNIT SUBCUT ×2 (09:01→20:06)
[2023-10-01] MEDS: amlodipine 5 mg Tablet 10 MG PO (09:01)
[2023-10-01] MEDS: ferrous gluconate 324 mg Tablet PO (09:01)
[2023-10-01] MEDS: lisinopril 20 mg Tablet PO (09:01)
--- NOTE | 2023-10-01 09:37 | XR_ITS ---
WS: [id number] Exam: XR chest 1V portable [id number] Date/Time of Exam: 10/01/2023 10:08 AM Reason For Exam: Post PICC insertion Comparison 05/22/2023. The lungs are clear and fully expanded. A right-sided PICC line ends at the cavoatrial junction. No p leural effusion. Normal cardiomediastinal silhouette and regional bony elements. IMPRESSION: 1. No acute cardiopulmonary finding. 2. Right-sided PICC line ending at the region of the cavoatrial junction.
--- NOTE | 2023-10-01 10:00 | PC.NURSE ---
Single lumen PICC placed to right basilic vein. Pt referred to vascular access nurse for PICC placement for 6 weeks IV antibiotics. Risks and benefits discussed and informed consent obtained from patient. Right arm assessed with right basilic vein measuring 4.8 mm, striaght, and apparent best choice for placement. Using sterile technique and MST, right basilic vein accessed x 1 stick. Mid-arm circumference measured 10 cm from right AC 28 cm. Trimmed cath 44 cm with 0 cm external length noted. CXR shows tip in distal SVC, cavoatrial junction, in good position for use per radiologist. Line secured with stat-lock. Insertion site covered with Biopatch and TSM. Report given to charge nurse, Lian.
[2023-10-01] MEDS: insulin lispro 100 unit/1 mL SUBCUT ×3 (11:58→20:06)
--- NOTE | 2023-10-01 12:16 | PC.SOCIAL ---
IMM Update pg 2 of IMM updated and reviewed w/ patient. Copy provided and copy dated, initialed and placed in chart.
--- NOTE | 2023-10-01 12:53 | XRR_ITS ---
PROCEDURE INFORMATION: Exam: XR Right Tibia and Fibula Exam date and time: 10/01/2023 12:25 PM Age: 53 years old Clinical indication: Pain; Lower leg; Right; Prior surgery; Surgery date: 6+ months; Surgery type: RT leg; Additional info: Post op TECHNIQUE: Imaging protocol: Radiologic exam of the right tibia and fibula. Views: 2 views. COMPARISON: CT lower leg RT w con [id number] 09/27/2023 6:42 PM FINDINGS: Bones/joints: Screw plate stabilizing nonacute nondisplaced tibial fracture. There is a healed nondisplaced fibular fracture. No acute bony abnormality. Soft tissues: Normal. XR/XR tibia fibula RT 2V [id number] IMPRESSION: Near anatomic alignment post ORIF tibial fracture with adjacent fibular fracture.
[2023-10-01 15:20] LABS: Methicillin-Resist S.aureu PCR DETECTED (NOT DETECTED)
[2023-10-01] MEDS: insulin glargine 100 units/1 mL 30 UNIT SUBCUT (20:06)
[2023-10-01] MEDS: cefTRIAXone 1,000 MG in sodium chloride 0.9% (plus) 50 ML 100 MG IV (21:48)
--- NOTE | 2023-10-01 23:03 | P.PN_ITS ---
Subjective 2 Subjective: He reports he is doing okay. Pending reassessment by podiatry and consideration of delayed wound closure. Denies pain or discomfort. Denies nausea vomiting or diarrhea, no chest pain or pressure, shortness of breath. Vitals/I&O/Wt Last Vital Signs Temp 98.3 F 10/01/23 19:39 Pulse 94 10/01/23 19:39 Resp 17 10/01/23 19:39 BP 154/90 10/01/23 19:39 Pulse Ox 96 10/01/23 19:39 O2 Del Method Room Air 10/01/23 19:39 10/01/23 10/01/23 10/02/23 14:59 22:59 06:59 Intake Total 960 / 960 440 / 1400 Balance 960 / 960 440 / 1400 Weight last 48 hrs Weight 73.936 kg Weight 76.459 kg Weight 75.353 kg Weight 76.827 kg Physical Exam 2 Const: COMMON NORMALS: patient oriented x3 and alert GENERAL APPEARANCE: c ooperative ORIENTATION/CONSCIOUSNESS: Yes awake HENMT: COMMON NORMALS: oropharynx normal Neck/C-Spine: COMMON NORMALS: no JVD Resp: COMMON NORMALS: normal respiratory effort and clear to auscultation bilaterally AUSCULTATION: clear to auscultation bilaterally Cardio: COMMON NORMALS: no JVD, regular rhythm, S1 normal heart sound present, S2 normal heart sound present and No murmurs present (Cardio) RHYTHM: regular rhythm HEART SOUNDS: S1 normal heart sound present and S2 normal heart sound present GI: COMMON NORMALS: Normal to inspection, nondistended, normoactive bowel sounds present, Soft to palpation and non-tender PALPATION: Yes Soft to palpation Extremity: COMMON NORMALS: no joint enlargement and no pedal edema OTHER: Prior toe amputations. Neuro: COMMON NORMALS: patient oriented x3 and moves all extremities S ENSORIUM/ORIENTATION: Yes alert Skin: COMMON NORMALS: no rashes or lesions noted GENERAL SKIN EXAM: no rashes or lesions noted OTHER: Wound VAC dressing over right lower extremity Data 09/30/23 05:49 09/30/23 05:49 Micro: Microbiology 09/28/23 12:21 Gram Stain - Final Leg - #1 Anaerobic Culture - Preliminary Tissue Culture - Final Strep agalactiae - (group b) A&P Assessment and plan (1) Infected hardware in right leg: Reviewed podiatry note, discussed with case packer and sealer. Reviewed Infectious disease note. Reviewed prior CBC, chemistry, hold off on additional labs for now as both were unremarkable. Wound VAC is recommended at discharge. Follow-up with wound care clinic. Continue IV antibiotic after discharge, ceftriaxone for 6 weeks until 11/08. PICC line placed. Discussed with case packer and sealer. Retained bone stimulator, exposed currently. Concerns for infected hardware. Appreciate podiatry recommendations. CRP elevated, ESR elevated. Qualifiers: Encounter type: initial encounter Qualified Code(s): T84.7XXA - Infection and inflammatory reaction due to other internal orthopedic prosthetic devices, implants and grafts, initial encounter (2) Cellulitis of lower leg: (3) Type 1 diabetes mellitus: Appreciate A1c results of 9.7. Insulin sliding scale at moderate dose protocol. Lantus at 30 units nightly. Qualifiers: Diabetes mellitus complication status: with other specified complication Qualified Code(s): E10.69 - Type 1 diabetes mellitus with other specified complication (4) Hypertension: Reviewed vitals, blood pressure still uncontrolled. Increase lisinopril to 40 mg daily. Goal blood pressure less than 140/90 mmHg. Continue with home dose of amlodipine 10 mg daily, Qualifiers: Hypertension type: essential hypertension Qualified Code(s): I10 - Essential (primary) hypertension Plan Full code Carb consistent diet Protonix for PUD prophylaxis SCD for DVT prophylaxis, heparin 5000 every 12 hourly for DVT prophylaxis. Attestations 2 Medical Necessity Statement*: Continue admission for assessment management of right leg infection, cellulitis, hardware infection, wound infection, pending reassessment after hardware removal, continue antibiotics, consideration of delayed closure. and High MDM includes amount and/or complexity of data reviewed/ordered [ previous or external records, resulted lab(s)/test(s), ordered lab(s)/test(s) and other healthcare professional discussion] as documented Diagnoses Infected hardware in right lower extremity, initial encounter T84.7XXA Encounter type: initial encounter Cellulitis of lower leg L03.119 Type 1 diabetes mellitus with other specified complication E10.69 Diabetes mellitus complication status: with other specified complication Hypertension I10 Hypertension type: essential hypertension
[2023-10-02] VITALS (7 sets, daily range): BP systolic 139–181; BP diastolic 83–91; PULSE 86–90; RESP 16–18; TEMP 36.7–36.8; O2SAT 96–98; BMI 22.8
[2023-10-02] MEDS: morphine 4 mg/mL SDV 1 mL 2 MG IVP ×3 (01:02→17:52)
[2023-10-02] MEDS: heparin 5,000 unit/mL INJ 1 mL 5000 UNIT SUBCUT (08:17)
[2023-10-02] MEDS: amlodipine 5 mg Tablet 10 MG PO (08:17)
[2023-10-02] MEDS: atorvastatin 40 mg Tablet PO (08:18)
[2023-10-02] MEDS: lisinopril 20 mg Tablet 40 MG PO (08:18)
[2023-10-02] MEDS: insulin lispro 100 unit/1 mL SUBCUT ×3 (08:18→17:51)
[2023-10-02] MEDS: pantoprazole DR 40 mg Tablet PO (08:18)
--- NOTE | 2023-10-02 08:18 | PC.NURSE ---
Patients Blood Glucose 219 per dexcom.
[2023-10-02] MEDS: cefTRIAXone 1,000 MG in sodium chloride 0.9% (plus) 50 ML 100 MG IV (10:44)
--- NOTE | 2023-10-02 10:48 | PM.DCS ---
Discharge Providers Date of Admission: 09/27/23 19:33 Date of Discharge: October 02, 2023 Attending Provider at Admission: Roger Quintanilla MD Attending Provider at Discharge: Alvaro Meyer Primary Care Provider: Eugenie Jay MD Diagnoses at Discharge Discharge Diagnosis (1) Infected hardware in right leg: Status: Acute Qualifiers: Encounter type: initial encounter Qualified Code(s): T84.7XXA - Infection and inflammatory reaction due to other internal orthopedic prosthetic devices, implants and grafts, initial encounter (2) Cellulitis of lower leg: Status: Acute (3) Type 1 diabetes mellitus: Status: Chronic Qualifiers: Diabetes mellitus complication status: with other specified complication Qualified Code(s): E10.69 - Type 1 diabetes mellitus with other specified complication (4) Hypertension: Status: Chronic Qualifiers: Hypertension type: essential hypertension Qualified Code(s): I10 - Essential (primary) hypertension Reason for Visit Reason for Visit: device coming out of leg Hospital Course Hospital Course Male with history of DM1, gastroparesis, cyclic vomiting, was admitted after a mechanical fall sustained about 10 days earlier resulted in exposed bone stimulator at the right which she believes since 2004. After the fall he gradually had increasing swelling, drainage, exposure of hardware. He underwent hardware removal including leads anxiety pack on 09/28/2023. Wound cultures have grown group B strep. He had a follow-up primary podiatry and was seen by infectious disease. Wound VAC has been placed. He is recommended to complete 6-week course of antibiotics with concern for likely underlying bone involvement with planned stop date on 11/08 and PICC line has been placed for that purpose. Reports he is otherwise doing well. He is asked to follow-up with care clinic and infectious disease for reassessment. He should have weekly CBC, creatinine, LFT, CRP and results faxed to infectious disease office. Home health is requested. Please continue to optimize diabetes control, A1c is 9.7. Physical Exam Const: COMMON NORMALS: patient oriented x3 and alert GENERAL APPEARANCE: cooperative ORIENTATION/CONSCIOUSNESS: Yes awake HENMT: COMMON NORMALS: oropharynx normal Neck/C-Spine: COMMON NORMALS: no JVD Resp: COMMON NORMALS: normal respiratory effort and clear to auscultation bilaterally AUSCULTATION: clear to auscultation bilaterally Cardio: COMMON NORMALS: no JVD, regular rhythm, S1 normal heart sound present, S2 normal heart sound present and No murmurs present (Cardio) RHYTHM: regular rhythm HEART SOUNDS: S1 normal heart sound present and S2 normal heart sound present GI: COMMON NORMALS: Normal to inspection, nondistended, normoactive bowel sounds present, Soft to palpation and non-tender PALPATION: Yes Soft to palpation Extremity: COMMON NORMALS: no joint enlargement and no pedal edema OTHER: Prior toe amputations. Neuro: COMMON NORMALS: patient oriented x3 and moves all extremities SENSORIUM/ORIENTATION: Yes alert Skin: COMMON NORMALS: no rashes or lesions noted GENERAL SKIN EXAM: no rashes or lesions noted OTHER: Wound VAC dressing over right lower extremity Discharge Data Studies Completed and Pending Completed Studies During Hospitalization Category Date Time Status CT lower leg RT w con [id number] Stat Cat Scan 09/27/23 17:36 Completed CXRP [XR chest 1V portable [id number]] Routine Exams 10/01/23 09:37 Completed XR tibia fibula RT 2V [id number] Routine Exams 10/01/23 12:53 Completed XR tibia fibula RT 2V [id number] Stat Exams 09/27/23 16:47 Completed Pending at discharge Category Date Time Status Anaerobic Culture Routine Lab 09/28/23 12:21 Results Blood Culture Stat Lab 09/27/23 18:25 Results Tissue Culture and Gram Stain Routine Lab 09/28/23 12:21 Results Radiology Impressions Lower Extremity CT 09/27/23 17:36 IMPRESSION: 1. Soft tissue edema surrounding the bone growth stimulator generator which lies at the skin surface. There is no visible fluid collection. However, the soft tissues are largely obscured by adjacent beam hardening artifact. Assessment for abscess is very limited. If there is clinical concern for abscess consider ultrasound. 2. Healed fractures and intact fixation hardware in the proximal tibia. Healed fracture of the proximal fibula. Tibia/Fibula X-Ray 10/01/23 12:53 IMPRESSION: Near anatomic alignment post ORIF tibial fracture with adjacent fibular fracture. Laboratory Results WBC 7.23 10^3/uL (3.29-11.43) 09/30/23 05:49 RBC 4.26 10^6/uL (3.85-5.65) 09/30/23 05:49 Hgb 12.20 g/dL (11.27-16.99) 09/30/23 05:49 Hct 38.6 % (37-53) 09/30/23 05:49 MCV 90.6 fl (82-101) 09/30/23 05:49 MCH 28.6 pg (27-33) 09/30/23 05:49 MCHC 31.6 g/dL (30-55) 09/30/23 05:49 RDW 12.5 % (12.1-15.1) 09/30/23 05:49 Plt Count 443 10^3/cmm (157-399) H 09/30/23 05:49 MPV 8.7 fL (7.4-10.4) 09/30/23 05:49 Neut % (Auto) 57.7 % 09/30/23 05:49 Lymph % (Auto) 29.9 % 09/30/23 05:49 [place] % (Auto) 6.8 % 09/30/23 05:49 Eos % (Auto) 3.9 % 09/30/23 05:49 Baso % (Auto) 1.0 % 09/30/23 05:49 Neut # (Auto) 4.18 10^3/uL (1.8-7.7) 09/30/23 05:49 Lymph # (Auto) 2.2 10^3/uL (0.8-4.8) 09/30/23 05:49 [place] # (Auto) 0.5 10^3/uL (0.2-0.9) 09/30/23 05:49 Eos # (Auto) 0.3 10^3/uL (0.0-0.8) 09/30/23 05:49 Baso # (Auto) 0.1 10^3/uL (0.0-0.1) 09/30/23 05:49 Nucleated RBC % (auto) 0 % 09/30/23 05:49 Nucleated RBCs # 0.0 /100WBC 09/30/23 05:49 ESR 42 mm/hr (0-10) H 09/27/23 16:37 Sodium 139 mmol/L (136-145) 09/30/23 05:49 Potassium 4.3 mmol/L (3.5-5.1) 09/30/23 05:49 Chloride 102 mmol/L (98-107) 09/30/23 05:49 Carbon Dioxide 28 mmol/L (22-29) 09/30/23 05:49 Anion Gap 13.3 (5-19) 09/30/23 05:49 BUN 22 mg/dL (6-20) H 09/30/23 05:49 Creatinine 0.7 mg/dL (0.7-1.2) 09/30/23 05:49 GFR Calculation 117.1 mL/min (90-130) 09/30/23 05:49 Glucose 136 mg/dL (65-115) H 09/30/23 05:49 POC Glucose 190 mg/dL (70-110) H 09/27/23 20:33 Estimat Average Glucose 232 09/28/23 05:01 Hemoglobin A1c 9.7 % (4.0-6.0) H 09/28/23 05:01 Calculated Osmolality 293 mOsm/kg (285-295) 09/30/23 05:49 Lactic Acid 1.6 mmol/L (0.5-2.2) 09/27/23 16:37 Calcium 7.9 mg/dL (8.5-10.5) L 09/30/23 05:49 Phosphorus 3.4 mg/dL (2.5-4.5) 09/28/23 05:01 Magnesium 2.1 mg/dL (1.7-2.3) 09/28/23 05:01 Iron 26 ug/dL (59-158) L 09/27/23 16:37 TIBC 193 mcg/dl 09/27/23 16:37 % Saturation 13.4 % (20-50) L 09/27/23 16:37 Unsat Iron Binding 167 ug/dL (112-347) 09/27/23 16:37 Total Bilirubin 0.2 mg/dL (0.15-1.2) 09/30/23 05:49 AST 21 U/L (0-40) 09/30/23 05:49 ALT 10 U/L (0-41) 09/30/23 05:49 Alkaline Phosphatase 97 U/L (40-130) 09/30/23 05:49 C-Reactive Protein 125.8 mg/L (0.0-4.9) H 09/27/23 16:37 Total Protein 6.5 g/dL (6.6-8.7) L 09/30/23 05:49 Albumin 3.1 g/dL (3.5-5.2) L 09/30/23 05:49 Globulin 3.4 g/dL (1.3-4.6) 09/30/23 05:49 Triglycerides 126 mg/dL (0-150) 09/28/23 05:01 Cholesterol 175 mg/dL (0-200) 09/28/23 05:01 LDL Cholesterol, Calc 104 mg/dL (50-129) 09/28/23 05:01 HDL Cholesterol 46 mg/dL (60-100) L 09/28/23 05:01 LDL/HDL Ratio 2.26 RATIO (0.00-3.22) 09/28/23 05:01 Cholesterol/HDL Ratio 3.80 mg/dL (1.0-5.00) 09/28/23 05:01 Vitamin B12 862 pg/mL (232-1245) 09/27/23 16:37 Folate 11.7 ng/mL (4.5-32.2) 09/28/23 05:01 Procalcitonin 0.18 ng/mL (0-0.5) 09/27/23 16:37 TSH 1.08 uIU/mL (0.27-4.20) 09/27/23 16:37 Urine Color Yellow (Yellow) 09/27/23 19:37 Urine Appearance Clear (CLEAR) 09/27/23 19:37 Urine pH 6.5 (5-7) 09/27/23 19:37 Ur Specific [place] 1.015 (1.005-1.030) 09/27/23 19:37 Urine Protein Neg (Negative) 09/27/23 19:37 Urine Glucose (UA) 4+ (Normal) H 09/27/23 19:37 Urine Ketones Negative (Negative) 09/27/23 19:37 Urine Blood Neg (Negative) 09/27/23 19:37 Urine Nitrate Negative (Negative) 09/27/23 19:37 Urine Bilirubin Neg (Negative) 09/27/23 19:37 Urine Urobilinogen Norm mg/dL (Negative) 09/27/23 19:37 Ur Leukocyte Esterase Negative (Negative) 09/27/23 19:37 Vancomycin Trough 9.7 ug/mL (10-15) L 09/29/23 22:49 MRSA (PCR) Detected (NOT DETECTED) A 09/29/23 14:45 Vitals Last Vital Signs Temp 98.0 F 10/02/23 07:23 Pulse 87 10/02/23 07:23 Resp 18 10/02/23 08:17 BP 154/83 10/02/23 07:23 Pulse Ox 98 10/02/23 07:23 O2 Del Method Room Air 10/02/23 07:23 Discharge Plan Discharge Patient Disposition: Home Health Service Condition: Stable Prescriptions: New ceftriaxone 1 gram recon soln 1 g IV DAILY Qty: 45 0RF Continued atorvastatin 40 mg tablet 40 mg PO DAILY amlodipine 5 mg tablet 10 mg PO DAILY 30 Days Qty: 60 0RF insulin lispro 100 unit/mL insulin pen See Rx Instructions .ROUTE .COMPLEX Qty: 15 0RF Rx Instructions: Inject, subcut, 3 times daily, after meals, based on sign scale provided insulin degludec [Tresiba FlexTouch U-200] 200 unit/mL (3 mL) insulin pen 35 unit SUBCUT DAILY Qty: 9 0RF Changed lisinopril 20 mg tablet 40 mg PO DAILY Qty: 90 0RF Discharge Orders: Discharge Order (Routine); Ordered 10/02/23 Ordered By: Alvaro Meyer Referrals: [facility] [place] [Other] Infectious Disease Group [facility] [Provider Group] - 10/30/23 10:30 am Eugenie Jay MD [Primary Care Provider] - 10/08/23 8:30 am Lonnie Valente MD [Physician] - 10/05/23 9:00 am Discharge Diet: Diabetic Patient Instructions: Diabetes and Diet, Ceftriaxone (By injection) Activity Restrictions/Additional Instructions: Continue wound vac dressing. Follow up with wound care. Continue ceftriaxone antibiotic infusions until 11/09/23. Follow up with infectious disese. Home health: While on IV ceftriaxone please obtain weekly CBC, creatinine, LFT, CRP and fax to infectious disease clinic for review. Continue to optimize suboptimally controlled diabetes. Measure blood glucose 4 times daily. Continue tresiba and short acting insulin. Write down glucose values and follow-up with your primary doctor/contact the clinic to help with insulin dose adjustments. Target glucose 100-150. Please maintain consistent carbohydrate diet. Discharge Attestations Time Spent in Discharge Care*: greater than 30 min Status at Discharge: Cognitive status at discharge: cognitively intact, Behavioral status at discharge: cooperative, Quality Metrics Clinical Quality Measures [ No reported AMI, CVA or VTE this stay] Coding Level of Care Code 15457 Total time (in minutes) for Discharge: 40 Diagnoses Infected hardware in right lower extremity, initial encounter T84.7XXA Encounter type: initial encounter Cellulitis of lower leg L03.119 Type 1 diabetes mellitus with other specified complication E10.69 Diabetes mellitus complication status: with other specified complication Hypertension I10 Hypertension type: essential hypertension
--- NOTE | 2023-10-02 20:01 | PC.NURSE ---
Pt left via wheelchair with all belongings via transport services cartender.
== END 2023-10-02 19:52 | disposition home or self-care (01) | DRG 464 ==
LOC: ER 18:23 → MEDSURG 18:46
PROVIDERS: Podiatrist Foot & Ankle Surgery; Admitting Provider Student in an Organized Health Care Education/Training Program; Emergency Provider Nurse Practitioner Family; PCP Internal Medicine; Visit Provider Internal Medicine
PROC: 0JBN0ZZ Excision of Right Lower Leg Subcutaneous Tissue and Fascia, Open Approach (ICD-10-PCS; principal; 2023-09-28 10:50)
PROC: 0JBN0ZZ Excision of Right Lower Leg Subcutaneous Tissue and Fascia, Open Approach (ICD-10-PCS; 2023-09-28 10:50)
DX: T84.7XXA Infection and inflammatory reaction due to other internal orthopedic prosthetic devices, implants and grafts, initial encounter (principal); L03.115 Cellulitis of right lower limb; W11.XXXA Fall on and from ladder, initial encounter; B95.1 Streptococcus, group B, as the cause of diseases classified elsewhere; Z79.4 Long term (current) use of insulin; I10 Essential (primary) hypertension; E78.5 Hyperlipidemia, unspecified; Z87.891 Personal history of nicotine dependence; E10.43 Type 1 diabetes mellitus with diabetic autonomic (poly)neuropathy; K31.84 Gastroparesis
CPT/HCPCS: 36415; 36416; 36573; 71045; 73590; 73701; 80053; 80061; 80202; 81003; 82607; 82746; 82962; 83036; 83540; 83550; 83605; 83735; 84100; 84145; 84443; 85025; 85651; 86140; 87040; 87070; 87075; 87176; 87205; 87641; 94664; 96365; 96367; 96372; 96375; 99285; J0696; J1644; J1815; J2270; J2543; J2704; J3370; J3490; J7030; J7050; Q9967

== ENCOUNTER → 2023-10-05 08:58 | Outpatient (BNVA) | payer MEDICARE, MEDICAID, SELFPAY | PROVIDERS: PCP Internal Medicine; Visit Provider Thoracic Surgery (Cardiothoracic Vascular Surgery) | DX: T81.31XD Disruption of external operation (surgical) wound, not elsewhere classified, subsequent encounter (principal); Y83.8 Other surgical procedures as the cause of abnormal reaction of the patient, or of later complication, without mention of misadventure at the time of the procedure | CPT/HCPCS: 11042; 99213; A6237; A6250 ==

== ENCOUNTER → 2023-10-12 09:11 | Outpatient (BNVA) | payer MEDICARE, MEDICAID, SELFPAY | PROVIDERS: PCP Internal Medicine; Visit Provider Thoracic Surgery (Cardiothoracic Vascular Surgery) | DX: E11.52 Type 2 diabetes mellitus with diabetic peripheral angiopathy with gangrene (principal); E11.622 Type 2 diabetes mellitus with other skin ulcer; L97.811 Non-pressure chronic ulcer of other part of right lower leg limited to breakdown of skin | CPT/HCPCS: 97597; 97605; A6237; A6250 ==

== ENCOUNTER 2023-10-16 16:37 | Outpatient (CLI) | payer MEDICARE, MEDICAID, SELFPAY ==
[2023-10-16 17:12] LABS: Basophils # 0.1 10^3/uL (0.0-0.1); Basophils % 0.9 %; Eosinophils # 0.3 10^3/uL (0.0-0.8); Eosinophils % 4.7 %; Hematocrit 34.1 % (37-53); Lymphocytes # 1.4 10^3/uL (0.8-4.8); Lymphocytes % 24.6 %; Mean Corpuscular Hemoglobin 28.4 pg (27-33); Mean Corpuscular Volume 88.8 fl (82-101); Mean Platelet Volume 10.2 fL (7.4-10.4); Monocytes # 0.5 10^3/uL (0.2-0.9); Monocytes % 8.7 %; Neutrophils # 3.34 10^3/uL (1.8-7.7); Neutrophils % 60.9 %; Nucleated Red Blood Cells % 0 %; Platelet Count 237 10^3/cmm (157-399); Red Blood Count 3.84 10^6/uL (3.85-5.65); Red Cell Distribution Width 13.2 % (12.1-15.1); White Blood Count 5.49 10^3/uL (3.29-11.43)
[2023-10-16 20:28] LABS: Alanine Aminotransferase 17 U/L (0-41); Albumin Level 3.8 g/dL (3.5-5.2); Alkaline Phosphatase 102 U/L (40-130); C Reactive Protein 9.1 mg/L (0.0-4.9); Globulin 2.7 g/dL (1.3-4.6); Glomerular Filtration Rate 117.1 mL/min (90-130); Total Bilirubin 0.2 mg/dL (0.15-1.2); Total Protein 6.5 g/dL (6.6-8.7)
[2023-10-16 21:08] LABS: Aspartate Amino Transferase 24 U/L (0-40)
== END 2023-10-16 16:38 | disposition home or self-care (01) ==
LOC: LAB 16:40
PROVIDERS: PCP Internal Medicine; Visit Provider Student in an Organized Health Care Education/Training Program
DX: T84.7XXA Infection and inflammatory reaction due to other internal orthopedic prosthetic devices, implants and grafts, initial encounter (principal); Y82.8 Other medical devices associated with adverse incidents; L03.119 Cellulitis of unspecified part of limb; E10.69 Type 1 diabetes mellitus with other specified complication; I10 Essential (primary) hypertension
CPT/HCPCS: 80076; 82565; 85025; 86140

== ENCOUNTER → 2023-10-19 09:03 | Outpatient (BNVA) | payer MEDICARE, MEDICAID, SELFPAY | PROVIDERS: PCP Internal Medicine; Visit Provider Thoracic Surgery (Cardiothoracic Vascular Surgery) | DX: T81.31XD Disruption of external operation (surgical) wound, not elsewhere classified, subsequent encounter (principal); Y83.8 Other surgical procedures as the cause of abnormal reaction of the patient, or of later complication, without mention of misadventure at the time of the procedure | CPT/HCPCS: 97597; A6237; A6250 ==

== ENCOUNTER 2023-10-23 15:41 | Outpatient (CLI) | payer MEDICARE, MEDICAID, SELFPAY ==
[2023-10-23 16:07] LABS: Basophils # 0.1 10^3/uL (0.0-0.1); Basophils % 1.1 %; Eosinophils # 0.2 10^3/uL (0.0-0.8); Eosinophils % 3.6 %; Hematocrit 38.5 % (37-53); Lymphocytes # 1.2 10^3/uL (0.8-4.8); Lymphocytes % 21.9 %; Mean Corpuscular HGB Conc 31.7 g/dL (30-55); Mean Corpuscular Hemoglobin 28.8 pg (27-33); Mean Platelet Volume 10.7 fL (7.4-10.4); Monocytes # 0.3 10^3/uL (0.2-0.9); Monocytes % 4.8 %; Neutrophils # 3.57 10^3/uL (1.8-7.7); Neutrophils % 68.2 %; Nucleated Red Blood Cells % 0 %; Platelet Count 255 10^3/cmm (157-399); Red Blood Count 4.23 10^6/uL (3.85-5.65); Red Cell Distribution Width 13.1 % (12.1-15.1); White Blood Count 5.24 10^3/uL (3.29-11.43)
== END 2023-10-23 15:42 | disposition home or self-care (01) ==
PROVIDERS: PCP Internal Medicine; Visit Provider Student in an Organized Health Care Education/Training Program
DX: T84.7XXA Infection and inflammatory reaction due to other internal orthopedic prosthetic devices, implants and grafts, initial encounter (principal); Y83.8 Other surgical procedures as the cause of abnormal reaction of the patient, or of later complication, without mention of misadventure at the time of the procedure
CPT/HCPCS: 85025

== ENCOUNTER → 2023-10-26 09:05 | Outpatient (BNVA) | payer MEDICARE, MEDICAID, SELFPAY | PROVIDERS: PCP Internal Medicine; Visit Provider Thoracic Surgery (Cardiothoracic Vascular Surgery) | DX: E11.52 Type 2 diabetes mellitus with diabetic peripheral angiopathy with gangrene (principal); E11.622 Type 2 diabetes mellitus with other skin ulcer; L97.811 Non-pressure chronic ulcer of other part of right lower leg limited to breakdown of skin | CPT/HCPCS: 97597; A6210; A6220 ==

== ENCOUNTER 2023-10-30 14:19 | Outpatient (CLI) | payer MEDICARE, MEDICAID, SELFPAY ==
[2023-10-30 14:55] LABS: Basophils # 0.1 10^3/uL (0.0-0.1); Eosinophils # 0.4 10^3/uL (0.0-0.8); Eosinophils % 7.2 %; Hematocrit 41.1 % (37-53); Lymphocytes # 1.9 10^3/uL (0.8-4.8); Lymphocytes % 31.7 %; Mean Corpuscular HGB Conc 31.9 g/dL (30-55); Mean Corpuscular Hemoglobin 28.3 pg (27-33); Mean Corpuscular Volume 88.8 fl (82-101); Mean Platelet Volume 10.7 fL (7.4-10.4); Monocytes # 0.4 10^3/uL (0.2-0.9); Monocytes % 6.7 %; Neutrophils # 3.19 10^3/uL (1.8-7.7); Neutrophils % 53.2 %; Nucleated Red Blood Cells % 0 %; Platelet Count 267 10^3/cmm (157-399); Red Blood Count 4.63 10^6/uL (3.85-5.65); Red Cell Distribution Width 12.8 % (12.1-15.1); White Blood Count 5.99 10^3/uL (3.29-11.43)
== END 2023-10-30 14:20 | disposition home or self-care (01) ==
LOC: LAB 14:26
PROVIDERS: PCP Internal Medicine; Visit Provider Thoracic Surgery (Cardiothoracic Vascular Surgery)
DX: E10.69 Type 1 diabetes mellitus with other specified complication (principal)
CPT/HCPCS: 85025

== ENCOUNTER → 2023-11-02 08:50 | Outpatient (BNVA) | payer MEDICARE, MEDICAID, SELFPAY | PROVIDERS: PCP Internal Medicine; Visit Provider Thoracic Surgery (Cardiothoracic Vascular Surgery) | DX: T81.31XD Disruption of external operation (surgical) wound, not elsewhere classified, subsequent encounter (principal); Y83.8 Other surgical procedures as the cause of abnormal reaction of the patient, or of later complication, without mention of misadventure at the time of the procedure | CPT/HCPCS: 97597 ==

== ENCOUNTER 2023-11-06 15:22 | Outpatient (CLI) | payer MEDICARE, MEDICAID, SELFPAY ==
[2023-11-06 15:48] LABS: Basophils # 0.1 10^3/uL (0.0-0.1); Basophils % 1.3 %; Eosinophils # 0.5 10^3/uL (0.0-0.8); Eosinophils % 7.8 %; Lymphocytes % 33.4 %; Mean Corpuscular HGB Conc 32.7 g/dL (30-55); Mean Corpuscular Hemoglobin 28.9 pg (27-33); Mean Corpuscular Volume 88.5 fl (82-101); Mean Platelet Volume 10.3 fL (7.4-10.4); Monocytes # 0.4 10^3/uL (0.2-0.9); Monocytes % 6.6 %; Neutrophils # 3.05 10^3/uL (1.8-7.7); Neutrophils % 50.6 %; Nucleated Red Blood Cells % 0 %; Platelet Count 293 10^3/cmm (157-399); Red Blood Count 4.18 10^6/uL (3.85-5.65); Red Cell Distribution Width 13.1 % (12.1-15.1); White Blood Count 6.04 10^3/uL (3.29-11.43)
[2023-11-06 16:20] LABS: Alanine Aminotransferase 25 U/L (0-41); Albumin Level 3.9 g/dL (3.5-5.2); Alkaline Phosphatase 94 U/L (40-130); C Reactive Protein 5.3 mg/L (0.0-4.9); Globulin 2.7 g/dL (1.3-4.6); Glomerular Filtration Rate 139.9 mL/min (90-130); Total Bilirubin 0.2 mg/dL (0.15-1.2); Total Protein 6.6 g/dL (6.6-8.7)
[2023-11-06 18:28] LABS: Aspartate Amino Transferase 29 U/L (0-40)
== END 2023-11-06 15:23 | disposition home or self-care (01) ==
LOC: LAB 15:24
PROVIDERS: PCP Internal Medicine; Visit Provider Internal Medicine
DX: Z01.89 Encounter for other specified special examinations (principal)
CPT/HCPCS: 80076; 82565; 85025; 86140

== ENCOUNTER → 2023-11-09 08:55 | Outpatient (BNVA) | payer MEDICARE, MEDICAID, SELFPAY | PROVIDERS: PCP Internal Medicine; Visit Provider Thoracic Surgery (Cardiothoracic Vascular Surgery) | DX: E11.52 Type 2 diabetes mellitus with diabetic peripheral angiopathy with gangrene (principal); E11.622 Type 2 diabetes mellitus with other skin ulcer; L97.811 Non-pressure chronic ulcer of other part of right lower leg limited to breakdown of skin | CPT/HCPCS: 97597; A6021; A6220; A6248 ==

== ENCOUNTER → 2023-11-16 09:05 | Outpatient (BNVA) | payer MEDICARE, MEDICAID, SELFPAY | PROVIDERS: PCP Internal Medicine; Visit Provider Thoracic Surgery (Cardiothoracic Vascular Surgery) | DX: E11.52 Type 2 diabetes mellitus with diabetic peripheral angiopathy with gangrene (principal); E11.622 Type 2 diabetes mellitus with other skin ulcer; L97.811 Non-pressure chronic ulcer of other part of right lower leg limited to breakdown of skin | CPT/HCPCS: 97597; A6021 ==

== ENCOUNTER → 2024-01-15 10:26 | Outpatient (BNVA) | payer MEDICARE, MEDICAID, SELFPAY | PROVIDERS: PCP Internal Medicine; Visit Provider Orthopaedic Surgery | DX: S32.009A Unspecified fracture of unspecified lumbar vertebra, initial encounter for closed fracture (principal); V47.5XXA Car driver injured in collision with fixed or stationary object in traffic accident, initial encounter | CPT/HCPCS: 72100; 99203 ==

== ENCOUNTER 2024-07-16 15:57 | Inpatient (IN) | payer MEDICARE, MEDICAID, SELFPAY ==
[2024-07-16] VITALS (10 sets, daily range): BP systolic 152–204; BP diastolic 94–111; PULSE 101–116; RESP 16–18; TEMP 36.7; O2SAT 97–100; BMI 20.9
[2024-07-16 16:07] LABS: Glucose Point of Care 368 mg/dL (70-110)
[2024-07-16 16:17] LABS: ABG PCO2 21.6 mmHg (35-45); Arterial Blood Gas Hematocrit 47.2 % (42-52); Base Excess ABG 6.3 mmol/L (-2.0-2.0); Blood Gas Allen Test Pos; Blood Gas Operator Identificat WALCI; Blood Gas Sample Site Radial, left; Blood Gas Sample Type Arterial; Carboxyhemoglobin 0.4 %THgb (0.4-20.1); HCO3 ABG 24.8 mmol/L (22-26); Methemoglobin 0.9 % (0.4-1.5); Oxygen Device ROOM AIR; PO2 ABG 99.1 mmHg (80.0-100.0); PO2 FiO2 Ratio Arterial Blood 471; Total Hemoglobin 15.4 g/dL (14-18)
[2024-07-16 16:18] LABS: ABG PH Result 7.67 (7.35-7.45)
[2024-07-16] MEDS: ondansetron 2 mg/ML SDV 2 mL 4 MG IVP ×2 (16:18→17:09)
[2024-07-16] MEDS: sodium chloride 0.9% 1,000 ML 999 ML IV ×2 (16:21→20:15)
[2024-07-16 16:24] LABS: Basophils % 0.2 %; Hematocrit 46.5 % (37-53); Lymphocytes # 2.2 10^3/uL (0.8-4.8); Lymphocytes % 11.7 %; Mean Corpuscular HGB Conc 34.2 g/dL (30-55); Mean Corpuscular Hemoglobin 29.4 pg (27-33); Mean Corpuscular Volume 86.1 fl (82-101); Mean Platelet Volume 9.5 fL (7.4-10.4); Monocytes # 0.9 10^3/uL (0.2-0.9); Monocytes % 4.9 %; Neutrophils # 15.33 10^3/uL (1.8-7.7); Neutrophils % 82.7 %; Nucleated Red Blood Cells % 0 %; Platelet Count 486 10^3/cmm (157-399); Red Cell Distribution Width 13.2 % (12.1-15.1); White Blood Count 18.54 10^3/uL (3.29-11.43)
[2024-07-16 16:40] LABS: Ketone (Acetest) Serum Positive (Negative)
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
[2024-07-16 16:46] LABS: Alanine Aminotransferase 39 U/L (0-41); Albumin Level 4.9 g/dL (3.5-5.2); Alkaline Phosphatase 183 U/L (40-130); Anion Gap 30.1 (5-19); Aspartate Amino Transferase 24 U/L (0-40); Blood Urea Nitrogen 38 mg/dL (6-20); Calcium 10.5 mg/dL (8.5-10.5); Carbon Dioxide 25 mmol/L (22-29); Chloride 81 mmol/L (98-107); Creatinine Clr Calc Pharmacy 61.0479; Globulin 4.3 g/dL (1.3-4.6); Glomerular Filtration Rate 52.6 mL/min (90-130); Glucose 358 mg/dL (65-115); Lipase 10 U/L (13-60); Magnesium 2.4 mg/dL (1.7-2.3); Osmolality Calculated 297 mOsm/kg (285-295); Potassium 4.1 mmol/L (3.5-5.1); Sodium 132 mmol/L (136-145); Total Bilirubin 0.7 mg/dL (0.15-1.2); Total Protein 9.2 g/dL (6.6-8.7)
[2024-07-16] MEDS: famotidine 20 mg/2 mL INJ 40 MG IVP (16:50)
--- NOTE | 2024-07-16 17:16 | CTR_ITS ---
PROCEDURE INFORMATION: Exam: CT Abdomen And Pelvis With Contrast Exam date and time: 07/16/2024 7:03 PM Age: 53 years old Clinical indication: Abdominal pain; Additional info: Abd pain TECHNIQUE: Imaging protocol: Computed tomography of the abdomen and pelvis with contrast. Radiation optimization: All CT scans at this facility use at least one of these dose optimization techniques: automated exposure control; mA and/or kV adjustment per patient size (includes targeted exams where dose is matched to clinical indication); or iterative reconstruction. Contrast material: OMNI 350; Contrast volume: 100 ml; Contrast route: INTRAVENOUS (IV); COMPARISON: CT chest abdpel w/*[id number] 01/11/2024 9:48 AM RADIATION DOSE METRICS: Total DLP (mGy-cm): 376.63 FINDINGS: Coronary arteries: Coronary artery calcification present. Esophagus: There is abnormal distal esophageal wall thickening. Liver: Normal. No mass. Gallbladder and biliary ducts: Normal. No calcified stones. No ductal dilation. Pancreas: Normal. No ductal dilation. Spleen: Normal. No splenomegaly. Adrenal glands: Normal. No mass. Kidneys and ureters: Bilateral punctate nonobstructing nephrolithiasis. There is an indeterminate lesion involving the posterior aspect of the left kidney measuring 2 point 0 cm with Hounsfield units of 55. This may reflect a hemorrhagic/proteinaceous cysts. Stomach and bowel: Scattered colon diverticula. Fecal stasis present. No signs of bowel obstruction . Appendix: No evidence of appendicitis. Intraperitoneal space: Unremarkable. No free air. No significant fluid collection. Vasculature: Extensive calcific plaque involves the abdominal aorta and iliac arteries. Lymph nodes: Unremarkable. No enlarged lymph nodes. Urinary bladder: The urinary bladder is unremarkable. Reproductive: The prostate is mildly enlarged. Bones/joints: Degenerative changes involve the spine. Soft tissues: Unremarkable. Other findings: There are perfusion changes throughout the kidneys likely reflecting scarring. CT/CT abdomen pelvis w con* [id number] IMPRESSION: 1. Distal esophageal wall thickening. This finding may reflect esophagitis versus an esophageal mass. 2. Fecal stasis. 3. Bilateral nonobstructing nephrolithiasis. 4. Stable indeterminate hyperdense lesion involving the left kidney likely reflecting a hemorrhagic/proteinaceous cysts. 5. Atherosclerosis. 6. Prostatomegaly. COMMENTS: Consistent with the [employer]'s Incidental Findings Committee white paper (J Am Zofia Radiol 2018): Any incidental renal lesion less than 1 cm or classified as too small to characterize, or any incidental cystic renal lesion characterized as simple-appearing, is likely benign. No follow-up imaging is recommended for these lesions per consensus recommendations based on imaging criteria.
[2024-07-16 18:40] LABS: Glucose Point of Care 251 mg/dL (70-110)
[2024-07-16 19:02] LABS: Influenza A by IFA negative (Negative); Influenza B by IFA negative (Negative)
[2024-07-16] MEDS: iohexol 350 mg/mL 500 mL Btl (per mL) IV (19:04)
[2024-07-16 19:46] LABS: Bilirubin Urine Negative (Negative); Blood Urine Negative (Negative); Glucose Urine UA 3+ (Normal); Ketones Urine 4+ (Negative); Leukocyte Esterase Urine Negative (Negative); Nitrate Urine Negative (Negative); Protein Urine 1+ (Negative); Specific Gravity, Urine 1.027 (1.005-1.030); Urine Appearance Clear (CLEAR); Urine Color Yellow (Yellow); Urobilinogen Urine 0.2 mg/dL (Negative)
[2024-07-16 19:48] LABS: Add Urine Microscopic? YES; Bacteria Urine None Seen /hpf; RBC Urine 0-2 /hpf (0-2); Squamous Epithelial Cell Urine 0-5 /hpf (0-5); WBC Urine 0-5 /hpf (0-5)
[2024-07-16] MEDS: enalaprilat 2.5 mg/2 mL SDV 1.25 MG IVP (21:29)
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
[2024-07-16 22:22] LABS: Anion Gap 22.9 (5-19); Blood Urea Nitrogen 31 mg/dL (6-20); Calcium 8.4 mg/dL (8.5-10.5); Carbon Dioxide 24 mmol/L (22-29); Chloride 91 mmol/L (98-107); Creatinine Clr Calc Pharmacy 71.2225; Glomerular Filtration Rate 62.9 mL/min (90-130); Glucose 268 mg/dL (65-115); Magnesium 2.1 mg/dL (1.7-2.3); Osmolality Calculated 294 mOsm/kg (285-295); Potassium 3.9 mmol/L (3.5-5.1); Sodium 134 mmol/L (136-145)
[2024-07-16 22:23] LABS: Lactic Sepsis W/Reflex 1.6 mmol/L (0.5-2.2)
[2024-07-16] MEDS: sodium chlor 0.9% + KCl 40 mEq 40 MEQ/1,000 ML BAG 125 MEQ IV (23:01)
[2024-07-16] MEDS: INSULIN REGULAR IN 0.9 % NACL 100 UNIT/100 ML BAG 6.5 UNIT IV (23:09)
[2024-07-16 23:10] LABS: Glucose Point of Care 280 mg/dL (70-110)
[2024-07-16 23:23] LABS: Amphetamines Screen Urine Positive (Negative); Barbiturates Screen Urine Negative (Negative); Benzodiazepines Screen Urine Negative (Negative); Cocaine Screen Urine Negative (Negative); Opiate Screen Urine Negative (Negative); PCP Screen Urine Negative (Negative); THC Screen Urine Positive (Negative)
[2024-07-17] VITALS (7 sets, daily range): BP systolic 151–167; BP diastolic 85–110; PULSE 77–114; RESP 16–18; TEMP 37.1; O2SAT 91–96; BMI 21.3
[2024-07-17 00:16] LABS: Glucose Point of Care 245 mg/dL (70-110)
--- NOTE | 2024-07-17 00:39 | PC.NURSE ---
notified MD about insulin protocol requiring dextrose IVF. awaiting verification of orders from pharmacy at this time
[2024-07-17 01:04] LABS: Glucose Point of Care 196 mg/dL (70-110)
[2024-07-17] MEDS: potassium chloride ER 20 mEq Tablet 40 MEQ PO (01:12)
[2024-07-17] MEDS: dextrose 5%-ns + KCl 40 40 MEQ/1,000 ML BAG 100 MEQ IV ×2 (01:12→11:34)
[2024-07-17 02:13] LABS: Glucose Point of Care 184 mg/dL (70-110)
[2024-07-17 02:44] LABS: Anion Gap 18.2 (5-19); Blood Urea Nitrogen 26 mg/dL (6-20); Calcium 8.6 mg/dL (8.5-10.5); Carbon Dioxide 27 mmol/L (22-29); Chloride 95 mmol/L (98-107); Creatinine Clr Calc Pharmacy 77.6973; Glomerular Filtration Rate 69.5 mL/min (90-130); Glucose 212 mg/dL (65-115); Osmolality Calculated 293 mOsm/kg (285-295); Potassium 4.2 mmol/L (3.5-5.1); Sodium 136 mmol/L (136-145)
[2024-07-17 03:24] LABS: Glucose Point of Care 225 mg/dL (70-110)
[2024-07-17] MEDS: hyDRALAzine 20 mg/mL INJ 1 mL 10 MG IVP (03:56)
[2024-07-17 04:07] LABS: Glucose Point of Care 200 mg/dL (70-110)
[2024-07-17 05:08] LABS: Glucose Point of Care 244 mg/dL (70-110)
[2024-07-17 06:22] LABS: Glucose Point of Care 263 mg/dL (70-110)
[2024-07-17] MEDS: sucralfate 1 gm/10 mL Oral Liq UDC PO ×3 (06:24→17:18)
[2024-07-17 06:29] LABS: Basophils # 0.1 10^3/uL (0.0-0.1); Basophils % 0.3 %; Eosinophils % 0.1 %; Hematocrit 39.5 % (37-53); Lymphocytes # 1.7 10^3/uL (0.8-4.8); Mean Corpuscular HGB Conc 32.4 g/dL (30-55); Mean Corpuscular Hemoglobin 29.4 pg (27-33); Mean Corpuscular Volume 90.8 fl (82-101); Mean Platelet Volume 9.5 fL (7.4-10.4); Monocytes % 6.7 %; Neutrophils # 12.52 10^3/uL (1.8-7.7); Neutrophils % 81.6 %; Nucleated Red Blood Cells % 0 %; Platelet Count 349 10^3/cmm (157-399); Red Blood Count 4.35 10^6/uL (3.85-5.65); Red Cell Distribution Width 13.6 % (12.1-15.1); White Blood Count 15.33 10^3/uL (3.29-11.43)
[2024-07-17 06:47] LABS: Anion Gap 22.7 (5-19); Blood Urea Nitrogen 24 mg/dL (6-20); Calcium 8.6 mg/dL (8.5-10.5); Carbon Dioxide 22 mmol/L (22-29); Chloride 96 mmol/L (98-107); Creatinine Clr Calc Pharmacy 86.1569; Glomerular Filtration Rate 77.6 mL/min (90-130); Glucose 276 mg/dL (65-115); Osmolality Calculated 296 mOsm/kg (285-295); Potassium 4.7 mmol/L (3.5-5.1); Sodium 136 mmol/L (136-145)
[2024-07-17 06:53] LABS: Magnesium 2.3 mg/dL (1.7-2.3)
[2024-07-17 07:57] LABS: Glucose Point of Care 233 mg/dL (70-110)
[2024-07-17 09:03] LABS: Glucose Point of Care 226 mg/dL (70-110)
[2024-07-17] MEDS: lisinopril 20 mg Tablet 40 MG PO (09:10)
[2024-07-17] MEDS: heparin 5,000 unit/mL INJ 1 mL 5000 UNIT SUBCUT ×2 (09:13→20:34)
[2024-07-17] MEDS: pantoprazole 40 mg SDV IVP ×2 (09:13→17:19)
[2024-07-17 10:39] LABS: Glucose Point of Care 194 mg/dL (70-110)
[2024-07-17 10:50] LABS: Anion Gap 16.5 (5-19); Blood Urea Nitrogen 21 mg/dL (6-20); Calcium 8.5 mg/dL (8.5-10.5); Carbon Dioxide 26 mmol/L (22-29); Chloride 99 mmol/L (98-107); Creatinine Clr Calc Pharmacy 86.1569; Glomerular Filtration Rate 77.6 mL/min (90-130); Glucose 225 mg/dL (65-115); Osmolality Calculated 294 mOsm/kg (285-295); Potassium 4.5 mmol/L (3.5-5.1); Sodium 137 mmol/L (136-145)
[2024-07-17] MEDS: insulin glargine 100 units/1 mL 60 UNIT SUBCUT (12:16)
[2024-07-17] MEDS: naproxen 500 mg Tablet 250 MG PO (12:18)
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
[2024-07-17 14:53] LABS: Glucose Point of Care 196 mg/dL (70-110)
[2024-07-17 16:53] LABS: Anion Gap 12.2 (5-19); Blood Urea Nitrogen 17 mg/dL (6-20); Calcium 9.1 mg/dL (8.5-10.5); Carbon Dioxide 28 mmol/L (22-29); Chloride 101 mmol/L (98-107); Creatinine Clr Calc Pharmacy 107.6962; Glomerular Filtration Rate 100.4 mL/min (90-130); Glucose 193 mg/dL (65-115); Osmolality Calculated 291 mOsm/kg (285-295); Potassium 4.2 mmol/L (3.5-5.1); Sodium 137 mmol/L (136-145)
[2024-07-17 17:09] LABS: Glucose Point of Care 199 mg/dL (70-110)
[2024-07-17] MEDS: insulin lispro 100 unit/1 mL SUBCUT (17:18)
--- NOTE | 2024-07-17 17:56 | P.PN_ITS ---
Subjective 2 Subjective: Patient was seen this morning, he is alert oriented x 3, following all commands, no nausea, no vomiting or diarrhea, discussed his anion gap being 21, continue insulin drip, until anion gap closes, he is agreeable, he tells me that he is very hungry, Vitals/I&O/Wt Last Vital Signs Temp 98.1 F 07/16/24 15:58 Pulse 88 07/17/24 08:22 Resp 16 07/17/24 08:22 BP 160/85 07/17/24 03:01 Pulse Ox 93 07/17/24 08:22 O2 Del Method Room Air 07/17/24 08:22 07/17/24 07/17/24 07/17/24 06:59 14:59 22:59 Intake Total 2557.342 / 2557.342 713.242 / 713.242 350 / 1063.242 Output Total 300 / 300 800 / 800 Balance 2257.342 / 2257.342 713.242 / 713.242 -450 / 263.242 Weight last 48 hrs Weight 69.5 kg Weight 69.5 kg Weight 68.039 kg Physical Exam 2 Const: COMMON NORMALS: no acute distress and patient oriented x3 Resp: COMMON NORMALS: normal respiratory effort, No retractions, No use of accessory muscles and clear to auscultation bilaterally AUSCULTATION: clear to auscultation bilaterally Cardio: COMMON NORMALS: regular rate, regular rhythm, S1 normal heart sound present and S2 normal heart sound present RATE: regular rate RHYTHM: r egular rhythm HEART SOUNDS: S1 normal heart sound present and S2 normal heart sound present GI: COMMON NORMALS: Normal to inspection, nondistended, normoactive bowel sounds present and non-tender Extremity: COMMON NORMALS: no pedal edema Neuro: COMMON NORMALS: patient oriented x3 Psych: COMMON NORMALS: mental status grossly normal Data 07/17/24 06:18 07/17/24 16:17 A&P Assessment and plan (1) Hypertension: Qualifiers: Hypertension type: essential hypertension Qualified Code(s): I10 - Essential (primary) hypertension (2) Type 1 diabetes mellitus: Qualifiers: Diabetes mellitus complication status: with other specified complication Qualified Code(s): E10.69 - Type 1 diabetes mellitus with other specified complication (3) Hyperglycemia due to type 1 diabetes mellitus: (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: (7) Diabetic gastroparesis: (8) Abnormal finding on imaging: (9) Esophagitis: (10) Esophageal mass: (11) DKA (diabetic ketoacidosis): Plan DKA Type I diabetic History of noncompliance DKA protocol, anion gap 21, continue insulin drip, continue D5 IV fluids, recheck BMP, recheck BMP at 10 AM showed that anion gap is 16, confirmed with patient through nursing staff that he takes 70 units of Tresiba, will give 60 units of Tresiba overlap with drip for an hour, transition to subcu insulin, continue clear liquids for now, please advance to diabetic diet, recheck BMP at 4 PM, recheck BMP at 4 PM anion gap looks reasonable, continue to monitor blood sugars closely, will moved to medical floors, stop IV fluids, Start IV fluids with potassium supplementation BMP every 4 hours Urine toxicology screen positive for methamphetamine, marijuana Nausea vomiting possibly related to diabetic gastroparesis and/or marijuana hyperemesis syndrome Esophagitis versus esophageal mass Patient endorsing dysphagia/odynophagia General Surgery consulted for EGD npo midnight Dr. Cox consulted Will put patient on Protonix and sucralfate Full code Diabetic diet DVT prophylaxis: Heparin Attestations 2 Medical Necessity Statement*: Patient requires hospitalization for DKA, nausea vomiting, esophagitis Coding Level of Care Code Critical Care >/= 30 minutes Critical care time (in minutes): 35 The high probability of a clinically significant, sudden or life threatening deterioration, as referenced in this documentation, required my full and direct attention, intervention and personal management. The critical care time shown is in addition to time spent performing any reported separately billable procedures and includes the following: [x] Data and vital sign review and interpretation [x ] Patient assessment, examination and intervention [x] Medication orders and management [x] Patient/Family updates as able [x] Care Coordination and Documentation. 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
--- NOTE | 2024-07-17 19:58 | PC.NURSE ---
Transferred: Patient transferred to med surg. Patient belongings and receiving nurse at bedside.
[2024-07-17 20:53] LABS: Glucose Point of Care 107 mg/dL (70-110)
[2024-07-17 22:24] LABS: Glucose Point of Care 86 mg/dL (70-110)
[2024-07-18] VITALS: BP 132/86; PULSE 90; RESP 17; TEMP 36.6; O2SAT 96
[2024-07-18 00:37] LABS: Glucose Point of Care 76 mg/dL (70-110)
[2024-07-18] MEDS: dextrose 5%-sod chloride 0.9% 1,000 ML 30 ML IV (00:49)
[2024-07-18 02:12] LABS: Glucose Point of Care 85 mg/dL (70-110)
[2024-07-18 04:00] VITALS: BP 153/91; PULSE 88; RESP 17; TEMP 37.2; O2SAT 96
[2024-07-18 04:34] LABS: Glucose Point of Care 84 mg/dL (70-110)
[2024-07-18] MEDS: ondansetron 2 mg/ML SDV 2 mL 4 MG IVP (04:57)
[2024-07-18 04:58] LABS: Basophils # 0.1 10^3/uL (0.0-0.1); Basophils % 0.6 %; Eosinophils # 0.1 10^3/uL (0.0-0.8); Eosinophils % 1.1 %; Hematocrit 42.6 % (37-53); Lymphocytes # 2.3 10^3/uL (0.8-4.8); Mean Corpuscular HGB Conc 31.7 g/dL (30-55); Mean Corpuscular Hemoglobin 29.6 pg (27-33); Mean Corpuscular Volume 93.4 fl (82-101); Mean Platelet Volume 9.8 fL (7.4-10.4); Monocytes # 0.7 10^3/uL (0.2-0.9); Monocytes % 8.3 %; Neutrophils # 5.61 10^3/uL (1.8-7.7); Neutrophils % 63.7 %; Nucleated Red Blood Cells % 0 %; Platelet Count 320 10^3/cmm (157-399); Red Blood Count 4.56 10^6/uL (3.85-5.65); Red Cell Distribution Width 13.6 % (12.1-15.1); White Blood Count 8.81 10^3/uL (3.29-11.43)
[2024-07-18 05:25] LABS: Alanine Aminotransferase 21 U/L (0-41); Albumin Level 3.6 g/dL (3.5-5.2); Alkaline Phosphatase 137 U/L (40-130); Anion Gap 13.8 (5-19); Aspartate Amino Transferase 19 U/L (0-40); Blood Urea Nitrogen 14 mg/dL (6-20); Calcium 8.9 mg/dL (8.5-10.5); Carbon Dioxide 28 mmol/L (22-29); Chloride 99 mmol/L (98-107); Creatinine Clr Calc Pharmacy 108.8148; Globulin 3.1 g/dL (1.3-4.6); Glomerular Filtration Rate 100.4 mL/min (90-130); Glucose 87 mg/dL (65-115); Osmolality Calculated 284 mOsm/kg (285-295); Potassium 3.8 mmol/L (3.5-5.1); Sodium 137 mmol/L (136-145); Total Bilirubin 0.4 mg/dL (0.15-1.2); Total Protein 6.7 g/dL (6.6-8.7)
[2024-07-18 07:43] LABS: Glucose Point of Care 101 mg/dL (70-110)
[2024-07-18 08:00] VITALS: BP 171/105; PULSE 73; RESP 17; TEMP 36.9; O2SAT 98
[2024-07-18] MEDS: hyDRALAzine 20 mg/mL INJ 1 mL 10 MG IVP (09:26)
[2024-07-18] MEDS: lisinopril 20 mg Tablet 40 MG PO (09:27)
[2024-07-18] MEDS: amlodipine 5 mg Tablet 10 MG PO (09:27)
[2024-07-18] MEDS: pantoprazole 40 mg SDV IVP (09:27)
[2024-07-18] MEDS: heparin 5,000 unit/mL INJ 1 mL 5000 UNIT SUBCUT (09:27)
[2024-07-18] MEDS: atorvastatin 40 mg Tablet PO (09:27)
[2024-07-18 10:33] LABS: Glucose Point of Care 169 mg/dL (70-110)
[2024-07-18 12:00] VITALS: BP 117/78; PULSE 85; RESP 18; TEMP 36.4; O2SAT 95
[2024-07-18] MEDS: insulin lispro 100 unit/1 mL SUBCUT (12:08)
[2024-07-18] MEDS: sucralfate 1 gm/10 mL Oral Liq UDC PO (12:08)
[2024-07-18] MEDS: insulin glargine 100 units/1 mL 60 UNIT SUBCUT (12:08)
--- NOTE | 2024-07-18 12:16 | PC.SOCIAL ---
IMM Update pg 2 of IMM Updated and reviewed w/ patient. Copy provided and copy dated, initialed and placed in chart.
[2024-07-18 12:40] VITALS: BP 117/78; PULSE 85; RESP 18; TEMP 36.4; O2SAT 95
--- NOTE | 2024-07-18 12:53 | PM.DCS ---
Discharge Providers Date of Admission: 07/17/24 02:39 Date of Discharge: July 18, 2024 Attending Provider at Admission: Leslie Lamar MD Attending Provider at Discharge: Michael Bran MD Primary Care Provider: Eugenie Jay MD Diagnoses at Discharge Discharge Diagnosis (1) Hypertension: Status: Chronic Qualifiers: Hypertension type: essential hypertension Qualified Code(s): I10 - Essential (primary) hypertension (2) Type 1 diabetes mellitus: Status: Chronic Qualifiers: Diabetes mellitus complication status: with other specified complication Qualified Code(s): E10.69 - Type 1 diabetes mellitus with other specified complication (3) Hyperglycemia due to type 1 diabetes mellitus: Status: Acute (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: Status: Chronic Permanent problem details: digits 1-3 remain (5) Partial traumatic amputation of left foot: Status: Chronic Permanent problem details: digits 1-3 remain (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: Status: Chronic Permanent problem details: bilateral hands with loss of 2nd digit/4 digits remain each hand (7) Diabetic gastroparesis: Status: Chronic (8) Abnormal finding on imaging: Status: Acute (9) Esophagitis: Status: Acute (10) Esophageal mass: Status: Acute (11) DKA (diabetic ketoacidosis): Status: Acute Reason for Visit Reason for Visit: HIGH GLUCOSE Hospital Course Hospital Course This is a 53-year-old male with a past medical history of diabetic gastroparesis, who presents [facility] due to nausea, vomiting Patient was admitted to [facility] for type 1 diabetes, diabetic ketoacidosis, required ICU admission, insulin drip, DKA protocol, overall clinically improved, anion gap close potassium replaced, received IV fluids, transition to subcu insulin, long-acting insulin overall clinically improved. Patient will be discharged on his home dose of Tresiba 70 units daily, with a lispro sliding scale with close follow-up with his primary care provider as outpatient Urine toxicology screen was positive for methamphetamines, marijuana was advised against use Potentially nausea vomiting related to marijuana hyperemesis syndrome, advised to abstain from marijuana use Nausea vomiting certainly could be from diabetic gastroparesis, advised to follow-up with primary care, Patient CT scan showed Distal esophageal wall thickening. This finding may reflect esophagitis versus an esophageal mass. Concerns for esophagitis versus esophageal mass On admission complained of dysphagia, odynophagia During my discussion with him he denied any dysphagia, no odynophagia, no nausea, no vomiting, no blood or black stools, no hematemesis, manage on clear liquid diets, then onto a diabetic diet without any significant complaints of dysphagia or dyne aphasia or aspiration or coughing Nonetheless manage on Protonix, Carafate Will be discharged with a close follow-up with Dr. Cox as outpatient for consideration of EGD I discussed with him the importance of following up morbidity and mortality associated with his CT scan findings, he voiced understanding, all questions answered Physical Exam Const: COMMON NORMALS: no acute distress and patient oriented x3 Resp: COMMON NORMALS: normal respiratory effort, No retractions, No use of accessory muscles and clear to auscultation bilaterally AUSCULTATION: clear to auscultation bilaterally Cardio: COMMON NORMALS: regular rate, regular rhythm, S1 normal heart sound present and S2 normal heart sound present RATE: regular rate RHYTHM: regular rhythm HEART SOUNDS: S1 normal heart sound present and S2 normal heart sound present GI: COMMON NORMALS: Normal to inspection, nondistended, normoactive bowel sounds present and non-tender Extremity: COMMON NORMALS: no pedal edema Neuro: COMMON NORMALS: patient oriented x3 Psych: COMMON NORMALS: mental status grossly normal Discharge Data Studies Completed and Pending Completed Studies During Hospitalization Category Date Time Status CT abdomen pelvis w con* [id number] Stat Cat Scan 07/16/24 17:16 Completed Pending at discharge Category Date Time Status Complete Blood Count w/Auto AM LABS Lab 07/19/24 04:00 Ordered Complete Blood Count w/Auto AM LABS Lab 07/20/24 04:00 Ordered Comprehensive Metabolic Panel AM LABS Lab 07/19/24 04:00 Ordered Comprehensive Metabolic Panel AM LABS Lab 07/20/24 04:00 Ordered Radiology Impressions Abdomen/Pelvis CT 07/16/24 17:16 IMPRESSION: 1. Distal esophageal wall thickening. This finding may reflect esophagitis versus an esophageal mass. 2. Fecal stasis. 3. Bilateral nonobstructing nephrolithiasis. 4. Stable indeterminate hyperdense lesion involving the left kidney likely reflecting a hemorrhagic/proteinaceous cysts. 5. Atherosclerosis. 6. Prostatomegaly. COMMENTS: Consistent with the [employer]'s Incidental Findings Committee white paper (J Am Zofia Radiol 2018): Any incidental renal lesion less than 1 cm or classified as too small to characterize, or any incidental cystic renal lesion characterized as simple-appearing, is likely benign. No follow-up imaging is recommended for these lesions per consensus recommendations based on imaging criteria. Laboratory Results WBC 8.81 10^3/uL (3.29-11.43) 07/18/24 04:32 RBC 4.56 10^6/uL (3.85-5.65) 07/18/24 04:32 Hgb 13.50 g/dL (11.27-16.99) 07/18/24 04:32 Hct 42.6 % (37-53) 07/18/24 04:32 MCV 93.4 fl (82-101) 07/18/24 04:32 MCH 29.6 pg (27-33) 07/18/24 04:32 MCHC 31.7 g/dL (30-55) 07/18/24 04:32 RDW 13.6 % (12.1-15.1) 07/18/24 04:32 Plt Count 320 10^3/cmm (157-399) 07/18/24 04:32 MPV 9.8 fL (7.4-10.4) 07/18/24 04:32 Neut % (Auto) 63.7 % 07/18/24 04:32 Lymph % (Auto) 26.0 % 07/18/24 04:32 Douglas % (Auto) 8.3 % 07/18/24 04:32 Eos % (Auto) 1.1 % 07/18/24 04:32 Baso % (Auto) 0.6 % 07/18/24 04:32 Neut # (Auto) 5.61 10^3/uL (1.8-7.7) 07/18/24 04:32 Lymph # (Auto) 2.3 10^3/uL (0.8-4.8) 07/18/24 04:32 Douglas # (Auto) 0.7 10^3/uL (0.2-0.9) 07/18/24 04:32 Eos # (Auto) 0.1 10^3/uL (0.0-0.8) 07/18/24 04:32 Baso # (Auto) 0.1 10^3/uL (0.0-0.1) 07/18/24 04:32 Nucleated RBC % (auto) 0 % 07/18/24 04:32 Nucleated RBCs # 0.0 /100WBC 07/18/24 04:32 Specimen Type Arterial 07/16/24 16:06 Sample Site Radial, left 07/16/24 16:06 ABG pH 7.67 (7.35-7.45) H* 07/16/24 16:06 ABG pCO2 21.6 mmHg (35-45) L 07/16/24 16:06 ABG pO2 99.1 mmHg (80.0-100.0) 07/16/24 16:06 ABG PO2/FiO2 Ratio 471 07/16/24 16:06 ABG HCO3 24.8 mmol/L (22-26) 07/16/24 16:06 ABG Base Excess 6.3 mmol/L (-2.0-2.0) H 07/16/24 16:06 Red Test Pos 07/16/24 16:06 Hematocrit 47.2 % (42-52) 07/16/24 16:06 Hgb O2 Saturation 97.0 % (95-100) 07/16/24 16:06 Carboxyhemoglobin 0.4 %THgb (0.4-20.1) 07/16/24 16:06 Methemoglobin 0.9 % (0.4-1.5) 07/16/24 16:06 Total Hemoglobin 15.4 g/dL (14-18) 07/16/24 16:06 O2 Delivery Device Room air 07/16/24 16:06 FiO2 21.0 % 07/16/24 16:06 Contract Mail Carrier ID Nawaf 07/16/24 16:06 Sodium 137 mmol/L (136-145) 07/18/24 04:32 Potassium 3.8 mmol/L (3.5-5.1) 07/18/24 04:32 Chloride 99 mmol/L (98-107) 07/18/24 04:32 Carbon Dioxide 28 mmol/L (22-29) 07/18/24 04:32 Anion Gap 13.8 (5-19) 07/18/24 04:32 BUN 14 mg/dL (6-20) 07/18/24 04:32 Creatinine 0.8 mg/dL (0.7-1.2) 07/18/24 04:32 GFR Calculation 100.4 mL/min (90-130) 07/18/24 04:32 Glucose 87 mg/dL (65-115) 07/18/24 04:32 POC Glucose 169 mg/dL (70-110) H 07/18/24 10:27 Calculated Osmolality 284 mOsm/kg (285-295) L 07/18/24 04:32 Lactic Acid 1.6 mmol/L (0.5-2.2) 07/16/24 21:59 Calcium 8.9 mg/dL (8.5-10.5) 07/18/24 04:32 Magnesium 2.3 mg/dL (1.7-2.3) 07/17/24 06:18 Total Bilirubin 0.4 mg/dL (0.15-1.2) 07/18/24 04:32 AST 19 U/L (0-40) 07/18/24 04:32 ALT 21 U/L (0-41) 07/18/24 04:32 Alkaline Phosphatase 137 U/L (40-130) H 07/18/24 04:32 Total Protein 6.7 g/dL (6.6-8.7) 07/18/24 04:32 Albumin 3.6 g/dL (3.5-5.2) 07/18/24 04:32 Globulin 3.1 g/dL (1.3-4.6) 07/18/24 04:32 Lipase 10 U/L (13-60) L 07/16/24 16:15 Urine Color Yellow (Yellow) 07/16/24 19:00 Urine Appearance Clear (CLEAR) 07/16/24 19:00 Urine pH 5.0 (5-7) 07/16/24 19:00 Ur Specific [place] 1.027 (1.005-1.030) 07/16/24 19:00 Urine Protein 1+ (Negative) A 07/16/24 19:00 Urine Glucose (UA) 3+ (Normal) H 07/16/24 19:00 Urine Ketones 4+ (Negative) 07/16/24 19:00 Urine Blood Negative (Negative) 07/16/24 19:00 Urine Nitrate Negative (Negative) 07/16/24 19:00 Urine Bilirubin Negative (Negative) 07/16/24 19:00 Urine Urobilinogen 0.2 mg/dL (Negative) 07/16/24 19:00 Ur Leukocyte Esterase Negative (Negative) 07/16/24 19:00 Urine RBC 0-2 /hpf (0-2) 07/16/24 19:00 Urine WBC 0-5 /hpf (0-5) 07/16/24 19:00 Ur Squamous Epith Cells 0-5 /hpf (0-5) 07/16/24 19:00 Amorphous Sediment Not Reportable 07/16/24 19:00 Urine Bacteria None seen /hpf (NONE) 07/16/24 19:00 Hyaline Casts 6.20 /lpf 07/16/24 19:00 Urine Opiates Screen Negative ng/mL (Negative) 07/16/24 19:00 Ur Barbiturates Screen Negative ng/mL (Negative) 07/16/24 19:00 Ur Phencyclidine Scrn Negative ng/mL (Negative) 07/16/24 19:00 Ur Amphetamines Screen Positive ng/mL (Negative) H 07/16/24 19:00 U Benzodiazepines Scrn Negative ng/mL (Negative) 07/16/24 19:00 Urine Cocaine Screen Negative ng/mL (Negative) 07/16/24 19:00 U Marijuana (THC) Screen Positive ng/mL (Negative) H 07/16/24 19:00 Serum Ketones Positive (Negative) H 07/16/24 16:15 Influenza Type A Ag negative (Negative) 07/16/24 18:31 Influenza Type B Ag negative (Negative) 07/16/24 18:31 Vitals Last Vital Signs Temp 97.5 F L 07/18/24 12:40 Pulse 85 07/18/24 12:40 Resp 18 07/18/24 12:40 BP 117/78 07/18/24 12:40 Pulse Ox 95 07/18/24 12:40 O2 Del Method Room Air 07/18/24 12:00 Discharge Plan Discharge Patient Disposition: Home Condition: Stable Prescriptions: New pantoprazole [Protonix] 40 mg tablet,delayed release (DR/EC) 40 mg PO BID 15 Days Qty: 30 0RF sucralfate [Carafate] 1 gram tablet 1 g PO BID 15 Days Qty: 30 0RF (DME) Dexcom G7 Sensor Device See Rx Instructions .Route Qty: 1 0RF Rx Instructions: As directed Continued atorvastatin 40 mg tablet 40 mg PO DAILY amlodipine 5 mg tablet 10 mg PO DAILY 30 Days Qty: 60 0RF insulin lispro 100 unit/mL insulin pen See Rx Instructions .ROUTE .COMPLEX Qty: 15 0RF Rx Instructions: Inject sub q 3 times daily, after meals, based on sliding scale provided lisinopril 40 mg tablet 40 mg PO DAILY Changed insulin degludec [Tresiba FlexTouch U-200] 200 unit/mL (3 mL) insulin pen 70 unit SUBCUT DAILY Qty: 9 0RF Discharge Orders: Discharge Order (Routine); Ordered 07/18/24 Ordered By: Michael Bran Referrals: Gil Cox MD [Physician] - 2 weeks Eugenie Jay MD [Primary Care Provider] - (We have notified your physician's clinic of the need for a follow-up appointment to be scheduled. If you have not heard from them within the next 2 business days, please call them directly. ) Discharge Diet: Diabetic Discharge Activity: Resume usual activity Patient Instructions: Sucralfate (By mouth) (Carafate), Pantoprazole (By mouth), Diabetic Gastroparesis (DC), Opioid Safety Activity Restrictions/Additional Instructions: -Continue your home dose of Tresiba 70 units daily, with insulin sliding scale - Please monitor blood sugar closely -Please monitor your blood sugars closely -Monitor your blood sugars 3 times daily as after meals -Please record your blood sugars, and a blood sugar log -For your lispro -Please inject blood sugar after meals based on sliding scale provided -Do not inject insulin if you do not eat as hypoglycemia kills -This is a lispro sliding scale -Insulin sliding ?fingerstick? Insulin ?141-180?0 units/sq 181-220?2 units/sq ?221-260?4 units/sq ?261-300 6 units/sq ?301-350?8 units/sq ?351-400 10 units/sq ?401-450?12 units/sq >450? 14units/sq -If your blood sugar is greater than 500 go to the emergency room -If your blood sugar is less than 60 or at anytime you feel lightheaded or dizzy or diaphoretic or have chest palpitations check your blood sugar, and eat a hard candy or drink orange juice and go immediately to the emergency room -Remember hypoglycemia kills, so if his blood sugar is less than 60 we have to increase it by taking in a sugary meal such as a hard candy or orange juice and go to the emergency room -If you have any questions please call us where here to help Discharge Attestations Time Spent in Discharge Care*: greater than 30 min Status at Discharge: Cognitive status at discharge: cognitively intact, Behavioral status at discharge: cooperative, Quality Metrics Clinical Quality Measures [ No reported AMI, CVA or VTE this stay] Coding Level of Care Code 65067 Total time (in minutes) for Discharge: 45 Diagnoses Hypertension I10 Hypertension type: essential hypertension Type 1 diabetes mellitus with other specified complication E10.69 Diabetes mellitus complication status: with other specified complication Hyperglycemia due to type 1 diabetes mellitus E10.65 Partial traumatic amputation of right foot S98.921A Partial traumatic amputation of left foot S98.922A 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
--- NOTE | 2024-07-18 13:15 | PC.NURSE ---
Discharge Note Patient discharged to home via personal vehicle accompanied by friend. Discharge instructions reviewed with patient and/or business services sales representative. Mobile pharmacy medications and/or prescriptions provided. Belongings/home medications returned.
== END 2024-07-18 13:16 | disposition home or self-care (01) | DRG 639 ==
LOC: ER 21:37 → ICU 07-17 02:39 → MEDSURG 07-17 20:23
PROVIDERS: Admitting Provider Internal Medicine; Emergency Provider Student in an Organized Health Care Education/Training Program; PCP Internal Medicine; Visit Provider Family Medicine
DX: E10.10 Type 1 diabetes mellitus with ketoacidosis without coma (principal); E10.43 Type 1 diabetes mellitus with diabetic autonomic (poly)neuropathy; K31.84 Gastroparesis; K20.90 Esophagitis, unspecified without bleeding; K22.89 Other specified disease of esophagus; R11.10 Vomiting, unspecified; E78.5 Hyperlipidemia, unspecified; T38.3X6A Underdosing of insulin and oral hypoglycemic [antidiabetic] drugs, initial encounter; Z91.148 Patient's other noncompliance with medication regimen for other reason; R63.4 Abnormal weight loss; Z68.22 Body mass index [BMI] 22.0-22.9, adult; Z89.432 Acquired absence of left foot; Z89.431 Acquired absence of right foot; Z89.022 Acquired absence of left finger(s); Z89.021 Acquired absence of right finger(s)
CPT/HCPCS: 36415; 36416; 36600; 74177; 80048; 80053; 80306; 81001; 82009; 82805; 82962; 83605; 83690; 83735; 85025; 87804; 96365; 96366; 96367; 96372; 96375; 99285; J0360; J1644; J1815; J1980; J2405; J2470; J3490; J7030; J7042

== ENCOUNTER → 2024-07-31 07:33 | Outpatient (BNVA) | payer MEDICARE, MEDICAID, SELFPAY | PROVIDERS: PCP Internal Medicine; Visit Provider Student in an Organized Health Care Education/Training Program | DX: K20.90 Esophagitis, unspecified without bleeding (principal); K22.89 Other specified disease of esophagus | CPT/HCPCS: 99204; 99214 ==

== ENCOUNTER 2024-07-31 08:36 | Outpatient (CLI) | payer MEDICARE, MEDICAID, SELFPAY ==
--- NOTE | 2024-07-31 08:43 | XR_ITS ---
WS: [id number] Right leg including the tibia and fibula, AP and lateral views, 07/31/2024 Clinical Data: ULCER OF RIGHT LOWER LEG Comparison: Right leg, 10/01/2023 Findings: The fracture of the proximal right tibia remains reduced with a lateral plate and multiple screws. Th e proximal right fibular fracture has healed. There are small coils in the midshaft of the proximal right tibia unchanged. XR/XR tibia fibula RT 2V [id number] Impression: No change in healed fractures of proximal right tibia and fibula.
== END 2024-07-31 08:37 | disposition home or self-care (01) ==
LOC: RAD 08:40
PROVIDERS: PCP Internal Medicine; Visit Provider Nurse Practitioner Family
DX: S82.101D Unspecified fracture of upper end of right tibia, subsequent encounter for closed fracture with routine healing (principal); S82.401D Unspecified fracture of shaft of right fibula, subsequent encounter for closed fracture with routine healing; X58.XXXD Exposure to other specified factors, subsequent encounter; L97.919 Non-pressure chronic ulcer of unspecified part of right lower leg with unspecified severity
CPT/HCPCS: 73590

== ENCOUNTER → 2024-09-01 12:15 | Outpatient (BNVA) | payer MEDICARE, MEDICAID, SELFPAY | PROVIDERS: PCP Internal Medicine; Visit Provider Nurse Practitioner Family | DX: M79.604 Pain in right leg (principal); L03.115 Cellulitis of right lower limb | CPT/HCPCS: 73590 ==

== ENCOUNTER → 2024-09-04 13:13 | Outpatient (BNVA) | payer MEDICARE, MEDICAID, SELFPAY | PROVIDERS: PCP Internal Medicine; Visit Provider Podiatrist Foot & Ankle Surgery | DX: L03.115 Cellulitis of right lower limb (principal) | CPT/HCPCS: 99213 ==

== ENCOUNTER 2024-09-05 08:14 | Outpatient (CLI) | payer MEDICARE, MEDICAID, SELFPAY ==
--- NOTE | 2024-09-05 08:30 | FL_ITS ---
WS: [id number] Upper GI series, air-contrast, 09/05/2024 Clinical Data: Trouble swallowing solids, pain in mid chest for 3 months. Comparison: None. Findings: The barium passed normally from the oral pharynx into the hypopharynx. 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 No aspiration or penetration occurred. The esophagus showed normal motility. There were faint tertiary contractions. No reflux, mass, polyp, erosion, fistula, ulcer or hiatal hernia was seen. The barium passed normally into the stomach. The stomach was normally distended with normal gastric folds. No extrinsic deformities could be seen. There are numerous intraluminal filling defects which probably represent food particles from the evening meal. The patient stated he had diabetes and had very slow emptying. The duodenal bulb was normal with no ulceration. The second part of the duodenum was normal. [place] upper GI series [id number] Impression: 1. Minimal posterior indentation on hypopharynx from osteoarthritis. 2. Negative for hiatal hernia or reflux. 3. Probable retained food particles in the stomach from the prior day's meal. 4. No gastric or duodenal ulcer.
== END 2024-09-05 08:15 | disposition home or self-care (01) ==
LOC: RAD 08:14
PROVIDERS: PCP Internal Medicine; Visit Provider Student in an Organized Health Care Education/Training Program
DX: K22.2 Esophageal obstruction (principal); R93.7 Abnormal findings on diagnostic imaging of other parts of musculoskeletal system; R93.89 Abnormal findings on diagnostic imaging of other specified body structures
CPT/HCPCS: 74240

== ENCOUNTER → 2024-09-10 09:10 | Outpatient (BNVA) | payer MEDICARE, MEDICAID, SELFPAY | PROVIDERS: PCP Internal Medicine; Visit Provider Podiatrist Foot & Ankle Surgery | DX: T84.84XA Pain due to internal orthopedic prosthetic devices, implants and grafts, initial encounter (principal); Y79.2 Prosthetic and other implants, materials and accessory orthopedic devices associated with adverse incidents; L03.115 Cellulitis of right lower limb | CPT/HCPCS: 99213 ==

== ENCOUNTER → 2024-09-17 10:07 | Outpatient (BNVA) | payer MEDICARE, MEDICAID, SELFPAY | PROVIDERS: PCP Internal Medicine; Visit Provider Podiatrist Foot & Ankle Surgery | DX: L03.111 Cellulitis of right axilla (principal) | CPT/HCPCS: 87070; 87075; 87205; 99213 ==

== ENCOUNTER 2025-02-17 21:29 | Emergency (ER) | payer OTHER, MEDICAID, SELFPAY ==
--- OUTSIDE RECORDS SUMMARY | 2024-05-03 04:00 | XMS_ITS ---
Author Organization [facility] Address [address] [place] [address] Care Team Providers Care Garage Laborer Name Role Phone Migration, Provider Unavailable Unavailable REASON FOR VISIT EMR-Ba Encounters Encounter Location Date Provider Diagnosis Migrated_Facility 0 0 05/03/2024 Provider Migration Plan Of Treatment No Information Progress Notes * Zackary ENRIQUEZDOB: [birth year] (54 yo M)Acc No.[id number]:05/03/2024 Patient: Gonzalez Zackary HASSAN :1970 A ge:53 Y S ex:Male [address] [place] [address] Subjective: * Chief Complaints: * E MR-Ba * * Date:
--- OUTSIDE RECORDS SUMMARY | 2024-05-04 04:00 | XMS_ITS ---
Author Organization [facility] Address [address] [place] [address] Care Team Providers Care Manager Behavior Name Role Phone Migration, Provider Unavailable Unavailable REASON FOR VISIT EMR-Ba Encounters Encounter Location Date Provider Diagnosis Migrated_Facility 0 0 05/04/2024 Provider Migration Plan Of Treatment No Information Progress Notes * Zackary ENRIQUEZDOB: [birth year] (54 yo M)Acc No.[id number]:05/04/2024 Patient: Gonzalez Zackary HASSAN :1970 A ge:53 Y S ex:Male [address] [place] [address] Subjective: * Chief Complaints: * E MR-Ba * * Date:
[2025-02-17 21:34] VITALS: BP 182/98; PULSE 91; RESP 25; TEMP 36.4; O2SAT 94; BMI 23.7
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
[2025-02-17 21:56] LABS: Hematocrit 40.9 % (37-53); Hemoglobin 13.80 g/dL (11.27-16.99); Mean Corpuscular HGB Conc 33.7 g/dL (30-55); Mean Corpuscular Hemoglobin 29.0 pg (27-33); Mean Corpuscular Volume 85.9 fl (82-101); Nucleated Red Blood Cells % 0 %; Platelet Count 341 10^3/cmm (157-399); Red Blood Count 4.76 10^6/uL (3.85-5.65); White Blood Count 12.00 10^3/uL (3.29-11.43)
[2025-02-17 21:58] LABS: Ketone (Acetest) Serum Negative (Negative)
[2025-02-17 22:02] VITALS: BP 171/90; PULSE 87; RESP 20; O2SAT 98
[2025-02-17 22:08] LABS: Alanine Aminotransferase 31 U/L (0-41); Albumin Level 4.6 g/dL (3.5-5.2); Alkaline Phosphatase 102 U/L (40-130); Anion Gap 17.8 (5-19); Aspartate Amino Transferase 47 U/L (0-40); Blood Urea Nitrogen 31 mg/dL (6-20); Calcium 10.1 mg/dL (8.5-10.5); Carbon Dioxide 25 mmol/L (22-29); Chloride 104 mmol/L (98-107); Creatinine Clr Calc Pharmacy 68.2270; Globulin 3.7 g/dL (1.3-4.6); Lactic Sepsis W/Reflex 1.9 mmol/L (0.5-2.2); Osmolality Calculated 301 mOsm/kg (285-295); Sodium 144 mmol/L (136-145); Total Protein 8.3 g/dL (6.6-8.7)
[2025-02-17 22:25] LABS: Glucose 36 mg/dL (65-115); Potassium 2.8 mmol/L (3.5-5.1)
[2025-02-17] MEDS: potassium chloride oral liq 20 mEq/15 mL UDC 40 MEQ PO (22:50)
[2025-02-17 23:24] VITALS: BP 118/65; PULSE 83; RESP 12; O2SAT 99
--- OUTSIDE RECORDS SUMMARY | 2025-02-18 18:31 | XMS_ITS | Patient Health Record ---
Author Organization [facility] Address [address] [place] [address] Care Team Providers Care Child Care Worker Name Role Phone Migration, Provider Unavailable Unavailable Reason For Referral No Information Encounters Encounter Location Date Provider Diagnosis Migrated_Facility 0 0 05/03/2024 Provider Migration Migrated_Facility 0 0 05/04/2024 Provider Migration Plan Of Treatment No Information
--- OUTSIDE RECORDS SUMMARY | 2025-02-18 18:31 | XMS_ITS | Continuity of Care Document ---
Author Organization [employer] ([facility]) Address [address] [place] [address] Insurance Providers Payer Plan Claims Address Claims Phone Policy Number Group Number Relation Employer Guarantor Name Guarantor Guarantor Address Guarantor Phone [facility] DUAL COMPLE TE HMO SNP MCR [id number] [facility] DUAL COMPL ETE O SNP [facility] [id number] [address] [address], [place] [address] MODSNP [id number] RX [facility] REMARK RX [facility] RK tel:[phone] [id number] Organi zation /IC-20 29 Organ izati on/IC [address] [address] [address] [id number] Problems Condition ICD9 code ICD10 code SNOMED code Start Date End Date S tatus Other chronic osteomyelitis, right tibia and fibula M86.661 11/03/2024 Active Encounter for adjustment and management of vascular access device Z45.2 11/03/2024 Ac tive Infection and inflammatory reaction due to other internal orthopedic prosthetic devices, implants and grafts, subsequent encounter T84.7XXD 11/03/2024 Active Methicillin resistant Staphylococcus aureus infection, unspecified site A49.02 11/03/2024 Active Encounter for removal of internal fixation device Z47.2 11/03/2024 Active 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 11/03/2024 Active bed bug exterminator (current) use of aspirin Z79.82 11/03/2024 Active Essential (primary) hypertension I10 11/03/2024 Active Tobacco use Z72.0 11/03/2024 Active Hyperlipidemia, unspecified E78.5 11/03/2024 Active Type 2 diabetes mellitus with hyperglycemia E11.65 11/03/2024 Active bed bug exterminator (current) use of insulin Z79.4 11/03/2024 Active Unspecified hearing loss, unspecified ear H91.90 11/03/2024 Active Do not resuscitate Z66 11/03/2024 Ac tive Unvaccinated for COVID-19 Z28.310 11/03/2024 Active Personal history of nicotine dependence Z87.891 11/03/2024 Activ e History of falling Z91.81 11/04/2024 Ac tive Difficulty in walking, not elsewhere classified R26.2 11/05/2024 Active Results Test Result Date/Time Value / Unit Interp. Refere nce Range Blood chemistry[509231228] Glucose [Mass/volume] in Serum or Plasma [2345-7] 11/10/2024 05:13 PM 182 mg/dL N Blood chemistry[318452748] Glucose [Mass/volume] in Serum or Plasma [2345-7] 11/10/2024 09:33 AM 210 mg/dL N Blood chemistry[190318357] Glucose [Mass/volume] in Serum or Plasma [2345-7] 11/10/2024 10:01 AM 221 mg/dL N Blood chemistry[359308181] Glucose [Mass/volume] in Serum or Plasma [2345-7] 11/09/2024 12:19 PM 196 mg/dL N Blood chemistry[982179713] Glucose [Mass/volume] in Serum or Plasma [2345-7] 11/09/2024 04:14 PM 201 mg/dL N Blood chemistry[[id number]] Glucose [Mass/volume] in Serum or Plasma [2345-7] 11/09/2024 09:28 AM 191 mg/dL N Blood chemistry[[id number]] Glucose [Mass/volume] in Serum or Plasma [2345-7] 11/09/2024 10:02 AM 218 mg/dL N Blood chemistry[730262556] Glucose [Mass/volume] in Serum or Plasma [2345-7] 11/08/2024 11:49 AM 185 mg/dL N Blood chemistry[478003295] Glucose [Mass/volume] in Serum or Plasma [2345-7] 11/08/2024 09:31 AM 215 mg/dL N Blood chemistry[599602987] Glucose [Mass/volume] in Serum or Plasma [2345-7] 11/08/2024 04:38 PM 227 mg/dL N Blood chemistry[[id number]] Glucose [Mass/volume] in Serum or Plasma [2344-7] 11/08/2024 10:09 AM 232 mg/dL N Blood chemistry[[id number]] Glucose [Mass/volume] in Serum or Plasma [2344-7] 11/07/2024 11:50 AM 293 mg/dL N Blood chemistry[[id number]] Glucose [Mass/volume] in Serum or Plasma [2344-7] 11/07/2024 04:05 PM 269 mg/dL N Blood chemistry[[id number]] Glucose [Mass/volume] in Serum or Plasma [2344-7] 11/07/2024 10:12 AM 246 mg/dL N Blood chemistry[[id number]] Glucose [Mass/volume] in Serum or Plasma [2344-7] 11/07/2024 12:04 PM 152 mg/dL N Blood chemistry[[id number]] Glucose [Mass/volume] in Serum or Plasma [2344-7] 11/06/2024 11:40 AM 281 mg/dL N Blood chemistry[[id number]] Glucose [Mass/volume] in Serum or Plasma [2344-7] 11/06/2024 05:36 PM 111 mg/dL N Blood chemistry[[id number]] Glucose [Mass/volume] in Serum or Plasma [2344-7] 11/06/2024 09:20 AM 65 mg/dL N Blood chemistry[[id number]] Glucose [Mass/volume] in Serum or Plasma [2344-7] 11/06/2024 10:21 AM 130 mg/dL N Tuberculosis reaction wheal[ 31432-1] Tuberculosis reaction wheal [32267-9] 11/04/2024 10:44 AM 0 mm Blood chemistry[[id number]] Glucose [Mass/volume] in Serum or Plasma [2344-7] 11/05/2024 11:22 AM 229 mg/dL N Blood chemistry[839262268] Glucose [Mass/volume] in Serum or Plasma [2344-7] 11/05/2024 05:11 PM 132 mg/dL N Blood chemistry[[id number]] Glucose [Mass/volume] in Serum or Plasma [2344-7] 11/05/2024 09:07 AM 165 mg/dL N Blood chemistry[[id number]] Glucose [Mass/volume] in Serum or Plasma [2345-7] 11/05/2024 10:02 AM 211 mg/dL N Blood chemistry[840862932] Glucose [Mass/volume] in Serum or Plasma [2345-7] 11/04/2024 11:35 AM 150 mg/dL N Tuberculosis reaction wheal[ 95483-8] Tuberculosis reaction wheal [49365-0] 11/04/2024 10:44 AM See note TB test Blood chemistry[[id number]] Glucose [Mass/volume] in Serum or Plasma [2345-7] 11/04/2024 09:24 AM 121 mg/dL N Blood chemistry[[id number]] Glucose [Mass/volume] in Serum or Plasma [2345-7] 11/04/2024 08:42 AM 66 mg/dL N Blood chemistry[[id number]] Glucose [Mass/volume] in Serum or Plasma [2345-7] 11/04/2024 02:12 PM 151 mg/dL N Blood chemistry[[id number]] Glucose [Mass/volume] in Serum or Plasma [2345-7] 11/03/2024 02:42 PM 233 mg/dL N Blood chemistry[[id number]] Glucose [Mass/volume] in Serum or Plasma [2345-7] 11/03/2024 09:23 AM 212 mg/dL N Allergies, adverse reactions, alerts Substance Reaction Date Status Type fentanyl 11/03/2024 Non Drug hydrocodone bitartrate 11/03/2024 No n Drug hydromorphone 11/03/2024 Non Drug Oranges 11/03/2024 Non Drug Immunizations Vaccine Route Date Status Pneumococcal Vaccine Unassigned Route of Administratio n 11/03/2024 Refused Medications Medication Instructions Route Dosage Frequency Start Date Stop Date Indications Status amlodipine 5 mg tablet (amlodipine) 1 tab, oral, At Bedtime, hold for sbp 100 or less. notify md is 3 consecutive doses are held. oral 1.0 11/04 Active aspirin 81 mg tablet,chewab le (aspirin) 1 tab, oral, Once A Day oral 1.0 1.0 d 2024 Active atorvastatin 10 mg tablet (atorvastatin ) 0.5 tab (5mg), oral, At Bedtime oral 1.0 11/04 Active daptomycin 500 mg recon soln (daptomycin) 600 mg, intravenous, Once A Day, through 12/01/24 intravenous 1.0 1.0 d 12/01 Active Dulcolax (bisacodyl) (bisacodyl) 5 mg tablet,delaye d release (DR/EC) (Dulcolax (bisacodyl) (bisacodyl)) 2 tabs/10mg, oral, Once A Day - PRN, Give if no results from MOM oral 1.0 1.0 d 2024 Active Dulcolax (bisacodyl) (bisacodyl) 10 mg suppository (Dulcolax (bisacodyl) (bisacodyl)) 1 suppository, rectal, Once A Day - PRN, Give rectally if can't take p/o, if no results from MOM rectal 1.0 1.0 d 2024 Active Fleet Enema (sodium phosphates) 19-7 gram/118 mL enema (Fleet Enema (sodium phosphates)) 1 application, rectal, Once A Day - PRN, Give fleets if no results from MOM and Dulcolax rectal 1.0 1.0 d 2024 Active insulin glargine-yfgn 100 unit/mL (3 mL) insulin pen (insulin glargine-yfgn ) 70 units, subcutaneous, Once A Day, TI for Lantus subcutaneous 1.0 1.0 d 2024 Active lisinopril-hy drochlorothia zide 20-25 mg tablet (lisinopril-h ydrochlorothi azide) 1 tab, oral, Once A Day, hold for sbp 100 or less. notify md is 3 consecutive doses are held. oral 1.0 1.0 d 2024 Active insulin lispro 100 unit/mL insulin pen (insulin lispro) Per Sliding Scale, subcutaneous, Before Meals and At Bedtime, If Blood Sugar is less than 60, call MD.If Blood Sugar is 201 to 250, give 2 Units.If Blood Sugar is 251 to 300, give 4 Units.If Blood Sugar is 301 to 350, give 6 Units.If Blood Sugar is 351 to 400, give 8 Units. subcutaneous 1.0 2024 Active Milk of Magnesia (magnesium hydroxide) 400 mg/5 mL suspension (Milk of Magnesia (magnesium hydroxide)) 30 ml, oral, Every 72 Hours - PRN, if no BM in 3 daysDO NOT GIVE TO RENAL PATIENTS--GO TO [facility] ORDERS oral 1.0 72.0 h 2024 Active Normal Saline Flush (sodium chloride 0.9 %) - syringe (Normal Saline Flush (sodium chloride 0.9 %)) 5ml, injection, Every Shift, Flush IV with 5ml NS before and after use(SASH) 1.0 8.0 h 11/03 Active Tylenol (acetaminophe n) 325 mg tablet (Tylenol (acetaminophe n)) 2 tabs/650mg, oral, Every 6 Hours - PRN, as needed for PRN pain/increase d tempMay give rectally if necessary oral 1.0 6.0 h 2024 Active Tubersol (tuberculin ppd) 5 tub. unit /0.1 mL solution (Tubersol (tuberculin ppd)) 0.1ml, intradermal, Once - One Time, Administer the morning after admission intradermal 1.0 11/04 Active amlodipine 5 mg tablet (amlodipine) 5mg, oral, Once A Day oral 1.0 1.0 d 11/04 Active atorvastatin 10 mg tablet (atorvastatin ) 10mg, oral, Once A Day oral 1.0 1.0 d 2024 Active Vital Signs Date Vital Result Comment 11/03/2024 03:30 PM Body Height (8302-2) 71 [in_us] Body Weight (92237-3) 171.2 [lb_av] Body Mass Index (87010-9) 23.87 kg/m2 11/03/2024 01:11 PM Temperature (8310-5) 97.3 [degF] Oxygen Saturation (30352-0) 97 % Respiratory Rate (9279-1) 20 /min Heart Rate (8867-4) 74 /min Blood Pressure Systolic (8480-6) 138 mm[Hg] Blood Pressure Diastolic (8462-4) 90 mm[Hg] 11/03/2024 09:43 PM Temperature (8310-5) 97.4 [degF] Oxygen Saturation (21217-2) 96 % Respiratory Rate (9279-1) 20 /min Heart Rate (8867-4) 67 /min 11/03/2024 09:42 PM Blood Pressure Systolic (8480-6) 1 40 mm[Hg] Blood Pressure Diastolic (8462-4) 80 mm[Hg] 11/04/2024 09:12 AM Blood Pressure Systolic (8480-6) 1 40 mm[Hg] Blood Pressure Diastolic (8462-4) 81 mm[Hg] 11/04/2024 09:40 AM Temperature (8310-5) 98.3 [degF] Oxygen Saturation (21809-5) 92 % Respiratory Rate (9279-1) 15 /min Heart Rate (8867-4) 88 /min Blood Pressure Systolic (8480-6) 110 mm[Hg] Blood Pressure Diastolic (8462-4) 70 mm[Hg] 11/04/2024 05:45 PM Temperature (8310-5) 98.3 [degF] Oxygen Saturation (17741-4) 92 % Respiratory Rate (9279-1) 16 /min Heart Rate (8867-4) 88 /min Blood Pressure Systolic (8480-6) 110 mm[Hg] Blood Pressure Diastolic (8462-4) 70 mm[Hg] 11/04/2024 05:46 PM Body Weight (64634-3) 169.8 [lb_av ] Body Mass Index (65641-3) 23.68 kg/m2 11/04/2024 07:13 PM Temperature (8310-5) 98.5 [degF] Oxygen Saturation (46006-0) 92 % Respiratory Rate (9279-1) 23 /min Heart Rate (8867-4) 105 /min Blood Pressure Systolic (8480-6) 142 mm[Hg] Blood Pressure Diastolic (8462-4) 80 mm[Hg] 11/05/2024 08:40 AM Blood Pressure Systolic (8480-6) 1 30 mm[Hg] Blood Pressure Diastolic (8462-4) 86 mm[Hg] 11/05/2024 12:30 PM Body Weight (84135-2) 172.8 [lb_av ] Body Mass Index (28022-5) 24.1 kg/m2 11/05/2024 06:57 PM Temperature (8310-5) 96.8 [degF] Oxygen Saturation (01542-3) 95 % Respiratory Rate (9279-1) 15 /min Heart Rate (8867-4) 94 /min Blood Pressure Systolic (8480-6) 148 mm[Hg] Blood Pressure Diastolic (8462-4) 82 mm[Hg] 11/06/2024 09:34 AM Blood Pressure Systolic (8480-6) 1 38 mm[Hg] Blood Pressure Diastolic (8462-4) 92 mm[Hg] 11/06/2024 03:07 PM Body Weight (55108-7) 172.6 [lb_av ] Body Mass Index (85979-4) 24.07 kg/m2 11/06/2024 04:15 PM Temperature (8310-5) 97.4 [degF] 11/06/2024 12:57 PM Temperature (8310-5) 97.4 [degF] Oxygen Saturation (86504-0) 92 % Respiratory Rate (9279-1) 18 /min Heart Rate (8867-4) 88 /min 11/06/2024 08:19 PM Temperature (8310-5) 98 [degF] Oxygen Saturation (01578-8) 95 % Respiratory Rate (9279-1) 16 /min Heart Rate (8867-4) 78 /min Blood Pressure Systolic (8480-6) 132 mm[Hg] Blood Pressure Diastolic (8462-4) 80 mm[Hg] 11/07/2024 07:33 AM Blood Pressure Systolic (8480-6) 1 45 mm[Hg] Blood Pressure Diastolic (8462-4) 90 mm[Hg] 11/07/2024 01:07 PM Temperature (8310-5) 98.5 [degF] Oxygen Saturation (19776-0) 98 % Respiratory Rate (9279-1) 19 /min Heart Rate (8867-4) 88 /min Blood Pressure Systolic (8480-6) 145 mm[Hg] Blood Pressure Diastolic (8462-4) 90 mm[Hg] 11/07/2024 07:17 PM Temperature (8310-5) 99 [degF] Oxygen Saturation (66467-8) 94 % Respiratory Rate (9279-1) 22 /min Heart Rate (8867-4) 92 /min Blood Pressure Systolic (8480-6) 138 mm[Hg] Blood Pressure Diastolic (8462-4) 79 mm[Hg] 11/08/2024 06:50 AM Blood Pressure Systolic (8480-6) 1 44 mm[Hg] Blood Pressure Diastolic (8462-4) 74 mm[Hg] 11/08/2024 09:31 AM Temperature (8310-5) 99.5 [degF] Oxygen Saturation (96999-9) 96 % Respiratory Rate (9279-1) 20 /min Heart Rate (8867-4) 87 /min Blood Pressure Systolic (8480-6) 126 mm[Hg] Blood Pressure Diastolic (8462-4) 88 mm[Hg] 11/08/2024 07:34 PM Temperature (8310-5) 98.5 [degF] Oxygen Saturation (85941-9) 98 % Respiratory Rate (9279-1) 24 /min Heart Rate (8867-4) 104 /min Blood Pressure Systolic (8480-6) 102 mm[Hg] Blood Pressure Diastolic (8462-4) 81 mm[Hg] 11/09/2024 07:44 AM Blood Pressure Systolic (8480-6) 1 30 mm[Hg] Blood Pressure Diastolic (8462-4) 74 mm[Hg] 11/09/2024 02:52 PM Temperature (8310-5) 98 [degF] Oxygen Saturation (53324-2) 99 % Respiratory Rate (9279-1) 19 /min Heart Rate (8867-4) 85 /min 11/09/2024 07:31 PM Temperature (8310-5) 98.8 [degF] Oxygen Saturation (31872-7) 93 % Respiratory Rate (9279-1) 24 /min Heart Rate (8867-4) 111 /min Blood Pressure Systolic (8480-6) 155 mm[Hg] Blood Pressure Diastolic (8462-4) 88 mm[Hg] 11/10/2024 08:02 AM Blood Pressure Systolic (8480-6) 1 37 mm[Hg] Blood Pressure Diastolic (8462-4) 94 mm[Hg] 11/10/2024 01:16 PM Temperature (8310-5) 97 [degF] Oxygen Saturation (80826-2) 98 % Respiratory Rate (9279-1) 18 /min Heart Rate (8867-4) 84 /min Social History No smoking Hx information available Encounters Type CPT Code Date Location Provider Indication s encounter report 11/03/2024 01:03 PM Skylar Richardson DO 01 Advance Directives Directive Description Verification Date Supporting Document(s) Resuscitation
== END 2025-02-17 23:39 | disposition home or self-care (01) ==
PROVIDERS: Emergency Provider Emergency Medicine; PCP Internal Medicine
DX: E10.649 Type 1 diabetes mellitus with hypoglycemia without coma (principal); E78.5 Hyperlipidemia, unspecified; I10 Essential (primary) hypertension; Z87.891 Personal history of nicotine dependence; E87.6 Hypokalemia; Z79.4 Long term (current) use of insulin
CPT/HCPCS: 36415; 36416; 80053; 82009; 82962; 83605; 85025; 87040; 99283; J7799; J9999

== ENCOUNTER 2025-06-21 12:03 | Emergency (ER) | payer MEDICARE, MEDICAID, SELFPAY ==
--- OUTSIDE RECORDS SUMMARY | 2024-05-03 03:00 | XMS_ITS ---
Author Organization [facility] Address [address] [place] [address] Care Team Providers Care Containers Sales Representative Name Role Phone Migration, Provider Unavailable Unavailable REASON FOR VISIT EMR-Ba Encounters Encounter Location Date Provider Diagnosis Migrated_Facility 0 0 05/03/2024 Provider Migration Plan Of Treatment No Information Progress Notes * Zackary ENRIQUEZDOB: 9 (54 yo M)Acc No.[id number]:05/03/2024 Patient: Gonzalez Zackary HASSAN :1970 A ge:53 Y S ex:Male [address] [place] [address] Subjective: * Chief Complaints: * E MR-Ba * * Date:
--- OUTSIDE RECORDS SUMMARY | 2024-05-04 03:00 | XMS_ITS ---
Author Organization [facility] Address [address] [place] [address] Care Team Providers Care Intake Man Name Role Phone Migration, Provider Unavailable Unavailable REASON FOR VISIT EMR-Ba Encounters Encounter Location Date Provider Diagnosis Migrated_Facility 0 0 05/04/2024 Provider Migration Plan Of Treatment No Information Progress Notes * Zackary ENRIQUEZDOB: [birth year] (54 yo M)Acc No.[id number]:05/04/2024 Patient: Gonzalez Zackary HASSAN :1970 A ge:53 Y S ex:Male Address[address] [place], [place] [address] [place] [address] Subjective: * Chief Complaints: * E MR-Ba * * Date:
[2025-06-21 12:06] VITALS: BP 175/108; PULSE 73; RESP 18; TEMP 36.5; O2SAT 98; BMI 22.3
--- NOTE | 2025-06-21 12:11 | XRR_ITS ---
PROCEDURE INFORMATION: Exam: XR Lumbosacral Spine Exam date and time: 06/21/2025 12:16 PM Age: 54 years old Clinical indication: Pain; Lumbago with sciatica; Left; Additional info: Fall TECHNIQUE: Imaging protocol: Radiologic exam of the lumbosacral spine. Views: 2 or 3 views. COMPARISON: CR XR lumbar spine 2-3V* [id number] 01/15/2024 10:40 AM FINDINGS: Bones/joints: There is degenerative disc disease along with vertebral body spurring noted at the L5-S1 level(s). No fracture or subluxation noted. Soft tissues: Unremarkable. XR/XR lumbar spine 2-3V* [id number] IMPRESSION: No acute findings.
--- OUTSIDE RECORDS SUMMARY | 2025-06-21 12:11 | XMS_ITS | Patient Health Record ---
Author Organization [facility] Address [address] [place] [address] Support Name Relationship Address Phone Zackary Enriquez Guarantor Unknown [phone] Reason For Referral No Information Plan Of Treatment No Information
--- OUTSIDE RECORDS SUMMARY | 2025-06-21 12:11 | XMS_ITS | Clinical Summary ---
Author Organization [facility] Address [address] [place]: Epic Prelude ADT [place] [address] Care Team Providers Care Rod Buster Name Role Phone Eugenie Jay MD Primary Care Provider [phone] Allergies Active Allergy Reactions Criticality Noted Date Comments Fentanyl Nausea and Vomiting Low 01/03/2017 Hydrocodone Nausea and Vomiting High 08/23/2012 Hydromorphone (Pf) Nausea and Vomiting Low 01/04/20 17 [place] Other (See Comments) 08/27/2017 Can't remember. It happened as a child. Medications atorvastatin (LIPITOR) 5 mg tablet Take 5 mg by mouth daily. 06/05/20 18 Active glucagon human recombinant (glucagon emergency) 1 mg Recon Soln INJECT 1 MG INTRAMUSCULARLY DIRECTED 3 02/13/20 19 Active insulin degludec (TRESIBA) 200 unit/mL pen syringe Inject 70 Units by subcutaneous injection daily with breakfast. 08/27/19 18 Active insulin aspart U-100 (NovoLOG) 100 unit/mL pen syringe Inject 15-30 Units by subcutaneous injection 3 times daily with meals. 15 mL 1 11/14/19 15 Active aspirin (RONEL CHEWABLE) 81 mg Tablet, Chewable Take 81 mg by mouth daily. 01/04/20 17 Active lisinopril-hydr oCHLOROthiazide (ZESTORETIC) 20-25 mg tablet Take 1 Tablet by mouth daily. 06/21/20 16 Active amLODIPine (NORVASC) 5 mg tablet Take 5 mg by mouth daily. 09/01/19 16 Active Blood-Glucose Sensor (Dexcom G6 Sensor) Device Dexcom G6 Tie Up Worker 08/17/19 21 Active DAPTOmycin (CUBICIN) 500 mg Recon Soln vial Inject by intravenous injection every 24 hours. 11/05/19 25 Active insulin lispro (HumaLOG,ADMELO G) 100 unit/mL pen syringe Inject by subcutaneous injection 4 times daily with meals and at bedtime. 11/04/19 25 Active Laxative, bisacodyl, 5 mg Delayed Release tablet Take 5 mg by mouth 1 time daily as needed for Constipation. 11/04/19 Active 0.9 % sodium chloride (sodium chloride 0.9 %) Parenteral Solution Inject by intravenous injection. 11/05/19 Active BD PosiFlush Normal Saline 0.9 Syringe 11/05/19 25 Active Active Problems Problem Noted Date Diagnosed Date Retained orthopedic hardware 10/21/2024 Infection and inflammatory r eaction due to internal orthopedic device, implant, and graft 10/21/2024 Osteomyelitis of right tibia 10/20/2024 Pseudophakia of left eye 03/04/2019 Post mastoidectomy sequelae, left 07/18/2018 Tympanic membrane retraction, right 07/11/2017 Chronic otitis media with effusion 11/19/2015 Mixed hearing loss of left ear 07/21/2015 Ear ossicle partial loss or necrosis 07/21/2015 Tobacco use 07/21/2015 DM (diabetes mellitus), type 2 07/11/2012 Presbyopia 03/18/2012 Cortical senile cataract 03/18/2012 Hypercholesteremia 02/27/2012 Hypertension 02/27/2012 Resolved Problems Problem Noted Date Diagnosed Date Resolved Date Cholesteatoma of left ear 07/21/2015 Aural polyp 07/21/2015 06/21/2016 Cellulitis of right foot - w ith concern for osteo 04/07/2012 04/10/2012 Diabetes mellitus type II, uncontrolled 02/27/2012 04/10/2012 MRSA (methicillin resistant staph aureus) culture positive 02/14/2012 04/09/2012 Encounters Date Type Department Care Team Description 06/09/2025 External Device Data [facility] ABSTRACTION Provider, Abstract 06/09/2025 External Device Data [facility] ABSTRACTION Provider, Abstract 05/26/2025 External Device Data [facility] ABSTRACTION Provider, Abstract 05/12/2025 External Device Data [facility] ABSTRACTION Provider, Abstract 04/21/2025 External Device Data [facility] ABSTRACTION Provider, Abstract 04/21/2025 External Device Data [facility] ABSTRACTION Provider, Abstract 04/21/2025 Abstract [facility] [address] [place] [address] Gf Amb, Otolaryngology Physician Bilateral hearing loss, unspecified hearing loss type (Primary Dx) 03/24/2025 External Device Data [facility] ABSTRACTION Provider, Abstract from Last 3 Months Immunizations Immunization Administration Dates Next Due (ADACEL/BOOSTRIX)(10 YR UP) TDAP VACCINE, 0.5ML, IM 04/17/2011 (PNEUMOVAX 23)(50 YRS UP) PN EUMOCOCCAL POLYSACCHARIDE (PPV23) 0.5 ML, IM 06/16/2009 (TDVAX)(7 YRS UP) TETANUS AN D DIPHTHERIA TOXOIDS, ADSORBED (2 LF OF TETANUS TOXOID AND 2 LF OF DIPHTHERIA TOXOID), 0.5ML (PF), IM 06/29/2011 Influenza Seasonal Unspecifi ed Formulation IM 04/26/2017,06/04/2016,06/04/2015 Influenza Vaccine Split 3+ Yrs IM 07/11/2012 Family History Medical History Relation Name Comments Cancer Father Cataract Maternal Grandmother Cancer Mother Amblyopia Neg Hx Blindness Neg Hx Detachment/Tears Neg Hx Glaucoma Neg Hx Macular Degen Neg Hx Strabismus Neg Hx Relation Name Status Comments Father Maternal Grandmother Mother Social History Tobacco Use Types Packs/Day Years Used Date Smoking Tobacco: Former Cigarettes 0.8 Q uit: 02/20/2018 Smokeless Tobacco: Never Tobacco Cessation:Counseling Given: Not Answered Alcohol Use Standard Drinks/Week Comments No 0 (1 standard drink = 0.6 oz pur e alcohol) Feeling Safe Answer Date Recorded Are you in a relationship wi th someone who hurts you emotionally and/or physically? No 10/20/2024 Food Insecurity Answer Date Recorded Patient needs follow up regardin 10/29/2024 Transportation Needs Answer Date Record ed Patient needs follow up regardin 10/29/2024 Housing Stability Answer Date Recorded Social/Environmental Concerns No concerns Utility Needs Answer Date Recorded Patient needs follow up regardin 10/29/2024 Sex and Gender Information Value Date Recorded Sex Assigned at Not on file Legal Sex Male 3:59 PM [employer] Gender Identity Not on file Sexual Orientation Not on file Last Filed Vital Signs Vital Sign Reading Time Taken Comments Blood Pressure 150/90 11/06/2024 1:35 PM CDT Pulse 96 10/28/2024 12:27 PM CDT Temperature 36 C (96.8 F) 10/28/2024 12:27 PM CDT Respiratory Rate 16 10/28/2024 12:27 PM CDT Oxygen Saturation 97% 10/28/2024 12:27 PM CDT Inhaled Oxygen Concentration - - Weight 78 kg (172 lb) 11/25/2024 10:51 AM CDT Height 180.3 cm (5' 11 ) 11/25/2024 10:51 AM CDT Body Mass Index 23.99 11/25/2024 10:51 AM CDT Plan of Treatment Health Maintenance Due Date Last Done Comments DIABETES MICROALBUMIN ANNUAL SCREEN 1986 LDL CHOLESTEROL ANNUAL 1986 HEPATITIS B VACCINES (1 of 3 - 19+ 3-dose series) 1987 DIABETES ANNUAL FOOT EXAM 02/26/2013 02/27/2012 COLORECTAL SCREENING 2013 Colorectal Cancer Screening 2013 FIT-DNA Q 3 years 2013 FIT/FOBT Q 1 year 2013 Flex Sig/CT Colonography Q 5 years 2013 ZOSTER VACCINE (1 of 2) 2018 DIABETES ANNUAL RETINAL EXAM 02/25/2020, 02/24/2019, 02/24/2019, Additional history exists DTAP/TDAP/TD VACCINES (3 - T d or Tdap) 06/29/2021 06/29/2011, 04/17/2011 INFLUENZA VACCINE (#1) 2025 7, 06/04/2016, 06/04/2015, Additional history exists DIABETES HBA1C Q 6 MONTHS 05/29/20252024, 10/08/2024, 11/06/2014 Medical Devices Implanted Type Area School Bus Mechanic Device Identifier Shelf Expiration Date Model / Serial / Lot Tube Vent Causey Modified-T 1.32x4.80mm [id number] - Sna Implanted:Qty: 1 on 08/08/2016 by Jeffrey Krishna DO Ear Right: Ear [employer] 06/05/2026 [id number] / STEVAN / [id number] Tube Vent Causey Modified-T 1.32x4.80mm [id number] - Sna Implanted:Qty: 1 on 08/28/2017 by Jeffrey Krishna DO Ear Right: Ear [employer] 05/25/2027 [id number] / NA / [id number] Imp Ponto Bhx 4mm Abtmnt-12mm [id number] - [id number] Implanted:Qty: 1 on 07/18/2018 by Jeffrey Krishna DO Ear Left: Ear OTICON GIANCARLO 01/04/2023 [id number] / / [id number] Description:PER INVOICE/LAWS ON NUMBER [id number] MRI Conditional Tube Vent Mod T-Tube Slcn 1.32x4.80mm 2pk [id number] - [id number] Implanted:Qty: 1 on 11/14/2022 by Jeffrey Krishna DO at [facility] Ear Right: Ear OLYMPUS 05/26/2032 [id number] / / [id number] Lens Io Tecnis 1pc 26.0 [id number] - [id number] Implanted:Qty: 1 on 02/18/2019 by Galileo Damon MD Eye Right: Eye [employer] 08/14/2022 [id number] / [id number] / N/A Lens Io Tecnis 1pc 25.5 [id number] - [id number] Implanted:Qty: 1 on 03/04/2019 by Galileo Damon MD Eye Left: Eye [employer] 08/07/2022 [id number] / [id number] / Hemostatic Gelfoam Spng 12-7mm [id number] - Csc - [id number] Implanted:Qty: 1 on 09/28/2015 by Jeffrey Krishna DO Hemostatic Left: Ear PFIZER- PHARM 08/08/2017 [id number] / / [id number] Description:used in left ear for packing not an implant, placed in implant log due to [facility] policy Hemostatic Gelfoam Spng 12-7mm [id number] - Csc - Sna Implanted:Qty: 1 on 08/08/2016 by Jeffrey Krishna DO Hemostatic Left: Ear PFIZER- PHARM 12/06/2018 [id number] / NA / [id number] Description:soaked in ciprof loxacin 0.3% ophthalmic solution lot #[id number] expiration 06/2017 Hemostatic Gelfoam Spng 12-7mm [id number] - Csc - Sna Implanted:Qty: 1 on 08/28/2017 by Jeffrey Krishna DO Hemostatic Right: Ear PFI[employer]ER- PHARM 12/07/2019 [id number] / NA / [id number] Description:mixed with 0.3%c iprofloxacin ophthalmic solution expiration 09/24 lot#[id number] Hemostatic Surgifoam Sz12-7 1971 - [id number] Implanted:Qty: 1 on 11/14/2022 by Jeffrey Krishna DO at [facility] Hemostatic Right: Ear [employer] 05/09/20261971 / / [id number] Explanted Type Area School Bus Mechanic Device Identifier Shelf Expiration Date Model / Serial / Lot Pros Drnhffr Ftplt Shoe 636-080 - [id number] Implanted:Qty: 1 on 09/28/2015 by Jeffrey Krishna DO Explanted:Qty: 1 on 08/08/2016 Ear Left: [facility] 03/30/2020 [id number] / / [id number] Pros [employer] Ti Adj Length 600 - [id number] Implanted:Qty: 1 on 09/28/2015 by Jeffrey Krishna DO Explanted:Qty: 1 on 08/08/2016 by Jeffrey Krishna DO Ear Left: [facility] 04/29/2020 600 / / [id number] Tube Vent Tricia Collar 1.27mm 510-133c - [id number] Implanted:Qty: 1 on 09/28/2015 by Jeffrey Krishna DO Explanted:Qty: 1 on 08/08/2016 Ear Right: Ear [facility] 11/05/2018 [id number] / / [id number] Plate Explanted:Qty: 1 on 10/20/2024 by Ayaz Gomez MD at [facility] Plate Right: Tibia NA / NA / NA Prcr Sound Ponto 3 Lt Mocca Brn Explanted:Qty: 1 on 07/18/2018 Left: Ear [id number] / / Description:not an Implant. PER INVOICE Repair Hear Aid 12 M Wrnty Explanted:Qty: 1 on 07/18/2018 Left: Ear [id number] / / Description:not an implant. PER INVOICE NO CHARGE 7 Screws Explanted:Qty: 1 on 10/20/2024 at [facility] Right: Tibia / NA / NA Procedures Procedure Name Priority Date/Time Associated Diagnosis Comments HEMOGLOBIN A1C Routine 11/26/2024 from Last 3 Months or Most Recently Relevant to Health Maintenance Results * HEMOGLOBIN A1C (11/26/2024) ABSTRACTED HGB A1C 8.9 % Blood 11/26/2024 us Abstract Provider CHEMISTRY ORDERABLES Final Res ult from Last 3 Months or Most Recently Relevant to Health Maintenance Insurance [place] [address] [place] [place] [address] DUAL COMPLETE HMO [facility] [id number] * Guarantor: IFEANYI WRIGHT Account Type Relation to Patient Date of Phone Billing Address Personal/Family [address] [place] [address] RX [facility] Medicare Part D RX INFOCROSSING Medicaid Advance Directives For more information, please contact: [phone] Documents on File Type Date Recorded Patient 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 Expl anation Advance Directive POA 09/28/2015 10:51 AM Advance Directive POA * Full Code (Latest Code Status on File) Date Activated Date Inactivated Comments 10/23/2024 2:46 PM 10/28/2024 5:00 PM * Full Code Date Activated Date Inactivated Comments 10/20/2024 2:17 PM 10/23/2024 2:46 PM * Full Code Date Activated Date Inactivated Comments 11/14/2022 11:10 AM 11/14/2022 2:46 PM * Full Code Date Activated Date Inactivated Comments 11/14/2022 8:35 AM 11/14/2022 11:10 AM Care Teams Rod Buster Relationship Specialty Start Date End Date Eugenie Jay MD [address] [place] [address] PCP - General Internal Medicine 08/14/17
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
[2025-06-21] MEDS: morphine 4 mg/mL SDV 1 mL 8 MG IM (12:47)
[2025-06-21 13:22] VITALS: BP 173/112; PULSE 97; O2SAT 97
== END 2025-06-21 13:24 | disposition home or self-care (01) ==
PROVIDERS: Emergency Provider Emergency Medicine; PCP Internal Medicine
DX: M54.50 Low back pain, unspecified (principal)
CPT/HCPCS: 72100; 96372; 99284; J1885; J2270; J9999